=== PATIENT | male | born 1970 | race Caucasian/White ===

== ENCOUNTER 2024-06-03 09:16 | Inpatient (IN) | payer MEDICAID, SELFPAY ==
[2024-06-03] VITALS (21 sets, daily range): BP systolic 104–153; BP diastolic 67–124; PULSE 128–138; RESP 15–27; TEMP 35.2–37.6; O2SAT 91–100; BMI 31.7
--- NOTE | ~2024-06-03 | US_ITS ---
EXAMINATION: US venous doppler [facility] DATE: 06/03/2024 21:18 INDICATION: Lower limb swelling. TECHNIQUE: Grayscale ultrasound images without and with compression and Doppler ultrasound images of the bilateral lower extremity veins were obtained. COMPARISON: None. FINDINGS: The visualized portions of right common femoral vein, profunda (deep) femoral vein, femoral vein, pop liteal vein, peroneal veins, posterior tibial veins, and greater saphenous vein outflow are patent. The visualized portions of left common femoral vein, profunda femoral vein, femoral vein, popliteal v ein, peroneal veins, posterior tibial veins, and greater saphenous vein outflow are patent. IMPRESSION: 1. No deep venous thrombosis. Reviewed, dictated and finalized at location A. PENDENT LIVING INSTRUCTOR
--- NOTE | ~2024-06-03 | CT_ITS ---
EXAMINATION: CTA chest PE protocol DATE: 06/03/2024 20:53 INDICATION: Shortness of breath. Tachycardia. Edema. TECHNIQUE: Computed tomography angiography (CTA) of the chest was performed with 100 mL Omnipaque-350 intravenous contrast timed to evaluate the pulmonary arteries. Coronal maximum intensity projection 3D-reconstructions were created by the technologist. Automated exposure control and iterative reconst ruction technique were employed. The dose-length product was 694.14 mGy-cm. COMPARISON: Chest 06/03/2024 FINDINGS: There are small right and trace left pleural effusions. A calcified right lung nodule and c alcified right hilar and mediastinal lymph nodes are consistent with old granulomatous disease. There are mild bibasilar opacities in right upper lobe. There is mild dependent atelectasis bilaterally. C ardiomegaly is noted. No pericardial effusion. There are coronary artery calcifications. There is no pulmonary embolus. The liver demonstrates surface nodularity, consistent with cirrhosis. There is a p eriumbilical portacaval shunt. There is mild cervical and thoracic spondylosis. There is mild chronic anterior wedging of multiple thoracic vertebral bodies. IMPRESSION: 1. No pulmonary embolus. 2. Mild groundglass opacities in right lung upper lobe, consistent with mild pulmonary edema versus p neumonia. 3. Small right pleural effusion. 4. Cirrhosis of the liver with portal venous hypertension. Reviewed, dictated and finalized at location A. INE PROGRAMMER IMPRESSION: 1. No pulmonary embolus. 2. Mild groundglass opacities in right lung upper lobe, consistent with mild pu lmonary edema versus pneumonia. 3. Small right pleural effusion. 4. Cirrhosis of the liver with portal venous hypertension.
--- NOTE | ~2024-06-03 | XR_ITS ---
Clinical Indication: Shortness of breath PA and lateral views of the chest: Comparison: 08/26/2013 Findings: The lungs are clear, without evidence of focal consolidation or pleural effusion. Cardiome diastinal silhouette is unremarkable. Bones and soft tissues are unremarkable. Impression: Clear lungs. Reviewed, dictated and finalized at location . IC HOUSING INTERVIEWER Impression: Clear lungs.
--- NOTE | ~2024-06-03 | US_ITS ---
US renal BI 06/04/2024 08:00 Procedure: Realtime transabdominal ultrasound of the kidneys and bladder. Indication: Renal failure Comparison: No prior studies for comparison. Findings: Right renal echotexture is normal without hydronephrosis, contour deforming mass or renal c alculus. Right kidney measures 11.2 cm. The left kidney is surgically absent. The bladder is unremark able although not well distended. Right ureteral jet visualized. Bladder within normal limits. Impression: 1: Unremarkable renal ultrasound status post left nephrectomy. No stones, masses or hydronephrosis. Reviewed, dictated and finalized at location B. MER OPERATOR THREE KNIFE Impression: 1: Unremarkable renal ultrasound status post left nephrectomy. No stones, mass es or hydronephrosis.
--- NOTE | ~2024-06-03 | US_ITS ---
EXAMINATION: US abdomen limited DATE: 06/03/2024 14:00 INDICATION: Abnormal liver function tests. TECHNIQUE: Multiple grayscale and Doppler ultrasound images of the abdomen were obtained. COMPARISON: None FINDINGS: The visualized portions of the head, body, and tail of the pancreas are normal. The liver i s normal without focal lesion. There is antegrade flow in main portal vein. The gallbladder is normal in size. No gallstones. Gallbladder wall thickening is noted. There is no sonographic Todd's sign. The common duct is normal and measures 4 mm. IMPRESSION: 1. Gallbladder wall thickening, which may be seen with interstitial edema or chronic liver disease. Reviewed, dictated and finalized at location A. JOINER IMPRESSION: 1. Gallbladder wall thickening, which may be seen with interstitial edema or ch ronic liver disease.
--- NOTE | 2024-06-03 09:39 | ECG_ITS ---
Test Date: 2024-06-03 10:00:56 Measurements Intervals [place] Rate: 130 P: 0 DE: 0 QRS: 53 QRSD: 74 T: 44 QT: 331 QTc: 487 Interpretive Statements ATRIAL FLUTTER/TACHYCARDIA WITH RAPID VENTRICULAR RESPONSE DELAYED PRECORDIAL R/S TRANSITION BORDERLINE ST-T WAVE ABNORMALITY- INF/LAT LEADS BASELINE ARTIFACT- I, II, III, AVR, AVL, AVF ABNORMAL ECG No previous ECG available for comparison Electronically Signed On 06-03-2024 10:04:11 PROCESS TECHNICIAN by Salvador Maharaj D.O.
--- NOTE | 2024-06-03 09:41 | ED.GENADULT ---
HPI - General Adult General Chief complaint: Environmental Exposure <Sarah Bacon PA-C - Last Filed: 06/03/24 16:52> Stated complaint: SOB <Sarah Bacon PA-C - Last Filed: 06/03/24 16:52> Time Seen by Provider: 06/03/24 09:25 <Sarah Bacon PA-C - Last Filed: 06/03/24 16:52> Source: patient and EMS <Sarah Bacon PA-C - Last Filed: 06/03/24 16:52> Mode of arrival: EMS <ODILIA Rai Last Filed: 06/03/24 16:52> Limitations: no limitations <Sarah Bacon PA-C - Last Filed: 06/03/24 16:52> History of Present Illness HPI narrative: This is a 54-year-old male that presents to the emergency department for cold exposure. Patient slept in his car last night. He ran out of gas at some point in the night. It is currently 12 degrees outside. Patient reports pain/swelling in his lower extremities and that they feel very cold. He also reports feeling short of breath. Reports he drinks a 1/5 of whiskey every 2 days. He does not report he has had withdrawals before. Reports he uses methamphetamines. <Sarah Bacon PA-C - Last Filed: 06/03/24 16:52> Related Data Allergies/adverse reactions: Allergies Allergy/AdvReac Type Severity Reaction Status Date / Time aspirin Allergy Intermediate Rash Verified 06/03/24 10:48 <Sarah Bacon PA-C - Last Filed: 06/03/24 16:52> Review of Systems Review of Systems: CONSTITUTIONAL: Denies fever CARDIOVASCULAR: Reports chest pain, and edema. RESPIRATORY: Reports dyspnea. <ODILIA Rai Last Filed: 06/03/24 16:52> All systems reviewed & are unremarkable except as noted in HPI and below <ODILIA Rai Last Filed: 06/03/24 16:52> [facility] Past Medical History Medical History: Medical History Coronary artery disease Amphetamine abuse Alcohol abuse <ODILIA Rai Last Filed: 06/03/24 16:52> Social History Social History: Social History (Updated 06/03/24 @ 14:40 by Vonda Allen PA-C) Social History: Surrogate medical decision maker: Code status: Full code. Smoking status: Current every day smoker Alcohol intake: current Substance use: current Substance use type: amphetamines <Sarah Bacon PA-C - Last Filed: 06/03/24 16:52> Exam Narrative: GENERAL: Disheveled, well-nourished, and in no acute distress. HEAD: Normocephalic, atraumatic. EYES: PERRLA and EOMI. ENT: Nares clear, no rhinorrhea or epistaxis. Mucous membranes dry. Oropharynx without tonsillar hypertrophy exudate or other lesions. NECK: Supple. No adenopathy or masses. CHEST: Clear to auscultation. No respiratory distress. No wheezes rales or rhonchi HEART: Tachycardic, regular rhythm. No murmur heard. Normal peripheral pulses. ABDOMEN: Soft, nontender, nondistended, normal active bowel sounds. EXTREMITIES: Normal range of motion. Mild non-pitting lower extremity edema. DP pulses obtained via doppler SKIN: Warm, dry, no rash. NEURO: No focal deficits. Alert and oriented x3. PSYCH: Normal mood and affect <Sarah Bacon PA-C - Last Filed: 06/03/24 16:52> Course Course Emergency Course: patient updated on his workup and need for admission <Sarah Bacon PA-C - Last Filed: 06/03/24 16:52> [employer]TAIN STITCHER/PA Physician Supervision This visit was performed by both a physician and an APC. I performed all aspects of the MDM as documented. <Steve Li MD - Last Filed: 06/03/24 19:18> Consultations Consultation #1: Spoke with hospitalist about patient and workup who accepts admission <Sarah Bacon PA-C - Last Filed: 06/03/24 16:52> Date: 06/03/24 <Sarah Bacon PA-C - Last Filed: 06/03/24 16:52> Vital Signs Vital signs: Vital Signs Temperature 95.4 F L 06/03/24 09:26 Pulse Rate 128 H 06/03/24 09:26 Respiratory Rate 24 H 06/03/24 09:26 Blood Pressure 128/108 H 06/03/24 09:26 Pulse Oximetry 98 06/03/24 09:26 Oxygen Delivery Room Air 06/03/24 09:26 Temperature 98.2 F 06/03/24 19:00 Pulse Rate 137 H 06/03/24 19:00 Respiratory Rate 20 06/03/24 19:00 Blood Pressure 113/69 06/03/24 19:00 Pulse Oximetry 98 06/03/24 19:00 Oxygen Delivery Room Air 06/03/24 09:26 <Sarah Bacon PA-C - Last Filed: 06/03/24 16:52> Vital Signs Temperature 95.4 F L 06/03/24 09:26 Pulse Rate 128 H 06/03/24 09:26 Respiratory Rate 24 H 06/03/24 09:26 Blood Pressure 128/108 H 06/03/24 09:26 Pulse Oximetry 98 06/03/24 09:26 Oxygen Delivery Room Air 06/03/24 09:26 Temperature 98.2 F 06/03/24 19:00 Pulse Rate 137 H 06/03/24 19:00 Respiratory Rate 20 06/03/24 19:00 Blood Pressure 113/69 06/03/24 19:00 Pulse Oximetry 98 06/03/24 19:00 Oxygen Delivery Room Air 06/03/24 09:26 <Steve Li MD - Last Filed: 06/03/24 19:18> Medical Decision Making MDM Narrative Medical decision making narrative: Patient presents to the ER for cold exposure. Patient tachycardic, hypertensive upon arrival. Initial temperature 95.4. Patient placed on yanira hugger and given warmed IV fluids. Temperature has normalized. CBC with leukocytosis to 13. Metabolic panel with evidence of dehydration. Urine without evidence of infection. Patient's drug screen is positive for amphetamines. Alcohol level is negative. He does report drinking daily. Reports he has not had withdrawals in the past. Patient noted to have abnormal urethral discharge on insertion of eric catheter. Trichomonas is positive. This was treated. Chlamydia and gonorrhea are negative. Chest x-ray without acute cardiopulmonary abnormality. patient updated on his workup and need for admission. Spoke with hospitalist about patient and workup who accepts admission <Sarah Bacon PA-C - Last Filed: 06/03/24 16:52> Differential Diagnosis Differential Diagnosis: Dehydration, rhabdomyolysis, drug abuse, alcohol abuse, alcohol withdrawal, acute kidney failure, urinary tract infection <Sarah Bacon PA-C - Last Filed: 06/03/24 16:52> Vital Signs Vital Signs: Vital Signs Temperature 95.4 F L 06/03/24 09:26 Pulse Rate 128 H 06/03/24 09:26 Respiratory Rate 24 H 06/03/24 09:26 Blood Pressure 128/108 H 06/03/24 09:26 Pulse Oximetry 98 06/03/24 09:26 Oxygen Delivery Room Air 06/03/24 09:26 Temperature 98.2 F 06/03/24 19:00 Pulse Rate 137 H 06/03/24 19:00 Respiratory Rate 20 06/03/24 19:00 Blood Pressure 113/69 06/03/24 19:00 Pulse Oximetry 98 06/03/24 19:00 Oxygen Delivery Room Air 06/03/24 09:26 <Sarah Bacon PA-C - Last Filed: 06/03/24 16:52> Vital Signs Temperature 95.4 F L 06/03/24 09:26 Pulse Rate 128 H 06/03/24 09:26 Respiratory Rate 24 H 06/03/24 09:26 Blood Pressure 128/108 H 06/03/24 09:26 Pulse Oximetry 98 06/03/24 09:26 Oxygen Delivery Room Air 06/03/24 09:26 Temperature 98.2 F 06/03/24 19:00 Pulse Rate 137 H 06/03/24 19:00 Respiratory Rate 20 06/03/24 19:00 Blood Pressure 113/69 06/03/24 19:00 Pulse Oximetry 98 06/03/24 19:00 Oxygen Delivery Room Air 06/03/24 09:26 <Steve Li MD - Last Filed: 06/03/24 19:18> Lab Data Lab results reviewed: Yes I reviewed the patient's lab results. <ODILIA Rai Last Filed: 06/03/24 16:52> Result diagrams: 06/03/24 14:18 06/03/24 14:17 <Sarah Bacon PA-C - Last Filed: 06/03/24 16:52> Labs: Lab Results 06/03/24 06/03/24 Range/Units 09:40 10:02 WBC 13.3 H (4.5-10.0) K/mm3 RBC 4.55 L (4.6-6.20) M/mm3 Hgb 14.8 (14.0-18.0) g/dL Hct 47.0 (42.0-52.0) % MCV 103.3 H (80-100) fl MCH 32.5 (26-34) pg MCHC 31.5 L (32-36) g/dl RDW 14.6 H (11.5-14.5) % Plt Count 278 (150-375) k/mm3 MPV 9.7 (7.4-10.4) fl Immature Gran % (Auto) 0.4 (0-0.5) % Neut % (Auto) 85.3 H (45.5-73.1) % Lymph % (Auto) 6.3 L (18.3-44.2) % Wallace % (Auto) 7.5 (2.6-8.5) % Eos % (Auto) 0.0 (0-4.4) % Baso % (Auto) 0.5 (0.2-1.2) % Lymph # (Auto) 0.83 L (0.9-3.2) K/mm3 Wallace # (Auto) 1.0 H (0.1-0.6) K/mm3 Eos # (Auto) 0.0 (0-0.3) K/mm3 Baso # (Auto) 0.1 (0.0-0.1) K/mm3 Abs Immat Gran (auto) 0.05 H (0.00-0.031) K/mm3 Absolute Neuts (auto) 11.3 H (1.3-6.7) K/mm3 Absolute Nucleated RBC 0.000 (0.0-0.012) K/mm3 Nucleated RBC % 0.0 (0.0-0.2) % PT 17.8 H (11.1-14.7) Seconds INR 1.4 APTT 38.1 H (22.3-36.8) Seconds Sodium 136 L (137-145) mmol/L Potassium 4.7 (3.4-5.0) mmol/L Chloride 104 (98-107) mmol/L Carbon Dioxide 12 L (22-30) mmol/L Anion Gap 20 H (4-12) mmol/L BUN 33 H (9-20) mg/dL Creatinine 1.52 H (0.7-1.3) mg/dL Estim Creat Clear Calc 56 ml/min Estimated GFR 48 L (59 - ) Glucose 70 (65-110) mg/dL Lactic Acid 6.0 H* (0.7-2.0) mmol/L Calcium 9.4 (8.4-10.2) mg/dL Total Bilirubin 3.4 H (0.2-1.3) mg/dL AST 62 H (17-59) U/L ALT 125 H (6-50) U/L Alkaline Phosphatase 112 (38-126) U/L Total Creatine Kinase 252 H (55-170) U/L Troponin I 0.015 (0.000-0.034) ng/mL NT-Pro-B Natriuret Pep 5230 H (19.9-100) pg/mL Total Protein 8.0 (6.3-8.2) g/dL Albumin 4.4 (3.5-5.1) g/dL Urine Color Dark yellow (Yellow) Urine Appearance Clear (Clear) Urine pH 5.0 (5.0-9.0) Ur Specific Equality 1.021 (1.001-1.035) Urine Protein 2+ H (Negative) mg/dL Urine Glucose (UA) Negative (Negative) mg/dL Urine Ketones Trace H (Negative) mg/dL Ur Blood (Man) Negative (Negative) Urine Nitrate Negative (Negative) Urine Bilirubin 1+ H (Negative) Urine Urobilinogen 1.0 (<2.0) mg/dL Leukocyte Esterase Rfl Negative (Negative) CHAN/UL Urine RBC 0-2 (0-2) /hpf Urine WBC 6-10 H (0-3) /hpf Ur Squamous Epith Cells None seen (Few) /hpf Urine Bacteria None seen /hpf Urine Casts >20 Urine Opiates Screen Negative (Negative) Urine Methadone Screen Negative (Negative) Ur Barbiturates Screen Negative (Negative) Ur Phencyclidine Scrn Negative (Negative) Ur Amphetamine Screen Positive A (Negative) U Benzodiazepines Scrn Negative (Negative) Urine Cocaine Screen Negative (Negative) U Cannabinoids Screen Negative (Negative) Ethyl Alcohol < 10 (<10) mg/dL C. trachomatis (PCR) Not detected (NOT DETECTE) N. gonorrhoeae (PCR) Not detected (NOT DETECTE) T. vaginalis (PCR) Detected A (NOT DETECTE) <Sarah Bacon PA-C - Last Filed: 06/03/24 16:52> Lab Results 06/03/24 06/03/24 Range/Units 09:40 10:02 WBC 13.3 H (4.5-10.0) K/mm3 RBC 4.55 L (4.6-6.20) M/mm3 Hgb 14.8 (14.0-18.0) g/dL Hct 47.0 (42.0-52.0) % MCV 103.3 H (80-100) fl MCH 32.5 (26-34) pg MCHC 31.5 L (32-36) g/dl RDW 14.6 H (11.5-14.5) % Plt Count 278 (150-375) k/mm3 MPV 9.7 (7.4-10.4) fl Immature Gran % (Auto) 0.4 (0-0.5) % Neut % (Auto) 85.3 H (45.5-73.1) % Lymph % (Auto) 6.3 L (18.3-44.2) % Wallace % (Auto) 7.5 (2.6-8.5) % Eos % (Auto) 0.0 (0-4.4) % Baso % (Auto) 0.5 (0.2-1.2) % Lymph # (Auto) 0.83 L (0.9-3.2) K/mm3 Wallace # (Auto) 1.0 H (0.1-0.6) K/mm3 Eos # (Auto) 0.0 (0-0.3) K/mm3 Baso # (Auto) 0.1 (0.0-0.1) K/mm3 Abs Immat Gran (auto) 0.05 H (0.00-0.031) K/mm3 Absolute Neuts (auto) 11.3 H (1.3-6.7) K/mm3 Absolute Nucleated RBC 0.000 (0.0-0.012) K/mm3 Nucleated RBC % 0.0 (0.0-0.2) % PT 17.8 H (11.1-14.7) Seconds INR 1.4 APTT 38.1 H (22.3-36.8) Seconds Sodium 136 L (137-145) mmol/L Potassium 4.7 (3.4-5.0) mmol/L Chloride 104 (98-107) mmol/L Carbon Dioxide 12 L (22-30) mmol/L Anion Gap 20 H (4-12) mmol/L BUN 33 H (9-20) mg/dL Creatinine 1.52 H (0.7-1.3) mg/dL Estim Creat Clear Calc 56 ml/min Estimated GFR 48 L (59 - ) Glucose 70 (65-110) mg/dL Lactic Acid 6.0 H* (0.7-2.0) mmol/L Calcium 9.4 (8.4-10.2) mg/dL Total Bilirubin 3.4 H (0.2-1.3) mg/dL AST 62 H (17-59) U/L ALT 125 H (6-50) U/L Alkaline Phosphatase 112 (38-126) U/L Total Creatine Kinase 252 H (55-170) U/L Troponin I 0.015 (0.000-0.034) ng/mL NT-Pro-B Natriuret Pep 5230 H (19.9-100) pg/mL Total Protein 8.0 (6.3-8.2) g/dL Albumin 4.4 (3.5-5.1) g/dL Urine Color Dark yellow (Yellow) Urine Appearance Clear (Clear) Urine pH 5.0 (5.0-9.0) Ur Specific Equality 1.021 (1.001-1.035) Urine Protein 2+ H (Negative) mg/dL Urine Glucose (UA) Negative (Negative) mg/dL Urine Ketones Trace H (Negative) mg/dL Ur Blood (Man) Negative (Negative) Urine Nitrate Negative (Negative) Urine Bilirubin 1+ H (Negative) Urine Urobilinogen 1.0 (<2.0) mg/dL Leukocyte Esterase Rfl Negative (Negative) CHAN/UL Urine RBC 0-2 (0-2) /hpf Urine WBC 6-10 H (0-3) /hpf Ur Squamous Epith Cells None seen (Few) /hpf Urine Bacteria None seen /hpf Urine Casts >20 Urine Opiates Screen Negative (Negative) Urine Methadone Screen Negative (Negative) Ur Barbiturates Screen Negative (Negative) Ur Phencyclidine Scrn Negative (Negative) Ur Amphetamine Screen Positive A (Negative) U Benzodiazepines Scrn Negative (Negative) Urine Cocaine Screen Negative (Negative) U Cannabinoids Screen Negative (Negative) Ethyl Alcohol < 10 (<10) mg/dL C. trachomatis (PCR) Not detected (NOT DETECTE) N. gonorrhoeae (PCR) Not detected (NOT DETECTE) T. vaginalis (PCR) Detected A (NOT DETECTE) <Steve Li MD - Last Filed: 06/03/24 19:18> Imaging Data Radiologist's impression: ITS Impressions Chest X-Ray 06/03/24 11:14 Impression: Clear lungs. <Sarah Bacon PA-C - Last Filed: 06/03/24 16:52> Critical Care Time Critical Care Time Critical Care Time: Yes <Sarah Bacon PA-C - Last Filed: 06/03/24 16:52> Total Critical Care Time: 35 <Sarah Bacon PA-C - Last Filed: 06/03/24 16:52> Discharge Plan Discharge Clinical Impression: Alcohol abuse, Amphetamine abuse, Lactic acid acidosis, Dehydration Cold exposure Qualifiers: Encounter type: initial encounter Qualified Code(s): T69.9XXA - Effect of reduced temperature, unspecified, initial encounter <Sarah Bacon PA-C - Last Filed: 06/03/24 16:52> Patient Disposition: Still a Patient <Sarah Bacon PA-C - Last Filed: 06/03/24 16:52> Condition: Serious <Sarah Bacon PA-C - Last Filed: 06/03/24 16:52>
--- OUTSIDE RECORDS SUMMARY | 2024-06-03 09:43 | XMS_ITS | Continuity of Care Document ---
Author Organization [facility] Address [address] [place] [address] Phone Care Team Providers Care Rn Lvn Name Role Phone Ed Grande MD Unavailable Unavailable Allergies, Adverse Reactions, Alerts Substance Reaction Status Criticality adhesive tape redness Active No Information aspirin Hives Active No Information Medications Medication Instructions Dosage Effective Dates (start - stop) Status Comments hydrocodone 7.5 mg-acetaminophen 325 mg tablet take 1-2 tablet by oral route every 6 hours as needed for pain - Active Klonopin 0.5 mg tablet take 1 tablet by oral route 2 times every day NEEDED FOR ANXIETY. - Active Wellbutrin XL 150 mg 24 hr tablet, extended release take 1 tablet by oral route every day 150 MG - Active Wellbutrin XL 300 mg 24 hr tablet, extended release take 1 tablet by oral route every day 300 MG - Active hydrochlorothiazide 25 mg tablet take 1 tablet by oral route every day 25 MG - Active Depend Real Fit Brief Men L/XL Wear daily as needed. - Active Procedures Procedure Date OFFICE/OUTPATIENT VISIT, EST OFFICE/OUTPATIENT VISIT, EST OFFICE/OUTPATIENT VISIT, EST OFFICE/OUTPATIENT VISIT, EST OFFICE/OUTPATIENT VISIT, NEW Advance Directives Directive Yes / No Effective Date File Name No Information Encounters Encounter Description Practice Location Reason(s) For Visit Diagnoses Date Provider Providers Copied on Encounter [facility], [address] [place] [address], [id number], tel:[phone] [facility] No Information 4-201 7 Harjinder Ward. [address] [place] [address], [place], [address], [place]. tel: [phone] [facility], [address] [place] [address], [facility], [place] tel: [phone] [facility] No Information 0-201 7 Pillo Chioma. [address], [place], [facility], [place]. tel: [phone] [facility], [address] [place] [address], [facility], [place] tel: [phone] [place] No Information 3 0-201 7 Pillo Chioma. [address], [facility], [place]. tel: [phone] [facility], [address] [place] [address], [facility], [place] tel: [phone] [place] No Information Jul-0 5-201 7 Pillo Chioma. [address], [place], [facility], [place]. tel: [phone] [facility], [address] [place] [address], [facility], [place] tel: [phone] [place] F/U (chief complaint) Anxiety (chief complaint) AnxietyBilateral chronic knee painHepatitis C virus infection without hepatic coma, unspecified chronicity Jun-2 2-201 7 Pillo Chioma. [address] [place] [address], [facility], [place]. tel: [phone] [facility], [address] [place] [address], [facility], [place] tel: [phone] [place] F/U (chief complaint) Lower abdominal pain Jun- 5-201 7 Pillo Chioma. [address], [place], [facility], [place]. tel: [phone] OFFICE/OUTPA TIENT VISIT, EST [facility], [address] [place] [address], [facility], [place] tel: [phone] [facility] staple removal (chief complaint) Cellulitis of other specified siteRemoval of stapleStatus post surgery Mar-2 9-201 6 Pillo Chioma. [address] [place], [address], [place]. tel: [phone] OFFICE/OUTPA TIENT VISIT, [facility], [address] [place] [address], [address], [place] tel: [phone] [place] [facility] FOLLOW UP (chief complaint) Urinary tract infection with hematuria, site unspecifiedUpper respiratory tract infection, unspecified typeIncontinence of feces, unspecified fecal incontinence type Dec-0 6-201 6 Pillo Chioma. [address] [place], [address], [place]. tel: [phone] OFFICE/OUTPA TIENT VISIT, [facility], [address] [place] [address], [facility], [place] tel: [phone] [place] PHYSICAL (chief complaint) Mass of kidneyPre-operati ve general physical examinationUpper respiratory tract infection, unspecified type Nov-0 8-201 6 Pillo Chioma. [address] [place], [address], [place]. tel: [phone] [facility], [address] [place] [address], [address], [place] tel: [phone] [place] Mass of kidney Nov-0 4-201 6 Pillo Chioma. [address] [place], [address], [place]. tel: [phone] OFFICE/OUTPA TIENT VISIT, [facility], [address] [place] [address], [address], [place] tel: [phone] [place] FOLLOW UP (chief complaint) Vision loss, bilateralAnxietyM ass of kidneyRight anterior knee painIrritable bowel syndrome with diarrhea Dec-2 9-201 6 Pillo Chioma. [address] [place], [address], [place]. tel: [phone] [facility], [address] [place] [address], [address], [place] tel: [phone] [place] Mass of kidneyHepatitis C virus infection without hepatic coma, unspecified chronicity Sep-2 6 Pillo Chioma. [address] [place], [address], [place]. tel: [phone] OFFICE/OUTPA TIENT VISIT, [facility], [address] [place] [address], [place], [address], [place] tel:[phone] [place] EST CARE (chief complaint) Establishing care with new doctor, encounter forRight knee pain, unspecified chronicityHepatit is C virus infection without hepatic coma, unspecified chronicityHomeles s single personParanoid disorderAnxietyMa ss of kidney Sep-1 6 Pillosapna Farleycie. [address] [place], [address], [place]. tel: [phone] Family History Family Member Type Diagnosis Age At Onset Sister Problem (finding) Obesity Father Problem (finding) Cardiovascular disease Maternal grandmother Problem (finding) Cardiovascular disease Maternal grandfather Problem (finding) Cardiovascular disease Brother Problem (finding) alcoholism Brother Problem (finding) Hearing deficiency Sister Problem (finding) Diabetes mellitus Father Problem (finding) alcoholism Father Problem (finding) stroke Mother Problem (finding) Mental illness Mother Problem (finding) Cardiovascular disease Sister Problem (finding) hypercholesterolemia Mother Problem (finding) depression Sister Problem (finding) Cardiovascular disease Payers Payer name Insurance type Covered alliance party ID Authoriza tion(s) No Information Social History Type Description Quantity Date Captured Comments Sex Male Smoking Status No Information Chief Complaint And Reason For Visit No Information Reason For Referral Reason For Referral No Information Plan Of Treatment Date Type Action Status Referral Ordered: CT ABD & PELVIS W/O CONTRAST ordered Referral Ordered: ELECTROCARDIOGRAM, COMPLETE ordered Referral Ordered: CHEST X-RAY - 2 View Frontal Lateral Bilateral ordered Referral Ordered: Urology (related to Mass of kidney) ordered Referral Ordered: Referrals: Orthopedic Surgery. Location: [facility]. Evaluate and treat ordered Referral Ordered: Referrals: Urology. Location: Dr. Rose Brooks. Evaluate and treat ordered Referral Ordered: Referrals: Ophthalmology. Location: [place] or [place]. Evaluate and treat Appointment date/timeframe: 01/19/2016 ordered Referral Ordered: CT ABDOMEN W/O & W/DYE Bilateral Kidney ordered Referral Ordered: Referrals: Infectious Disease. Evaluate and treat Appointment date/timeframe: 03/26/2016 ordered Referral Ordered: X-RAY EXAM OF RIGHT KNEE, 3 Right ordered Future Order: Lab Order URINALYS IS WITH REFLEX CULTURE ([id number]), Ordered on: Ordered Future Order: Lab Order CBC W/ D iff ([id number]), Ordered on: Ordered Future Order: Lab Order CMP ([id number]), Or dered on: Ordered Future Order: Lab Order URINALYS IS WITH REFLEX CULTURE ([id number]), Ordered on: Ordered History Of Present Illness Encounter Date Complaint History Of Prese nt Illness [facility], he just had it this morning. Anxiety (comments) Pt presents t o the clinic to discuss renewing his current medications and adding something for anxiety. Pt states that he is stressed with his current living situation but states that Butch the cloth presser of the home and homeless prison has been aggitated lately and getting in his face yelling at him. PT states that when he does this he goes back to his room. PT states that Butch has wrote 4 letters telling him that he is evicting him unless he puts a restraining order against his brother. Pt states that he went to the courthouse and placed a restraining order against his brother as requested by Butch but then states a couple of weeks later, Butch tells him to drop the OP so he can take him back and forth to work. Norberto states that he is biding his time until he goes to court today to see if he gets probation for his previous failure to register and if he does, he is going to borrow money from a friend and get a ride to [place] to stay at [employer] until he can get on a [employer] bus or amtrak and go back to [place] where he feels more comfortable. Pt states that this will all by July 28. PT states that he feels Butch is going to evict him as soon as his case has been dropped and he gets probation. Pt states that he has things planned out and has a way finacially to get there. Pt denies suicidal or homicidal ideations. Pt denies any hallucinations. Pt states that he just needs something to relax him and allow him to be able to deal with the stress better than he currently is. Anxiety This is a follow up visit. The patient reports functioning as very difficult. The patient presents with depressed mood, difficulty falling asleep, diminished interest or pleasure, excessive worry, fatigue, loss of appetite and restlessness but denies anxious/fearful thoughts, compulsive thoughts, decreased need for sleep, difficulty concentrating, difficulty staying asleep, easily startled, feelings of guilt, feelings of invulnerability, increased energy, hallucinations,decreased libido, increased libido, paranoia, poor judgment, racing thoughts or thoughts of or suicide. The patient's risk factors include alcoholism, childhood abuse or neglect, chronic illness, of a friend or loved one, drug abuse, family history of depression, family history of anxiety, financial worries, history of depression, history of suicidal attempts, social isolation, unemployment and victim of abuse or violence. The patient's risk factors exclude family history of bipolar disorder and relationship problems. The Anxiety is aggravated by conflict or stress and drug use but not with alcohol use, lack of sleep, social interactions, traumatic memories or winter season. The patient's relieving factors are drugs, exercise, sunlight and warm weather.The patient's symptoms are not relieved by alcohol. The Anxiety is associated with chronic pain. The patient denies any headache, irritability, nausea, sweating, trembling, urinary frequency, vomiting and weight gain. Additional information: Scored 18 (moderatley/severely depressed) on PHQ9 scale in office today. He is extremely stressed by his landlord. He is planning to move back to [place]. F/U staple removal Pt here for stap le removal, [facility] has surgery on 03/26/16 at [facility]. [facility] has had some greeish drainage to isadora at times. [facility] staple sites itch. staple removal (comments) Pt pre sents to the clinic to have his isadora removed from his surgical site. Pt states that he had surgery on 03/26/16 for a partial nephrectomy. Pt is unable to obtain transportation to [place]. I called and spoke with Dr. Valle's nurse yesterday and she states they are ok with me removing the isadora. The pt has 11 isadora to remove. Pt states purulent drainage coming the sites. PT denies fever, chills, n,v,d. ER FOLLOW UP Pt presents for an ER follow up. Pt was seen in the [place] [facility] on 03/16/2016 with high fever and diarrhea. Pt was diagnosed with UTI, fever, and bronchitis. Pt was put on Levaquin for 7 days. He will finished with that anitbiotic tomorrow, 03/21/2016. PHYSICAL Pt presents for a pre op surgery. Pt states Dr. Valle will be doing robotic surgery on the pt on 03/26/2016 at 9:30AM at [facility] [place]. PHYSICAL (comments) PT presents to the clinic for surgical clearence for a kidney resection due to a renal mass. Pt denies any fever, chills, n,v,d. PT states that he has had a runny nose recently. FOLLOW UP (comments) Pt presents to the office for a follow-up. Pt states that the wellbutrin is working but he feels he needs to go up on it. He denies suicidal or homicidal ideations. Pt states that he is following his appts with [facility] and has an appt on Feb 09 in [place]. Pt states he is currently trying for disability for his mental illness and vision loss. Will refer pt to Optho for evaluation. Pt denies any CP, SOB, fever, chills, n,v,d. Pt signed a release form for us today to receive his records from [facility]. Awaiting records for review. FOLLOW UP Pt presents for a follow up for his medication. Pt states he feels he needs his Wellbrutrin increased. Pt states he used to take the max dose two years ago. [facility]. He states that he has been living off the grid in [place] and has been out of meds. He is coming of the grid and trying to get social security for bad vision. He has tunnel vision. EST CARE (comments) Pt presents to the clinic to establish care. Pt states that he has been living off the grid for the past 3 years in the [facility]. Pt states that he is back here due to he had to have hernia surgery and came to recupperate with his brother in [place]. Pt states he is currently living in the homeless prison in [place]. Pt states that he is currently trying to get on disability. PT states that he was kicked off of disability because he was locked up for over a year. Pt states that he is seeing the medical center for mental health. Pt states concerns over declining vision. Pt states concerns over vision, mental health, a possible mass on the kidney. (Pt states this was discovered on a CT scan at [facility]). Pt states he is Hep C positive. PMH Hep C2 MIs Suicide attempts x 3 last in 1999Social anxietyParanoid disorderSurgeries Left inguinal hernia repairMedications - noneOTC - tylenol PM Allergies - Aspirin (Hives, blisters)Tobacco - 1 pack a dayAlcohol - Occassional Illicit drug - weed occassionalFamily HXFather - alcholism, drug abuse, and cardiacMother - Depression, MIBrothers- Alchoholic, hearing impairedSisters- Cancer, CADPaternal grandfather - UnknownPaternal grandmother - unknownMaternal grandfather - MIMaternal grandmother - unknown Functional Status Date Functional Assessmen t No Information Instructions Date Instruction Additional Infor hilario Take medication as directed. Rel ated to Anxiety Observe for medication side effe ct Related to Anxiety Encouraged coping activities Rel ated to Anxiety Remove yourself from the situation immediately. Related to Anxiety Call 911 if needed. Related to A nxiety Call office with any acute michel rns. Related to Anxiety Rest, elevation, cold pack Relat ed to Bilateral chronic knee pain Observe for worsening s/s Relate d to Bilateral chronic knee pain DO NOT DRINK ALCOHOL. Related to Hepatitis C virus infection without hepatic coma, unspecified chronicity medical claims specialist deniz escalante to make an appt. Related to Hepatitis C virus infection without hepatic coma, unspecified chronicity Take medication as d irected and only as needed. Related to Bilateral chronic knee pain Take medication as directed. Rel ated to Cellulitis of other specified site Observe for worsening s/s. Relat ed to Cellulitis of other specified site Wash area with warm, soapy water . Related to Cellulitis of other specified site Keep area clean and dry. Related to Cellulitis of other specified site Call office with any acute michel rns. Related to Cellulitis of other specified site Allow steri strips t o fall off on their own. Related to Removal of staple Trim as needed. Related to Remov al of staple Observe for worsening s/s. Relat ed to Urinary tract infection with hematuria, site unspecified Continue medication as directed. Related to Urinary tract infection with hematuria, site unspecified Have urine re-tested on saturday. Related to Urinary tract infection with hematuria, site unspecified Call office with any acute michel rns. Related to Urinary tract infection with hematuria, site unspecified Use depends as direc nilam and as needed. Related to Incontinence of feces, unspecified fecal incontinence type Take medication as directed. Rel ated to Upper respiratory tract infection, unspecified type Increase activity. Related to Pr e-operative general physical examination Quit smoking. Related to Pre-o perative general physical examination Follow instructions from surgeon with regards to your surgery. Related to Pre-operative general physical examination Observe for worsening s/s. Relat ed to Upper respiratory tract infection, unspecified type Call office with any acute michel rns. Related to Upper respiratory tract infection, unspecified type Pt cleared for surgery on . Related to Pre-operative general physical examination Observe for worsening s/s Relate d to Right anterior knee pain Rest, elevation, cold pack Relat ed to Right anterior knee pain Will call with CT results. Relat ed to Mass of kidney Observe for worsening s/s. Relat ed to Anxiety Call office with any acute michel rns. Related to Anxiety Encouraged coping activities Rel ated to Anxiety Observe for medication side effe ct Related to Anxiety Increase medication to 300mg Marlys ly. Related to Anxiety Attend scheduled appts. Related to Vision loss, bilateral Will refer to Optho. Related to Vision loss, bilateral Take medication as directed. Rel ated to Right anterior knee pain Referral placed for Dr. Jerry Tariq lated to Right anterior knee pain Attend scheduled appt. Related t o Right anterior knee pain Take medication as directed. Rel ated to Irritable bowel syndrome with diarrhea Avoid processed foods. Related t o Irritable bowel syndrome with diarrhea Increase fiber intake. Related t o Irritable bowel syndrome with diarrhea Observe for worsening s/s. Relat ed to Irritable bowel syndrome with diarrhea Call office with any acute michel rns. Related to Irritable bowel syndrome with diarrhea Take medication as directed. Rel ated to Paranoid disorder Call office with any acute michel rns. Related to Paranoid disorder Follow up with Parvez moody as dire cted. Related to Paranoid disorder Take medication as directed. Rel ated to Anxiety Observe for medication side effe ct Related to Anxiety Encouraged coping activities Rel ated to Anxiety Follow up in one month. Related to Establishing care with new doctor, encounter for Continue treatment w denver Mackay. Related to Establishing care with new doctor, encounter for Rest, elevation, cold pack Relat ed to Right knee pain, unspecified chronicity Observe for worsening s/s Relate d to Right knee pain, unspecified chronicity Have xray completed today. Relat ed to Right knee pain, unspecified chronicity Have labs completed today. Relat ed to Hepatitis C virus infection without hepatic coma, unspecified chronicity Assessments Type Assessment Date No Information Patient Care Teams Name Effective Dates (start - stop) Status Members No Information
--- OUTSIDE RECORDS SUMMARY | 2024-06-03 09:43 | XMS_ITS | Continuity of Care Document ---
Author Organization [facility] Address [address] [place] [address] Phone Care Team Providers Care Funeral Director Name Role Phone Unavailable Unavailable Unavailable Allergies, Adverse Reactions, Alerts Substance Reaction Status Criticality aspirin Hives(moderate) Active No Informati on Procedures Procedure Date Alcohol and/or drug services; group coun seling by a clinician Alcohol and/or drug services; case manag ement Alcohol and/or drug services; group coun seling by a clinician Advance Directives Directive Yes / No Effective Date File Name No Information Encounters Encounter Description Practice Location Reason(s) For Visit Diagnoses Date Provider Providers Copied on Encounter [facility] , [address] [facility], [place], [place], [id number], tel:[phone] [facility] No Information 7 No Information [facility] , [address] [place] [address], [id number], tel:[phone] [facility] No Information Management Case. [address], [id number], . tel:[phone] Referring Provider: Case Management , [address], [address] . tel:[phone] sulting Provider: Case Management , [facility] [address] [place] [address], [address] . tel:[phone] [facility] , [address] [place] [address], [id number], tel:[phone] [facility] No Information Management Case. [address], [id number], . tel:[phone] Referring Provider: Case Management , [address], [place], [address] . tel:[phone] sulting Provider: Case Management , [address], [place], [address] . tel:[phone] [facility] , [address], [place], [place], [id number], tel:[phone] [facility] Preventive exam (IM) (chief complaint)In guinal Hernia (chief complaint) No Information [address] Management Case. [address], [place], [place], [id number], [place]. tel:[phone] Referring Provider: Rashida López, [address], [place], [address] . tel:[phone] Family History Family Member Type Diagnosis Age At Onset Sister Problem (finding) diabetes mellitus type 2 Sister Problem (finding) coronary arterioscleros is Mother Problem (finding) myocardial inf arct in first degree female relative less than 65 years of age (Cause Of ) 33 Father Problem (finding) Myocardial infarction ( Cause Of ) Mother Problem (finding) Payers Payer name Insurance type Covered republican ID Authoriza tion(s) No Information Social History Type Description Quantity Date Captured Comments Sex Male Smoking Status No Information Chief Complaint And Reason For Visit No Information Reason For Referral Reason For Referral No Information History Of Present Illness Encounter Date Complaint History Of Prese nt Illness Preventive exam (IM) Men's preve ntive visit. Pt seen at [facility]; sleeping at [address] [place] [address]. Pt last had a PCP 2 years ago in [place]. Pt needs to est care, new to [facility]. Main concern is inguinal hernia that i've had for years but now will not go back in .PMH: 2 MIs in 1996, visually impaired since . arthritis. Has not been on meds for cardiovasc health in 2 years.BH: paranoid personality disorder , received trazadone, abilify, and wellbutrin. Had medical mj card in [facility] for chronic arthritis. Inguinal Hernia Relieving factor s include change in position. Functional Status Date Functional Assessmen t No Information Instructions Date Instruction Additional Infor mation No Information Assessments Type Assessment Date No Information Patient Care Teams Name Effective Dates (start - stop) Status Members No Information
[2024-06-03 09:46] LABS: Basophils Absolute Auto 0.1 K/mm3 (0.0-0.1); Basophils Percent Auto 0.5 % (0.2-1.2); Hemoglobin 14.8 g/dL (14.0-18.0); Immature Granulocyte Absolute 0.05 K/mm3 (0.00-0.031); Immature Granulocyte Percent A 0.4 % (0-0.5); Lymphocytes Absolute Auto 0.83 K/mm3 (0.9-3.2); Lymphocytes Percent Auto 6.3 % (18.3-44.2); Mean Corpuscular HGB Conc 31.5 g/dl (32-36); Mean Corpuscular Hemoglobin 32.5 pg (26-34); Mean Corpuscular Volume 103.3 fl (80-100); Mean Platelet Volume 9.7 fl (7.4-10.4); Monocytes Percent Auto 7.5 % (2.6-8.5); Neutrophils Absolute Auto 11.3 K/mm3 (1.3-6.7); Neutrophils Percent Auto 85.3 % (45.5-73.1); Platelet Count Result 278 k/mm3 (150-375); Red Blood Count 4.55 M/mm3 (4.6-6.20); Red Cell Distribution Width 14.6 % (11.5-14.5); White Blood Count 13.3 K/mm3 (4.5-10.0)
[2024-06-03] MEDS: MORPHINE SULFATE (*CRX) 4 MG/ML INJ IV PUSH (09:54)
[2024-06-03] MEDS: SODIUM CHLORIDE 0.9% IV 2,000 ML 999 ML (09:55)
[2024-06-03] MEDS: ONDANSETRON INJ 4 MG/2 ML VIAL IV PUSH (09:55)
[2024-06-03 10:02] LABS: Ethanol < 10 mg/dL (<10)
[2024-06-03 10:10] LABS: Albumin Level 4.4 g/dL (3.5-5.1); Alkaline Phosphatase 112 U/L (38-126); Anion Gap 20 mmol/L (4-12); Aspartate Amino Transferase 62 U/L (17-59); Bilirubin,Total 3.4 mg/dL (0.2-1.3); Blood Urea Nitrogen 33 mg/dL (9-20); Calcium 9.4 mg/dL (8.4-10.2); Carbon Dioxide 12 mmol/L (22-30); Chloride 104 mmol/L (98-107); Creatine Kinase 252 U/L (55-170); Estimated CRCL calculation 56 ml/min; Estimated Glomerular Filt Rate 48; Glucose 70 mg/dL (65-110); Potassium 4.7 mmol/L (3.4-5.0); Sodium 136 mmol/L (137-145)
[2024-06-03 10:11] LABS: INR 1.4; Prothrombin Time 17.8 Seconds (11.1-14.7)
[2024-06-03 10:12] LABS: Partial Thromboplastin Time 38.1 Seconds (22.3-36.8)
[2024-06-03 10:19] LABS: Add Urine Microscopic? YES; Appearance Urine Clear (Clear); Bacteria Urine None Seen /hpf; Bilirubin Urine 1+ (Negative); Blood Urine Negative (Negative); Color Urine Dark Yellow (Yellow); Glucose Urine UA Negative (Negative); Ketones Urine Trace mg/dL (Negative); Leukocyte Esterase Ur Negative LEU/UL (Negative); Nitrate Urine Negative (Negative); Non Pathogenic Casts >20; Protein Urine 2+ mg/dL (Negative); RBC Urine 0-2 /hpf (0-2); Specific Grav Ur 1.021 (1.001-1.035); Squamous Epithelial Cell Urine None Seen /hpf (Few)
[2024-06-03 10:26] LABS: Barbiturate Screen Urine Negative (Negative); Benzodiazepines Screen Urine Negative (Negative)
[2024-06-03 10:28] LABS: Alanine Aminotransferase 125 U/L (6-50)
[2024-06-03 10:35] LABS: NT Pro B Type Natriuretic Pept 5230 pg/mL (19.9-100)
[2024-06-03 10:38] LABS: Troponin I 0.015 ng/mL (0.000-0.034)
[2024-06-03 10:40] LABS: Cannabinoid Screen Urine Negative (Negative); Cocaine Screen Urine Negative (Negative); Methadone Screen Urine Negative (Negative); Opiate Screen Urine Negative (Negative); Phencyclidine Screen Urine Negative (Negative)
[2024-06-03 10:41] LABS: Amphetamine Screen Urine Positive (Negative)
[2024-06-03 11:15] LABS: Trichomonas Vag PCR DETECTED (NOT DETECTE)
[2024-06-03 11:51] LABS: Chlamydia trachomatis NOT DETECTED (NOT DETECTE); Neisseria gonorrhoeae PCR NOT DETECTED (NOT DETECTE)
[2024-06-03] MEDS: metroNIDAZOLE 500 MG TABLET 2000 MG PO (12:01)
[2024-06-03] MEDS: SODIUM CHLORIDE 0.9% IV 1,000 ML 999 ML IV CONT (12:12)
[2024-06-03 13:07] LABS: Reflex Lactic Acid Yes or No Add Lactic
[2024-06-03] MEDS: SODIUM CHLORIDE 0.9% IV 1,000 ML 125 ML IV CONT ×2 (13:19→21:15)
--- NOTE | 2024-06-03 13:35 | PM.IMHP ---
H&P: HPI History of Present Illness Date/Time: 06/03/24 13:35 Chief Complaint: Cold exposure. Narrative: This is a 54-year-old male smoker with history of myocardial infarction in 1996, kidney cancer status post left nephrectomy, hepatitis-C status post interferon, cirrhosis of the liver, deep venous thrombosis following right lower extremity fracture, alcohol abuse (1/5 of whiskey every 2 days), and amphetamine abuse who presented to the emergency department via EMS for evaluation of cold exposure. He and his girlfriend drove to the area from [place] a couple of weeks ago to be closer to family. They have been sleeping in their truck which ran out of gas sometime overnight with temperatures dipping into the single digits. When he got up this morning he had severe pain in both legs and he reports difficulty standing up and he called 911. He was also feeling short of breath at that time, though may be due to the cold. On exam he was noted to have pretty significant lower extremity edema which developed over the last week or so. Since being warmed up he has been able to move his legs without issue but he continues to complain of tight aching discomfort in both legs. He denies fever, sweats, cold and flu symptoms, vertigo, facial droop, difficulty speaking and swallowing, focal weakness, paresthesias, chest pain, pleuritic pain, palpitations, orthopnea, paroxysmal nocturnal dyspnea, claudication, cough, sinus congestion, sore throat, nausea, vomiting, diarrhea, and dysuria. In the ED: Rectal temperature was 95.4? F on arrival. Blood pressures have been running in the 140s 150 systolic. He is in rapid atrial flutter/tachycardia with rates in the 120s to 130s. Labs were significant for a WBC count of 13.3, hemoglobin 14.8, MCV 103.3, platelet 278, PT 17.8, INR 1.4, PTT 38.1, sodium 136, carbon dioxide 12, anion gap 20, BUN 33, creatinine 1.52, lactic acid 6.0, total bilirubin 3.4, AST 62, ALT 125, total CK 252, proBNP 5230. Urine drug screen was positive for amphetamines and ethyl alcohol level was less than 10. He tested positive for Trichomonas. Ethyl alcohol level was less than 10. Chest x-ray was unremarkable. He was placed under a Adam Hugger and was given metronidazole 2000 mg. He is being admitted in this setting for close monitoring and further treatment. Review of Systems Review of Systems: 12 systems were reviewed and are negative except for as per HPI. [facility] Past Medical History Medical History Deep venous thrombosis Following tibial plateau fracture Hepatitis C Cirrhosis of liver Status post interferon Cancer of left kidney Myocardial infarction Amphetamine abuse Alcohol abuse Surgical History Surgical History (Updated 06/03/24 @ 22:23 by Vonda Allen PA-C) History of hernia repair History of left nephrectomy History of open reduction and internal fixation (ORIF) procedure Repair right tibial plateau fracture Family History Family History (Updated 06/03/24 @ 22:23 by Vonda Allen PA-C) Mother Heart disease Social History Social History (Updated 06/03/24 @ 22:24 by Vonda Allen PA-C) Social History: Surrogate medical decision maker: Frannie Mckinley, significant other. Code status: Full code. Smoking packs per day: 1 Smoking cigarettes per day: 20.0 Years smoked: 40 Smoking pack-years: 40.00 Smoking status: Current every day smoker Alcohol intake: current Alcohol use details: 1/5 of whiskey every 2 days Substance use: current Substance use type: methamphetamine Do You Feel Safe in your Home?: Yes Lack of Transportation: YES Lack of Food: Often True Current Housing: I Do Not Have Housing Concerned About Future Housing: YES Difficulty Paying Gas/Electric Bills: YES Difficulty Paying for Meds: YES Currently Unemployed: YES Education: High School Diploma/GED Difficulty w/ Childcare or Family Care: No Spiritual care concerns: No Meds Home Medications and Allergies Allergies Allergy/AdvReac Type Severity Reaction Status Date / Time aspirin Allergy Intermediate Rash Verified 06/03/24 10:48 Vital Signs Vital Signs - 24 hr 06/03/24 09:26 06/03/24 10:26 06/03/24 12:21 Temperature 95.4 F L 96.2 F L 96.9 F L Pulse Rate 128 H 131 H 130 H Respiratory Rate 24 H 19 20 Blood Pressure 128/108 H 136/96 H 150/106 H Pulse Oximetry 98 91 100 Oxygen Delivery Room Air Exam Narrative: General: Mildly ill-appearing male in the semi-Zimmer position in bed in no acute distress. Weight: 96 kg. BMI: 31.7. HEENT: Normocephalic, atraumatic. PERRL, EOMI. Tacky mucous membranes. Poor dentition. Neck: Supple. Full [place]. No obvious JVD or lymphadenopathy. Respiratory: Respirations are nonlabored he is speaking in full sentences. Lung sounds are a bit diminished at the right base but are otherwise clear to auscultation. Cardiovascular: Tachycardic with normal S1-S2. Gastrointestinal: Abdomen is soft, nontender, and nondistended with positive bowel sounds. Skin: Warm and dry. Mild erythema of the lower legs due to swelling. Normal capillary refill. Extremities: No cyanosis or clubbing. Two to 3+ pitting edema up to the thighs bilaterally. Equivocal Homans sign bilaterally. Peripheral pulses intact. Neurological: Alert. Cranial nerves 2-12 are grossly intact. No gross focal deficits to casual conversation. Psychiatric: Pleasant and cooperative with appropriate mood and affect. He is in good spirits. H&P: Results Labs Labs: Short CBC 06/03/24 Range/Units 09:40 WBC 13.3 H (4.5-10.0) K/mm3 Hgb 14.8 (14.0-18.0) g/dL Hct 47.0 (42.0-52.0) % Plt Count 278 (150-375) k/mm3 BMP 06/03/24 09:40 Sodium 136 L Potassium 4.7 Chloride 104 Carbon Dioxide 12 L BUN 33 H Creatinine 1.52 H Glucose 70 Calcium 9.4 Cardiac Enzymes 06/03/24 06/03/24 Range/Units 09:40 10:02 Total Creatine Kinase 252 H (55-170) U/L Troponin I 0.015 (0.000-0.034) ng/mL Liver Function 06/03/24 Range/Units 09:40 Total Bilirubin 3.4 H (0.2-1.3) mg/dL AST 62 H (17-59) U/L ALT 125 H (6-50) U/L Alkaline Phosphatase 112 (38-126) U/L Albumin 4.4 (3.5-5.1) g/dL Urine 06/03/24 Range/Units 10:02 Urine Color Dark yellow (Yellow) Urine Appearance Clear (Clear) Urine pH 5.0 (5.0-9.0) Ur Specific [place] 1.021 (1.001-1.035) Urine Protein 2+ H (Negative) mg/dL Urine Glucose (UA) Negative (Negative) mg/dL Imaging Chest X-Ray 06/03/24 11:14 Impression: Clear lungs. Assessment and Plan Assessment and plan (1) Cold exposure: Code(s): T69.9XXA - Effect of reduced temperature, unspecified, initial encounter Status: Acute (2) Renal failure: Code(s): N19 - Unspecified kidney failure Status: Acute (3) Elevated LFTs: Code(s): R79.89 - Other specified abnormal findings of blood chemistry Status: Acute (4) Lactic acid acidosis: Code(s): E87.20 - Acidosis, unspecified Status: Acute (5) Prolonged prothrombin time (PT) and partial thromboplastin time (PTT): Code(s): R79.1 - Abnormal coagulation profile Status: Acute (6) Alcohol abuse: Code(s): F10.10 - Alcohol abuse, uncomplicated Status: Acute (7) Amphetamine abuse: Code(s): F15.10 - Other stimulant abuse, uncomplicated Status: Acute Plan The patient presented to the emergency department for evaluation of bilateral leg pain and cold sensations in his legs after being exposed to the cold overnight as detailed in HPI. Labs, imaging, EKG, and all reports were personally reviewed. He was placed under a Adam Hugger on arrival and is temperature is now normalized with improvement in his leg pain though he continues to have aching discomfort. Given history of DVT and significant swelling, a venous Doppler ultrasound has been ordered as well as a chest CTA to rule out pulmonary embolism given reports of shortness of breath and atrial tachycardia. He has renal insufficiency which could have some chronic component though he has no known history of renal failure. Creatinine has improved with IV fluids which will be discontinued as he has received a total of 3 L as to avoid over-hydration. Echocardiogram has been ordered due to the swelling and atrial tachycardia. Initial lactic acid level was 6.0 but has normalized with IV fluids. Lactic acidosis I suspect is related to the cold in addition to poor clearance from his known cirrhosis. He does not give a history to suggest underlying infection and no ischemic changes noted of the extremities. LFTs are likely elevated in the setting of his known cirrhosis as his abdominal exam is benign. Coags are prolonged, likely due to his underlying liver disease. He denies ever having signs are segments of alcohol withdrawal and states he does not typically get withdrawal symptoms from and fatty means either. His home medications will be reviewed and resumed as appropriate. Findings and treatment plan were discussed with the patient. Questions were solicited and answered to satisfaction. The patient's medical management will be taken over by the hospitalist team in a.m. Quality VTE Prophylaxis VTE prophylaxis: mechanical ordered If No VTE Prophylaxis Answer both mechanical and pharmacologic: Reason no pharmacologic proph: medical contraindication (fall risk, prolonged coags) Hospitalist MIPS Advance Care Plan I have confirmed that the patient's Advanced Care Plan is present, code status is documented, or surrogate decision maker is listed in patient medical record.: Yes Medication Reconciliation I have utilized all available resources to obtain, update and review the patients current medications (includes all prescriptions, OTC, herbals, cannabis, and nutritional supplements).: Yes
--- NOTE | 2024-06-03 13:46 | ECG_ITS ---
Test Date: 2024-06-03 14:38:06 Measurements Intervals [place] Rate: 136 P: 0 TN: 0 QRS: 30 QRSD: 71 T: 60 QT: 254 QTc: 383 Interpretive Statements ATRIAL FLUTTER/TACHYCARDIA WITH RAPID VENTRICULAR RESPONSE DELAYED PRECORDIAL R/S TRANSITION NONSPECIFIC T-WAVE ABNORMALITY- DIFFUSE LEADS BASELINE ARTIFACT- I, III, AVL ABNORMAL ECG Compared to ECG 06/03/2024 10:00:56 NO SIGNIFICANT CHANGE Electronically Signed On 06-03-2024 15:39:02 LABORATORY COORDINATOR by Salvador Maharaj D.O.
[2024-06-03 14:26] LABS: Glucose Point of Care 124 mg/dl (65-105)
[2024-06-03] MEDS: chlordiazePOXIDE (*CRX) 25 MG CAPSULE PO (14:33)
[2024-06-03 14:34] LABS: Mean Platelet Volume 9.4 fl (7.4-10.4); Platelet Count Result 234 k/mm3 (150-375)
[2024-06-03] MEDS: THIAMINE HCL 200 MG/2 ML VIAL 100 MG IV PUSH (14:35)
[2024-06-03] MEDS: FOLIC ACID 1 MG TABLET PO (14:36)
[2024-06-03 14:46] LABS: Acetaminophen < 10 ug/mL (10-30); Anion Gap 16 mmol/L (4-12); Blood Urea Nitrogen 34 mg/dL (9-20); Calcium 8.8 mg/dL (8.4-10.2); Carbon Dioxide 17 mmol/L (22-30); Chloride 101 mmol/L (98-107); Creatine Kinase 291 U/L (55-170); Estimated CRCL calculation 59 ml/min; Estimated Glomerular Filt Rate 51; Glucose 103 mg/dL (65-110); Magnesium 1.8 mg/dL (1.6-2.3); Potassium 4.5 mmol/L (3.4-5.0); Sodium 134 mmol/L (137-145)
[2024-06-03 14:46] LABS: Lactic Acid Reflex 1.9 mmol/L (0.7-2.0)
[2024-06-03] MEDS: METOPROLOL TARTRATE INJ 5 MG/5 ML VIAL IV PUSH (14:52)
[2024-06-03 14:58] LABS: Troponin I 0.016 ng/mL (0.000-0.034)
[2024-06-03 15:06] LABS: INR 1.5; Prothrombin Time 18.2 Seconds (11.1-14.7)
[2024-06-03 15:07] LABS: Fibrinogen 324 mg/dl (215-510); Partial Thromboplastin Time 39.1 Seconds (22.3-36.8)
[2024-06-03 15:15] LABS: D Dimer 3.03 ug/mL (<0.48)
[2024-06-03 15:27] LABS: HIV 1/2 Ab P24 Ag Result Negative (Negative)
[2024-06-03 16:01] LABS: Hepatitis B Surface Antigen Negative (Negative)
[2024-06-03 16:07] LABS: HAV RESULT Negative (Negative); Hepatitis B Core IgM Result Negative (Negative)
[2024-06-03 16:41] LABS: Hepatitis C Virus Antibody Reactive (Negative)
[2024-06-03] MEDS: ACETAMINOPHEN 325 MG TABLET 650 MG PO (16:57)
--- NOTE | 2024-06-03 19:25 | ADMGEN ---
This patient, Norberto De Jesus, was admitted to IMU Room 206-02. Patient/family oriented to hospital policies and general routines including ID bracelet, bed and alarms, visiting hours, pain management, procedures, bathroom and other care routines, personal items, smoking policy, room service/diet, and visiting hours. Information on how to activate the Rapid Response Team has been discussed. Patient/Family are encouraged to report perceived risks to care and to ask questions if they do not understand what they are told or what they should do.
[2024-06-03] MEDS: HYDROcodone/acetaminophen (*CRX) 5-325 MG TABLET 1 TAB PO (21:15)
[2024-06-04] VITALS (17 sets, daily range): BP systolic 118–144; BP diastolic 74–108; PULSE 81–139; RESP 16–22; TEMP 36.4–36.8; O2SAT 96–99
[2024-06-04 00:55] LABS: Glucose Point of Care 61 mg/dl (65-105)
[2024-06-04 02:48] LABS: Glucose Point of Care 126 mg/dl (65-105)
[2024-06-04 05:21] LABS: Basophils Absolute Auto 0.1 K/mm3 (0.0-0.1); Basophils Percent Auto 0.6 % (0.2-1.2); Eosinophils Absolute Auto 0.1 K/mm3 (0-0.3); Eosinophils Percent Auto 0.6 % (0-4.4); Hematocrit 39.3 % (42.0-52.0); Hemoglobin 12.8 g/dL (14.0-18.0); Immature Granulocyte Absolute 0.05 K/mm3 (0.00-0.031); Immature Granulocyte Percent A 0.5 % (0-0.5); Lymphocytes Absolute Auto 1.04 K/mm3 (0.9-3.2); Lymphocytes Percent Auto 11.1 % (18.3-44.2); Mean Corpuscular HGB Conc 32.6 g/dl (32-36); Mean Corpuscular Volume 98.3 fl (80-100); Mean Platelet Volume 9.4 fl (7.4-10.4); Monocytes Absolute Auto 0.8 K/mm3 (0.1-0.6); Monocytes Percent Auto 8.7 % (2.6-8.5); Neutrophils Absolute Auto 7.4 K/mm3 (1.3-6.7); Neutrophils Percent Auto 78.5 % (45.5-73.1); Platelet Count Result 210 k/mm3 (150-375); Red Cell Distribution Width 14.6 % (11.5-14.5); White Blood Count 9.4 K/mm3 (4.5-10.0)
[2024-06-04 05:39] LABS: Alanine Aminotransferase 99 U/L (6-50); Albumin Level 3.5 g/dL (3.5-5.1); Alkaline Phosphatase 122 U/L (38-126); Anion Gap 14 mmol/L (4-12); Aspartate Amino Transferase 50 U/L (17-59); Bilirubin,Total 2.2 mg/dL (0.2-1.3); Blood Urea Nitrogen 43 mg/dL (9-20); Calcium 8.6 mg/dL (8.4-10.2); Carbon Dioxide 20 mmol/L (22-30); Chloride 100 mmol/L (98-107); Estimated CRCL calculation 41 ml/min; Estimated Glomerular Filt Rate 34; Glucose 90 mg/dL (65-110); Potassium 3.3 mmol/L (3.4-5.0); Sodium 134 mmol/L (137-145)
[2024-06-04] MEDS: THIAMINE HCL 100 MG TABLET PO (08:59)
[2024-06-04] MEDS: FOLIC ACID 1 MG TABLET PO (08:59)
[2024-06-04] MEDS: HYDROcodone/acetaminophen (*CRX) 5-325 MG TABLET 1 TAB PO ×3 (08:59→22:00)
[2024-06-04] MEDS: PERFLUTREN LIPID MICROSPHERES 1.5 ML VIAL DILUTED TO 10 ML TOTAL VOLUME IV PUSH (09:55)
--- NOTE | 2024-06-04 10:02 | PM.IMPN ---
Progress Note: A&P Assessment and Plan (1) Cold exposure: Qualifiers: Encounter type: initial encounter Qualified Code(s): T69.9XXA - Effect of reduced temperature, unspecified, initial encounter Code(s): T69.9XXA - Effect of reduced temperature, unspecified, initial encounter Status: Acute (2) Renal failure: Code(s): N19 - Unspecified kidney failure Status: Acute (3) Elevated LFTs: Code(s): R79.89 - Other specified abnormal findings of blood chemistry Status: Acute (4) Lactic acid acidosis: Code(s): E87.20 - Acidosis, unspecified Status: Acute (5) Prolonged prothrombin time (PT) and partial thromboplastin time (PTT): Code(s): R79.1 - Abnormal coagulation profile Status: Acute (6) Alcohol abuse: Code(s): F10.10 - Alcohol abuse, uncomplicated Status: Acute (7) Amphetamine abuse: Code(s): F15.10 - Other stimulant abuse, uncomplicated Status: Acute Plan Cold exposure bilateral leg pain and cold sensations in his legs after being exposed to the cold overnight placed under a Adam Hugger on arrival temperature is now normalized with improvement in his leg pain though he continues to have aching discomfort. G Negative of DVT and PE Sepsis Patient has hypothermia, leukocytosis, lactic acidosis 6.0,, acute renal failure Likely resulting from pneumonia and UTI, CT scan showed ground-glass opacity in the right lung upper lobe, UA shows pyuria Received fluid resuscitation in the ED Will continue D5 normal saline IV 150 mL/hour Start Levaquin 750 mg IV IV daily Pending blood culture urine culture Community-acquired pneumonia Possible aspiration history of alcohol abuse Antibiotics see above UTI UA shows pyuria, Antibiotics see above Acute renal failure Upon arrival creatinine 1.52, it is trending up 2.04 2/ Likely secondary to dehydration, UTI, sepsis Start fluid resuscitation Follow-up BMP Follow-up renal ultrasound: Unremarkable renal ultrasound status post left nephrectomy. No stones, masses or hydronephrosis. Hyponatremia, hypokalemia Patient is a normal saline IV Replete potassium chloride 40 mg daily p.o. Follow-up BMP cirrhosis and chronic liver failure. Coags are prolonged, Likely resulting from alcohol abuse Cirrhosis of the liver with portal venous hypertension. Consult GI for evaluation treatment Alcohol dependence Monitor Alcohol withdrawal per CIWA protocol Provide folic acid thiamine p.o. Subjective Date/time seen: 06/04/24 10:02 Interval history: I saw examined patient, patient feels better today, denies chest pain abdomen pain nausea vomiting diarrhea. Patient has your urgency frequency. Exam Narrative: GENERAL: Ill-appearing, in no acute distress. Well-nourished. - EYES: EOMI. Anicteric. - HENT: Moist mucous membranes. - LUNGS: Clear to auscultation bilaterally, no wheezing, rhonchi, or rales. - CARDIOVASCULAR: Regular rate and rhythm. No murmur. No JVD. - ABDOMEN: Soft, non-tender and non-distended. No palpable masses. - EXTREMITIES: No edema. Peripheral pulses 2+. Non-tender. - NEUROLOGIC: No focal neurological deficits. CN II-XII grossly intact. General weakness - PSYCHIATRIC: Awake, Alert and oriented x 3. Appropriate mood and affect. - SKIN: No rashes or lesions. Warm. - LYMPH: No cervical lymphadenopathy. Objective Data Vital Signs Vital Signs: Vital Signs - 24 hr 06/03/24 10:18 06/03/24 10:26 06/03/24 10:30 Temperature 96.0 F L 96.2 F L 96.3 F L Pulse Rate 131 H 131 H 131 H Pulse Rate [Monitor] Respiratory Rate 15 19 17 Blood Pressure 136/96 H 136/96 H 140/104 H Pulse Oximetry 98 91 93 Oxygen Delivery 06/03/24 10:45 06/03/24 12:21 06/03/24 12:24 Temperature 96.4 F L 96.9 F L 96.9 F L Pulse Rate 131 H 130 H 132 H Pulse Rate [Monitor] Respiratory Rate 16 20 22 H Blood Pressure 153/101 H 150/106 H 150/106 H Pulse Oximetry 94 100 100 Oxygen Delivery 06/03/24 12:57 06/03/24 13:15 06/03/24 14:33 Temperature 95.4 F L 97.4 F L 97.0 F L Pulse Rate 135 H Pulse Rate [Monitor] Respiratory Rate 19 Blood Pressure 143/96 H Pulse Oximetry 100 Oxygen Delivery 06/03/24 14:39 06/03/24 14:52 06/03/24 16:59 Temperature 99.4 F Pulse Rate 137 H 138 H 135 H Pulse Rate [Monitor] Respiratory Rate 20 20 Blood Pressure 127/79 116/82 Pulse Oximetry 100 100 Oxygen Delivery 06/03/24 18:30 06/03/24 19:00 06/03/24 19:41 Temperature 99.7 F H 98.2 F 97.2 F L Pulse Rate 135 H 137 H 135 H Pulse Rate [Monitor] Respiratory Rate 18 20 20 Blood Pressure 106/67 113/69 104/74 Pulse Oximetry 100 98 91 Oxygen Delivery 06/03/24 20:00 06/03/24 20:00 06/03/24 20:00 Temperature Pulse Rate 136 H 135 H Pulse Rate [Monitor] 135 H Respiratory Rate 20 Blood Pressure 104/74 Pulse Oximetry 91 Oxygen Delivery Room Air 06/03/24 22:00 06/03/24 23:35 06/04/24 00:00 Temperature 97.1 F L Pulse Rate 130 H 138 H Pulse Rate [Monitor] 134 H Respiratory Rate 20 Blood Pressure 124/74 124/74 Pulse Oximetry 96 Oxygen Delivery 06/04/24 00:00 06/04/24 00:00 06/04/24 02:00 Temperature Pulse Rate 135 H 135 H 124 H Pulse Rate [Monitor] Respiratory Rate 20 Blood Pressure Pulse Oximetry 96 Oxygen Delivery Room Air 06/04/24 03:32 06/04/24 04:00 06/04/24 04:00 Temperature 98 F Pulse Rate 136 H 136 H Pulse Rate [Monitor] 134 H Respiratory Rate 16 16 Blood Pressure 118/79 118/79 Pulse Oximetry 99 99 Oxygen Delivery Room Air 06/04/24 04:00 06/04/24 05:48 06/04/24 07:48 Temperature 97.5 F L Pulse Rate 136 H 135 H 136 H Pulse Rate [Monitor] Respiratory Rate 20 Blood Pressure 129/94 H Pulse Oximetry 96 Oxygen Delivery Intake/Output Intake/Output: Intake & Output 06/01/24 06/02/24 06/03/24 06/04/24 23:59 23:59 23:59 23:59 Intake Total 3991.7 360 Output Total 1300 225 Balance 2691.7 135 Meds/Results Medications: Active Medications Generic Name Dose Route Start Last Admin Trade Name Freq PRN Reason Stop Dose Admin Acetaminophen 650 mg 06/03/24 13:40 06/03/24 16:57 Acetaminophen 325 Mg Tablet PO 650 mg Q6H PRN Administration Mild Pain (1-3) or Fever Hydrocodone Bitart/Acetaminophen 1 tab 02/19/25 18:33 06/04/24 08:59 Hydrocodone/Acetaminophen (*Crx) 5-325 Mg Tablet PO 1 tab Q6H PRN Administration Pain Rated 4-6 Chlordiazepoxide HCl 25 mg 06/03/24 14:39 Chlordiazepoxide (*Crx) 25 Mg Capsule PO Q8HR PRN Alcohol Withdrawal & CIWA < 8 Folic Acid 1 mg 06/03/24 09:00 06/04/24 08:59 Folic Acid 1 Mg Tablet PO 1 mg DAILY LEROY Administration Lorazepam 2 mg 06/03/24 13:42 Lorazepam Inj (*Crx) 2 Mg/Ml Vial IV PUSH Q2H PRN CIWA 8-15 Lorazepam 4 mg 06/03/24 13:42 Lorazepam Inj (*Crx) 2 Mg/Ml Vial IV PUSH Q2H PRN CIWA > 15 Perflutren Lipid Microsphere 0 ml 06/03/24 22:29 Perflutren Lipid Microspheres 1.5 Ml Vial Diluted To 10 Ml Total Volume IV PUSH 06/06/24 22:29 ONCE PRN adequate visualization Protocol Thiamine HCl 100 mg 06/04/24 09:00 06/04/24 08:59 Thiamine Hcl 100 Mg Tablet PO 100 mg QAM LEROY Administration Radiology Results: ITS Impressions Chest X-Ray 06/03/24 11:14 Impression: Clear lungs. Abdomen Ultrasound 06/03/24 15:06 IMPRESSION: 1. Gallbladder wall thickening, which may be seen with interstitial edema or chronic liver disease. Chest CTA 06/03/24 21:01 IMPRESSION: 1. No pulmonary embolus. 2. Mild groundglass opacities in right lung upper lobe, consistent with mild pulmonary edema versus pneumonia. 3. Small right pleural effusion. 4. Cirrhosis of the liver with portal venous hypertension. Venous Doppler Study 06/03/24 21:32 IMPRESSION: 1. No deep venous thrombosis. Renal Ultrasound 06/04/24 08:16 Impression: 1: Unremarkable renal ultrasound status post left nephrectomy. No stones, masses or hydronephrosis. Labs Labs: Laboratory Results - last 24 hr 06/03/24 06/03/24 06/03/24 09:40 10:02 14:17 WBC RBC Hgb Hct MCV MCH MCHC RDW Plt Count MPV Immature Gran % (Auto) Neut % (Auto) Lymph % (Auto) [place] % (Auto) Eos % (Auto) Baso % (Auto) Lymph # (Auto) [place] # (Auto) Eos # (Auto) Baso # (Auto) Abs Immat Gran (auto) Absolute Neuts (auto) Absolute Nucleated RBC Nucleated RBC % PT 17.8 H 18.2 H INR 1.4 1.5 APTT 38.1 H 39.1 H Fibrinogen 324 D-Dimer 3.03 H Sodium 136 L 134 L Potassium 4.7 4.5 Chloride 104 101 Carbon Dioxide 12 L 17 L Anion Gap 20 H 16 H BUN 33 H 34 H Creatinine 1.52 H 1.43 H Estim Creat Clear Calc 56 59 Estimated GFR 48 L 51 L Glucose 70 103 POC Capillary Glucose Lactic Acid 6.0 H* Calcium 9.4 8.8 Magnesium 1.8 Total Bilirubin 3.4 H AST 62 H ALT 125 H Alkaline Phosphatase 112 Total Creatine Kinase 252 H 291 H Troponin I 0.015 0.016 NT-Pro-B Natriuret Pep 5230 H Total Protein 8.0 Albumin 4.4 TSH (Reflex) Urine Color Dark yellow Urine Appearance Clear Urine pH 5.0 Ur Specific [place] 1.021 Urine Protein 2+ H Urine Glucose (UA) Negative Urine Ketones Trace H Ur Blood (Man) Negative Urine Nitrate Negative Urine Bilirubin 1+ H Urine Urobilinogen 1.0 Leukocyte Esterase Rfl Negative Urine RBC 0-2 Urine WBC 6-10 H Ur Squamous Epith Cells None seen Urine Bacteria None seen Urine Casts >20 Urine Opiates Screen Negative Urine Methadone Screen Negative Acetaminophen < 10 L Ur Barbiturates Screen Negative Ur Phencyclidine Scrn Negative Ur Amphetamine Screen Positive A U Benzodiazepines Scrn Negative Urine Cocaine Screen Negative U Cannabinoids Screen Negative Ethyl Alcohol < 10 C. trachomatis (PCR) Not detected Hepatitis A IgM Ab Hep Bs Antigen Hep B Core IgM Ab Hepatitis C Ab Screen HIV 1&2 Ab/P24 Ag 4thGn Negative N. gonorrhoeae (PCR) Not detected T. vaginalis (PCR) Detected A 06/03/24 06/03/24 06/03/24 14:18 14:19 14:23 WBC RBC Hgb Hct MCV MCH MCHC RDW Plt Count 234 MPV 9.4 Immature Gran % (Auto) Neut % (Auto) Lymph % (Auto) [place] % (Auto) Eos % (Auto) Baso % (Auto) Lymph # (Auto) [place] # (Auto) Eos # (Auto) Baso # (Auto) Abs Immat Gran (auto) Absolute Neuts (auto) Absolute Nucleated RBC Nucleated RBC % PT INR APTT Fibrinogen D-Dimer Sodium Potassium Chloride Carbon Dioxide Anion Gap BUN Creatinine Estim Creat Clear Calc Estimated GFR Glucose POC Capillary Glucose 124 H Lactic Acid 1.9 Calcium Magnesium Total Bilirubin AST ALT Alkaline Phosphatase Total Creatine Kinase Troponin I NT-Pro-B Natriuret Pep Total Protein Albumin TSH (Reflex) 1.620 Urine Color Urine Appearance Urine pH Ur Specific [place] Urine Protein Urine Glucose (UA) Urine Ketones Ur Blood (Man) Urine Nitrate Urine Bilirubin Urine Urobilinogen Leukocyte Esterase Rfl Urine RBC Urine WBC Ur Squamous Epith Cells Urine Bacteria Urine Casts Urine Opiates Screen Urine Methadone Screen Acetaminophen Ur Barbiturates Screen Ur Phencyclidine Scrn Ur Amphetamine Screen U Benzodiazepines Scrn Urine Cocaine Screen U Cannabinoids Screen Ethyl Alcohol C. trachomatis (PCR) Hepatitis A IgM Ab Negative Hep Bs Antigen Negative Hep B Core IgM Ab Negative Hepatitis C Ab Screen Reactive HIV 1&2 Ab/P24 Ag 4thGn N. gonorrhoeae (PCR) T. vaginalis (PCR) 06/03/24 06/04/24 06/04/24 23:33 02:45 04:59 WBC 9.4 RBC 4.00 L Hgb 12.8 L Hct 39.3 L MCV 98.3 MCH 32.0 MCHC 32.6 RDW 14.6 H Plt Count 210 MPV 9.4 Immature Gran % (Auto) 0.5 Neut % (Auto) 78.5 H Lymph % (Auto) 11.1 L [place] % (Auto) 8.7 H Eos % (Auto) 0.6 Baso % (Auto) 0.6 Lymph # (Auto) 1.04 [place] # (Auto) 0.8 H Eos # (Auto) 0.1 Baso # (Auto) 0.1 Abs Immat Gran (auto) 0.05 H Absolute Neuts (auto) 7.4 H Absolute Nucleated RBC 0.000 Nucleated RBC % 0.0 PT INR APTT Fibrinogen D-Dimer Sodium 134 L Potassium 3.3 L Chloride 100 Carbon Dioxide 20 L Anion Gap 14 H BUN 43 H Creatinine 2.04 H Estim Creat Clear Calc 41 Estimated GFR 34 L Glucose 90 POC Capillary Glucose 61 L 126 H Lactic Acid Calcium 8.6 Magnesium 2.0 Total Bilirubin 2.2 H AST 50 ALT 99 H Alkaline Phosphatase 122 Total Creatine Kinase Troponin I NT-Pro-B Natriuret Pep Total Protein 7.0 Albumin 3.5 TSH (Reflex) Urine Color Urine Appearance Urine pH Ur Specific [place] Urine Protein Urine Glucose (UA) Urine Ketones Ur Blood (Man) Urine Nitrate Urine Bilirubin Urine Urobilinogen Leukocyte Esterase Rfl Urine RBC Urine WBC Ur Squamous Epith Cells Urine Bacteria Urine Casts Urine Opiates Screen Urine Methadone Screen Acetaminophen Ur Barbiturates Screen Ur Phencyclidine Scrn Ur Amphetamine Screen U Benzodiazepines Scrn Urine Cocaine Screen U Cannabinoids Screen Ethyl Alcohol C. trachomatis (PCR) Hepatitis A IgM Ab Hep Bs Antigen Hep B Core IgM Ab Hepatitis C Ab Screen HIV 1&2 Ab/P24 Ag 4thGn N. gonorrhoeae (PCR) T. vaginalis (PCR)
[2024-06-04 12:25] LABS: Glucose Point of Care 143 mg/dl (65-105)
--- NOTE | 2024-06-04 12:30 | IVDEFINITY ---
Prior to administration of IV Definity the patient was educated on the risks and benefits of the imaging enhancing agent including potential adverse side effects. The patient verbalized understanding. Allergies were verified. No exclusion criteria were identified and at least one of the following inclusion criteria were met: 1) physician request, 2) patient technically difficult to image (per the [place] [employer] guidelines of two or more segments not discernable within the apical view), or 3) questionable left ventricular function. ?
--- NOTE | 2024-06-04 12:56 | PM.CNCAR ---
Assessment and Plan Assessment and plan (1) Atrial flutter: Code(s): I48.92 - Unspecified atrial flutter Status: Acute Assessment and Plan: This is a new diagnosis. Chronicity is unknown. Currently not being given anything for rate control Will start metoprolol 25mg q12h for now. Can up titrate if need be He has a CHADS2 Vasc score of 1, will not anticoagulate for now. Continuous telemetry monitoring Echo is ordered and pending History of Present Illness History of Present Illness Consult date/time: 06/04/24 12:56 Requesting physician: Vonda Allen PA-C Consult reason: Other (atrial flutter) Reason For Visit: Dehydration,hypothermia Narrative: Norberto De Jesus is a 54 year old male with coronary artery disease with [place] in 1996 (per patient report no angiogram/PCI, he was just placed on nitro), kidney cancer status post left nephrectomy, hepatitis-C status post interferon, cirrhosis of the liver, deep venous thrombosis following right lower extremity fracture, alcohol abuse (1/5 of whiskey every 2 days), and amphetamine abuse. He presents to the hospital because of cold exposure. He and his girlfriend are living out of their car which ran out of gas, therefore exposing him to single digit temperatures for an extended period of time. Cardiology is consulted for atrial flutter with rapid ventricular response. He denies any history of atrial arrhythmias. He does complain of bilateral lower extremity edema from the knees down. No shortness of breath or chest pain. His heart rate is currently in the 130's in atrial flutter but he is not experiencing any symptoms. He does endorse occasional palpitations. He is comfortable and in no distress at the time of my evaluation. Review of Systems Review of Systems: All systems reviewed & are unremarkable except as noted in HPI and below PMFSH Past Medical History Medical History Deep venous thrombosis Following tibial plateau fracture Hepatitis C Cirrhosis of liver Status post interferon Cancer of left kidney Myocardial infarction Amphetamine abuse Alcohol abuse Surgical History Surgical History History of hernia repair History of left nephrectomy History of open reduction and internal fixation (ORIF) procedure Repair right tibial plateau fracture Family History Family History Mother Heart disease Social History Social History Social History: Surrogate medical decision maker: Frannie Mckinley, significant other. Code status: Full code. Smoking packs per day: 1 Smoking cigarettes per day: 20.0 Years smoked: 40 Smoking pack-years: 40.00 Smoking status: Current every day smoker Alcohol intake: current Alcohol use details: 1/5 of whiskey every 2 days Substance use: current Substance use type: methamphetamine Do You Feel Safe in your Home?: Yes Lack of Transportation: YES Lack of Food: Often True Current Housing: I Do Not Have Housing Concerned About Future Housing: YES Difficulty Paying Gas/Electric Bills: YES Difficulty Paying for Meds: YES Currently Unemployed: YES Education: High School Diploma/GED Difficulty w/ Childcare or Family Care: No Spiritual care concerns: No Meds Home Medications and Allergies Home Medications ?Medication ?Instructions ?Recorded ?Confirmed ?Type No Home Medications 06/03/24 06/03/24 History Allergies Allergy/AdvReac Type Severity Reaction Status Date / Time aspirin Allergy Intermediate Rash Verified 06/03/24 10:48 Vital Signs Vital Signs - 24 hr 06/03/24 12:57 06/03/24 13:15 06/03/24 14:33 Temperature 35.2 C L 36.3 C L 36.1 C L Pulse Rate 135 H Pulse Rate [Monitor] Respiratory Rate 19 Blood Pressure 143/96 H Pulse Oximetry 100 Oxygen Delivery 06/03/24 14:39 06/03/24 14:52 06/03/24 16:59 Temperature 37.4 C Pulse Rate 137 H 138 H 135 H Pulse Rate [Monitor] Respiratory Rate 20 20 Blood Pressure 127/79 116/82 Pulse Oximetry 100 100 Oxygen Delivery 06/03/24 18:30 06/03/24 19:00 06/03/24 19:41 Temperature 37.6 C H 36.8 C 36.2 C L Pulse Rate 135 H 137 H 135 H Pulse Rate [Monitor] Respiratory Rate 18 20 20 Blood Pressure 106/67 113/69 104/74 Pulse Oximetry 100 98 91 Oxygen Delivery 06/03/24 20:00 06/03/24 20:00 06/03/24 20:00 Temperature Pulse Rate 136 H 135 H Pulse Rate [Monitor] 135 H Respiratory Rate 20 Blood Pressure 104/74 Pulse Oximetry 91 Oxygen Delivery Room Air 06/03/24 22:00 06/03/24 23:35 06/04/24 00:00 Temperature 36.2 C L Pulse Rate 130 H 138 H Pulse Rate [Monitor] 134 H Respiratory Rate 20 Blood Pressure 124/74 124/74 Pulse Oximetry 96 Oxygen Delivery 06/04/24 00:00 06/04/24 00:00 06/04/24 02:00 Temperature Pulse Rate 135 H 135 H 124 H Pulse Rate [Monitor] Respiratory Rate 20 Blood Pressure Pulse Oximetry 96 Oxygen Delivery Room Air 06/04/24 03:32 06/04/24 04:00 06/04/24 04:00 Temperature 36.6 C Pulse Rate 136 H 136 H Pulse Rate [Monitor] 134 H Respiratory Rate 16 16 Blood Pressure 118/79 118/79 Pulse Oximetry 99 99 Oxygen Delivery Room Air 06/04/24 04:00 06/04/24 05:48 06/04/24 07:48 Temperature 36.4 C L Pulse Rate 136 H 135 H 136 H Pulse Rate [Monitor] Respiratory Rate 20 Blood Pressure 129/94 H Pulse Oximetry 96 Oxygen Delivery 06/04/24 08:00 06/04/24 08:00 06/04/24 08:00 Temperature Pulse Rate 136 H 137 H Pulse Rate [Monitor] 134 H Respiratory Rate 20 Blood Pressure 129/94 H Pulse Oximetry 96 Oxygen Delivery Room Air 06/04/24 10:00 06/04/24 11:33 Temperature 36.8 C Pulse Rate 135 H 135 H Pulse Rate [Monitor] Respiratory Rate 18 Blood Pressure 141/99 H Pulse Oximetry 96 Oxygen Delivery Exam Const: General: comfortable, no acute distress, alert and awake Orientation/consciousness: patient oriented x3 HENMT: Head: normal to inspection Eyes: General: appearance normal, both eyes and all related structures Pupils: Equal, round and reactive pupils present Neck: Neck: normal visual inspection, supple and no JVD Carotids: normal carotid upstroke Resp: Effort & Inspection: normal respiratory effort Auscultation: rales on the left Cardio: Rate: tachycardic Rhythm: abnormal rhythm Heart sounds: S1 normal heart sound present, S2 normal heart sound present and no murmurs GI: Auscultation: normal bowel sounds Skin: General skin exam: normal color Neuro: General: patient oriented x3 Cranial nerves: Yes Equal, round and reactive pupils present Extrem: General: normal to inspection Psych: Appearance: grossly normal Mental Status: mental status grossly normal Results Labs and Meds 06/05/24 08:20 06/05/24 08:20 Lab results: Cardiac Enzymes 06/03/24 06/04/24 Range/Units 14:17 04:59 AST 50 (17-59) U/L Troponin I 0.016 (0.000-0.034) ng/mL Coagulation 06/03/24 Range/Units 14:17 PT 18.2 H (11.1-14.7) Seconds APTT 39.1 H (22.3-36.8) Seconds CBC 06/03/24 06/04/24 Range/Units 14:18 04:59 WBC 9.4 (4.5-10.0) K/mm3 RBC 4.00 L (4.6-6.20) M/mm3 Hgb 12.8 L (14.0-18.0) g/dL Hct 39.3 L (42.0-52.0) % Plt Count 234 210 (150-375) k/mm3 Lymph # (Auto) 1.04 (0.9-3.2) K/mm3 [place] # (Auto) 0.8 H (0.1-0.6) K/mm3 Eos # (Auto) 0.1 (0-0.3) K/mm3 Baso # (Auto) 0.1 (0.0-0.1) K/mm3 Comprehensive Metabolic Panel 06/03/24 06/04/24 Range/Units 14:17 04:59 Sodium 134 L 134 L (137-145) mmol/L Potassium 4.5 3.3 L (3.4-5.0) mmol/L Chloride 101 100 (98-107) mmol/L Carbon Dioxide 17 L 20 L (22-30) mmol/L BUN 34 H 43 H (9-20) mg/dL Creatinine 1.43 H 2.04 H (0.7-1.3) mg/dL Glucose 103 90 (65-110) mg/dL Calcium 8.8 8.6 (8.4-10.2) mg/dL AST 50 (17-59) U/L ALT 99 H (6-50) U/L Alkaline Phosphatase 122 (38-126) U/L Total Protein 7.0 (6.3-8.2) g/dL Albumin 3.5 (3.5-5.1) g/dL Intake and Output 06/03/24 06/04/24 06/04/24 23:59 07:59 15:59 Intake Total 991.7 360 Output Total 1300 225 Balance -308.3 -225 360 Intake: IV 991.7 Sodium Chloride 0.9% IV 1,000 991.7 ml @ 125 mls/hr IV CONT .Q8H [facility] Rx#:[id number] Oral 360 Output: Urine 200 225 Catheter Urine 1100 Urethral Catheter 1100 Other: # Incontinent Voids 1 Patient Weight 06/04/24 23:59 Weight 93.6 kg
[2024-06-04] MEDS: METOPROLOL TARTRATE 25 MG TABLET PO ×2 (13:37→20:48)
[2024-06-04] MEDS: DEXTROSE 5%/0.9% SOD CHL 1,000 ML 150 ML IV CONT ×2 (13:38→22:02)
[2024-06-04] MEDS: levoFLOXacin 750 MG/D5W 150 ML 750 MG/150 ML BAG 100 MG IVPB (13:38)
--- NOTE | 2024-06-04 14:00 | P.CONGI_ITS ---
Assessment and Plan Assessment and plan (1) Prolonged prothrombin time (PT) and partial thromboplastin time (PTT): Code(s): R79.1 - Abnormal coagulation profile Status: Acute (2) Cirrhosis of liver: Code(s): K74.60 - Unspecified cirrhosis of liver Status: Acute Assessment and Plan: This patient has a history of cirrhosis secondary to treated chronic hepatitis C infection. Despite continued heavy alcohol use, he has not yet developed end- stage liver disease or alcoholic hepatitis. His current MELD 3.0 score is 23, suggesting that he could be a candidate for liver transplantation if he were willing to abstain from alcohol. Currently, there are no active liver-related complications requiring immediate intervention. However, outpatient follow-up is recommended, including a FibroScan to assess liver fibrosis and guide decisions regarding prophylactic beta-sherrie therapy. We can follow him as an outpatient. Lastly, his increase in creatinine deserves special attention since he has only one kidney and this renal failure is definitely not related to his cirrhotic state. GI Consult Note Consult date/time: 06/04/24 14:00 HPI: Norberto De Jesus is a 54 year old male With history of left nephrectomy due to renal carcinoma more than 10 years ago, alcohol related cirrhosis, and hepatitis C treated more than 14 years ago with interferon, reportedly cured. The patient was brought to the hospital last night because of hypothermia and will have to have a pneumonia. Notably, he is an active drinker, and consumes approximately 1 qt whiskey every day. He does not jaundice, leg swelling, increased abdominal girth or melena hematemesis. Review of Systems 2 Review of Systems: All systems reviewed & are unremarkable except as noted in HPI and below PMFSH Past Medical History Medical History Deep venous thrombosis Following tibial plateau fracture Hepatitis C Cirrhosis of liver Status post interferon Cancer of left kidney Myocardial infarction Amphetamine abuse Alcohol abuse Surgical History Surgical History History of hernia repair History of left nephrectomy History of open reduction and internal fixation (ORIF) procedure Repair right tibial plateau fracture Family History Family History Mother Heart disease Social History Social History Social History: Surrogate medical decision maker: Frannie Mckinley, significant other. Code status: Full code. Smoking packs per day: 1 Smoking cigarettes per day: 20.0 Years smoked: 40 Smoking pack-years: 40.00 Smoking status: Current every day smoker Alcohol intake: current Alcohol use details: 1/5 of whiskey every 2 days Substance use: current Substance use type: methamphetamine Do You Feel Safe in your Home?: Yes Lack of Transportation: YES Lack of Food: Often True Current Housing: I Do Not Have Housing Concerned About Future Housing: YES Difficulty Paying Gas/Electric Bills: YES Difficulty Paying for Meds: YES Currently Unemployed: YES Education: High School Diploma/GED Difficulty w/ Childcare or Family Care: No Spiritual care concerns: No Meds Home Medications and Allergies Home Medications ?Medication ?Instructions ?Recorded ?Confirmed ?Type No Home Medications 06/03/24 06/03/24 History Allergies Allergy/AdvReac Type Severity Reaction Status Date / Time aspirin Allergy Intermediate Rash Verified 06/03/24 10:48 Vital Signs Vital Signs - 24 hr 06/03/24 14:33 06/03/24 14:39 06/03/24 14:52 Temperature 97.0 F L Pulse Rate 137 H 138 H Pulse Rate [Monitor] Respiratory Rate 20 Blood Pressure 127/79 Pulse Oximetry 100 Oxygen Delivery 06/03/24 16:59 06/03/24 18:30 06/03/24 19:00 Temperature 99.4 F 99.7 F H 98.2 F Pulse Rate 135 H 135 H 137 H Pulse Rate [Monitor] Respiratory Rate 20 18 20 Blood Pressure 116/82 106/67 113/69 Pulse Oximetry 100 100 98 Oxygen Delivery 06/03/24 19:41 06/03/24 20:00 06/03/24 20:00 Temperature 97.2 F L Pulse Rate 135 H 136 H Pulse Rate [Monitor] 135 H Respiratory Rate 20 20 Blood Pressure 104/74 104/74 Pulse Oximetry 91 91 Oxygen Delivery Room Air 06/03/24 20:00 06/03/24 22:00 06/03/24 23:35 Temperature 97.1 F L Pulse Rate 135 H 130 H 138 H Pulse Rate [Monitor] Respiratory Rate 20 Blood Pressure 124/74 Pulse Oximetry 96 Oxygen Delivery 06/04/24 00:00 06/04/24 00:00 06/04/24 00:00 Temperature Pulse Rate 135 H 135 H Pulse Rate [Monitor] 134 H Respiratory Rate 20 Blood Pressure 124/74 Pulse Oximetry 96 Oxygen Delivery Room Air 06/04/24 02:00 06/04/24 03:32 06/04/24 04:00 Temperature 98 F Pulse Rate 124 H 136 H Pulse Rate [Monitor] 134 H Respiratory Rate 16 Blood Pressure 118/79 118/79 Pulse Oximetry 99 Oxygen Delivery 06/04/24 04:00 06/04/24 04:00 06/04/24 05:48 Temperature Pulse Rate 136 H 136 H 135 H Pulse Rate [Monitor] Respiratory Rate 16 Blood Pressure Pulse Oximetry 99 Oxygen Delivery Room Air 06/04/24 07:48 06/04/24 08:00 06/04/24 08:00 Temperature 97.5 F L Pulse Rate 136 H 136 H Pulse Rate [Monitor] 134 H Respiratory Rate 20 20 Blood Pressure 129/94 H 129/94 H Pulse Oximetry 96 96 Oxygen Delivery Room Air 06/04/24 08:00 06/04/24 10:00 06/04/24 11:33 Temperature 98.2 F Pulse Rate 137 H 135 H 135 H Pulse Rate [Monitor] Respiratory Rate 18 Blood Pressure 141/99 H Pulse Oximetry 96 Oxygen Delivery 06/04/24 13:37 Temperature Pulse Rate 134 H Pulse Rate [Monitor] Respiratory Rate Blood Pressure Pulse Oximetry Oxygen Delivery Exam 2 Const: General: cooperative and healthy appearing Resp: Effort & Inspection: normal respiratory effort and able to speak in complete sentences Auscultation: clear to auscultation bilaterally Cardio: Rate: regular rate Rhythm: regular rhythm GI: Inspection: normal to inspection GI Palp: No No hepatosplenomegaly present Auscultation: normal bowel sounds Rectal Exam: deferred Skin: General skin exam: normal color Psych: Appearance: grossly normal Mental Status: mental status grossly normal Results Labs 06/04/24 04:59 06/04/24 04:59 Labs: Short CBC 06/03/24 06/04/24 Range/Units 14:18 04:59 WBC 9.4 (4.5-10.0) K/mm3 Hgb 12.8 L (14.0-18.0) g/dL Hct 39.3 L (42.0-52.0) % Plt Count 234 210 (150-375) k/mm3 BMP 02/19/25 02/20/25 14:17 04:59 Sodium 134 L 134 L Potassium 4.5 3.3 L Chloride 101 100 Carbon Dioxide 17 L 20 L BUN 34 H 43 H Creatinine 1.43 H 2.04 H Glucose 103 90 Calcium 8.8 8.6 Cardiac Enzymes 06/03/24 Range/Units 14:17 Total Creatine Kinase 291 H (55-170) U/L Troponin I 0.016 (0.000-0.034) ng/mL Liver Function 06/04/24 Range/Units 04:59 Total Bilirubin 2.2 H (0.2-1.3) mg/dL AST 50 (17-59) U/L ALT 99 H (6-50) U/L Alkaline Phosphatase 122 (38-126) U/L Albumin 3.5 (3.5-5.1) g/dL
--- NOTE | 2024-06-04 14:45 | PC.NURSE ---
This RN called [facility] to update the nurse Romario that the ambulance just arrived to bring the patient back, to let her know that this RN gave her Hydralazine at 1:30 as ordered and lastly to update her that the patient is stating that she is feeling depressed and that she doesn't want to go back to the facility. This RN asked the patient if she felt safe at the facility and the patient said yes . When asked why don't you want to go back to the facility the patient answered I don't know, I just dont . At this time this RN asked the patient if she was feeling depressed. Patient stated yes . This RN discussed with the patient that she needed to discuss with her doctor that she is feeling more depressed then normal. The patient shook her head in an up and down motion when asked if she understood. This RN encouraged the patient to go back to the facility and participate in activities, meet people and exercise with PT if ordered to help with depression. This RN also discussed with the patient that she needed to eat better to help increase her energy level. The patient verbalizes understanding, including shaking my hand in agreement when asked to shake on it. The EMS drivers appeared concerned about transporting the patient back to the facility because the patient stated that she did not want to go back . This RN informed them that we can't keep her here for that reason. They expressed concern for her elevated blood pressure. This RN informed them that she had just gotten her blood pressure medications within the last hour (1:30pm), and her systolic blood pressure when they took it was lower than it previously had been. 150s systolic in the left arm. They verbalized understanding at this time. Patient was wheeled out of the unit on a stretcher.
--- NOTE | 2024-06-04 16:09 | PC.NURSE ---
report called to PERNELL Stout. Verbalizes understanding related to report and denies questions at this time. Patient being transported to room 241 via bed.
--- NOTE | 2024-06-04 16:28 | PC.NURSE ---
This patient, Norberto De Jesus, was received from IMU on 06/04/24 at 1625. Patient/family oriented to unit policies and routines
[2024-06-04 17:31] LABS: Glucose Point of Care 200 mg/dl (65-105)
--- NOTE | 2024-06-04 22:29 | ECHO_ITS ---
Patient Info Name: Norberto De Jesus Age: 54 years : 1970 Gender: Male Ht: 68 in Wt: 211 lbs BSA: 2.17 m2 HR: 135 bpm BP: 118 / 79 mmHg Technical Quality: Poor Exam Date: 06/04/2024 9:12 AM Exam Location: Echo Lab Patient Status: Outpatient Admit Date: 06/03/2024 Staff Ordering Physician: Vonda Allen PA-C Lead Care Manager: Jerman Ramirez RDCS Attending Provider: Lesley Berman MD Referring Physician: Alejandro RUSH; Exam Type: CA echo dop color flow w con Study Info Indications - ATRIAL TACHYCARDIA Complete two-dimensional, color flow and Doppler transthoracic echocardiogram is performed with contrast to opacify the left ventricle and to improve the deliniation of the left ventricle endocardial borders. Contrast/Agitated Saline Contrast/Ag. Saline: Definity Amount: 2.00 ml Existing IV Access: Yes Reason for Poor Study: poor echocardiographic windows Summary 1. The left ventricle is normal in size with severely reduced systolic function. There is left ventricular concentric remodeling. The left ventricular ejection fraction is visually estimated to be 10-15%. 2. The right ventricle is normal in size with mildly reduced systolic function. 3. There is mild pulmonary hypertension with a PASP estimated to be 49 mm Hg. 4. Dilated inferior vena cava with <50% collapse upon inspiration consistent with significantly elevated right atrial pressure, 15 mmHg. Left Ventricle The left ventricle is normal in size with severely reduced systolic function. There is left ventricular concentric remodeling. The left ventricular ejection fraction is visually estimated to be 10-15%. Right Ventricle The right ventricle is normal in size with mildly reduced systolic function. Left Atria The left atrium is mildly dilated. Right Atria The right atrium is dilated. Atrial Septum The atrial septum is not well visualized. Aortic Valve The aortic valve is probably trileaflet and opens well. There is no aortic regurgitation. Pulmonic Valve The pulmonic valve is not well visualized. There is no color Doppler evidence of pulmonic valve regurgitation. Mitral Valve The mitral valve is normal. There is trace mitral regurgitation. Tricuspid Valve The tricuspid valve is normal. There is moderate tricuspid regurgitation. There is mild pulmonary hypertension with a PASP estimated to be 49 mm Hg. Pericardium/Pleural Pericardium is normal in appearance with no evidence for significant pericardial effusion. Inferior Vena Cava Dilated inferior vena cava with <50% collapse upon inspiration consistent with significantly elevated right atrial pressure, 15 mmHg. Dilated inferior vena cava with <50% collapse upon inspiration consistent with significantly elevated right atrial pressure, 15 mmHg. Aorta The aortic root at the level of the sinus of Valsalva measures 2.8 cm in diameter. Left Ventricular Outflow Tract Name Value Normal LVOT 2D LVOT Diameter 1.89 cm LVOT Doppler LVOT Peak Gradient 2 mmHg LVOT Mean Gradient 1 mmHg LVOT VTI 9.01 cm LVOT VTI/AV VTI Ratio 0.82 LVOT Stroke Volume 25.31 ml LVOT CO 3.43 l/min LVOT CI 1.58 L/min/m2 Pulmonic Valve Name Value Normal RVOT Doppler RVOT Peak Gradient 3 mmHg PV Doppler PV Peak Gradient 3 mmHg PV Regurgitation Doppler RI Peak End Diastolic Velocity 78.70 cm/s Mitral Valve Name Value Normal MV Doppler MV Peak Gradient 8 mmHg MV Mean Gradient 2 mmHg MV Decel Stoddard 2,137.89 cm/s2 MV PHT 0 s MV Area (PHT) 14.62 cm2 4.00-5.00 MV Area (Cont Eq VTI) 1.11 cm2 MV Diastolic Function MV E Peak Velocity 110.95 cm/s MV A Peak Velocity 1.11 cm/s MV E/A 99.92 MV Decel Time 0 s MV Annular TDI MV E/e' (Septal) 9.42 <=8.00 MV E/e' (Lateral) 7.33 <=8.00 MV E/e' (Average) 8.38 Tricuspid Valve Name Value Normal TV Regurgitation Doppler TR Peak Velocity 291.80 cm/s TR Peak Gradient 34 mmHg Estimated PAP/RSVP RA Pressure 15 mmHg <=5 PA Systolic Pressure 49 mmHg <36 RV Systolic Pressure 49 mmHg <36 Aorta Name Value Normal Ascending Aorta Ao Root Diameter (MM) 3.28 cm Ao Root Diam Index (MM) 1.51 cm/m2 Aortic Valve Name Value Normal AV Doppler AV Peak Velocity 94.55 cm/s AV Peak Gradient 3 mmHg AV Mean Gradient 2 mmHg AV VTI 10.95 cm AV Area (Cont Eq VTI) 2.31 cm2 >=3.00 AV Area (Cont Eq Kevin) 2.38 cm2 AV Regurgitation 2D LVOT Area 2.81 cm2 AV Regurgitation Doppler AR Decel Time 2 s AR Decel Stoddard 203.09 cm/s2 AR PHT 0 s Ventricles Name Value Normal LV Dimensions 2D/MM IVS Diastolic Thickness (2D) 1.24 cm 0.60-1.00 LVID Diastole (2D) 4.59 cm 4.20-5.80 LVIW Diastolic Thickness (2D) 1.36 cm 0.60-1.00 LVID Systole (2D) 3.69 cm 2.50-4.00 LVOT Diameter 1.89 cm LV Mass (2D Cubed) 229.63 g 88.00-224.00 LV Mass Index (2D Cubed) 0.01 g/cm2 0.00-0.01 Relative Wall Thickness (2D) 0.59 LV Fractional Shortening/Ejection Fraction 2D/MM LV Fractional Shortening (2D) 20 % 25-43 LV EF (2D Teicholz) 41 % 52-72 Atria Name Value Normal LA Dimensions LA Dimension (MM) 5.24 cm 3.00-4.10 LA Volume (4C A-L) 89.41 ml LA Volume (BP A-L) 75.91 ml RA Dimensions RA Area (4C) 21.36 cm2 <=18.00 Report Signatures
[2024-06-04 23:55] LABS: Glucose Point of Care 138 mg/dl (65-105)
[2024-06-05] VITALS (8 sets, daily range): BP systolic 104–142; BP diastolic 75–99; PULSE 66–123; RESP 16–19; TEMP 36.2–36.8; O2SAT 92–99
[2024-06-05] MEDS: HYDROcodone/acetaminophen (*CRX) 5-325 MG TABLET 1 TAB PO ×3 (04:05→20:13)
--- NOTE | 2024-06-05 04:33 | PC.NURSE ---
DOWN TIME WITH COMPUTER FROM
[2024-06-05 05:32] LABS: Glucose Point of Care 139 mg/dl (65-105)
[2024-06-05] MEDS: DEXTROSE 5%/0.9% SOD CHL 1,000 ML 150 ML IV CONT (06:37)
--- NOTE | 2024-06-05 08:13 | PM.IMPN ---
Progress Note: A&P Assessment and Plan (1) Cold exposure: Qualifiers: Encounter type: initial encounter Qualified Code(s): T69.9XXA - Effect of reduced temperature, unspecified, initial encounter Code(s): T69.9XXA - Effect of reduced temperature, unspecified, initial encounter Status: Acute Assessment and Plan: ##stayed in truck over night, temps in single digits --> rectal temp 95.4 on arrival. -bilateral leg pain and cold sensations in his legs after being exposed to the cold overnight -placed under a Adam Hugger on arrival -temperature is now normalized with improvement in his leg pain though he continues to have aching discomfort. -Negative of DVT and PE (2) Renal failure: Code(s): N19 - Unspecified kidney failure Status: Acute Assessment and Plan: ##Acute renal failure - Upon arrival creatinine 1.52, -->06/04 2.04 --> 1.84 - Likely secondary to dehydration, UTI, sepsis - Start fluid resuscitation - Follow-up BMP - Follow-up renal ultrasound: Unremarkable renal ultrasound status post left nephrectomy. No stones, masses or hydronephrosis. (3) Elevated LFTs: Code(s): R79.89 - Other specified abnormal findings of blood chemistry Status: Acute Assessment and Plan: ##Cirrhosiis and chronic liver failure. -->Cirrhosis of the liver with portal venous hypertension. - Coags are prolonged, --> Likely resulting from alcohol abuse -Consult GI for evaluation treatment (4) Lactic acid acidosis: Code(s): E87.20 - Acidosis, unspecified Status: Acute Assessment and Plan: #in light of hypothermia, leukocytosis, -->lactic acidosis 6.0,, acute renal failure - Likely resulting from pneumonia and UTI, - CT scan showed ground-glass opacity in the right lung upper lobe, UA shows pyuria - Received fluid resuscitation in the ED - stopped D5 normal saline IV 150 mL/hour - Start Levaquin 750 mg IV IV daily - Pending blood culture urine culture --trend wbc (5) Prolonged prothrombin time (PT) and partial thromboplastin time (PTT): Code(s): R79.1 - Abnormal coagulation profile Status: Acute (6) Alcohol abuse: Code(s): F10.10 - Alcohol abuse, uncomplicated Status: Acute Assessment and Plan: ##Alcohol dependence - 04/19 of angela in two days or more. -Monitor Alcohol withdrawal per [facility] protocol -Provide folic acid thiamine p.o. (7) Amphetamine abuse: Code(s): F15.10 - Other stimulant abuse, uncomplicated Status: Acute Assessment and Plan: ## amphetamine abuse --> UDS positive --> monitor for signs of withdrawl - monitor vitals signs closely (8) Pneumonia: Code(s): J18.9 - Pneumonia, unspecified organism Status: Acute Assessment and Plan: ##in light of hypothermia, leukocytosis, -->lactic acidosis 6.0,, acute renal failure - Likely resulting from pneumonia and UTI, - CT scan showed ground-glass opacity in the right lung upper lobe, UA shows pyuria - Received fluid resuscitation in the ED - was on D5 normal saline IV 150 mL/hour - stopped due to overload - Started Levaquin 750 mg IV IV daily - Pending blood culture urine culture --trend wbc (9) Dehydration: Code(s): E86.0 - Dehydration Status: Acute Assessment and Plan: ##Hyponatremia, hypokalemia --> Patient is a normal saline IV stopped due to fluid overload --> Replete potassium chloride 40 mg daily p.o. --> Follow-up BMP (10) Cardiomyopathy: Code(s): I42.9 - Cardiomyopathy, unspecified Status: Acute Assessment and Plan: ##EF 10-15%. This is a new diagnosis. -->Etiology unknown but likely nonischemic secondary to his methamphetamine and alcohol abuse --> Consulted Cardiology -->monitor closely Time Spent With Patient Time with patient: Greater than 35 minutes (40 minutes) Subjective Date/time seen: 06/05/24 08:13 Interval history: 06/05/24 - Patient today reports that he still has swelling in his bilateral legs and arms. Reports that they feel as if they weigh a lot and throb. He is more short of breath today. He denies any chest pain, nausea, vomiting or diarrhea. He denies any withdrawal symptoms actively. He states that he is really sleepy. He is wanting to stay until he gets his social security check on the . Review of Systems Review of Systems: 12 systems were reviewed and are negative except for as per HPI. Exam Const: General: cooperative, alert, awake and ill appearing Orientation/consciousness: patient oriented x3 Limitations: physical limitations HENMT: Head: normal to inspection and normocephalic Eyes: General: appearance normal, both eyes and all related structures Neck: Neck: normal visual inspection, full ROM and no lymphadenopathy Chest: Chest palpation & inspection: normal inspection of the chest Resp: Effort & Inspection: normal respiratory effort Auscultation: clear to auscultation bilaterally Cardio: Jugular venous distension: no JVD Rhythm: abnormal rhythm (A flutter) irregularly irregular Heart sounds: S1 normal heart sound present and S2 normal heart sound present Peripheral pulses: dorsalis pedis present bilateral 1+ GI: Inspection: normal to inspection GI Palp: Yes Soft to palpation Auscultation: normal bowel sounds Skin: General skin exam: no rashes or lesions noted Neuro: General: patient oriented x3 and moves all extremities Cranial nerves: Yes CN's II-XII intact bilaterally Gait exam (Neuro): Unable to assess gait Extrem: Right upper extremity: edema Left upper extremity: edema Right lower extremity: edema Details: 2+ Left lower extremity: edema Details: 2+ Psych: Appearance: disheveled Mental Status: mental status grossly normal Speech and movement: Normal speech and movement present Affect: normal affect Attitude: cooperative Thought process: Normal thought process present Thought content: Yes Normal thought content present Objective Data Vital Signs Vital Signs: Vital Signs - 24 hr 06/04/24 10:00 06/04/24 11:33 06/04/24 12:00 Temperature 98.2 F Pulse Rate 135 H 135 H Pulse Rate [Monitor] 137 H Respiratory Rate 18 Blood Pressure 141/99 H Pulse Oximetry 96 Oxygen Delivery 06/04/24 12:00 06/04/24 13:37 06/04/24 16:00 Temperature 97.8 F Pulse Rate 139 H 134 H 138 H Pulse Rate [Monitor] Respiratory Rate 22 H Blood Pressure 133/108 H Pulse Oximetry 97 Oxygen Delivery 06/04/24 16:00 06/04/24 16:00 06/04/24 16:00 Temperature Pulse Rate 138 H 137 H Pulse Rate [Monitor] 137 H Respiratory Rate 22 H Blood Pressure 133/108 H Pulse Oximetry 97 Oxygen Delivery Room Air 06/04/24 16:30 06/04/24 19:37 06/04/24 20:00 Temperature 97.9 F 97.6 F Pulse Rate 137 H 133 H 125 H Pulse Rate [Monitor] Respiratory Rate 16 18 Blood Pressure 144/95 H 134/94 H Pulse Oximetry 97 97 Oxygen Delivery 06/04/24 20:48 06/04/24 23:54 06/05/24 00:00 Temperature 97.6 F Pulse Rate 124 H 81 107 H Pulse Rate [Monitor] Respiratory Rate 18 Blood Pressure 122/92 H Pulse Oximetry 96 Oxygen Delivery 06/05/24 04:00 06/05/24 04:00 Temperature 98.0 F Pulse Rate 98 70 Pulse Rate [Monitor] Respiratory Rate 18 Blood Pressure 112/89 Pulse Oximetry 97 Oxygen Delivery Intake/Output Intake/Output: Intake & Output 06/02/24 06/03/24 06/04/24 06/05/24 23:59 23:59 23:59 23:59 Intake Total 3991.7 3261 1000 Output Total 1300 525 Balance 2691.7 2736 1000 Meds/Results Medications: Active Medications Generic Name Dose Route Start Last Admin Trade Name Freq PRN Reason Stop Dose Admin Acetaminophen 650 mg 06/03/24 13:40 06/03/24 16:57 Acetaminophen 325 Mg Tablet PO 650 mg Q6H PRN Administration Mild Pain (1-3) or Fever Hydrocodone Bitart/Acetaminophen 1 tab 06/03/24 18:33 06/05/24 04:05 Hydrocodone/Acetaminophen (*Crx) 5-325 Mg Tablet PO 1 tab Q6H PRN Administration Pain Rated 4-6 Chlordiazepoxide HCl 25 mg 06/03/24 14:39 Chlordiazepoxide (*Crx) 25 Mg Capsule PO Q8HR PRN Alcohol Withdrawal & CIWA < 8 Folic Acid 1 mg 06/03/24 09:00 06/04/24 08:59 Folic Acid 1 Mg Tablet PO 1 mg DAILY LEROY Administration Dextrose/Sodium Chloride 1,000 mls @ 150 mls/hr 06/04/24 10:15 06/05/24 06:37 Dextrose 5% Sodium Chloride 0.9% IV CONT 150 mls/hr .Q6H40M LEROY Administration Levofloxacin/Dextrose 750 mg in 150 mls @ 100 mls/hr 06/04/24 11:00 06/04/24 13:38 Levaquin 750 Mg/D5w 150 Ml IVPB 100 mls/hr Q48H LEROY Administration Lorazepam 2 mg 06/03/24 13:42 Lorazepam Inj (*Crx) 2 Mg/Ml Vial IV PUSH Q2H PRN CIWA 8-15 Lorazepam 4 mg 06/03/24 13:42 Lorazepam Inj (*Crx) 2 Mg/Ml Vial IV PUSH Q2H PRN CIWA > 15 Metoprolol Tartrate 25 mg 06/04/24 21:00 06/04/24 20:48 Metoprolol Tartrate 25 Mg Tablet PO 25 mg Q12HR LEROY Administration Thiamine HCl 100 mg 06/04/24 09:00 06/04/24 08:59 Thiamine Hcl 100 Mg Tablet PO 100 mg QAM LEROY Administration Radiology Results: ITS Impressions Chest X-Ray 06/03/24 11:14 Impression: Clear lungs. Abdomen Ultrasound 06/03/24 15:06 IMPRESSION: 1. Gallbladder wall thickening, which may be seen with interstitial edema or chronic liver disease. Chest CTA 06/03/24 21:01 IMPRESSION: 1. No pulmonary embolus. 2. Mild groundglass opacities in right lung upper lobe, consistent with mild pulmonary edema versus pneumonia. 3. Small right pleural effusion. 4. Cirrhosis of the liver with portal venous hypertension. Venous Doppler Study 06/03/24 21:32 IMPRESSION: 1. No deep venous thrombosis. Renal Ultrasound 06/04/24 08:16 Impression: 1: Unremarkable renal ultrasound status post left nephrectomy. No stones, masses or hydronephrosis. Labs Labs: Laboratory Results - last 24 hr 06/04/24 06/04/24 06/04/24 11:31 17:26 23:40 POC Capillary Glucose 143 H 200 H 138 H 06/05/24 05:30 POC Capillary Glucose 139 H Quality VTE Prophylaxis VTE prophylaxis: mechanical ordered Hospitalist [facility] Advance Care Plan I have confirmed that the patient's Advanced Care Plan is present, code status is documented, or surrogate decision maker is listed in patient medical record.: Yes Medication Reconciliation I have utilized all available resources to obtain, update and review the patients current medications (includes all prescriptions, OTC, herbals, cannabis, and nutritional supplements).: Yes
[2024-06-05 08:31] LABS: Basophils Absolute Auto 0.1 K/mm3 (0.0-0.1); Basophils Percent Auto 0.5 % (0.2-1.2); Eosinophils Absolute Auto 0.1 K/mm3 (0-0.3); Eosinophils Percent Auto 1.2 % (0-4.4); Hemoglobin 13.9 g/dL (14.0-18.0); Immature Granulocyte Absolute 0.06 K/mm3 (0.00-0.031); Immature Granulocyte Percent A 0.6 % (0-0.5); Lymphocytes Absolute Auto 1.34 K/mm3 (0.9-3.2); Lymphocytes Percent Auto 13.6 % (18.3-44.2); Mean Corpuscular HGB Conc 32.3 g/dl (32-36); Mean Corpuscular Hemoglobin 32.3 pg (26-34); Mean Corpuscular Volume 99.8 fl (80-100); Mean Platelet Volume 9.3 fl (7.4-10.4); Monocytes Absolute Auto 1.1 K/mm3 (0.1-0.6); Monocytes Percent Auto 10.8 % (2.6-8.5); Neutrophils Absolute Auto 7.2 K/mm3 (1.3-6.7); Neutrophils Percent Auto 73.3 % (45.5-73.1); Platelet Count Result 254 k/mm3 (150-375); Red Blood Count 4.31 M/mm3 (4.6-6.20); Red Cell Distribution Width 14.8 % (11.5-14.5); White Blood Count 9.8 K/mm3 (4.5-10.0)
[2024-06-05 08:47] LABS: Alanine Aminotransferase 80 U/L (6-50); Albumin Level 3.3 g/dL (3.5-5.1); Alkaline Phosphatase 108 U/L (38-126); Anion Gap 10 mmol/L (4-12); Aspartate Amino Transferase 40 U/L (17-59); Bilirubin,Total 1.4 mg/dL (0.2-1.3); Blood Urea Nitrogen 38 mg/dL (9-20); Calcium 8.6 mg/dL (8.4-10.2); Carbon Dioxide 18 mmol/L (22-30); Chloride 106 mmol/L (98-107); Creatine Kinase 78 U/L (55-170); Estimated CRCL calculation 46 ml/min; Estimated Glomerular Filt Rate 38; Glucose 120 mg/dL (65-110); Potassium 4.2 mmol/L (3.4-5.0); Sodium 134 mmol/L (137-145)
[2024-06-05] MEDS: THIAMINE HCL 100 MG TABLET PO (09:07)
[2024-06-05] MEDS: METOPROLOL TARTRATE 25 MG TABLET PO ×3 (09:07→20:12)
[2024-06-05] MEDS: FOLIC ACID 1 MG TABLET PO (09:07)
--- NOTE | 2024-06-05 10:58 | P.PNCA_ITS ---
Progress Note: A&P Assessment and Plan (1) Atrial flutter: Code(s): I48.92 - Unspecified atrial flutter <RADHA Voss - Last Filed: 06/05/24 13:58> Status: Acute <RADHA Voss - Last Filed: 06/05/24 13:58> Assessment and Plan: This is a new diagnosis. Chronicity is unknown. * Will attempt rate control for now * Increase metoprolol to 25mg q8h * Can consider adding digoxin if rate is difficult to control with metoprolol alone * Ultimately would prefer to make an attempt at restoring sinus rhythm with ca rdioversion, but will wait until he has been anticoagulated for at least 4 weeks * Given new diagnosis CHF, his CHADS2 Vasc score is 2, therefore anticoagulation is indicated. Will start Xarelto 20mg daily for cardioembolic risk reduction. Concern that he will be unable to afford DOAC because he lacks health insurance. May need to shift to warfarin, though routine INR checks may be prohibitively expensive as well. Difficult social situation. <RADHA Voss - Last Filed: 06/05/24 13:58> (2) Cardiomyopathy: Code(s): I42.9 - Cardiomyopathy, unspecified <RADHA Voss - Last Filed: 06/05/24 13:58> Status: Acute <RADHA Voss - Last Filed: 06/05/24 13:58> Assessment and Plan: EF 10-15%. This is a new diagnosis. Etiology unknown but likely nonischemic secondary to his methamphetamine and alcohol abuse * He does not have health insurance currently, so will be unable to afford Entresto or jardiance. Therefore, will start him on losartan and spironolactone. * When rate controlled on metoprolol, shift to ToprolXL given his cardiomyopathy * Rec'd [id number] IV x 1 today. Will shift to furosemide 40mg p.o. b.i.d. starting this evening <RADHA Voss - Last Filed: 06/05/24 13:58> ##EF 10-15%. This is a new diagnosis. Etiology unknown but likely nonischemic secondary to his methamphetamine and alcohol abuse <Pamela Murray, MANAGER CONVENTION - Last Filed: 06/05/24 13:43> (3) Amphetamine abuse: Code(s): F15.10 - Other stimulant abuse, uncomplicated <RADHA Voss - Last Filed: 06/05/24 13:58> Status: Acute <RADHA Voss - Last Filed: 06/05/24 13:58> Assessment and Plan: Cessation recommended <RADHA Voss - Last Filed: 06/05/24 13:58> Subjective Date/time seen: 06/05/24 10:58 <RADHA Voss - Last Filed: 06/05/24 13:58> Interval history: Cardiology follow up visit Feels okay today. Does complain of mild shortness of breath. No chest pain or palpitations. <RADHA Voss - Last Filed: 06/05/24 13:58> Review of Systems Review of Systems: All systems reviewed & are unremarkable except as noted in HPI and below <RADHA Voss - Last Filed: 06/05/24 13:58> Exam Const: General: comfortable, no acute distress, alert and awake <RADHA Voss - Last Filed: 06/05/24 13:58> Orientation/consciousness: patient oriented x3 <RADHA Voss - Last Filed: 06/05/24 13:58> HENMT: Head: normal to inspection <RADHA Voss - Last Filed: 06/05/24 13:58> Eyes: General: appearance normal, both eyes and all related structures <RADHA Voss - Last Filed: 06/05/24 13:58> Pupils: Equal, round and reactive pupils present <RADHA Voss - Last Filed: 06/05/24 13:58> Neck: Neck: normal visual inspection, supple and no JVD <RDAHA Voss - Last Filed: 06/05/24 13:58> Carotids: normal carotid upstroke <ABRAHAM Voss - Last Filed: 06/05/24 13:58> Resp: Effort & Inspection: normal respiratory effort <ABRAHAM Voss - Last Filed: 06/05/24 13:58> Auscultation: rales on the left <ABRAHAM Voss - Last Filed: 06/05/24 13:58> Cardio: Rate: tachycardic <ABRAHAM Voss - Last Filed: 06/05/24 13:58> Rhythm: abnormal rhythm <ABRAHAM Voss - Last Filed: 06/05/24 13:58> Heart sounds: S1 normal heart sound present, S2 normal heart sound present and no murmurs <ABRAHAM Voss - Last Filed: 06/05/24 13:58> GI: Auscultation: normal bowel sounds <ABRAHAM Voss - Last Filed: 06/05/24 13:58> Skin: General skin exam: normal color <ABRAHAM Voss - Last Filed: 06/05/24 13:58> Neuro: General: patient oriented x3 <ABRAHAM Voss - Last Filed: 06/05/24 13:58> Cranial nerves: Yes Equal, round and reactive pupils present <RADHA Voss - Last Filed: 06/05/24 13:58> Extrem: General: edema <ABRAHAM Voss - Last Filed: 06/05/24 13:58> Psych: Appearance: grossly normal <RADHA Voss - Last Filed: 06/05/24 13:58> Mental Status: mental status grossly normal <RADHA Voss - Last Filed: 06/05/24 13:58> Objective Data Vital Signs Vital Signs: Vital Signs - 24 hr 06/04/24 11:33 06/04/24 12:00 06/04/24 12:00 Temperature 36.8 C Pulse Rate 135 H 139 H Pulse Rate [Monitor] 137 H Respiratory Rate 18 Blood Pressure 141/99 H Pulse Oximetry 96 Oxygen Delivery 06/04/24 13:37 06/04/24 16:00 06/04/24 16:00 Temperature 36.6 C Pulse Rate 134 H 138 H Pulse Rate [Monitor] 137 H Respiratory Rate 22 H Blood Pressure 133/108 H 133/108 H Pulse Oximetry 97 Oxygen Delivery 06/04/24 16:00 06/04/24 16:00 06/04/24 16:30 Temperature 36.6 C Pulse Rate 138 H 137 H 137 H Pulse Rate [Monitor] Respiratory Rate 22 H 16 Blood Pressure 144/95 H Pulse Oximetry 97 97 Oxygen Delivery Room Air 06/04/24 19:37 06/04/24 20:00 06/04/24 20:48 Temperature 36.4 C Pulse Rate 133 H 125 H 124 H Pulse Rate [Monitor] Respiratory Rate 18 Blood Pressure 134/94 H Pulse Oximetry 97 Oxygen Delivery 06/04/24 23:54 06/05/24 00:00 06/05/24 04:00 Temperature 36.4 C Pulse Rate 81 107 H 98 Pulse Rate [Monitor] Respiratory Rate 18 Blood Pressure 122/92 H Pulse Oximetry 96 Oxygen Delivery 06/05/24 04:00 06/05/24 08:00 06/05/24 08:00 Temperature 36.7 C 36.8 C Pulse Rate 70 92 107 H Pulse Rate [Monitor] Respiratory Rate 18 16 Blood Pressure 112/89 133/99 H Pulse Oximetry 97 96 Oxygen Delivery 06/05/24 08:00 06/05/24 09:05 06/05/24 09:07 Temperature Pulse Rate 92 Pulse Rate [Monitor] 107 H Respiratory Rate Blood Pressure Pulse Oximetry Oxygen Delivery Room Air <RADHA Voss - Last Filed: 06/05/24 13:58> Intake/Output Intake/Output: Intake & Output 06/02/24 06/03/24 06/04/24 06/05/24 23:59 23:59 23:59 23:59 Intake Total 3991.7 3261 1237 Output Total 1300 525 Balance 2691.7 2736 1237 <RADHA Voss - Last Filed: 06/05/24 13:58> Meds/Results Medications: Active Medications Generic Name Dose Route Start Last Admin Trade Name Freq PRN Reason Stop Dose Admin Acetaminophen 650 mg 06/03/24 13:40 06/03/24 16:57 Acetaminophen 325 Mg Tablet PO 650 mg Q6H PRN Administration Mild Pain (1-3) or Fever Hydrocodone Bitart/Acetaminophen 1 tab 06/03/24 18:33 06/05/24 04:05 Hydrocodone/Acetaminophen (*Crx) 5-325 Mg Tablet PO 1 tab Q6H PRN Administration Pain Rated 4-6 Chlordiazepoxide HCl 25 mg 06/03/24 14:39 Chlordiazepoxide (*Crx) 25 Mg Capsule PO Q8HR PRN Alcohol Withdrawal & CIWA < 8 Folic Acid 1 mg 06/03/24 09:00 06/05/24 09:07 Folic Acid 1 Mg Tablet PO 1 mg DAILY LEROY Administration Dextrose/Sodium Chloride 1,000 mls @ 150 mls/hr 06/04/24 10:15 06/05/24 06:37 Dextrose 5% Sodium Chloride 0.9% IV CONT 150 mls/hr .Q6H40M LEROY Administration Levofloxacin/Dextrose 750 mg in 150 mls @ 100 mls/hr 06/04/24 11:00 06/04/24 13:38 Levaquin 750 Mg/D5w 150 Ml IVPB 100 mls/hr Q48H LEROY Administration Lorazepam 2 mg 06/03/24 13:42 Lorazepam Inj (*Crx) 2 Mg/Ml Vial IV PUSH Q2H PRN CIWA 8-15 Lorazepam 4 mg 06/03/24 13:42 Lorazepam Inj (*Crx) 2 Mg/Ml Vial IV PUSH Q2H PRN CIWA > 15 Metoprolol Tartrate 25 mg 06/04/24 21:00 06/05/24 09:07 Metoprolol Tartrate 25 Mg Tablet PO 25 mg Q12HR LEROY Administration Thiamine HCl 100 mg 06/04/24 09:00 06/05/24 09:07 Thiamine Hcl 100 Mg Tablet PO 100 mg QAM LEROY Administration <RADHA Voss - Last Filed: 06/05/24 13:58> Radiology Results: ITS Impressions Chest X-Ray 06/03/24 11:14 Impression: Clear lungs. Abdomen Ultrasound 06/03/24 15:06 IMPRESSION: 1. Gallbladder wall thickening, which may be seen with interstitial edema or chronic liver disease. Chest CTA 06/03/24 21:01 IMPRESSION: 1. No pulmonary embolus. 2. Mild groundglass opacities in right lung upper lobe, consistent with mild pulmonary edema versus pneumonia. 3. Small right pleural effusion. 4. Cirrhosis of the liver with portal venous hypertension. Venous Doppler Study 06/03/24 21:32 IMPRESSION: 1. No deep venous thrombosis. Renal Ultrasound 06/04/24 08:16 Impression: 1: Unremarkable renal ultrasound status post left nephrectomy. No stones, masses or hydronephrosis. <Tanika Sherman APN-Gio - Last Filed: 06/05/24 13:58> Labs Labs: Laboratory Results - last 24 hr 06/04/24 06/04/24 06/04/24 11:31 17:26 23:40 WBC RBC Hgb Hct MCV MCH MCHC RDW Plt Count MPV Immature Gran % (Auto) Neut % (Auto) Lymph % (Auto) [place] % (Auto) Eos % (Auto) Baso % (Auto) Lymph # (Auto) [place] # (Auto) Eos # (Auto) Baso # (Auto) Abs Immat Gran (auto) Absolute Neuts (auto) Absolute Nucleated RBC Nucleated RBC % Sodium Potassium Chloride Carbon Dioxide Anion Gap BUN Creatinine Estim Creat Clear Calc Estimated GFR Glucose POC Capillary Glucose 143 H 200 H 138 H Calcium Magnesium Total Bilirubin AST ALT Alkaline Phosphatase Total Creatine Kinase Total Protein Albumin 06/05/24 06/05/24 05:30 08:20 WBC 9.8 RBC 4.31 L Hgb 13.9 L Hct 43.0 MCV 99.8 MCH 32.3 MCHC 32.3 RDW 14.8 H Plt Count 254 MPV 9.3 Immature Gran % (Auto) 0.6 H Neut % (Auto) 73.3 H Lymph % (Auto) 13.6 L [place] % (Auto) 10.8 H Eos % (Auto) 1.2 Baso % (Auto) 0.5 Lymph # (Auto) 1.34 [place] # (Auto) 1.1 H Eos # (Auto) 0.1 Baso # (Auto) 0.1 Abs Immat Gran (auto) 0.06 H Absolute Neuts (auto) 7.2 H Absolute Nucleated RBC 0.000 Nucleated RBC % 0.0 Sodium 134 L Potassium 4.2 Chloride 106 Carbon Dioxide 18 L Anion Gap 10 BUN 38 H Creatinine 1.84 H Estim Creat Clear Calc 46 Estimated GFR 38 L Glucose 120 H POC Capillary Glucose 139 H Calcium 8.6 Magnesium 2.0 Total Bilirubin 1.4 H AST 40 ALT 80 H Alkaline Phosphatase 108 Total Creatine Kinase 78 Total Protein 7.0 Albumin 3.3 L <Tanika Sherman, CLIENT INSIGHTS CONSULTANT-C - Last Filed: 06/05/24 13:58>
[2024-06-05 11:41] LABS: NT Pro B Type Natriuretic Pept 3930 pg/mL (19.9-100)
[2024-06-05 11:56] LABS: Glucose Point of Care 140 mg/dl (65-105)
[2024-06-05] MEDS: FUROSEMIDE INJ 40 MG/4 ML VIAL IV PUSH (12:29)
[2024-06-05] MEDS: RIVAROXABAN 20 MG TABLET PO (17:05)
[2024-06-05] MEDS: FUROSEMIDE 40 MG TABLET PO (17:06)
[2024-06-05 17:08] LABS: Glucose Point of Care 130 mg/dl (65-105)
--- NOTE | 2024-06-05 18:45 | ECG_ITS ---
Test Date: 2024-06-05 18:58:50 Measurements Intervals [place] Rate: 90 P: 0 TN: 0 QRS: 69 QRSD: 84 T: 194 QT: 370 QTc: 454 Interpretive Statements ATRIAL FLUTTER/TACHYCARDIA BORDERLINE R WAVE PROGRESSION, ANTERIOR LEADS BORDERLINE ST ABNORMALITY- LATERAL LEADS ABNORMAL ECG Compared to ECG 06/03/2024 14:38:06 HEART RATE HAS DECREASED Electronically Signed On 06-05-2024 19:14:30 PRINCIPAL CYBER ENGINEER by Salvador Maharaj D.O.
[2024-06-05] MEDS: NITROGLYCERIN SL 0.4 MG TABLET SUBLINGUAL ×3 (19:09→19:22)
[2024-06-05 19:30] LABS: Troponin I 0.029 ng/mL (0.000-0.034)
[2024-06-05] MEDS: CALCIUM CARBONATE (TUMS) 500 MG (200 MG ELEMENTAL) PO (20:13)
[2024-06-05 22:41] LABS: Troponin I 0.035 ng/mL (0.000-0.034)
[2024-06-06] VITALS (16 sets, daily range): BP systolic 117–133; BP diastolic 80–96; PULSE 62–113; RESP 18–19; TEMP 36.4–36.7; O2SAT 94–100
[2024-06-06 00:30] LABS: Glucose Point of Care 135 mg/dl (65-105)
[2024-06-06] MEDS: HYDROcodone/acetaminophen (*CRX) 5-325 MG TABLET 1 TAB PO ×3 (02:55→16:38)
[2024-06-06] MEDS: METOPROLOL TARTRATE 25 MG TABLET PO ×3 (05:36→22:05)
[2024-06-06 05:47] LABS: Glucose Point of Care 73 mg/dl (65-105)
--- NOTE | 2024-06-06 06:50 | PM.IMPN ---
Progress Note: A&P Assessment and Plan (1) Atrial flutter: Code(s): I48.92 - Unspecified atrial flutter Status: Acute Assessment and Plan: ##unknown if new or chronic - continue Metoprolol - Cardiology on board. (2) Cardiomyopathy: Code(s): I42.9 - Cardiomyopathy, unspecified Status: Acute Assessment and Plan: ## Etiology unknown but likely nonischemic secondary to his methamphetamine and alcohol abuse ##EF 10-15%. This is a new diagnosis. -->Etiology unknown but likely nonischemic secondary to his methamphetamine and alcohol abuse --> Consulted Cardiology --> episode of chest pain last p.m., troponins are trending up 0.041 -->monitor closely (3) Amphetamine abuse: Code(s): F15.10 - Other stimulant abuse, uncomplicated Status: Acute Assessment and Plan: ## amphetamine abuse --> UDS positive --> monitor for signs of withdrawl - monitor vitals signs closely (4) Alcohol abuse: Code(s): F10.10 - Alcohol abuse, uncomplicated Status: Acute Assessment and Plan: ##Alcohol dependence - 1/5 of whickey in two days or more. -Monitor Alcohol withdrawal per [facility] protocol -Provide folic acid thiamine p.o. (5) Pneumonia: Code(s): J18.9 - Pneumonia, unspecified organism Status: Acute Assessment and Plan: ##in light of hypothermia, leukocytosis, -->lactic acidosis 6.0,, acute renal failure - Likely resulting from pneumonia and UTI, - CT scan showed ground-glass opacity in the right lung upper lobe, UA shows pyuria - Received fluid resuscitation in the ED - was on D5 normal saline IV 150 mL/hour - stopped due to overload - Started Levaquin 750 mg IV daily - Pending blood culture urine culture --trend wbc (6) Cirrhosis of liver: Code(s): K74.60 - Unspecified cirrhosis of liver Status: Acute Assessment and Plan: ## admits to drinking 1/5 whiskey in 2 days if not more daily for years -trend LFTS (7) Dehydration: Code(s): E86.0 - Dehydration Status: Acute Assessment and Plan: ##Hyponatremia, hypokalemia --> Patient is a normal saline IV stopped due to fluid overload --> Replete potassium chloride 40 mg daily p.o. stopped, potassium elevated today. --> Follow-up BMP (8) Cold exposure: Qualifiers: Encounter type: initial encounter Qualified Code(s): T69.9XXA - Effect of reduced temperature, unspecified, initial encounter Code(s): T69.9XXA - Effect of reduced temperature, unspecified, initial encounter Status: Acute Assessment and Plan: ##stayed in truck over night, temps in single digits --> rectal temp 95.4 on arrival. -bilateral leg pain and cold sensations in his legs after being exposed to the cold overnight -placed under a Adam Hugger on arrival -temperature is now normalized with improvement in his leg pain though he continues to have aching discomfort. -Negative of DVT and PE (9) Lactic acid acidosis: Code(s): E87.20 - Acidosis, unspecified Status: Acute Assessment and Plan: #in light of hypothermia, leukocytosis, -->lactic acidosis 6.0,, acute renal failure - Likely resulting from pneumonia and UTI, - CT scan showed ground-glass opacity in the right lung upper lobe, UA shows pyuria - Received fluid resuscitation in the ED - stopped D5 normal saline IV 150 mL/hour - Start Levaquin 750 mg IV daily - Pending blood culture urine culture --trend wbc (10) Elevated LFTs: Code(s): R79.89 - Other specified abnormal findings of blood chemistry Status: Acute Assessment and Plan: ##Cirrhosiis and chronic liver failure. -->Cirrhosis of the liver with portal venous hypertension. - Coags are prolonged, --> Likely resulting from alcohol abuse -Consult GI for evaluation treatment (11) Renal failure: Code(s): N19 - Unspecified kidney failure Status: Acute Assessment and Plan: ##Acute renal failure - Upon arrival creatinine 1.52, -->2/ 2.04 --> 1.84 -->2.10 - Likely secondary to dehydration, UTI, sepsis - Start fluid resuscitation - Follow-up BMP - Follow-up renal ultrasound: Unremarkable renal ultrasound status post left nephrectomy. No stones, masses or hydronephrosis. Plan Continue to monitor this patient closely -will discuss discharge planning Code status: Full code DVT: Xarelto 20 per Cardiology Subjective Date/time seen: 06/06/24 06:50 Interval history: 06/05/24 - Patient today reports that he still has swelling in his bilateral legs and arms. Reports some chest pain, but denies nausea, vomiting or diarrhea. He reports feeling his withdrawal symptoms actively. He states that he is really sleepy. Cardiology did see patient, did have some elevation in his troponins, will continue to trend. Encouraged to continue with CIWA protocol, patient given Ativan in the rooms morning to his withdrawal symptoms. Review of Systems Review of Systems: 12 systems were reviewed and are negative except for as per HPI. Exam Const: General: cooperative, alert, awake and ill appearing Orientation/consciousness: patient oriented x3 Limitations: physical limitations HENMT: Head: normal to inspection and normocephalic Eyes: General: appearance normal, both eyes and all related structures Neck: Neck: normal visual inspection, full ROM and no lymphadenopathy Chest: Chest palpation & inspection: normal inspection of the chest Resp: Effort & Inspection: normal respiratory effort Auscultation: clear to auscultation bilaterally Cardio: Jugular venous distension: no JVD Rhythm: abnormal rhythm (A flutter) irregularly irregular Heart sounds: S1 normal heart sound present and S2 normal heart sound present Peripheral pulses: dorsalis pedis present bilateral 1+ GI: Inspection: normal to inspection Auscultation: normal bowel sounds Skin: General skin exam: no rashes or lesions noted Neuro: General: patient oriented x3, moves all extremities and Unable to assess gait Cranial nerves: Yes CN's II-XII intact bilaterally Gait exam (Neuro): Unable to assess gait Extrem: Right upper extremity: edema Left upper extremity: edema Right lower extremity: edema Details: 2+ Left lower extremity: edema Details: 2+ Psych: Appearance: disheveled Mental Status: mental status grossly normal Speech and movement: Normal speech and movement present Affect: normal affect Attitude: cooperative Thought process: Normal thought process present Objective Data Vital Signs Vital Signs: Vital Signs - 24 hr 06/05/24 08:00 06/05/24 08:00 06/05/24 08:00 Temperature 98.2 F Pulse Rate 92 107 H Pulse Rate [Monitor] 107 H Respiratory Rate 16 Blood Pressure 133/99 H Pulse Oximetry 96 Oxygen Delivery 06/05/24 09:05 06/05/24 09:07 06/05/24 12:00 Temperature Pulse Rate 92 Pulse Rate [Monitor] 123 H Respiratory Rate Blood Pressure Pulse Oximetry Oxygen Delivery Room Air 06/05/24 12:00 06/05/24 12:00 06/05/24 14:52 Temperature 98.1 F Pulse Rate 123 H 78 112 H Pulse Rate [Monitor] Respiratory Rate 19 Blood Pressure 142/87 H Pulse Oximetry 92 Oxygen Delivery 06/05/24 16:00 06/05/24 16:00 06/05/24 16:00 Temperature 97.2 F L Pulse Rate 109 H 66 Pulse Rate [Monitor] 109 H Respiratory Rate 17 Blood Pressure 113/89 Pulse Oximetry 99 Oxygen Delivery 06/05/24 20:00 06/05/24 20:00 06/05/24 20:00 Temperature 97.4 F L Pulse Rate 104 H 104 H Pulse Rate [Monitor] 109 H Respiratory Rate 18 18 Blood Pressure 104/75 104/75 Pulse Oximetry 98 98 Oxygen Delivery Room Air 06/05/24 20:00 06/06/24 00:00 06/06/24 00:00 Temperature 97.6 F Pulse Rate 95 82 Pulse Rate [Monitor] 109 H Respiratory Rate 18 Blood Pressure 117/87 117/87 Pulse Oximetry 96 Oxygen Delivery 06/06/24 00:00 06/06/24 03:28 06/06/24 04:00 Temperature Pulse Rate 102 H 102 H Pulse Rate [Monitor] 109 H Respiratory Rate Blood Pressure 117/87 Pulse Oximetry Oxygen Delivery 06/06/24 04:00 Temperature 97.6 F Pulse Rate 78 Pulse Rate [Monitor] Respiratory Rate 18 Blood Pressure 130/86 Pulse Oximetry 100 Oxygen Delivery Intake/Output Intake/Output: Intake & Output 06/03/24 06/04/24 06/05/24 06/06/24 23:59 23:59 23:59 23:59 Intake Total 3991.7 3261 3016 550 Output Total 1300 525 400 Balance 2691.7 2736 3016 150 Meds/Results Medications: Active Medications Generic Name Dose Route Start Last Admin Trade Name Freq PRN Reason Stop Dose Admin Acetaminophen 650 mg 06/03/24 13:40 06/03/24 16:57 Acetaminophen 325 Mg Tablet PO 650 mg Q6H PRN Administration Mild Pain (1-3) or Fever Hydrocodone Bitart/Acetaminophen 1 tab 06/03/24 18:33 06/06/24 02:55 Hydrocodone/Acetaminophen (*Crx) 5-325 Mg Tablet PO 1 tab Q6H PRN Administration Pain Rated 4-6 Calcium Carbonate 200 mg 06/05/24 19:05 06/05/24 20:13 Calcium Carbonate (Tums) 500 Mg (200 Mg Elemental) PO 200 mg Q6H PRN Administration Indigestion Chlordiazepoxide HCl 25 mg 06/03/24 14:39 Chlordiazepoxide (*Crx) 25 Mg Capsule PO Q8HR PRN Alcohol Withdrawal & CIWA < 8 Folic Acid 1 mg 06/03/24 09:00 06/05/24 09:07 Folic Acid 1 Mg Tablet PO 1 mg DAILY LEROY Administration Furosemide 40 mg 06/05/24 17:00 06/05/24 17:06 Furosemide 40 Mg Tablet PO 40 mg BID LEROY Administration Levofloxacin/Dextrose 750 mg in 150 mls @ 100 mls/hr 06/04/24 11:00 06/04/24 13:38 Levaquin 750 Mg/D5w 150 Ml IVPB 100 mls/hr Q48H LEROY Administration Lorazepam 2 mg 06/03/24 13:42 Lorazepam Inj (*Crx) 2 Mg/Ml Vial IV PUSH Q2H PRN CIWA 8-15 Lorazepam 4 mg 06/03/24 13:42 Lorazepam Inj (*Crx) 2 Mg/Ml Vial IV PUSH Q2H PRN CIWA > 15 Losartan Potassium 25 mg 06/06/24 09:00 Losartan Potassium 25 Mg Tablet PO DAILY [facility] Metoprolol Tartrate 25 mg 06/05/24 14:00 06/06/24 05:36 Metoprolol Tartrate 25 Mg Tablet PO 25 mg Q8HR LEROY Administration Nitroglycerin 0.4 mg 06/05/24 19:04 06/05/24 19:22 Nitroglycerin Sl 0.4 Mg Tablet SUBLINGUAL 0.4 mg Q5MIN PRN Administration Chest Pain Potassium Chloride 20 meq 06/06/24 09:00 Potassium Chloride 20 Meq Er Tablet PO DAILY [facility] Rivaroxaban 20 mg 06/05/24 17:00 06/05/24 17:05 Rivaroxaban 20 Mg Tablet PO 20 mg DAILY@1700 LEROY Administration Spironolactone 25 mg 06/06/24 09:00 Spironolactone 25 Mg Tablet PO QAM LEROY Thiamine HCl 100 mg 06/04/24 09:00 06/05/24 09:07 Thiamine Hcl 100 Mg Tablet PO 100 mg QAM LEROY Administration Radiology Results: ITS Impressions Chest X-Ray 06/03/24 11:14 Impression: Clear lungs. Abdomen Ultrasound 06/03/24 15:06 IMPRESSION: 1. Gallbladder wall thickening, which may be seen with interstitial edema or chronic liver disease. Chest CTA 06/03/24 21:01 IMPRESSION: 1. No pulmonary embolus. 2. Mild groundglass opacities in right lung upper lobe, consistent with mild pulmonary edema versus pneumonia. 3. Small right pleural effusion. 4. Cirrhosis of the liver with portal venous hypertension. Venous Doppler Study 06/03/24 21:32 IMPRESSION: 1. No deep venous thrombosis. Renal Ultrasound 06/04/24 08:16 Impression: 1: Unremarkable renal ultrasound status post left nephrectomy. No stones, masses or hydronephrosis. Labs Labs: Laboratory Results - last 24 hr 06/05/24 06/05/24 06/05/24 08:16 08:20 11:35 WBC 9.8 RBC 4.31 L Hgb 13.9 L Hct 43.0 MCV 99.8 MCH 32.3 MCHC 32.3 RDW 14.8 H Plt Count 254 MPV 9.3 Immature Gran % (Auto) 0.6 H Neut % (Auto) 73.3 H Lymph % (Auto) 13.6 L [place] % (Auto) 10.8 H Eos % (Auto) 1.2 Baso % (Auto) 0.5 Lymph # (Auto) 1.34 [place] # (Auto) 1.1 H Eos # (Auto) 0.1 Baso # (Auto) 0.1 Abs Immat Gran (auto) 0.06 H Absolute Neuts (auto) 7.2 H Absolute Nucleated RBC 0.000 Nucleated RBC % 0.0 Sodium 134 L Potassium 4.2 Chloride 106 Carbon Dioxide 18 L Anion Gap 10 BUN 38 H Creatinine 1.84 H Estim Creat Clear Calc 46 Estimated GFR 38 L Glucose 120 H POC Capillary Glucose 140 H Calcium 8.6 Magnesium 2.0 Total Bilirubin 1.4 H AST 40 ALT 80 H Alkaline Phosphatase 108 Total Creatine Kinase 78 Troponin I NT-Pro-B Natriuret Pep 3930 H Total Protein 7.0 Albumin 3.3 L 06/05/24 06/05/24 06/05/24 17:02 19:04 21:51 WBC RBC Hgb Hct MCV MCH MCHC RDW Plt Count MPV Immature Gran % (Auto) Neut % (Auto) Lymph % (Auto) [place] % (Auto) Eos % (Auto) Baso % (Auto) Lymph # (Auto) [place] # (Auto) Eos # (Auto) Baso # (Auto) Abs Immat Gran (auto) Absolute Neuts (auto) Absolute Nucleated RBC Nucleated RBC % Sodium Potassium Chloride Carbon Dioxide Anion Gap BUN Creatinine Estim Creat Clear Calc Estimated GFR Glucose POC Capillary Glucose 130 H Calcium Magnesium Total Bilirubin AST ALT Alkaline Phosphatase Total Creatine Kinase Troponin I 0.029 0.035 H* D NT-Pro-B Natriuret Pep Total Protein Albumin 06/06/24 06/06/24 00:24 05:41 WBC RBC Hgb Hct MCV MCH MCHC RDW Plt Count MPV Immature Gran % (Auto) Neut % (Auto) Lymph % (Auto) [place] % (Auto) Eos % (Auto) Baso % (Auto) Lymph # (Auto) [place] # (Auto) Eos # (Auto) Baso # (Auto) Abs Immat Gran (auto) Absolute Neuts (auto) Absolute Nucleated RBC Nucleated RBC % Sodium Potassium Chloride Carbon Dioxide Anion Gap BUN Creatinine Estim Creat Clear Calc Estimated GFR Glucose POC Capillary Glucose 135 H 73 Calcium Magnesium Total Bilirubin AST ALT Alkaline Phosphatase Total Creatine Kinase Troponin I NT-Pro-B Natriuret Pep Total Protein Albumin Quality VTE Prophylaxis VTE prophylaxis: mechanical ordered Hospitalist MIPS Advance Care Plan I have confirmed that the patient's Advanced Care Plan is present, code status is documented, or surrogate decision maker is listed in patient medical record.: Yes Medication Reconciliation I have utilized all available resources to obtain, update and review the patients current medications (includes all prescriptions, OTC, herbals, cannabis, and nutritional supplements).: Yes
[2024-06-06 07:00] LABS: Troponin I 0.041 ng/mL (0.000-0.034)
[2024-06-06 07:44] LABS: Alanine Aminotransferase 234 U/L (6-50); Albumin Level 3.4 g/dL (3.5-5.1); Alkaline Phosphatase 113 U/L (38-126); Anion Gap 16 mmol/L (4-12); Aspartate Amino Transferase 397 U/L (17-59); Bilirubin,Total 2.2 mg/dL (0.2-1.3); Blood Urea Nitrogen 43 mg/dL (9-20); Calcium 9.2 mg/dL (8.4-10.2); Carbon Dioxide 14 mmol/L (22-30); Chloride 105 mmol/L (98-107); Estimated CRCL calculation 41 ml/min; Estimated Glomerular Filt Rate 33; Glucose 72 mg/dL (65-110); NT Pro B Type Natriuretic Pept 5190 pg/mL (19.9-100); Potassium 5.3 mmol/L (3.4-5.0); Sodium 135 mmol/L (137-145)
[2024-06-06] MEDS: FUROSEMIDE 40 MG TABLET PO ×2 (08:27→16:38)
[2024-06-06] MEDS: FOLIC ACID 1 MG TABLET PO (08:27)
[2024-06-06] MEDS: LOSARTAN POTASSIUM 25 MG TABLET PO (08:27)
[2024-06-06] MEDS: SPIRONOLACTONE 25 MG TABLET PO (08:27)
[2024-06-06] MEDS: CALCIUM CARBONATE (TUMS) 500 MG (200 MG ELEMENTAL) PO ×2 (08:28→16:38)
[2024-06-06] MEDS: THIAMINE HCL 100 MG TABLET PO (08:28)
[2024-06-06] MEDS: chlordiazePOXIDE (*CRX) 25 MG CAPSULE PO ×2 (08:29→16:38)
[2024-06-06] MEDS: LORazepam INJ (*CRX) 2 MG/ML VIAL IV PUSH ×3 (08:29→16:39)
[2024-06-06] MEDS: FUROSEMIDE INJ 40 MG/4 ML VIAL IV PUSH (09:12)
--- NOTE | 2024-06-06 10:47 | P.PNCA_ITS ---
Progress Note: A&P Assessment and Plan (1) Atrial flutter: Code(s): I48.92 - Unspecified atrial flutter Status: Acute Assessment and Plan: Apparently new diagnosis. Chronicity is unknown. * On metoprolol tartrate for rate control; anticoagulation has been started with rivaroxaban * Telemetry monitoring (2) Cardiomyopathy: Code(s): I42.9 - Cardiomyopathy, unspecified Status: Acute Assessment and Plan: Patient's echocardiogram shows concentric LV remodeling, severe LV systolic dysfunction with LVEF 10-15%. LV systolic dysfunction in the setting of alcohol and methamphetamine abuse. Continue on beta sherrie, losartan, spironolactone. May consider adding SGLT2i before discharge. However, given patient's substance abuse, compliance with guideline directed medical treatment for heart failure with reduced ejection fraction may be challenging. Intermediate to long-term prognosis guarded, and will depend on complete cessation of alcohol and substance abuse, and compliance with medical regimen and outpatient cardiology follow-up. Recommend clinical social work therapist/case management evaluation for placement. (3) Amphetamine abuse: Code(s): F15.10 - Other stimulant abuse, uncomplicated Status: Acute Assessment and Plan: Drug rehab (4) Cirrhosis of liver: Code(s): K74.60 - Unspecified cirrhosis of liver Status: Acute Assessment and Plan: Management as per primary team, consider Gastroenterology evaluation. Subjective Date/time seen: 06/06/24 10:47 Interval history: 06/06/2024-at the time of evaluation, patient was somnolent and unable to provide relevant medical information. He had a female partner in the room. On telemetry, he is in atrial flutter with heart rate in early 100s. Review of Systems Review of Systems: Unable to obtain due to altered mental status Exam Narrative: PHYSICAL EXAMINATION: GENERAL: Somnolent MENTAL STATUS: Somnolent, no agitation EYES: Eyes closed EARS: External ears appear normal NOSE: Normal and patent, no discharge MOUTH: Mucous membranes moist, tongue normal NECK: Supple, no JVD CHEST: Decreased breath sounds, decreased effort HEART: Tachycardic, irregular ABDOMEN: Soft NEUROLOGICAL: Somnolent MUSCULOSKELETAL: No major deformity, no amputation EXTREMITIES: No pedal edema SKIN: no cyanosis PSYCHIATRIC: No agitation Objective Data Vital Signs Vital Signs: Vital Signs - 24 hr 06/05/24 12:00 06/05/24 12:00 06/05/24 12:00 Temperature 36.7 C Pulse Rate 123 H 78 Pulse Rate [Monitor] 123 H Respiratory Rate 19 Blood Pressure 142/87 H Pulse Oximetry 92 Oxygen Delivery 06/05/24 14:52 06/05/24 16:00 06/05/24 16:00 Temperature Pulse Rate 112 H 109 H Pulse Rate [Monitor] 109 H Respiratory Rate Blood Pressure Pulse Oximetry Oxygen Delivery 06/05/24 16:00 06/05/24 20:00 06/05/24 20:00 Temperature 36.2 C L 36.3 C L Pulse Rate 66 104 H Pulse Rate [Monitor] 109 H Respiratory Rate 17 18 Blood Pressure 113/89 104/75 104/75 Pulse Oximetry 99 98 Oxygen Delivery 06/05/24 20:00 06/05/24 20:00 06/06/24 00:00 Temperature 36.4 C Pulse Rate 104 H 95 82 Pulse Rate [Monitor] Respiratory Rate 18 18 Blood Pressure 117/87 Pulse Oximetry 98 96 Oxygen Delivery Room Air 06/06/24 00:00 06/06/24 00:00 06/06/24 03:28 Temperature Pulse Rate 102 H Pulse Rate [Monitor] 109 H 109 H Respiratory Rate Blood Pressure 117/87 117/87 Pulse Oximetry Oxygen Delivery 06/06/24 04:00 06/06/24 04:00 06/06/24 08:00 Temperature 36.4 C Pulse Rate 102 H 78 Pulse Rate [Monitor] 103 H Respiratory Rate 18 Blood Pressure 130/86 Pulse Oximetry 100 Oxygen Delivery 06/06/24 08:30 Temperature 36.4 C Pulse Rate 74 Pulse Rate [Monitor] Respiratory Rate 18 Blood Pressure 129/96 H Pulse Oximetry 97 Oxygen Delivery Intake/Output Intake/Output: Intake & Output 06/03/24 06/04/24 06/05/24 06/06/24 23:59 23:59 23:59 23:59 Intake Total 3991.7 3261 3016 550 Output Total 1300 525 400 Balance 2691.7 2736 3016 150 Meds/Results Medications: Active Medications Generic Name Dose Route Start Last Admin Trade Name Freq PRN Reason Stop Dose Admin Acetaminophen 650 mg 06/03/24 13:40 06/03/24 16:57 Acetaminophen 325 Mg Tablet PO 650 mg Q6H PRN Administration Mild Pain (1-3) or Fever Hydrocodone Bitart/Acetaminophen 1 tab 06/03/24 18:33 06/06/24 08:28 Hydrocodone/Acetaminophen (*Crx) 5-325 Mg Tablet PO 1 tab Q6H PRN Administration Pain Rated 4-6 Calcium Carbonate 200 mg 06/05/24 19:05 06/06/24 08:28 Calcium Carbonate (Tums) 500 Mg (200 Mg Elemental) PO 200 mg Q6H PRN Administration Indigestion Chlordiazepoxide HCl 25 mg 06/03/24 14:39 06/06/24 08:29 Chlordiazepoxide (*Crx) 25 Mg Capsule PO 25 mg Q8HR PRN Administration Alcohol Withdrawal & CIWA < 8 Folic Acid 1 mg 06/03/24 09:00 06/06/24 08:27 Folic Acid 1 Mg Tablet PO 1 mg DAILY LEROY Administration Furosemide 40 mg 06/05/24 17:00 06/06/24 08:27 Furosemide 40 Mg Tablet PO 40 mg BID LEROY Administration Levofloxacin/Dextrose 750 mg in 150 mls @ 100 mls/hr 06/04/24 11:00 06/04/24 13:38 Levaquin 750 Mg/D5w 150 Ml IVPB 100 mls/hr Q48H LEROY Administration Lorazepam 2 mg 06/03/24 13:42 06/06/24 08:29 Lorazepam Inj (*Crx) 2 Mg/Ml Vial IV PUSH 2 mg Q2H PRN Administration CIWA 8-15 Lorazepam 4 mg 06/03/24 13:42 Lorazepam Inj (*Crx) 2 Mg/Ml Vial IV PUSH Q2H PRN CIWA > 15 Losartan Potassium 25 mg 06/06/24 09:00 06/06/24 08:27 Losartan Potassium 25 Mg Tablet PO 25 mg DAILY LEROY Administration Metoprolol Tartrate 25 mg 06/05/24 14:00 06/06/24 05:36 Metoprolol Tartrate 25 Mg Tablet PO 25 mg Q8HR LEROY Administration Nitroglycerin 0.4 mg 06/05/24 19:04 06/05/24 19:22 Nitroglycerin Sl 0.4 Mg Tablet SUBLINGUAL 0.4 mg Q5MIN PRN Administration Chest Pain Rivaroxaban 20 mg 06/05/24 17:00 06/05/24 17:05 Rivaroxaban 20 Mg Tablet PO 20 mg DAILY@1700 LEROY Administration Spironolactone 25 mg 06/06/24 09:00 06/06/24 08:27 Spironolactone 25 Mg Tablet PO 25 mg QAM LEROY Administration Thiamine HCl 100 mg 06/04/24 09:00 06/06/24 08:28 Thiamine Hcl 100 Mg Tablet PO 100 mg QAM LEROY Administration Radiology Results: ITS Impressions Chest X-Ray 06/03/24 11:14 Impression: Clear lungs. Abdomen Ultrasound 06/03/24 15:06 IMPRESSION: 1. Gallbladder wall thickening, which may be seen with interstitial edema or chronic liver disease. Chest CTA 06/03/24 21:01 IMPRESSION: 1. No pulmonary embolus. 2. Mild groundglass opacities in right lung upper lobe, consistent with mild pulmonary edema versus pneumonia. 3. Small right pleural effusion. 4. Cirrhosis of the liver with portal venous hypertension. Venous Doppler Study 06/03/24 21:32 IMPRESSION: 1. No deep venous thrombosis. Renal Ultrasound 06/04/24 08:16 Impression: 1: Unremarkable renal ultrasound status post left nephrectomy. No stones, masses or hydronephrosis. Labs Labs: Laboratory Results - last 24 hr 06/05/24 06/05/24 06/05/24 08:16 11:35 17:02 Sodium Potassium Chloride Carbon Dioxide Anion Gap BUN Creatinine Estim Creat Clear Calc Estimated GFR Glucose POC Capillary Glucose 140 H 130 H Calcium Magnesium Total Bilirubin AST ALT Alkaline Phosphatase Troponin I NT-Pro-B Natriuret Pep 3930 H Total Protein Albumin 06/05/24 06/05/24 06/06/24 19:04 21:51 00:24 Sodium Potassium Chloride Carbon Dioxide Anion Gap BUN Creatinine Estim Creat Clear Calc Estimated GFR Glucose POC Capillary Glucose 135 H Calcium Magnesium Total Bilirubin AST ALT Alkaline Phosphatase Troponin I 0.029 0.035 H* D NT-Pro-B Natriuret Pep Total Protein Albumin 06/06/24 06/06/24 05:29 05:41 Sodium 135 L Potassium 5.3 H Chloride 105 Carbon Dioxide 14 L Anion Gap 16 H BUN 43 H Creatinine 2.10 H Estim Creat Clear Calc 41 Estimated GFR 33 L Glucose 72 POC Capillary Glucose 73 Calcium 9.2 Magnesium 2.0 Total Bilirubin 2.2 H AST 397 H ALT 234 H Alkaline Phosphatase 113 Troponin I 0.041 H* NT-Pro-B Natriuret Pep 5190 H Total Protein 7.0 Albumin 3.4 L
[2024-06-06 12:10] LABS: Glucose Point of Care 112 mg/dl (65-105)
[2024-06-06] MEDS: levoFLOXacin 750 MG/D5W 150 ML 750 MG/150 ML BAG 100 MG IVPB (12:25)
--- NOTE | 2024-06-06 13:30 | ECG_ITS ---
Test Date: 2024-06-06 07:42:49 Measurements Intervals [place] Rate: 102 P: 0 NC: 0 QRS: 90 QRSD: 111 T: 30 QT: 338 QTc: 441 Interpretive Statements ATRIAL FLUTTER/TACHYCARDIA WITH RAPID VENTRICULAR RESPONSE INTRAVENTRICULAR CONDUCTION DELAY CONSIDER ANTERIOR INFARCT, AGE INDETERMINATE BORDERLINE T WAVE ABNORMALITY- DIFFUSE LEADS ABNORMAL ECG Compared to ECG 06/05/2024 18:58:50 HEART RATE HAS INCREASED Electronically Signed On 06-06-2024 09:01:08 CARPET TILE LAYER by Salvador Maharaj D.O.
--- NOTE | 2024-06-06 13:30 | ECG_ITS ---
Test Date: 2024-06-06 13:54:38 Measurements Intervals [place] Rate: 108 P: 0 [place]: 0 QRS: 57 QRSD: 89 T: 155 QT: 332 QTc: 446 Interpretive Statements ATRIAL FLUTTER/TACHYCARDIA WITH RAPID VENTRICULAR RESPONSE POSSIBLE ANTERIOR MYOCARDIAL INFARCTION , OF INDETERMINATE AGE CONSIDER INFERIOR INFARCT, AGE INDETERMINATE BORDERLINE ST-T WAVE ABNORMALITY- ANTEROLAT/INF LEADS ABNORMAL ECG Compared to ECG 06/06/2024 07:42:49 NO SIGNIFICANT CHANGE Electronically Signed On 06-06-2024 14:39:27 LABOR RELATIONS DIRECTOR by Salvador Maharaj D.O.
[2024-06-06 14:12] LABS: Troponin I 0.062 ng/mL (0.000-0.034)
[2024-06-06 16:03] LABS: Hepatitis C RNA, Quant PCR <15 NOT DETECTED IU/mL (NOT DETECTED)
[2024-06-06 16:08] LABS: Creatine Kinase 37 U/L (55-170)
[2024-06-06] MEDS: RIVAROXABAN 20 MG TABLET PO (16:38)
[2024-06-06 16:44] LABS: Vitamin D 25 Hydroxy < 12.8 ng/mL
[2024-06-06 19:19] LABS: Glucose Point of Care 77 mg/dl (65-105)
[2024-06-06 19:58] LABS: Basophils Absolute Auto 0.1 K/mm3 (0.0-0.1); Basophils Percent Auto 1.1 % (0.2-1.2); Eosinophils Absolute Auto 0.1 K/mm3 (0-0.3); Eosinophils Percent Auto 1.2 % (0-4.4); Hematocrit 44.4 % (42.0-52.0); Hemoglobin 14.7 g/dL (14.0-18.0); Immature Granulocyte Absolute 0.05 K/mm3 (0.00-0.031); Immature Granulocyte Percent A 0.6 % (0-0.5); Lymphocytes Absolute Auto 1.53 K/mm3 (0.9-3.2); Lymphocytes Percent Auto 17.3 % (18.3-44.2); Mean Corpuscular HGB Conc 33.1 g/dl (32-36); Mean Corpuscular Hemoglobin 32.1 pg (26-34); Mean Corpuscular Volume 96.9 fl (80-100); Mean Platelet Volume 9.5 fl (7.4-10.4); Monocytes Absolute Auto 0.8 K/mm3 (0.1-0.6); Monocytes Percent Auto 8.9 % (2.6-8.5); Neutrophils Absolute Auto 6.3 K/mm3 (1.3-6.7); Neutrophils Percent Auto 70.9 % (45.5-73.1); Platelet Count Result 265 k/mm3 (150-375); Red Blood Count 4.58 M/mm3 (4.6-6.20); Red Cell Distribution Width 14.8 % (11.5-14.5); White Blood Count 8.8 K/mm3 (4.5-10.0)
[2024-06-06 23:11] LABS: Glucose Point of Care 85 mg/dl (65-105)
[2024-06-07] VITALS (17 sets, daily range): BP systolic 102–124; BP diastolic 70–92; PULSE 78–101; RESP 17–18; TEMP 36.3–36.6; O2SAT 90–99
[2024-06-07] MEDS: chlordiazePOXIDE (*CRX) 25 MG CAPSULE PO ×3 (00:55→21:41)
[2024-06-07] MEDS: HYDROcodone/acetaminophen (*CRX) 5-325 MG TABLET 1 TAB PO ×3 (00:55→21:41)
[2024-06-07] MEDS: LORazepam INJ (*CRX) 2 MG/ML VIAL IV PUSH (01:16)
[2024-06-07 01:35] LABS: Creatinine Urine 30.7 mg/dL; Total Protein Urine Random 9 mg/dL; Ur Ttl Prot Creatinine Ratio 0.29 mg/mg (0-0.20)
[2024-06-07 01:56] LABS: Sodium Urine Random 105 meq/L
[2024-06-07 02:02] LABS: Total Protein Urine Random 9 mg/dL; Urea Random Urine 359 MG/DL
[2024-06-07 02:21] LABS: Creatinine Urine 29.5 mg/dL
[2024-06-07 03:49] LABS: Eosinophil Urine None Seen % (None Seen); Urine Eos QC 2nd Tech Confirmed
[2024-06-07 05:54] LABS: Basophils Absolute Auto 0.1 K/mm3 (0.0-0.1); Basophils Percent Auto 0.7 % (0.2-1.2); Eosinophils Absolute Auto 0.1 K/mm3 (0-0.3); Eosinophils Percent Auto 1.4 % (0-4.4); Hematocrit 44.3 % (42.0-52.0); Hemoglobin 14.3 g/dL (14.0-18.0); Immature Granulocyte Absolute 0.05 K/mm3 (0.00-0.031); Immature Granulocyte Percent A 0.5 % (0-0.5); Lymphocytes Absolute Auto 1.42 K/mm3 (0.9-3.2); Lymphocytes Percent Auto 15.5 % (18.3-44.2); Mean Corpuscular HGB Conc 32.3 g/dl (32-36); Mean Corpuscular Hemoglobin 31.7 pg (26-34); Mean Corpuscular Volume 98.2 fl (80-100); Mean Platelet Volume 9.4 fl (7.4-10.4); Monocytes Absolute Auto 0.8 K/mm3 (0.1-0.6); Monocytes Percent Auto 8.5 % (2.6-8.5); Neutrophils Absolute Auto 6.7 K/mm3 (1.3-6.7); Neutrophils Percent Auto 73.4 % (45.5-73.1); Platelet Count Result 260 k/mm3 (150-375); Red Blood Count 4.51 M/mm3 (4.6-6.20); Red Cell Distribution Width 14.7 % (11.5-14.5); White Blood Count 9.2 K/mm3 (4.5-10.0)
[2024-06-07 06:05] LABS: Alanine Aminotransferase 429 U/L (6-50); Albumin Level 3.2 g/dL (3.5-5.1); Alkaline Phosphatase 104 U/L (38-126); Anion Gap 11 mmol/L (4-12); Aspartate Amino Transferase 669 U/L (17-59); Bilirubin,Total 1.6 mg/dL (0.2-1.3); Blood Urea Nitrogen 45 mg/dL (9-20); Carbon Dioxide 26 mmol/L (22-30); Chloride 101 mmol/L (98-107); Creatine Kinase 36 U/L (55-170); Estimated CRCL calculation 43 ml/min; Estimated Glomerular Filt Rate 35; Glucose 99 mg/dL (65-110); Magnesium 1.8 mg/dL (1.6-2.3); Phosphorus 2.9 mg/dL (2.5-4.5); Potassium 3.2 mmol/L (3.4-5.0); Sodium 138 mmol/L (137-145)
[2024-06-07] MEDS: METOPROLOL TARTRATE 25 MG TABLET PO ×3 (06:05→21:43)
[2024-06-07 06:09] LABS: Glucose Point of Care 85 mg/dl (65-105)
[2024-06-07 06:13] LABS: NT Pro B Type Natriuretic Pept 3620 pg/mL (19.9-100)
[2024-06-07] MEDS: LOSARTAN POTASSIUM 25 MG TABLET PO (10:11)
[2024-06-07] MEDS: FUROSEMIDE 40 MG TABLET PO ×2 (10:11→17:57)
[2024-06-07] MEDS: FOLIC ACID 1 MG TABLET PO (10:11)
[2024-06-07] MEDS: SPIRONOLACTONE 25 MG TABLET PO (10:11)
[2024-06-07] MEDS: THIAMINE HCL 100 MG TABLET PO (10:11)
[2024-06-07] MEDS: CALCIUM CARBONATE (TUMS) 500 MG (200 MG ELEMENTAL) PO (10:12)
[2024-06-07 12:11] LABS: Glucose Point of Care 171 mg/dl (65-105)
--- NOTE | 2024-06-07 12:24 | P.PNIM_ITS ---
Progress Note: A&P Assessment and Plan (1) Atrial flutter: Code(s): I48.92 - Unspecified atrial flutter Status: Acute Assessment and Plan: ##unknown if new or chronic - continue Metoprolol - Cardiology on board. 06/07/24: * Currently in NSR 83 bpm. * On Xarelto. * Cardiology following. * Continue rate control with Metoprolol tartrate. (2) Cardiomyopathy: Code(s): I42.9 - Cardiomyopathy, unspecified Status: Acute Assessment and Plan: ## Etiology unknown but likely nonischemic secondary to his methamphetamine and alcohol abuse ##EF 10-15%. This is a new diagnosis. -->Etiology unknown but likely nonischemic secondary to his methamphetamine and alcohol abuse --> Consulted Cardiology --> episode of chest pain last p.m., troponins are trending up 0.041 -->monitor closely 06/07/24: * Severe degree of failure w/EF. * Medical maximization per Cardiology. * Prognosis is guarded. * Pt candidate for life vest? Will discuss with Cardiology. 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 * No tachycardia appreciated today (4) Alcohol abuse: Code(s): F10.10 - Alcohol abuse, uncomplicated Status: Acute Assessment and Plan: ##Alcohol dependence - 1/5 of angela in two days or more. -Monitor Alcohol withdrawal per [facility] protocol -Provide folic acid thiamine p.o. 06/07/24: * Continue current treatment. * Continue to monitor overall condition. (5) Pneumonia: Code(s): J18.9 - Pneumonia, unspecified organism Status: Acute Assessment and Plan: ##in light of hypothermia, leukocytosis, -->lactic acidosis 6.0,, acute renal failure - Likely resulting from pneumonia and UTI, - CT scan showed ground-glass opacity in the right lung upper lobe, UA shows pyuria - Received fluid resuscitation in the ED - was on D5 normal saline IV 150 mL/hour - stopped due to overload - Started Levaquin 750 mg IV daily - Pending blood culture urine culture --trend wbc 06/07/24: * Day number 4 of Levaquin * BC with NGTD. * WBC's today normal at 9.2. * Monitor labs and VS. (6) Cirrhosis of liver: Code(s): K74.60 - Unspecified cirrhosis of liver Status: Acute Assessment and Plan: ## admits to drinking 1/5 whiskey in 2 days if not more daily for years -trend LFTS 06/07/24: * Secondary to ETOH abuse. * Bilirubin trending down. * Transaminitis trending up. * Was consulted on by GI and felt to be a potential candidate for transplant if pt would want to seriously consider ETOH use cessation. * GI will follow up as outpt. * Monitor Coags in interim and monitor for any s/s of spontaneous bleeding. (7) Dehydration: Code(s): E86.0 - Dehydration Status: Acute Assessment and Plan: ##Hyponatremia, hypokalemia --> Patient is a normal saline IV stopped due to fluid overload --> Replete potassium chloride 40 mg daily p.o. stopped, potassium elevated today. --> Follow-up BMP 06/07/24: * BMP today is overall improved. (8) Cold exposure: Qualifiers: Encounter type: initial encounter Qualified Code(s): T69.9XXA - Effect of reduced temperature, unspecified, initial encounter Code(s): T69.9XXA - Effect of reduced temperature, unspecified, initial encounter Status: Acute Assessment and Plan: ##stayed in truck over night, temps in single digits --> rectal temp 95.4 on arrival. -bilateral leg pain and cold sensations in his legs after being exposed to the cold overnight -placed under a Adam Hugger on arrival -temperature is now normalized with improvement in his leg pain though he continues to have aching discomfort. -Negative of DVT and PE 06/07/24: * Stable with normal Temperature today. (9) Lactic acid acidosis: Code(s): E87.20 - Acidosis, unspecified Status: Resolved Assessment and Plan: #in light of hypothermia, leukocytosis, -->lactic acidosis 6.0,, acute renal failure - Likely resulting from pneumonia and UTI, - CT scan showed ground-glass opacity in the right lung upper lobe, UA shows pyuria - Received fluid resuscitation in the ED - stopped D5 normal saline IV 150 mL/hour - Start Levaquin 750 mg IV daily - Pending blood culture urine culture --trend wbc 06/07/24: * Resolved. * All cultures so far are either confirmed negative or NGTD. * Acidosis resolved. * Day #4 of Levaquin. Will complete course. (10) Elevated LFTs: Code(s): R79.89 - Other specified abnormal findings of blood chemistry Status: Acute Assessment and Plan: ##Cirrhosiis and chronic liver failure. -->Cirrhosis of the liver with portal venous hypertension. - Coags are prolonged, --> Likely resulting from alcohol abuse -Consult GI for evaluation treatment 06/07/24: * Transaminitis secondary to #6. (11) Renal failure: Code(s): N19 - Unspecified kidney failure Status: Acute Assessment and Plan: ##Acute renal failure - Upon arrival creatinine 1.52, -->2/20 2.04 --> 1.84 -->2.10 - Likely secondary to dehydration, UTI, sepsis - Start fluid resuscitation - Follow-up BMP - Follow-up renal ultrasound: Unremarkable renal ultrasound status post left nephrectomy. No stones, masses or hydronephrosis. 06/07/24: * Cr/BUN today 2.01/45. * Continue to monitor and trend BMP. Time Spent With Patient Time with patient: 15 - 25 minutes Subjective Date/time seen: 06/07/24 1140 Interval history: This pt was examined at the bedside today in interval assessment. He is noted to be very tired and arouses to tactile and verbal stimulation but then drifts back off to sleep. He does not appear to be in any acute distress. He is receiving Librium for ETOH Withdrawal prophylaxis. VSS. Pt previously notified that he will likely discharge back to his vehicle that he is currently living in. Review of Systems Review of Systems: All systems reviewed & are unremarkable except as noted in HPI and below Exam Narrative: GENERAL: Ill-appearing, in no acute distress. Well-nourished. - EYES: EOMI. Anicteric. - HENT: Moist mucous membranes. - LUNGS: Clear to auscultation bilateral ly, no wheezing, rhonchi, or rales. - CARDIOVASCULAR: Regular rate and rhyth m. No murmur. No JVD. - ABDOMEN: Soft, non-tender and non-dist ended. No palpable masses. - EXTREMITIES: No edema. Peripheral puls es 2+. Non-tender. - NEUROLOGIC: No focal neurological defi cits. CN II-XII grossly intact. General weakness - PSYCHIATRIC: Awake, Alert and oriented x 3. Appropriate mood and affect. - SKIN: No rashes or lesions. Warm. - LYMPH: No cervical lymphadenopathy. Objective Data Vital Signs Vital Signs: Vital Signs - 24 hr 06/06/24 14:28 06/06/24 16:00 06/06/24 16:04 Temperature 97.7 F Pulse Rate 104 H 88 104 H Pulse Rate [Monitor] Respiratory Rate 18 Blood Pressure 121/81 Pulse Oximetry 96 Oxygen Delivery 06/06/24 20:00 06/06/24 20:00 06/06/24 20:00 Temperature 97.7 F Pulse Rate 87 Pulse Rate [Monitor] 97 Respiratory Rate 18 Blood Pressure 133/91 H 133/91 H Pulse Oximetry 100 Oxygen Delivery Room Air 06/06/24 20:00 06/06/24 22:05 06/06/24 23:20 Temperature 97.5 F L Pulse Rate 94 96 62 Pulse Rate [Monitor] Respiratory Rate 18 Blood Pressure 120/80 Pulse Oximetry 94 Oxygen Delivery 06/07/24 00:00 06/07/24 00:00 06/07/24 03:40 Temperature 97.4 F L Pulse Rate 97 85 Pulse Rate [Monitor] 95 Respiratory Rate 18 Blood Pressure 115/70 124/92 H Pulse Oximetry 99 Oxygen Delivery 06/07/24 03:59 06/07/24 04:00 06/07/24 06:05 Temperature Pulse Rate 91 85 Pulse Rate [Monitor] 84 Respiratory Rate Blood Pressure 102/77 Pulse Oximetry Oxygen Delivery 06/07/24 09:00 06/07/24 10:03 Temperature 97.6 F Pulse Rate 93 Pulse Rate [Monitor] 85 Respiratory Rate 18 Blood Pressure 112/90 Pulse Oximetry 95 Oxygen Delivery Intake/Output Intake/Output: Intake & Output 06/04/24 06/05/24 06/06/24 06/07/24 23:59 23:59 23:59 23:59 Intake Total 3411 3016 1100 390 Output Total 525 4100 800 Balance 2886 3016 -3000 -410 Meds/Results Medications: Active Medications Generic Name Dose Route Start Last Admin Trade Name Freq PRN Reason Stop Dose Admin Acetaminophen 650 mg 06/03/24 13:40 06/03/24 16:57 Acetaminophen 325 Mg Tablet PO 650 mg Q6H PRN Administration Mild Pain (1-3) or Fever Hydrocodone Bitart/Acetaminophen 1 tab 06/03/24 18:33 06/07/24 10:12 Hydrocodone/Acetaminophen (*Crx) 5-325 Mg Tablet PO 1 tab Q6H PRN Administration Pain Rated 4-6 Calcium Carbonate 200 mg 06/05/24 19:05 06/07/24 10:12 Calcium Carbonate (Tums) 500 Mg (200 Mg Elemental) PO 200 mg Q6H PRN Administration Indigestion Chlordiazepoxide HCl 25 mg 06/03/24 14:39 06/07/24 10:11 Chlordiazepoxide (*Crx) 25 Mg Capsule PO 25 mg Q8HR PRN Administration Alcohol Withdrawal & CIWA < 8 Folic Acid 1 mg 06/03/24 09:00 06/07/24 10:11 Folic Acid 1 Mg Tablet PO 1 mg DAILY LEROY Administration Furosemide 40 mg 06/05/24 17:00 06/07/24 10:11 Furosemide 40 Mg Tablet PO 40 mg BID LEROY Administration Levofloxacin/Dextrose 750 mg in 150 mls @ 100 mls/hr 06/04/24 11:00 06/06/24 12:25 Levaquin 750 Mg/D5w 150 Ml IVPB 100 mls/hr Q48H LEROY Administration Lorazepam 2 mg 06/03/24 13:42 06/07/24 01:16 Lorazepam Inj (*Crx) 2 Mg/Ml Vial IV PUSH 2 mg Q2H PRN Administration CIWA 8-15 Lorazepam 4 mg 06/03/24 13:42 Lorazepam Inj (*Crx) 2 Mg/Ml Vial IV PUSH Q2H PRN CIWA > 15 Losartan Potassium 25 mg 06/06/24 09:00 06/07/24 10:11 Losartan Potassium 25 Mg Tablet PO 25 mg DAILY LEROY Administration Metoprolol Tartrate 25 mg 06/05/24 14:00 06/07/24 06:05 Metoprolol Tartrate 25 Mg Tablet PO 25 mg Q8HR LEROY Administration Nitroglycerin 0.4 mg 06/05/24 19:04 06/05/24 19:22 Nitroglycerin Sl 0.4 Mg Tablet SUBLINGUAL 0.4 mg Q5MIN PRN Administration Chest Pain Rivaroxaban 20 mg 06/05/24 17:00 06/06/24 16:38 Rivaroxaban 20 Mg Tablet PO 20 mg DAILY@1700 [facility] Administration Spironolactone 25 mg 06/06/24 09:00 06/07/24 10:11 Spironolactone 25 Mg Tablet PO 25 mg QAM LEROY Administration Thiamine HCl 100 mg 06/04/24 09:00 06/07/24 10:11 Thiamine Hcl 100 Mg Tablet PO 100 mg QAM [facility] Administration Radiology Results: ITS Impressions Chest X-Ray 06/03/24 11:14 Impression: Clear lungs. Abdomen Ultrasound 06/03/24 15:06 IMPRESSION: 1. Gallbladder wall thickening, which may be seen with interstitial edema or chronic liver disease. Chest CTA 06/03/24 21:01 IMPRESSION: 1. No pulmonary embolus. 2. Mild groundglass opacities in right lung upper lobe, consistent with mild pulmonary edema versus pneumonia. 3. Small right pleural effusion. 4. Cirrhosis of the liver with portal venous hypertension. Venous Doppler Study 06/03/24 21:32 IMPRESSION: 1. No deep venous thrombosis. Renal Ultrasound 06/04/24 08:16 Impression: 1: Unremarkable renal ultrasound status post left nephrectomy. No stones, masses or hydronephrosis. Labs Labs: Laboratory Results - last 24 hr 06/03/24 06/06/24 06/06/24 14:18 13:39 19:16 WBC RBC Hgb Hct MCV MCH MCHC RDW Plt Count MPV Immature Gran % (Auto) Neut % (Auto) Lymph % (Auto) [place] % (Auto) Eos % (Auto) Baso % (Auto) Lymph # (Auto) [place] # (Auto) Eos # (Auto) Baso # (Auto) Abs Immat Gran (auto) Absolute Neuts (auto) Absolute Nucleated RBC Nucleated RBC % Sodium Potassium Chloride Carbon Dioxide Anion Gap BUN Creatinine Estim Creat Clear Calc Estimated GFR Glucose POC Capillary Glucose 77 Calcium Phosphorus Magnesium Total Bilirubin AST ALT Alkaline Phosphatase Total Creatine Kinase 37 L Troponin I 0.062 H* NT-Pro-B Natriuret Pep Total Protein Albumin Vitamin B12 980.0 H Vitamin D 25-Hydroxy < 12.8 Random Cortisol Urine Eosinophils U Random Total Protein Ur Random Sodium Ur Random Urea Urine Creatinine Protein/Creat Ratio 2 HCV RNA (PCR) IUs/ml <15 not detected HCV RNA PCR log IUs/ml <1.18 not detected 06/06/24 06/06/24 06/07/24 19:33 23:05 01:09 WBC 8.8 RBC 4.58 L Hgb 14.7 Hct 44.4 MCV 96.9 MCH 32.1 MCHC 33.1 RDW 14.8 H Plt Count 265 MPV 9.5 Immature Gran % (Auto) 0.6 H Neut % (Auto) 70.9 Lymph % (Auto) 17.3 L [place] % (Auto) 8.9 H Eos % (Auto) 1.2 Baso % (Auto) 1.1 Lymph # (Auto) 1.53 [place] # (Auto) 0.8 H Eos # (Auto) 0.1 Baso # (Auto) 0.1 Abs Immat Gran (auto) 0.05 H Absolute Neuts (auto) 6.3 Absolute Nucleated RBC 0.000 Nucleated RBC % 0.0 Sodium Potassium Chloride Carbon Dioxide Anion Gap BUN Creatinine Estim Creat Clear Calc Estimated GFR Glucose POC Capillary Glucose 85 Calcium Phosphorus Magnesium Total Bilirubin AST ALT Alkaline Phosphatase Total Creatine Kinase Troponin I NT-Pro-B Natriuret Pep Total Protein Albumin Vitamin B12 Vitamin D 25-Hydroxy Random Cortisol Urine Eosinophils None seen U Random Total Protein 9 Ur Random Sodium Ur Random Urea Urine Creatinine Protein/Creat Ratio 2 HCV RNA (PCR) IUs/ml HCV RNA PCR log IUs/ml 06/07/24 06/07/24 06/07/24 01:09 01:09 05:12 WBC 9.2 RBC 4.51 L Hgb 14.3 Hct 44.3 MCV 98.2 MCH 31.7 MCHC 32.3 RDW 14.7 H Plt Count 260 MPV 9.4 Immature Gran % (Auto) 0.5 Neut % (Auto) 73.4 H Lymph % (Auto) 15.5 L [place] % (Auto) 8.5 Eos % (Auto) 1.4 Baso % (Auto) 0.7 Lymph # (Auto) 1.42 [place] # (Auto) 0.8 H Eos # (Auto) 0.1 Baso # (Auto) 0.1 Abs Immat Gran (auto) 0.05 H Absolute Neuts (auto) 6.7 Absolute Nucleated RBC 0.000 Nucleated RBC % 0.0 Sodium 138 Potassium 3.2 L Chloride 101 Carbon Dioxide 26 Anion Gap 11 BUN 45 H Creatinine 2.01 H Estim Creat Clear Calc 43 Estimated GFR 35 L Glucose 99 POC Capillary Glucose Calcium 9.0 Phosphorus 2.9 Magnesium 1.8 Total Bilirubin 1.6 H AST 669 H ALT 429 H Alkaline Phosphatase 104 Total Creatine Kinase 36 L Troponin I NT-Pro-B Natriuret Pep 3620 H Total Protein 7.0 Albumin 3.2 L Vitamin B12 Vitamin D 25-Hydroxy Random Cortisol 12.90 Urine Eosinophils U Random Total Protein 9 Ur Random Sodium 105 Ur Random Urea 359 Urine Creatinine 30.7 29.5 Protein/Creat Ratio 2 0.29 H HCV RNA (PCR) IUs/ml HCV RNA PCR log IUs/ml 06/07/24 06/07/24 06:00 11:56 WBC RBC Hgb Hct MCV MCH MCHC RDW Plt Count MPV Immature Gran % (Auto) Neut % (Auto) Lymph % (Auto) [place] % (Auto) Eos % (Auto) Baso % (Auto) Lymph # (Auto) [place] # (Auto) Eos # (Auto) Baso # (Auto) Abs Immat Gran (auto) Absolute Neuts (auto) Absolute Nucleated RBC Nucleated RBC % Sodium Potassium Chloride Carbon Dioxide Anion Gap BUN Creatinine Estim Creat Clear Calc Estimated GFR Glucose POC Capillary Glucose 85 171 H Calcium Phosphorus Magnesium Total Bilirubin AST ALT Alkaline Phosphatase Total Creatine Kinase Troponin I NT-Pro-B Natriuret Pep Total Protein Albumin Vitamin B12 Vitamin D 25-Hydroxy Random Cortisol Urine Eosinophils U Random Total Protein Ur Random Sodium Ur Random Urea Urine Creatinine Protein/Creat Ratio 2 HCV RNA (PCR) IUs/ml HCV RNA PCR log IUs/ml Quality VTE Prophylaxis VTE prophylaxis: pharmacologic ordered
--- NOTE | 2024-06-07 13:07 | P.CONNP_ITS ---
Assessment and Plan Assessment and plan (1) Renal failure: Code(s): N19 - Unspecified kidney failure Status: Acute Assessment and Plan: * acute versus chronic versus acute on chronic?? * no previous lab/creatinine available for comparison * admission creatinine noted at 1.4 - 1.5mg/dl * decline in renal function noted on 06/04 * suspect an element of chronic kidney disease from: * solitary kidney (loss of nephron mass -- left nephrectomy) * cardiorenal syndrome (diminished blood flow to kidney due to depressed EF) * CAD/vascular disease * alcohol/drug abuse * acute rise in creatinine likely from: * contrast exposure (CTA of chest on 06/03) * prerenal factors * infection (pneumonia) * other(?) * evaluation to date noted: * renal u/s with normal right kidney * urine electrolytes non-prerenal * urine eosinophils negative * CPK low * mild proteinuria * recent addition of ARB and diuretics may further fluctuate kidney function * follow trend of labs and UOP History of Present Illness Reason for Consult Consult date: 06/20/24 Reason for consult: acute renal failure (on chronic kidney??)) Chief Complaint Chief complaint: Dehydration,hypothermia History of Present Illness Narrative: Most of the information that I have obtained is from review of the electronic medical records and discussion with the physicians/nurses involved in the patient's care and it is quite difficult to get much history from the patient as he is quite lethargic and falls asleep during my discussion with him. This is a 54-year-old male smoker with history of myocardial infarction in 1996, kidney cancer status post left nephrectomy, hepatitis-C status post interferon, cirrhosis of the liver, deep venous thrombosis following right lower extremity fracture, alcohol abuse (1/5 of whiskey every 2 days), and amphetamine abuse who presented to the emergency department via EMS for evaluation of cold exposure. He and his girlfriend drove to the area from [place] a couple of weeks ago to be closer to family. They have been sleeping in their truck which ran out of gas sometime overnight with temperatures dipping into the single digits. When he got up this morning he had severe pain in both legs and he reports difficulty standing up and he called 911. He was also feeling short of breath at that time, though may be due to the cold. On exam he was noted to have pretty significant lower extremity edema which developed over the last week or so. Since being warmed up he has been able to move his legs without issue but he continues to complain of tight aching discomfort in both legs. He denies fever, sweats, cold and flu symptoms, vertigo, facial droop, difficulty speaking and swallowing, focal weakness, paresthesias, chest pain, pleuritic pain, palpitations, orthopnea, paroxysmal nocturnal dyspnea, claudication, cough, sinus congestion, sore throat, nausea, vomiting, diarrhea, and dysuria. In the ED: Rectal temperature was 95.4? F on arrival. Blood pressures have been running in the 140s 150 systolic. He is in rapid atrial flutter/tachycardia with rates in the 120s to 130s. Labs were significant for a WBC count of 13.3, hemoglobin 14.8, MCV 103.3, platelet 278, PT 17.8, INR 1.4, PTT 38.1, sodium 136, carbon dioxide 12, anion gap 20, BUN 33, creatinine 1.52, lactic acid 6.0, total bilirubin 3.4, AST 62, ALT 125, total CK 252, proBNP 5230. Urine drug screen was positive for amphetamines and ethyl alcohol level was less than 10. He tested positive for Trichomonas. Ethyl alcohol level was less than 10. Chest x-ray was unremarkable. He was placed under a Adam Hugger and was given metronidazole 2000 mg. He is being admitted in this setting for close monitoring and further treatment. Review of Systems 2 Review of Systems: As per HPI. [facility] Past Medical History Medical History Heart failure with reduced ejection fraction Echocardiogram in 05/2024 showed severely reduced LV systolic function with an EF estimated 10 to 15% and mildly reduced right ventricular systolic function Atrial flutter Deep venous thrombosis Following tibial plateau fracture Hepatitis C Cirrhosis of liver Status post interferon Cancer of left kidney Myocardial infarction Amphetamine abuse Alcohol abuse Surgical History Surgical History History of hernia repair History of left nephrectomy History of open reduction and internal fixation (ORIF) procedure Repair right tibial plateau fracture Family History Family History Mother Heart disease Social History Social History Social History: Surrogate medical decision maker: Frannie Mckinley, significant other. Code status: Full code. Smoking packs per day: 1 Smoking cigarettes per day: 20.0 Years smoked: 40 Smoking pack-years: 40.00 Smoking status: Current every day smoker Alcohol intake: current Alcohol use details: 1/5 of whiskey every 2 days Substance use: current Substance use type: methamphetamine Last use: 06/09/24 Do You Feel Safe in your Home?: Yes Lack of Transportation: YES Lack of Food: Often True Current Housing: I Do Not Have Housing Concerned About Future Housing: YES Difficulty Paying Gas/Electric Bills: YES Difficulty Paying for Meds: YES Currently Unemployed: YES Education: High School Diploma/GED Difficulty w/ Childcare or Family Care: No Spiritual care concerns: No Meds Home Medications and Allergies Home Medications ?Medication ?Instructions ?Recorded ?Confirmed ?Type folic acid 1 mg tablet 1 mg PO DAILY #30 tabs 06/12/24 06/20/24 Rx furosemide 40 mg tablet 40 mg PO BID #60 tabs 06/12/24 06/20/24 Rx losartan 25 mg tablet 25 mg PO DAILY #30 tabs 06/12/24 06/20/24 Rx metoprolol succinate 100 mg 100 mg PO QAM #30 tabs 06/12/24 06/20/24 Rx tablet,extended release 24 hr (Toprol XL) rivaroxaban 20 mg tablet (Xarelto) 20 mg PO DAILY@1700 #30 tabs 06/12/24 06/20/24 Rx spironolactone 25 mg tablet 25 mg PO QAM #30 tabs 06/12/24 06/20/24 Rx thiamine HCl (vitamin B1) 100 mg 100 mg PO QAM #30 tabs 06/12/24 06/20/24 Rx tablet (Vitamin B-1) Allergies Allergy/AdvReac Type Severity Reaction Status Date / Time aspirin Allergy Intermediate Rash Verified 06/03/24 10:48 Vital Signs Vital Signs Temp Pulse Resp BP Pulse Ox O2 Del Method 06/07/24 12:00 97.6 F 89 18 120/88 94 06/07/24 10:03 06/07/24 09:45 Room Air 06/07/24 09:00 97.6 F 93 18 112/90 95 06/07/24 08:03 84 06/07/24 06:05 85 06/07/24 04:00 91 06/07/24 03:59 102/77 06/07/24 03:40 97.4 F L 85 18 124/92 H 99 06/07/24 00:00 97 06/07/24 00:00 115/70 06/06/24 23:20 97.5 F L 62 18 120/80 94 06/06/24 22:05 96 06/06/24 20:00 94 06/06/24 20:00 Room Air 06/06/24 20:00 133/91 H 06/06/24 20:00 97.7 F 87 18 133/91 H 100 06/06/24 16:04 104 H 06/06/24 16:00 97.7 F 88 18 121/81 96 Exam 2 Narrative: GENERAL APPEARANCE: somewhat ill-appearing male in no acute distress HEENT: normocephalic, atraumatic, normal conjunctiva and sclera, nares patient NECK: no lymphadenopathy, thyromegaly, or JVD MOUTH: normal lips and gums; poor dentition CARDIOVASCULAR: irregular butnormal S1 and S2, no rub RESPIRATORY: coarse and decreased at bases ABDOMEN: soft, nontender, nondistended, positive bowel sounds present EXTREMITIES: no evidence of cyanosis, clubbing; 2+ edema NEUROLOGICAL: sleepy/lethargic; no apparent focal deficits noted Results Lab Results 06/08/24 06:00 06/08/24 06:00 Lab results: Most recent lab results Calcium 9.0 mg/dL (8.4-10.2) 06/07/24 05:12 Phosphorus 2.9 mg/dL (2.5-4.5) 06/07/24 05:12 Magnesium 1.8 mg/dL (1.6-2.3) 06/07/24 05:12 Urine Creatinine 29.5 mg/dL 06/07/24 01:09 Urine Creatinine 30.7 mg/dL 06/07/24 01:09 Attestation Supervising Provider Attestation (1) Atrial flutter: Code(s): I48.92 - Unspecified atrial flutter Status: Acute Assessment and Plan: ##unknown if new or chronic - continue Metoprolol - Cardiology on board. 06/07/24: * Currently in NSR 83 bpm. * On Xarelto. * Cardiology following. * Continue rate control with Metoprolol tartrate. 06/08/24: * Remains rate controlled in the 90s. * Continue xarelto * Cards to follow up as outpt. (2) Cardiomyopathy: Code(s): I42.9 - Cardiomyopathy, unspecified Status: Acute Assessment and Plan: ## Etiology unknown but likely nonischemic secondary to his methamphetamine and alcohol abuse ##EF 10-15%. This is a new diagnosis. -->Etiology unknown but likely nonischemic secondary to his methamphetamine and alcohol abuse --> Consulted Cardiology --> episode of chest pain last p.m., troponins are trending up 0.041 -->monitor closely 06/07/24: * Severe degree of failure w/EF. * Medical maximization per Cardiology. * Prognosis is guarded. * Pt candidate for life vest? Will discuss with Cardiology. 06/08/24: * Maximization of treatment via Cardiology. * They will follow as outpt. * With EF of 10%, and pt stating likely unaware to be compliant with follow up, he may be a candidate for palliative/Hospice care. Will discuss with Care Coordination. Patient's echocardiogram shows concentric LV remodeling, severe LV systolic dysfunction with LVEF 10-15%. LV systolic dysfunction in the setting of alcohol and methamphetamine abuse. Continue on beta sherrie, losartan, spironolactone. May consider adding SGLT2i before discharge. However, given patient's substance abuse, compliance with guideline directed medical treatment for heart failure with reduced ejection fraction may be challenging. Intermediate to long-term prognosis guarded, and will depend on complete cessation of alcohol and substance abuse, and compliance with medical regimen and outpatient cardiology follow-up. Recommend social work administrator/case management evaluation for placement. (3) Amphetamine abuse: Code(s):\ F15.10 - Other stimulant abuse, uncomplicated Status: Acute Assessment and Plan: ## amphetamine abuse --> UDS positive --> monitor for signs of withdrawl - monitor vitals signs closely 06/07/24: * Pt currently sleeping and receiving medications to treat any s/s of withdrawl. * No tachycardia appreciated today 06/08/24: * No acute s/s of withdrawl. * Stable vs (4) Alcohol abuse: Code(s): F10.10 - Alcohol abuse, uncomplicated Status: Acute Assessment and Plan: ##Alcohol dependence - 04/19 of whickey in two days or more. -Monitor Alcohol withdrawal per [facility] protocol -Provide folic acid thiamine p.o. 06/07/24: * Continue current treatment. * Continue to monitor overall condition. 06/08/24: * No acute s/s of withdrawl. * Stable vs (5) Pneumonia: Code(s): J18.9 - Pneumonia, unspecified organism Status: Acute Assessment and Plan: ##in light of hypothermia, leukocytosis, -->lactic acidosis 6.0,, acute renal failure - Likely resulting from pneumonia and UTI, - CT scan showed ground-glass opacity in the right lung upper lobe, UA shows pyuria - Received fluid resuscitation in the ED - was on D5 normal saline IV 150 mL/hour - stopped due to overload - Started Levaquin 750 mg IV daily - Pending blood culture urine culture --trend wbc 06/07/24: * Day number 4 of Levaquin * BC with NGTD. * WBC's today normal at 9.2. * Monitor labs and VS. 06/08/24: * Day #5 of Levaquin. * Stable on room air. * Will recheck CXR in AM for comparison. (6) Cirrhosis of liver: Code(s): K74.60 - Unspecified cirrhosis of liver Status: Acute Assessment and Plan: ## admits to drinking 1/5 whiskey in 2 days if not more daily for years -trend LFTS 06/07/24: * Secondary to ETOH abuse. * Bilirubin trending down. * Transaminitis trending up. * Was consulted on by GI and felt to be a potential candidate for transplant if pt would want to seriously consider ETOH use cessation. * GI will follow up as outpt. * Monitor Coags in interim and monitor for any s/s of spontaneous bleeding. 06/08/24: * Follow up with GI as outpt. (7) Dehydration: Code(s): E86.0 - Dehydration Status: Acute Assessment and Plan: ##Hyponatremia, hypokalemia --> Patient is a normal saline IV stopped due to fluid overload --> Replete potassium chloride 40 mg daily p.o. stopped, potassium elevated today. --> Follow-up BMP 06/07/24: * BMP today is overall improved. 06/08/24: * Hypokalemia noted today at 2.9. * 60 mEq ordered for supplementation. * Will trend in AM. (8) Cold exposure: Qualifiers: Encounter type: initial encounter Qualified Code(s): T69.9XXA - Effect of reduced temperature, unspecified, initial encounter Code(s): T69.9XXA - Effect of reduced temperature, unspecified, initial encounter Status: Acute Assessment and Plan: ##stayed in truck over night, temps in single digits --> rectal temp 95.4 on arrival. -bilateral leg pain and cold sensations in his legs after being exposed to the cold overnight -placed under a Adam Hugger on arrival -temperature is now normalized with improvement in his leg pain though he continues to have aching discomfort. -Negative of DVT and PE 06/07/24: * Stable with normal Temperature today. * (9) Lactic acid acidosis: Code(s): E87.20 - Acidosis, unspecified Status: Resolved Assessment and Plan: #in light of hypothermia, leukocytosis, -->lactic acidosis 6.0,, acute renal failure - Likely resulting from pneumonia and UTI, - CT scan showed ground-glass opacity in the right lung upper lobe, UA shows pyuria - Received fluid resuscitation in the ED - stopped D5 normal saline IV 150 mL/hour - Start Levaquin 750 mg IV daily - Pending blood culture urine culture --trend wbc 06/07/24: * Resolved. * All cultures so far are either confirmed negative or NGTD. * Acidosis resolved. * Day #4 of Levaquin. Will complete course. (10) Elevated LFTs: Code(s): R79.89 - Other specified abnormal findings of blood chemistry Status: Acute Assessment and Plan: ##Cirrhosiis and chronic liver failure. -->Cirrhosis of the liver with portal venous hypertension. - Coags are prolonged, --> Likely resulting from alcohol abuse -Consult GI for evaluation treatment 06/07/24: * Transaminitis secondary to #6. 06/08/24: * No acute change to warrant emergent GI referral again. (11) Renal failure: Code(s): N19 - Unspecified kidney failure Status: Acute Assessment and Plan: ##Acute renal failure - Upon arrival creatinine 1.52, -->06/04 2.04 --> 1.84 -->2.10 - Likely secondary to dehydration, UTI, sepsis - Start fluid resuscitation - Follow-up BMP - Follow-up renal ultrasound: Unremarkable renal ultrasound status post left nephrectomy. No stones, masses or hydronephrosis. 06/07/24: * Cr/BUN today 2.01/45. * Continue to monitor and trend BMP. 06/08/24: * Interval improvement in the BUN/Cr to 41/1.
[2024-06-07] MEDS: RIVAROXABAN 20 MG TABLET PO (17:57)
[2024-06-07 18:01] LABS: Glucose Point of Care 77 mg/dl (65-105)
--- NOTE | 2024-06-07 18:33 | WPDGICN ---
Assessment and Plan Assessment and plan (1) Cirrhosis of liver: Code(s): K74.60 - Unspecified cirrhosis of liver Status: Acute Assessment and Plan: he has been treated for HCV and repeat RNA negative (it means was eradicated) he has cirrhosis and noted on admission worsening liver enzymes- probably this was in setting of cold exposure with severe cardiomyopathy causing congestive hepatopathy bilirubin is trending down no obvious decompensation from cirrhosis (no bleeding, no ascites) but he will need to follow-up in office to monitor and also HCC surveillance, egd to assess if portal htn, etc no need of intervention at this point management by cardiology/primary team 2g na diet (2) Elevated LFTs: Code(s): R79.89 - Other specified abnormal findings of blood chemistry Status: Acute Assessment and Plan: exacerbated by congestive hepatopathy in setting of severe systolic dysfunction with known cirrhosis and use of alcohol and illicits (3) Alcohol abuse: Code(s): F10.10 - Alcohol abuse, uncomplicated Status: Acute Assessment and Plan: thiamine, nutrition support needs to quit (4) Cardiomyopathy: Code(s): I42.9 - Cardiomyopathy, unspecified Status: Acute Assessment and Plan: by cardiology (5) Atrial flutter: Code(s): I48.92 - Unspecified atrial flutter Status: Acute (6) KELSEA (acute kidney injury): Code(s): N17.9 - Acute kidney failure, unspecified Status: Acute (7) Lactic acid acidosis: Code(s): E87.20 - Acidosis, unspecified Status: Resolved (8) Cold exposure: Qualifiers: Encounter type: initial encounter Qualified Code(s): T69.9XXA - Effect of reduced temperature, unspecified, initial encounter Code(s): T69.9XXA - Effect of reduced temperature, unspecified, initial encounter Status: Acute (9) Infestation by bed bug: Code(s): B88.8 - Other specified infestations Status: Acute GI Consult Note Consult date/time: 06/07/24 18:33 Reason for consult: cirrhosis, elevated liver enzymes HPI: Norberto De Jesus is a 54 year old male with history of myocardial infarction in 1996, kidney cancer status post left nephrectomy, hepatitis-C status post interferon, cirrhosis, deep venous thrombosis following right lower extremity fracture, alcohol abuse (1/5 of whiskey every 2 days but used to drink up to half galloon), and amphetamine abuse. He was admitted 4 days ago after being outside with cold exposure. He drove to the area from [place] a couple of weeks ago to be closer to family and was sleeping in his vehicle when it was very cold. On admission diagnosed with rapid atrial flutter/tachycardia. Labs were significant for a WBC count of 13.3, hemoglobin 14.8, platelet 278, PT 17.8, INR 1.4, BUN 33, creatinine 1.52, lactic acid 6.0, total bilirubin 3.4, AST 62, ALT 125, total CK 252, proBNP 5230. Urine drug screen was positive for amphetamines. Cardiology evaluation noted severe cardiomyopathy with LVEF 10-15%, noted anasarca, elevated liver enzymes but bili has been coming down from 3.[address] scan review noted No pulmonary embolus. Mild groundglass opacities in right lung upper lobe, consistent with mild pulmonary edema versus pneumonia. Small right pleural effusion. Cirrhosis of the liver with portal venous hypertension. His HCV RNA is negative. Review of Systems Constitutional: Constitutional: Reports lethargy Eyes: Eyes: Denies blurry vision ENT: Reports Normal hearing present Cardiovascular: Cardiovascular: Reports palpitations Respiratory: Respiratory: Denies cough Gastrointestinal: Gastrointestinal: Denies abdominal pain Genitourinary: Genitourinary: Denies hematuria Musculoskeletal: Musculoskeletal: Denies neck pain Integumentary/Breasts: Comments: bed bugs Neurologic: Denies Abnormal speech present Psychiatric: Psychiatric: Denies confusion PMFSH Past Medical History Medical History Infestation by bed bug Deep venous thrombosis Following tibial plateau fracture Hepatitis C Cirrhosis of liver Status post interferon Cancer of left kidney Myocardial infarction Amphetamine abuse Alcohol abuse Surgical History Surgical History History of hernia repair History of left nephrectomy History of open reduction and internal fixation (ORIF) procedure Repair right tibial plateau fracture Family History Family History Mother Heart disease Social History Social History Social History: Surrogate medical decision maker: Frannie Mckinley, significant other. Code status: Full code. Smoking packs per day: 1 Smoking cigarettes per day: 20.0 Years smoked: 40 Smoking pack-years: 40.00 Smoking status: Current every day smoker Alcohol intake: current Alcohol use details: 1/5 of whiskey every 2 days Substance use: current Substance use type: methamphetamine Do You Feel Safe in your Home?: Yes Lack of Transportation: YES Lack of Food: Often True Current Housing: I Do Not Have Housing Concerned About Future Housing: YES Difficulty Paying Gas/Electric Bills: YES Difficulty Paying for Meds: YES Currently Unemployed: YES Education: High School Diploma/GED Difficulty w/ Childcare or Family Care: No Spiritual care concerns: No Meds Home Medications and Allergies Home Medications ?Medication ?Instructions ?Recorded ?Confirmed ?Type No Home Medications 06/03/24 06/03/24 History Allergies Allergy/AdvReac Type Severity Reaction Status Date / Time aspirin Allergy Intermediate Rash Verified 06/03/24 10:48 Vital Signs Vital Signs - 24 hr 06/06/24 20:00 06/06/24 20:00 06/06/24 20:00 Temperature 97.7 F Pulse Rate 87 Pulse Rate [Monitor] 97 Respiratory Rate 18 Blood Pressure 133/91 H 133/91 H Pulse Oximetry 100 Oxygen Delivery Room Air 06/06/24 20:00 06/06/24 22:05 06/06/24 23:20 Temperature 97.5 F L Pulse Rate 94 96 62 Pulse Rate [Monitor] Respiratory Rate 18 Blood Pressure 120/80 Pulse Oximetry 94 Oxygen Delivery 06/07/24 00:00 06/07/24 00:00 06/07/24 03:40 Temperature 97.4 F L Pulse Rate 97 85 Pulse Rate [Monitor] 95 Respiratory Rate 18 Blood Pressure 115/70 124/92 H Pulse Oximetry 99 Oxygen Delivery 06/07/24 03:59 06/07/24 04:00 06/07/24 06:05 Temperature Pulse Rate 91 85 Pulse Rate [Monitor] 84 Respiratory Rate Blood Pressure 102/77 Pulse Oximetry Oxygen Delivery 06/07/24 08:03 06/07/24 09:00 06/07/24 09:45 Temperature 97.6 F Pulse Rate 84 93 Pulse Rate [Monitor] Respiratory Rate 18 Blood Pressure 112/90 Pulse Oximetry 95 Oxygen Delivery Room Air 06/07/24 10:03 06/07/24 12:00 06/07/24 12:01 Temperature 97.6 F Pulse Rate 89 Pulse Rate [Monitor] 85 84 Respiratory Rate 18 Blood Pressure 120/88 Pulse Oximetry 94 Oxygen Delivery 06/07/24 12:01 06/07/24 14:07 06/07/24 16:00 Temperature 97.6 F Pulse Rate 84 84 78 Pulse Rate [Monitor] Respiratory Rate 18 Blood Pressure 118/74 Pulse Oximetry 94 Oxygen Delivery 06/07/24 16:03 Temperature Pulse Rate 92 Pulse Rate [Monitor] Respiratory Rate Blood Pressure Pulse Oximetry Oxygen Delivery Exam Const: Other: disheveled, chronically ill appearing HENMT: Face/Nose/Sinus: Normal nares present Eyes: Sclera: sclerae normal Neck: Neck: supple Resp: Auscultation: rales Cardio: Rate: regular rate GI: GI Palp: Yes Soft to palpation and No Tenderness to palpation present (GI) Auscultation: normal bowel sounds Skin: Other: noted bed bugs and skin bites Neuro: Speech: normal speech Other: he is awake and alert but poor communication Extrem: General: edema Psych: Affect: No Hostile affect present Results Labs 06/07/24 05:12 06/07/24 05:12 Labs: Short CBC 06/06/24 06/07/24 Range/Units 19:33 05:12 WBC 8.8 9.2 (4.5-10.0) K/mm3 Hgb 14.7 14.3 (14.0-18.0) g/dL Hct 44.4 44.3 (42.0-52.0) % Plt Count 265 260 (150-375) k/mm3 [facility] 06/07/24 05:12 Sodium 138 Potassium 3.2 L Chloride 101 Carbon Dioxide 26 BUN 45 H Creatinine 2.01 H Glucose 99 Calcium 9.0 Cardiac Enzymes 06/07/24 Range/Units 05:12 Total Creatine Kinase 36 L (55-170) U/L Liver Function 06/07/24 Range/Units 05:12 Total Bilirubin 1.6 H (0.2-1.3) mg/dL AST 669 H (17-59) U/L ALT 429 H (6-50) U/L Alkaline Phosphatase 104 (38-126) U/L Albumin 3.2 L (3.5-5.1) g/dL
[2024-06-07 23:33] LABS: Glucose Point of Care 114 mg/dl (65-105)
[2024-06-08] VITALS (8 sets, daily range): BP systolic 115–144; BP diastolic 64–98; PULSE 81–110; RESP 16–18; TEMP 36.4–36.8; O2SAT 90–99
[2024-06-08] MEDS: HYDROcodone/acetaminophen (*CRX) 5-325 MG TABLET 1 TAB PO (04:02)
[2024-06-08] MEDS: METOPROLOL TARTRATE 25 MG TABLET PO ×2 (05:39→14:23)
[2024-06-08 06:18] LABS: Glucose Point of Care 121 mg/dl (65-105)
[2024-06-08 07:01] LABS: Basophils Absolute Auto 0.1 K/mm3 (0.0-0.1); Basophils Percent Auto 0.8 % (0.2-1.2); Eosinophils Absolute Auto 0.2 K/mm3 (0-0.3); Eosinophils Percent Auto 2.5 % (0-4.4); Hematocrit 45.8 % (42.0-52.0); Hemoglobin 14.6 g/dL (14.0-18.0); Immature Granulocyte Absolute 0.07 K/mm3 (0.00-0.031); Immature Granulocyte Percent A 0.8 % (0-0.5); Lymphocytes Absolute Auto 1.83 K/mm3 (0.9-3.2); Lymphocytes Percent Auto 20.6 % (18.3-44.2); Mean Corpuscular HGB Conc 31.9 g/dl (32-36); Mean Corpuscular Hemoglobin 31.3 pg (26-34); Mean Corpuscular Volume 98.1 fl (80-100); Mean Platelet Volume 9.4 fl (7.4-10.4); Monocytes Absolute Auto 1.2 K/mm3 (0.1-0.6); Neutrophils Absolute Auto 5.5 K/mm3 (1.3-6.7); Neutrophils Percent Auto 62.3 % (45.5-73.1); Platelet Count Result 244 k/mm3 (150-375); Red Blood Count 4.67 M/mm3 (4.6-6.20); Red Cell Distribution Width 14.7 % (11.5-14.5); White Blood Count 8.9 K/mm3 (4.5-10.0)
[2024-06-08 07:14] LABS: Alanine Aminotransferase 350 U/L (6-50); Albumin Level 3.3 g/dL (3.5-5.1); Alkaline Phosphatase 140 U/L (38-126); Anion Gap 9 mmol/L (4-12); Aspartate Amino Transferase 399 U/L (17-59); Bilirubin,Total 1.3 mg/dL (0.2-1.3); Blood Urea Nitrogen 41 mg/dL (9-20); Calcium 8.8 mg/dL (8.4-10.2); Carbon Dioxide 32 mmol/L (22-30); Chloride 97 mmol/L (98-107); Estimated CRCL calculation 45 ml/min; Estimated Glomerular Filt Rate 36; Glucose 88 mg/dL (65-110); Magnesium 1.6 mg/dL (1.6-2.3); Phosphorus 3.7 mg/dL (2.5-4.5); Potassium 2.9 mmol/L (3.4-5.0); Sodium 138 mmol/L (137-145)
[2024-06-08 07:21] LABS: NT Pro B Type Natriuretic Pept 2350 pg/mL (19.9-100)
[2024-06-08] MEDS: FOLIC ACID 1 MG TABLET PO (09:17)
[2024-06-08] MEDS: SPIRONOLACTONE 25 MG TABLET PO (09:17)
[2024-06-08] MEDS: POTASSIUM CHLORIDE 20 MEQ PACKET (FOR LIQUID) 60 MEQ PO (09:17)
[2024-06-08] MEDS: THIAMINE HCL 100 MG TABLET PO (09:17)
[2024-06-08] MEDS: LOSARTAN POTASSIUM 25 MG TABLET PO (09:17)
[2024-06-08] MEDS: FUROSEMIDE 40 MG TABLET PO (09:17)
--- NOTE | 2024-06-08 09:44 | P.PNIM_ITS ---
Progress Note: A&P Assessment and Plan (1) Atrial flutter: Code(s): I48.92 - Unspecified atrial flutter Status: Acute Assessment and Plan: ##unknown if new or chronic - continue Metoprolol - Cardiology on board. 06/07/24: * Currently in NSR 83 bpm. * On Xarelto. * Cardiology following. * Continue rate control with Metoprolol tartrate. 06/08/24: * Remains rate controlled in the 90s. * Continue xarelto * Cards to follow up as outpt. (2) Cardiomyopathy: Code(s): I42.9 - Cardiomyopathy, unspecified Status: Acute Assessment and Plan: ## Etiology unknown but likely nonischemic secondary to his methamphetamine and alcohol abuse ##EF 10-15%. This is a new diagnosis. -->Etiology unknown but likely nonischemic secondary to his methamphetamine and alcohol abuse --> Consulted Cardiology --> episode of chest pain last p.m., troponins are trending up 0.041 -->monitor closely 06/07/24: * Severe degree of failure w/EF. * Medical maximization per Cardiology. * Prognosis is guarded. * Pt candidate for life vest? Will discuss with Cardiology. 06/08/24: * Maximization of treatment via Cardiology. * They will follow as outpt. * With EF of 10%, and pt stating likely unaware to be compliant with follow up, he may be a candidate for palliative/Hospice care. Will discuss with Care Coordination. 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 * No tachycardia appreciated today 06/08/24: * No acute s/s of withdrawl. * Stable vs (4) Alcohol abuse: Code(s): F10.10 - Alcohol abuse, uncomplicated Status: Acute Assessment and Plan: ##Alcohol dependence - 1/5 of whickey in two days or more. -Monitor Alcohol withdrawal per [facility] protocol -Provide folic acid thiamine p.o. 06/07/24: * Continue current treatment. * Continue to monitor overall condition. 06/08/24: * No acute s/s of withdrawl. * Stable vs (5) Pneumonia: Code(s): J18.9 - Pneumonia, unspecified organism Status: Acute Assessment and Plan: ##in light of hypothermia, leukocytosis, -->lactic acidosis 6.0,, acute renal failure - Likely resulting from pneumonia and UTI, - CT scan showed ground-glass opacity in the right lung upper lobe, UA shows pyuria - Received fluid resuscitation in the ED - was on D5 normal saline IV 150 mL/hour - stopped due to overload - Started Levaquin 750 mg IV daily - Pending blood culture urine culture --trend wbc 06/07/24: * Day number 4 of Levaquin * BC with NGTD. * WBC's today normal at 9.2. * Monitor labs and VS. 06/08/24: * Day #5 of Levaquin. * Stable on room air. * Will recheck CXR in AM for comparison. (6) Cirrhosis of liver: Code(s): K74.60 - Unspecified cirrhosis of liver Status: Acute Assessment and Plan: ## admits to drinking 1/5 whiskey in 2 days if not more daily for years -trend LFTS 06/07/24: * Secondary to ETOH abuse. * Bilirubin trending down. * Transaminitis trending up. * Was consulted on by GI and felt to be a potential candidate for transplant if pt would want to seriously consider ETOH use cessation. * GI will follow up as outpt. * Monitor Coags in interim and monitor for any s/s of spontaneous bleeding. 06/08/24: * Follow up with GI as outpt. (7) Dehydration: Code(s): E86.0 - Dehydration Status: Acute Assessment and Plan: ##Hyponatremia, hypokalemia --> Patient is a normal saline IV stopped due to fluid overload --> Replete potassium chloride 40 mg daily p.o. stopped, potassium elevated today. --> Follow-up BMP 06/07/24: * BMP today is overall improved. 06/08/24: * Hypokalemia noted today at 2.9. * 60 mEq ordered for supplementation. * Will trend in AM. (8) Cold exposure: Qualifiers: Encounter type: initial encounter Qualified Code(s): T69.9XXA - Effect of reduced temperature, unspecified, initial encounter Code(s): T69.9XXA - Effect of reduced temperature, unspecified, initial encounter Status: Acute Assessment and Plan: ##stayed in truck over night, temps in single digits --> rectal temp 95.4 on arrival. -bilateral leg pain and cold sensations in his legs after being exposed to the cold overnight -placed under a [employer] on arrival -temperature is now normalized with improvement in his leg pain though he continues to have aching discomfort. -Negative of DVT and PE 06/07/24: * Stable with normal Temperature today. (9) Lactic acid acidosis: Code(s): E87.20 - Acidosis, unspecified Status: Resolved Assessment and Plan: #in light of hypothermia, leukocytosis, -->lactic acidosis 6.0,, acute renal failure - Likely resulting from pneumonia and UTI, - CT scan showed ground-glass opacity in the right lung upper lobe, UA shows pyuria - Received fluid resuscitation in the ED - stopped D5 normal saline IV 150 mL/hour - Start Levaquin 750 mg IV daily - Pending blood culture urine culture --trend wbc 06/07/24: * Resolved. * All cultures so far are either confirmed negative or NGTD. * Acidosis resolved. * Day #4 of Levaquin. Will complete course. (10) Elevated LFTs: Code(s): R79.89 - Other specified abnormal findings of blood chemistry Status: Acute Assessment and Plan: ##Cirrhosiis and chronic liver failure. -->Cirrhosis of the liver with portal venous hypertension. - Coags are prolonged, --> Likely resulting from alcohol abuse -Consult GI for evaluation treatment 06/07/24: * Transaminitis secondary to #6. 06/08/24: * No acute change to warrant emergent GI referral again. (11) Renal failure: Code(s): N19 - Unspecified kidney failure Status: Acute Assessment and Plan: ##Acute renal failure - Upon arrival creatinine 1.52, -->06/04 2.04 --> 1.84 -->2.10 - Likely secondary to dehydration, UTI, sepsis - Start fluid resuscitation - Follow-up BMP - Follow-up renal ultrasound: Unremarkable renal ultrasound status post left nephrectomy. No stones, masses or hydronephrosis. 06/07/24: * Cr/BUN today 2.01/45. * Continue to monitor and trend BMP. 06/08/24: * Interval improvement in the BUN/Cr to 41/1.93 currently. (12) Trichomonas infection: Code(s): A59.9 - Trichomoniasis, unspecified Status: Acute Assessment and Plan: 06/08/24: * Pt's Trich test is positive. * Flagyl 2000 mg po X1 is ordered. * NO additional treatment needed. Time Spent With Patient Time with patient: 15 - 25 minutes Subjective Date/time seen: 06/08/24 09:44 Interval history: Pt examined at the bedside this AM, more awake. No complaints other than being tired. He is in A-flutter at 94 bpm currently. I am told by the RN this AM that pt has tested positive for Trichomonas and has yet to be treated. His Potassium this AM is also noted to be low at 2.9. Pt overnight inquired about possible Hospice care as he knows he is not going to be compliant with treatment for all of his needs. Given pt's limited status for caring for himself and his severity of Cardiomyopathy and heart failure w/EF of 10%, I could support the decision for Hospice if that is want he wants to pursue. He asks if I have any options for a place to live. I advised Care Coordination will talk with him again. He has no other acute complaints today. Nephrology continuing to cover. GI and Cards will follow as outpt if that is what pt wishes. Review of Systems Review of Systems: All systems reviewed & are unremarkable except as noted in HPI and below Exam Narrative: GENERAL: Ill-appearing, in no acute distress. Well-nourished. - EYES: EOMI. Anicteric. - HENT: Moist mucous membranes. - LUNGS: Clear to auscultation bilateral ly, no wheezing, rhonchi, or rales. - CARDIOVASCULAR: Regular rate and rhyth m. No murmur. No JVD. - ABDOMEN: Soft, non-tender and non-dist ended. No palpable masses. - EXTREMITIES: No edema. Peripheral puls es 2+. Non-tender. - NEUROLOGIC: No focal neurological defi cits. CN II-XII grossly intact. General weakness - PSYCHIATRIC: Awake, Alert and oriented x 3. Appropriate mood and affect. - SKIN: No rashes or lesions. Warm. - LYMPH: No cervical lymphadenopathy. Objective Data Vital Signs Vital Signs: Vital Signs - 24 hr 06/07/24 09:45 06/07/24 10:03 06/07/24 12:00 Temperature 97.6 F Pulse Rate 89 Pulse Rate [Monitor] 85 Respiratory Rate 18 Blood Pressure 120/88 Pulse Oximetry 94 Oxygen Delivery Room Air 06/07/24 12:01 06/07/24 12:01 06/07/24 14:07 Temperature Pulse Rate 84 84 Pulse Rate [Monitor] 84 Respiratory Rate Blood Pressure Pulse Oximetry Oxygen Delivery 06/07/24 16:00 06/07/24 16:00 06/07/24 16:03 Temperature 97.6 F Pulse Rate 78 92 Pulse Rate [Monitor] 84 Respiratory Rate 18 Blood Pressure 118/74 Pulse Oximetry 94 Oxygen Delivery 06/07/24 20:00 06/07/24 20:00 06/07/24 20:00 Temperature 97.3 F L Pulse Rate 91 Pulse Rate [Monitor] 96 Respiratory Rate 18 Blood Pressure 118/88 124/85 Pulse Oximetry 95 Oxygen Delivery Room Air 06/07/24 20:30 06/07/24 21:43 06/07/24 23:32 Temperature 97.8 F Pulse Rate 97 101 H 86 Pulse Rate [Monitor] Respiratory Rate 17 Blood Pressure 112/84 Pulse Oximetry 90 Oxygen Delivery 06/08/24 00:00 06/08/24 00:00 06/08/24 03:35 Temperature 98.2 F Pulse Rate 94 110 H Pulse Rate [Monitor] 96 Respiratory Rate 18 Blood Pressure 115/77 144/98 H Pulse Oximetry 98 Oxygen Delivery 06/08/24 04:00 06/08/24 04:00 06/08/24 05:39 Temperature Pulse Rate 85 90 Pulse Rate [Monitor] 96 Respiratory Rate Blood Pressure 127/96 H Pulse Oximetry Oxygen Delivery 06/08/24 08:00 Temperature Pulse Rate 86 Pulse Rate [Monitor] Respiratory Rate Blood Pressure Pulse Oximetry Oxygen Delivery Intake/Output Intake/Output: Intake & Output 06/05/24 06/06/24 06/07/24 06/08/24 23:59 23:59 23:59 23:59 Intake Total 3016 1100 1384 550 Output Total 4100 4340 700 Balance 3016 -3000 -1266 -150 Meds/Results Medications: Active Medications Generic Name Dose Route Start Last Admin Trade Name Freq PRN Reason Stop Dose Admin Acetaminophen 650 mg 06/03/24 13:40 06/03/24 16:57 Acetaminophen 325 Mg Tablet PO 650 mg Q6H PRN Administration Mild Pain (1-3) or Fever Hydrocodone Bitart/Acetaminophen 1 tab 06/03/24 18:33 06/08/24 04:02 Hydrocodone/Acetaminophen (*Crx) 5-325 Mg Tablet PO 1 tab Q6H PRN Administration Pain Rated 4-6 Calcium Carbonate 200 mg 06/05/24 19:05 06/07/24 10:12 Calcium Carbonate (Tums) 500 Mg (200 Mg Elemental) PO 200 mg Q6H PRN Administration Indigestion Chlordiazepoxide HCl 25 mg 06/03/24 14:39 06/07/24 21:41 Chlordiazepoxide (*Crx) 25 Mg Capsule PO 25 mg Q8HR PRN Administration Alcohol Withdrawal & CIWA < 8 Folic Acid 1 mg 06/03/24 09:00 06/08/24 09:17 Folic Acid 1 Mg Tablet PO 1 mg DAILY LEROY Administration Furosemide 40 mg 06/05/24 17:00 06/08/24 09:17 Furosemide 40 Mg Tablet PO 40 mg BID LEROY Administration Levofloxacin/Dextrose 750 mg in 150 mls @ 100 mls/hr 06/04/24 11:00 06/06/24 12:25 Levaquin 750 Mg/D5w 150 Ml IVPB 100 mls/hr Q48H LEROY Administration Lorazepam 2 mg 06/03/24 13:42 06/07/24 01:16 Lorazepam Inj (*Crx) 2 Mg/Ml Vial IV PUSH 2 mg Q2H PRN Administration CIWA 8-15 Lorazepam 4 mg 06/03/24 13:42 Lorazepam Inj (*Crx) 2 Mg/Ml Vial IV PUSH Q2H PRN CIWA > 15 Losartan Potassium 25 mg 06/06/24 09:00 06/08/24 09:17 Losartan Potassium 25 Mg Tablet PO 25 mg DAILY LEROY Administration Metoprolol Tartrate 25 mg 06/05/24 14:00 06/08/24 05:39 Metoprolol Tartrate 25 Mg Tablet PO 25 mg Q8HR LEROY Administration Metronidazole 2,000 mg 06/08/24 09:43 Metronidazole 500 Mg Tablet PO 06/08/24 09:44 ONCE STA Nitroglycerin 0.4 mg 06/05/24 19:04 06/05/24 19:22 Nitroglycerin Sl 0.4 Mg Tablet SUBLINGUAL 0.4 mg Q5MIN PRN Administration Chest Pain Rivaroxaban 20 mg 06/05/24 17:00 06/07/24 17:57 Rivaroxaban 20 Mg Tablet PO 20 mg DAILY@1700 LEROY Administration Spironolactone 25 mg 06/06/24 09:00 06/08/24 09:17 Spironolactone 25 Mg Tablet PO 25 mg QAM LEROY Administration Thiamine HCl 100 mg 06/04/24 09:00 06/08/24 09:17 Thiamine Hcl 100 Mg Tablet PO 100 mg QAM LEROY Administration Radiology Results: ITS Impressions Chest X-Ray 06/03/24 11:14 Impression: Clear lungs. Abdomen Ultrasound 06/03/24 15:06 IMPRESSION: 1. Gallbladder wall thickening, which may be seen with interstitial edema or chronic liver disease. Chest CTA 06/03/24 21:01 IMPRESSION: 1. No pulmonary embolus. 2. Mild groundglass opacities in right lung upper lobe, consistent with mild pulmonary edema versus pneumonia. 3. Small right pleural effusion. 4. Cirrhosis of the liver with portal venous hypertension. Venous Doppler Study 06/03/24 21:32 IMPRESSION: 1. No deep venous thrombosis. Renal Ultrasound 06/04/24 08:16 Impression: 1: Unremarkable renal ultrasound status post left nephrectomy. No stones, masses or hydronephrosis. Labs Labs: Laboratory Results - last 24 hr 06/07/24 06/07/24 06/07/24 11:56 17:57 23:29 WBC RBC Hgb Hct MCV MCH MCHC RDW Plt Count MPV Immature Gran % (Auto) Neut % (Auto) Lymph % (Auto) [place] % (Auto) Eos % (Auto) Baso % (Auto) Lymph # (Auto) [place] # (Auto) Eos # (Auto) Baso # (Auto) Abs Immat Gran (auto) Absolute Neuts (auto) Absolute Nucleated RBC Nucleated RBC % Sodium Potassium Chloride Carbon Dioxide Anion Gap BUN Creatinine Estim Creat Clear Calc Estimated GFR Glucose POC Capillary Glucose 171 H 77 114 H Calcium Phosphorus Magnesium Total Bilirubin AST ALT Alkaline Phosphatase NT-Pro-B Natriuret Pep Total Protein Albumin 06/08/24 06/08/24 06:00 06:15 WBC 8.9 RBC 4.67 Hgb 14.6 Hct 45.8 MCV 98.1 MCH 31.3 MCHC 31.9 L RDW 14.7 H Plt Count 244 MPV 9.4 Immature Gran % (Auto) 0.8 H Neut % (Auto) 62.3 Lymph % (Auto) 20.6 [place] % (Auto) 13.0 H Eos % (Auto) 2.5 Baso % (Auto) 0.8 Lymph # (Auto) 1.83 [place] # (Auto) 1.2 H Eos # (Auto) 0.2 Baso # (Auto) 0.1 Abs Immat Gran (auto) 0.07 H Absolute Neuts (auto) 5.5 Absolute Nucleated RBC 0.000 Nucleated RBC % 0.0 Sodium 138 Potassium 2.9 L Chloride 97 L Carbon Dioxide 32 H Anion Gap 9 BUN 41 H Creatinine 1.93 H Estim Creat Clear Calc 45 Estimated GFR 36 L Glucose 88 POC Capillary Glucose 121 H Calcium 8.8 Phosphorus 3.7 Magnesium 1.6 Total Bilirubin 1.3 AST 399 H ALT 350 H Alkaline Phosphatase 140 H NT-Pro-B Natriuret Pep 2350 H Total Protein 7.0 Albumin 3.3 L Quality VTE Prophylaxis VTE prophylaxis: pharmacologic ordered
[2024-06-08 11:57] LABS: Glucose Point of Care 118 mg/dl (65-105)
[2024-06-08] MEDS: metroNIDAZOLE 500 MG TABLET 2000 MG PO (12:05)
[2024-06-08] MEDS: levoFLOXacin 750 MG/D5W 150 ML 750 MG/150 ML BAG 100 MG IVPB (12:05)
--- NOTE | 2024-06-08 14:28 | P.DS_ITS ---
DS: Admitting Diagnosis Discharge Date 06/08/24 Admitting Diagnosis Cold exposure, renal failure, elevated LFT's, Lactic acidosis, Abnormal coagulation profile, ETOH abuse, Amphetamine abuse DS: Discharge Diagnosis Discharge Diagnosis (1) Atrial flutter: Code(s): I48.92 - Unspecified atrial flutter Status: Acute Assessment and Plan: ##unknown if new or chronic - continue Metoprolol - Cardiology on board. 06/07/24: * Currently in NSR 83 bpm. * On Xarelto. * Cardiology following. * Continue rate control with Metoprolol tartrate. 06/08/24: * Remains rate controlled in the 90s. * Continue xarelto * Cards to follow up as outpt. Pt is insistent upon discharge today as he states he has obtained a hotel room and has been paid and he will not stay another day to ensure that his Potassium level is stable or stay any longer for more workup. (2) Cardiomyopathy: Code(s): I42.9 - Cardiomyopathy, unspecified Status: Acute Assessment and Plan: ## Etiology unknown but likely nonischemic secondary to his methamphetamine and alcohol abuse ##EF 10-15%. This is a new diagnosis. -->Etiology unknown but likely nonischemic secondary to his methamphetamine and alcohol abuse --> Consulted Cardiology --> episode of chest pain last p.m., troponins are trending up 0.041 -->monitor closely 06/07/24: * Severe degree of failure w/EF. * Medical maximization per Cardiology. * Prognosis is guarded. * Pt candidate for life vest? Will discuss with Cardiology. 06/08/24: * Maximization of treatment via Cardiology. * They will follow as outpt. * With EF of 10%, and pt stating likely unaware to be compliant with follow up, he may be a candidate for palliative/Hospice care. Will discuss with Care Coordination. Pt is insistent upon discharge today as he states he has obtained a hotel room and has been paid and he will not stay another day to ensure that his Potassium level is stable or stay any longer for more workup. 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 * No tachycardia appreciated today 06/08/24: * No acute s/s of withdrawl. * Stable vs Pt is insistent upon discharge today as he states he has obtained a hotel room and has been paid and he will not stay another day to ensure that his Potassium level is stable or stay any longer for more workup. (4) Alcohol abuse: Code(s): F10.10 - Alcohol abuse, uncomplicated Status: Acute Assessment and Plan: ##Alcohol dependence - 1/ of whickey in two days or more. -Monitor Alcohol withdrawal per [facility] protocol -Provide folic acid thiamine p.o. 06/07/24: * Continue current treatment. * Continue to monitor overall condition. 06/08/24: * No acute s/s of withdrawl. * Stable vs Pt is insistent upon discharge today as he states he has obtained a hotel room and has been paid and he will not stay another day to ensure that his Potassium level is stable or stay any longer for more workup. (5) Pneumonia: Code(s): J18.9 - Pneumonia, unspecified organism Status: Acute Assessment and Plan: ##in light of hypothermia, leukocytosis, -->lactic acidosis 6.0,, acute renal failure - Likely resulting from pneumonia and UTI, - CT scan showed ground-glass opacity in the right lung upper lobe, UA shows pyuria - Received fluid resuscitation in the ED - was on D5 normal saline IV 150 mL/hour - stopped due to overload - Started Levaquin 750 mg IV daily - Pending blood culture urine culture --trend wbc 06/07/24: * Day number 4 of Levaquin * BC with NGTD. * WBC's today normal at 9.2. * Monitor labs and VS. 06/08/24: * Day #5 of Levaquin. * Stable on room air. * Will recheck CXR in AM for comparison. Pt is insistent upon discharge today as he states he has obtained a hotel room and has been paid and he will not stay another day to ensure that his Potassium level is stable or stay any longer for more workup. (6) Cirrhosis of liver: Code(s): K74.60 - Unspecified cirrhosis of liver Status: Acute Assessment and Plan: ## admits to drinking 1/5 whiskey in 2 days if not more daily for years -trend LFTS 06/07/24: * Secondary to ETOH abuse. * Bilirubin trending down. * Transaminitis trending up. * Was consulted on by GI and felt to be a potential candidate for transplant if pt would want to seriously consider ETOH use cessation. * GI will follow up as outpt. * Monitor Coags in interim and monitor for any s/s of spontaneous bleeding. 06/08/24: * Follow up with GI as outpt. Pt is insistent upon discharge today as he states he has obtained a hotel room and has been paid and he will not stay another day to ensure that his Potassium level is stable or stay any longer for more workup. (7) Dehydration: Code(s): E86.0 - Dehydration Status: Acute Assessment and Plan: ##Hyponatremia, hypokalemia --> Patient is a normal saline IV stopped due to fluid overload --> Replete potassium chloride 40 mg daily p.o. stopped, potassium elevated today. --> Follow-up BMP 06/07/24: * BMP today is overall improved. 06/08/24: * Hypokalemia noted today at 2.9. * 60 mEq ordered for supplementation. * Will trend in AM. Pt is insistent upon discharge today as he states he has obtained a hotel room and has been paid and he will not stay another day to ensure that his Potassium level is stable or stay any longer for more workup. (8) Cold exposure: Qualifiers: Encounter type: initial encounter Qualified Code(s): T69.9XXA - Effect of reduced temperature, unspecified, initial encounter Code(s): T69.9XXA - Effect of reduced temperature, unspecified, initial encounter Status: Acute Assessment and Plan: ##stayed in truck over night, temps in single digits --> rectal temp 95.4 on arrival. -bilateral leg pain and cold sensations in his legs after being exposed to the cold overnight -placed under a Adam Hugger on arrival -temperature is now normalized with improvement in his leg pain though he continues to have aching discomfort. -Negative of DVT and PE 06/07/24: * Stable with normal Temperature today. Pt is insistent upon discharge today as he states he has obtained a hotel room and has been paid and he will not stay another day to ensure that his Potassium level is stable or stay any longer for more workup. (9) Lactic acid acidosis: Code(s): E87.20 - Acidosis, unspecified Status: Resolved Assessment and Plan: #in light of hypothermia, leukocytosis, -->lactic acidosis 6.0,, acute renal failure - Likely resulting from pneumonia and UTI, - CT scan showed ground-glass opacity in the right lung upper lobe, UA shows pyuria - Received fluid resuscitation in the ED - stopped D5 normal saline IV 150 mL/hour - Start Levaquin 750 mg IV daily - Pending blood culture urine culture --trend wbc 06/07/24: * Resolved. * All cultures so far are either confirmed negative or NGTD. * Acidosis resolved. * Day #5 of Levaquin. Will complete course. Pt is insistent upon discharge today as he states he has obtained a hotel room and has been paid and he will not stay another day to ensure that his Potassium level is stable or stay any longer for more workup. (10) Elevated LFTs: Code(s): R79.89 - Other specified abnormal findings of blood chemistry Status: Acute Assessment and Plan: ##Cirrhosiis and chronic liver failure. -->Cirrhosis of the liver with portal venous hypertension. - Coags are prolonged, --> Likely resulting from alcohol abuse -Consult GI for evaluation treatment 06/07/24: * Transaminitis secondary to #6. 06/08/24: * No acute change to warrant emergent GI referral again. Pt is insistent upon discharge today as he states he has obtained a hotel room and has been paid and he will not stay another day to ensure that his Potassium level is stable or stay any longer for more workup. (11) Renal failure: Code(s): N19 - Unspecified kidney failure Status: Acute Assessment and Plan: ##Acute renal failure - Upon arrival creatinine 1.52, -->06/04 2.04 --> 1.84 -->2.10 - Likely secondary to dehydration, UTI, sepsis - Start fluid resuscitation - Follow-up BMP - Follow-up renal ultrasound: Unremarkable renal ultrasound status post left nephrectomy. No stones, masses or hydronephrosis. 06/07/24: * Cr/BUN today 2.01/45. * Continue to monitor and trend BMP. 06/08/24: * Interval improvement in the BUN/Cr to 41/1.93 currently. Pt is insistent upon discharge today as he states he has obtained a hotel room and has been paid and he will not stay another day to ensure that his Potassium level is stable or stay any longer for more workup. (12) Trichomonas infection: Code(s): A59.9 - Trichomoniasis, unspecified Status: Acute Assessment and Plan: 06/08/24: * Pt's Trich test is positive. * Flagyl 2000 mg po X1 is ordered. * NO additional treatment needed. Pt is insistent upon discharge today as he states he has obtained a hotel room and has been paid and he will not stay another day to ensure that his Potassium level is stable or stay any longer for more workup. Plan Pt is insistent upon discharge today as he states he has obtained a hotel room and has been paid and he will not stay another day to ensure that his Potassium level is stable or stay any longer for more workup. DS: Summary Hospital Course Reason for hospitalization: Cold exposure, renal failure, elevated LFT's, Lactic acidosis, Abnormal coagulation profile, ETOH abuse, Amphetamine abuse Hospital Course: This is a 54-year-old male smoker with history of myocardial infarction in 1996, kidney cancer status post left nephrectomy, hepatitis-C status post interferon, cirrhosis of the liver, deep venous thrombosis following right lower extremity fracture, alcohol abuse (1/5 of whiskey every 2 days), and amphetamine abuse who presented to the emergency department via EMS for evaluation of cold exposure. He and his girlfriend drove to the area from [place] a couple of weeks ago to be closer to family. They have been sleeping in their truck which ran out of gas sometime overnight with temperatures dipping into the single digits. When he got up on the morning of 06/03/24 he had severe pain in both legs and he reports difficulty standing up and he called 911. He was also feeling short of breath at that time, though may be due to the cold. On exam he was noted to have pretty significant lower extremity edema which developed over the last week or so. After being warmed up he was able to move his legs without issue but he continued to complain of tight aching discomfort in both legs. He denied fever, sweats, cold and flu symptoms, vertigo, facial droop, difficulty speaking and swallowing, focal weakness, paresthesias, chest pain, pleuritic pain, palpitations, orthopnea, paroxysmal nocturnal dyspnea, claudication, cough, sinus congestion, sore throat, nausea, vomiting, diarrhea, and dysuria. In the ED: Rectal temperature was 95.4? F on arrival. Blood pressures have been running in the 140s 150 systolic. He was found to be in rapid atrial flutter/tachycardia with rates in the 120s to 130s. Labs were significant for a WBC count of 13.3, hemoglobin 14.8, MCV 103.3, platelet 278, PT 17.8, INR 1.4, PTT 38.1, sodium 136, carbon dioxide 12, anion gap 20, BUN 33, creatinine 1.52, lactic acid 6.0, total bilirubin 3.4, AST 62, ALT 125, total CK 252, proBNP 5230. Urine drug screen was positive for amphetamines and ethyl alcohol level was less than 10. He tested positive for Trichomonas. Ethyl alcohol level was less than 10. Chest x-ray was unremarkable. He was placed under a Adam Hugger and was given metronidazole 2000 mg. He is being admitted in this setting for close monitoring and further treatment. During his hospitalization he was evaluated by Cardiology, Nephrology and GI. Cardiology workup was obtained and it was found that pt has a severe Cardiomyopathy with ECHO showing EF of 10-15% and is thought to be due to pt's alcohol and meth abuse. With his newly diagnosed Atrial Flutter, he was started on Metoprolol for rate control. Recommendations are to continue on Beta Parris, Losartan, Spironolactone, Xarelto and follow up as outpt. Pt was evaluated by Nephrology and recommendations were made for cessation of ETOH and drug use which is believed by them to be partially the cause of her renal dysfunction, along with the findings of the severe Cardiomyopathy as well. US was performed that shows one kidney with a normal right kidney. Nephrology will follow up as outpt. GI consulted on pt as well and notes his HCV has been eradicated and his resulting cirrhosis is likely due to his severe cardiomyopathy causing congestive hepatopathy and cirrhosis. Pt will need to have EGD as outpt. He is started on Thiamine and is strongly suggested by GI to stop drinking alcohol and using drugs. Pt is homeless. He has discussed multiple times now with Care Coordination resources available to him. He has been given the information and a one month supply of Xareldeirdre coupon. Pt states he has obtained a hotel room as he was paid today and that he is leaving no matter what and will not stay. Status at Discharge Cognitive/behavioral status at discharge: Pt shows poor decision making, but mentally is at baseline. Functional status at discharge: independent ambulation Overall status at discharge: patient is back to baseline Time Spent with Patient Time attestation: Total time spent providing and/or coordinating discharge services: Time spent: Greater than 30 minutes Specific discharge activities: Follow up, ETOH and drug cessation, follow up Exam Narrative: GENERAL: Ill-appearing, in no acute distress. Well-nourished. - EYES: EOMI. Anicteric. - HENT: Moist mucous membranes. - LUNGS: Clear to auscultation bilateral ly, no wheezing, rhonchi, or rales. - CARDIOVASCULAR: Regular rate and rhyth m. No murmur. No JVD. - ABDOMEN: Soft, non-tender and non-dist ended. No palpable masses. - EXTREMITIES: No edema. Peripheral puls es 2+. Non-tender. - NEUROLOGIC: No focal neurological defi cits. CN II-XII grossly intact. General weakness - PSYCHIATRIC: Awake, Alert and oriented x 3. Appropriate mood and affect. - SKIN: No rashes or lesions. Warm. - LYMPH: No cervical lymphadenopathy. DS: Data Data Completed and Pending Completed studies during hospitalization: ITS Impressions Chest X-Ray 06/03/24 11:14 Impression: Clear lungs. Abdomen Ultrasound 06/03/24 15:06 IMPRESSION: 1. Gallbladder wall thickening, which may be seen with interstitial edema or chronic liver disease. Chest CTA 06/03/24 21:01 IMPRESSION: 1. No pulmonary embolus. 2. Mild groundglass opacities in right lung upper lobe, consistent with mild pulmonary edema versus pneumonia. 3. Small right pleural effusion. 4. Cirrhosis of the liver with portal venous hypertension. Venous Doppler Study 06/03/24 21:32 IMPRESSION: 1. No deep venous thrombosis. Renal Ultrasound 06/04/24 08:16 Impression: 1: Unremarkable renal ultrasound status post left nephrectomy. No stones, masses or hydronephrosis. Labs on day of discharge: Labs from last 24 hours 06/08/24 06/08/24 06/08/24 11:52 06:15 06:00 WBC 8.9 RBC 4.67 Hgb 14.6 Hct 45.8 MCV 98.1 MCH 31.3 MCHC 31.9 L RDW 14.7 H Plt Count 244 MPV 9.4 Immature Gran % (Auto) 0.8 H Neut % (Auto) 62.3 Lymph % (Auto) 20.6 Shelby % (Auto) 13.0 H Eos % (Auto) 2.5 Baso % (Auto) 0.8 Lymph # (Auto) 1.83 Shelby # (Auto) 1.2 H Eos # (Auto) 0.2 Baso # (Auto) 0.1 Abs Immat Gran (auto) 0.07 H Absolute Neuts (auto) 5.5 Absolute Nucleated RBC 0.000 Nucleated RBC % 0.0 Sodium 138 Potassium 2.9 L Chloride 97 L Carbon Dioxide 32 H Anion Gap 9 BUN 41 H Creatinine 1.93 H Estim Creat Clear Calc 45 Estimated GFR 36 L Glucose 88 POC Capillary Glucose 118 H 121 H Calcium 8.8 Phosphorus 3.7 Magnesium 1.6 Total Bilirubin 1.3 AST 399 H ALT 350 H Alkaline Phosphatase 140 H NT-Pro-B Natriuret Pep 2350 H Total Protein 7.0 Albumin 3.3 L 06/07/24 06/07/24 23:29 17:57 WBC RBC Hgb Hct MCV MCH MCHC RDW Plt Count MPV Immature Gran % (Auto) Neut % (Auto) Lymph % (Auto) Shelby % (Auto) Eos % (Auto) Baso % (Auto) Lymph # (Auto) Shelby # (Auto) Eos # (Auto) Baso # (Auto) Abs Immat Gran (auto) Absolute Neuts (auto) Absolute Nucleated RBC Nucleated RBC % Sodium Potassium Chloride Carbon Dioxide Anion Gap BUN Creatinine Estim Creat Clear Calc Estimated GFR Glucose POC Capillary Glucose 114 H 77 Calcium Phosphorus Magnesium Total Bilirubin AST ALT Alkaline Phosphatase NT-Pro-B Natriuret Pep Total Protein Albumin Preliminary micro results at discharge 06/03/24 14:24 Blood Culture - Preliminary Blood 06/03/24 14:24 Blood Culture - Preliminary Blood Discharge Plan Discharge Attending physician on discharge: Margot Cruz Consulting providers: Pavithra Maddox; Ventura Yang; Richard Jansen Discharging Clinician: Margot Cruz Anticipated Discharge Date/Time: 06/08/24 14:43 Patient Disposition: Home, Self-Care Activity: as tolerated Diet: low sodium, low cholesterol and low fat Discharge Instructions: Please follow up as ordered and take all medications as prescribed. To ensure that you do not have any further kidney or cardiac damage, it is of utmost importance that you stop using any drugs and that you stop drinking alcohol. You are being given prescriptions and are being referred to specialists. It is very important that you make and keep all follow up appointments. Patient Instructions: Antibiotic Form, Rivaroxaban (By mouth) Patient Language: Welsh Stand Alone Forms: General Discharge Information Follow-up/Referrals: Richard Jansen MD [Physician] - Call for Appointment Pavithra Maddox DO [Physician] - Call for Appointment Ventura Yang MD [Physician] - Call for Appointment Discharge Medications: New furosemide 40 mg Tablet 40 mg PO BID Qty: 60 1RF thiamine HCl (vitamin B1) [Vitamin B-1] 100 mg Tablet 100 mg PO QAM Qty: 30 0RF spironolactone 25 mg Tablet 25 mg PO QAM Qty: 30 0RF losartan 25 mg Tablet 25 mg PO DAILY Qty: 30 0RF folic acid 1 mg Tablet 1 mg PO DAILY Qty: 30 1RF metoprolol tartrate 25 mg Tablet 25 mg PO Q8HR Qty: 90 0RF Xarelto 20 mg Tablet 20 mg PO DAILY@1700 Qty: 30 1RF levofloxacin 750 mg tablet 750 mg PO DAILY Qty: 2 0RF Other Ambulatory Orders: Complete Blood Count no Diff (Routine) Timeframe: 2 Days Location: Determined by Patient Ordered By: Margot Cruz Comprehensive Metabolic Panel (Routine) Timeframe: 2 Days Location: Determined by Patient Ordered By: Margot Cruz Magnesium (DAILY) Timeframe: [id number] Location: Determined by Patient Ordered By: Margot Cruz Prothrombin Time INR (Routine) Timeframe: 2 Days Location: Determined by Patient Ordered By: Margot Cruz Partial Thromboplastin Time (Routine) Timeframe: 2 Days Location: Determined by Patient Ordered By: Margot Cruz Date of admission: 06/04/24 16:10 Primary Care Provider: UNKNOWN,DOCTOR Admitting Provider: Lesley Berman Attending physician on admission: Margot Cruz Condition: Guarded Prognosis Quality VTE Prophylaxis VTE prophylaxis: pharmacologic ordered Hospitalist MIPS Heart Failure (Exclusion) Patient has history of Heart Transplant or Left Ventricular Assistive Device?: No IF YES, STOP HERE Heart Failure (Qualifier) Patient has current or prior documentation of LVEF less than or equal to 40%, or mod/servere depressed LVSF?: Yes IF NO, STOP HERE If Yes, Heart Failure (Qualifier) Patient was prescribed or already taking an Angiotensin-Converting Enzyme (SHARAN) Inhibitor, or Antiotensin Receptor Parris (ARB): Yes Patient was prescribed or already taking bisoprolol, carvedilol, or sustained release metoprolol succinate: Yes
[2024-06-08 15:27] LABS: Protein, Total 6.4 g/dL (6.1-8.1)
--- NOTE | 2024-06-08 16:31 | WPDGIPROGNO ---
Progress Note: A&P Assessment and Plan (1) Cirrhosis of liver: Code(s): K74.60 - Unspecified cirrhosis of liver Status: Acute Assessment and Plan: liver enzymes trending down since admission- probably from severe LV dysfunction, kelsea, hypothermia, etc he has cirrhosis and alcohol abuse follow-up office, will need HCC screening and discontinue drinking alcohol (2) Elevated LFTs: Code(s): R79.89 - Other specified abnormal findings of blood chemistry Status: Acute Assessment and Plan: trending down (3) Cardiomyopathy: Code(s): I42.9 - Cardiomyopathy, unspecified Status: Acute Assessment and Plan: by cardiology (4) KELSEA (acute kidney injury): Code(s): N17.9 - Acute kidney failure, unspecified Status: Acute (5) Infestation by bed bug: Code(s): B88.8 - Other specified infestations Status: Acute (6) Trichomonas infection: Code(s): A59.9 - Trichomoniasis, unspecified Status: Acute Assessment and Plan: on treatment (7) Cold exposure: Qualifiers: Encounter type: initial encounter Qualified Code(s): T69.9XXA - Effect of reduced temperature, unspecified, initial encounter Code(s): T69.9XXA - Effect of reduced temperature, unspecified, initial encounter Status: Acute Subjective Date/time seen: 06/08/24 16:31 Interval history: no changes Review of Systems Review of Systems: All systems reviewed & are unremarkable except as noted in HPI and below Exam Const: Other: disheveled, chronically ill appearing HENMT: Face/Nose/Sinus: Normal nares present Eyes: Sclera: sclerae normal Neck: Neck: supple Resp: Auscultation: rales Cardio: Rate: regular rate GI: GI Palp: Yes Soft to palpation and No Tenderness to palpation present (GI) Auscultation: normal bowel sounds Skin: Other: noted bed bugs and skin bites Neuro: Speech: normal speech Other: he is awake and alert but poor communication Extrem: General: edema Psych: Affect: No Hostile affect present Objective Data Vital Signs Vital Signs: Vital Signs - 24 hr 06/07/24 20:00 06/07/24 20:00 06/07/24 20:00 Temperature 97.3 F L Pulse Rate 91 Pulse Rate [Monitor] 96 Respiratory Rate 18 Blood Pressure 118/88 124/85 Pulse Oximetry 95 Oxygen Delivery Room Air 06/07/24 20:30 06/07/24 21:43 06/07/24 23:32 Temperature 97.8 F Pulse Rate 97 101 H 86 Pulse Rate [Monitor] Respiratory Rate 17 Blood Pressure 112/84 Pulse Oximetry 90 Oxygen Delivery 06/08/24 00:00 06/08/24 00:00 06/08/24 03:35 Temperature 98.2 F Pulse Rate 94 110 H Pulse Rate [Monitor] 96 Respiratory Rate 18 Blood Pressure 115/77 144/98 H Pulse Oximetry 98 Oxygen Delivery 06/08/24 04:00 06/08/24 04:00 06/08/24 05:39 Temperature Pulse Rate 85 90 Pulse Rate [Monitor] 96 Respiratory Rate Blood Pressure 127/96 H Pulse Oximetry Oxygen Delivery 06/08/24 08:00 06/08/24 08:00 06/08/24 09:15 Temperature 98.0 F Pulse Rate 86 81 Pulse Rate [Monitor] 96 Respiratory Rate 16 Blood Pressure 129/64 Pulse Oximetry 90 Oxygen Delivery 06/08/24 09:15 06/08/24 12:00 06/08/24 12:00 Temperature 97.6 F Pulse Rate 84 Pulse Rate [Monitor] 97 Respiratory Rate 18 Blood Pressure 130/82 Pulse Oximetry 99 97 Oxygen Delivery Room Air 06/08/24 12:00 06/08/24 14:23 Temperature Pulse Rate 97 97 Pulse Rate [Monitor] Respiratory Rate Blood Pressure Pulse Oximetry Oxygen Delivery Intake/Output Intake/Output: Intake & Output 06/05/24 06/06/24 06/07/24 06/08/24 23:59 23:59 23:59 23:59 Intake Total 3016 1250 1384 1030 Output Total 4100 2650 700 Balance 4677 -2557 -3526 330 Meds/Results Medications: Active Medications Generic Name Dose Route Start Last Admin Trade Name Freq PRN Reason Stop Dose Admin Acetaminophen 650 mg 06/03/24 13:40 06/03/24 16:57 Acetaminophen 325 Mg Tablet PO 650 mg Q6H PRN Administration Mild Pain (1-3) or Fever Hydrocodone Bitart/Acetaminophen 1 tab 06/03/24 18:33 06/08/24 04:02 Hydrocodone/Acetaminophen (*Crx) 5-325 Mg Tablet PO 1 tab Q6H PRN Administration Pain Rated 4-6 Calcium Carbonate 200 mg 06/05/24 19:05 06/07/24 10:12 Calcium Carbonate (Tums) 500 Mg (200 Mg Elemental) PO 200 mg Q6H PRN Administration Indigestion Chlordiazepoxide HCl 25 mg 06/03/24 14:39 06/07/24 21:41 Chlordiazepoxide (*Crx) 25 Mg Capsule PO 25 mg Q8HR PRN Administration Alcohol Withdrawal & CIWA < 8 Folic Acid 1 mg 06/03/24 09:00 06/08/24 09:17 Folic Acid 1 Mg Tablet PO 1 mg DAILY LEROY Administration Furosemide 40 mg 06/05/24 17:00 06/08/24 09:17 Furosemide 40 Mg Tablet PO 40 mg BID LEROY Administration Levofloxacin 750 mg 06/10/24 12:00 Levofloxacin 750 Mg Tablet PO 06/10/24 12:01 ONCE ONE Lorazepam 2 mg 06/03/24 13:42 06/07/24 01:16 Lorazepam Inj (*Crx) 2 Mg/Ml Vial IV PUSH 2 mg Q2H PRN Administration CIWA 8-15 Lorazepam 4 mg 06/03/24 13:42 Lorazepam Inj (*Crx) 2 Mg/Ml Vial IV PUSH Q2H PRN CIWA > 15 Losartan Potassium 25 mg 06/06/24 09:00 06/08/24 09:17 Losartan Potassium 25 Mg Tablet PO 25 mg DAILY LEROY Administration Metoprolol Tartrate 25 mg 06/05/24 14:00 06/08/24 14:23 Metoprolol Tartrate 25 Mg Tablet PO 25 mg Q8HR LEROY Administration Nitroglycerin 0.4 mg 06/05/24 19:04 06/05/24 19:22 Nitroglycerin Sl 0.4 Mg Tablet SUBLINGUAL 0.4 mg Q5MIN PRN Administration Chest Pain Rivaroxaban 20 mg 06/05/24 17:00 06/07/24 17:57 Rivaroxaban 20 Mg Tablet PO 20 mg DAILY@1700 [facility] Administration Spironolactone 25 mg 06/06/24 09:00 06/08/24 09:17 Spironolactone 25 Mg Tablet PO 25 mg QAM [facility] Administration Thiamine HCl 100 mg 06/04/24 09:00 06/08/24 09:17 Thiamine Hcl 100 Mg Tablet PO 100 mg QAM LEROY Administration Radiology Results: ITS Impressions Chest X-Ray 06/03/24 11:14 Impression: Clear lungs. Abdomen Ultrasound 06/03/24 15:06 IMPRESSION: 1. Gallbladder wall thickening, which may be seen with interstitial edema or chronic liver disease. Chest CTA 06/03/24 21:01 IMPRESSION: 1. No pulmonary embolus. 2. Mild groundglass opacities in right lung upper lobe, consistent with mild pulmonary edema versus pneumonia. 3. Small right pleural effusion. 4. Cirrhosis of the liver with portal venous hypertension. Venous Doppler Study 06/03/24 21:32 IMPRESSION: 1. No deep venous thrombosis. Renal Ultrasound 06/04/24 08:16 Impression: 1: Unremarkable renal ultrasound status post left nephrectomy. No stones, masses or hydronephrosis. Labs Labs: Laboratory Results - last 24 hr 06/07/24 06/07/24 06/07/24 05:12 17:57 23:29 WBC RBC Hgb Hct MCV MCH MCHC RDW Plt Count MPV Immature Gran % (Auto) Neut % (Auto) Lymph % (Auto) [place] % (Auto) Eos % (Auto) Baso % (Auto) Lymph # (Auto) [place] # (Auto) Eos # (Auto) Baso # (Auto) Abs Immat Gran (auto) Absolute Neuts (auto) Absolute Nucleated RBC Nucleated RBC % Sodium Potassium Chloride Carbon Dioxide Anion Gap BUN Creatinine Estim Creat Clear Calc Estimated GFR Glucose POC Capillary Glucose 77 114 H Calcium Phosphorus Magnesium Total Bilirubin AST ALT Alkaline Phosphatase NT-Pro-B Natriuret Pep Total Protein 6.4 Albumin 06/08/24 06/08/24 06/08/24 06:00 06:15 11:52 WBC 8.9 RBC 4.67 Hgb 14.6 Hct 45.8 MCV 98.1 MCH 31.3 MCHC 31.9 L RDW 14.7 H Plt Count 244 MPV 9.4 Immature Gran % (Auto) 0.8 H Neut % (Auto) 62.3 Lymph % (Auto) 20.6 [place] % (Auto) 13.0 H Eos % (Auto) 2.5 Baso % (Auto) 0.8 Lymph # (Auto) 1.83 [place] # (Auto) 1.2 H Eos # (Auto) 0.2 Baso # (Auto) 0.1 Abs Immat Gran (auto) 0.07 H Absolute Neuts (auto) 5.5 Absolute Nucleated RBC 0.000 Nucleated RBC % 0.0 Sodium 138 Potassium 2.9 L Chloride 97 L Carbon Dioxide 32 H Anion Gap 9 BUN 41 H Creatinine 1.93 H Estim Creat Clear Calc 45 Estimated GFR 36 L Glucose 88 POC Capillary Glucose 121 H 118 H Calcium 8.8 Phosphorus 3.7 Magnesium 1.6 Total Bilirubin 1.3 AST 399 H ALT 350 H Alkaline Phosphatase 140 H NT-Pro-B Natriuret Pep 2350 H Total Protein 7.0 Albumin 3.3 L
[2024-06-08 18:04] LABS: Red Blood Cell Folate 535 ng/mL RBC (>280)
[2024-06-09 02:03] LABS: Creatinine, Random Urine 32 mg/dL (20-320); Total Prot/Creat ratio mg/mg 0.188 (0.025-0.148); Total Protein/Creatinine Ratio 188 mg/g creat (25-148)
[2024-06-09 11:58] LABS: Kappa\\Lambda Light Chains 1.32 (0.26-1.65); Lambda Light Chain 52.6 mg/L (5.7-26.3)
[2024-06-09 20:44] LABS: Albumin 2.9 g/dL (3.8-4.8); Alpha 1 Globulin 0.3 g/dL (0.2-0.3); Alpha 2 Globulin 0.8 g/dL (0.5-0.9); Beta 1 Globulin 0.4 g/dL (0.4-0.6); Gamma Globulin 1.5 g/dL (0.8-1.7)
== END 2024-06-08 16:54 | disposition home or self-care (01) | DRG 720 ==
LOC: ANHED 09:40 → ANHIMU 13:38 → ANH2MED 06-04 16:18
PROVIDERS: General Practice; Internal Medicine Nephrology; Nurse Practitioner Family; Physician Assistant; Student in an Organized Health Care Education/Training Program; Admitting Provider Hospitalist; Emergency Provider Physician Assistant; Visit Provider Nurse Practitioner Adult Health
DX: A41.9 Sepsis, unspecified organism (principal); R65.20 Severe sepsis without septic shock; I50.23 Acute on chronic systolic (congestive) heart failure; T68.XXXA Hypothermia, initial encounter; N17.9 Acute kidney failure, unspecified; E87.20 Acidosis, unspecified; J18.9 Pneumonia, unspecified organism; I42.8 Other cardiomyopathies; I48.92 Unspecified atrial flutter; K72.10 Chronic hepatic failure without coma; E87.1 Hypo-osmolality and hyponatremia; K74.60 Unspecified cirrhosis of liver; E86.0 Dehydration; I25.10 Atherosclerotic heart disease of native coronary artery without angina pectoris; A59.9 Trichomoniasis, unspecified; N39.0 Urinary tract infection, site not specified; E87.6 Hypokalemia; R79.1 Abnormal coagulation profile; F15.10 Other stimulant abuse, uncomplicated; F10.20 Alcohol dependence, uncomplicated; F17.210 Nicotine dependence, cigarettes, uncomplicated; Z85.528 Personal history of other malignant neoplasm of kidney; Z90.5 Acquired absence of kidney; I25.2 Old myocardial infarction; Z86.19 Personal history of other infectious and parasitic diseases; Z86.718 Personal history of other venous thrombosis and embolism; Z59.01 Sheltered homelessness
CPT/HCPCS: 36415; 71046; 71275; 76705; 76775; 80048; 80053; 80074; 80143; 80307; 81001; 81050; 82077; 82306; 82533; 82550; 82570; 82607; 82747; 82948; 83605; 83735; 83880; 83883; 84100; 84155; 84156; 84165; 84166; 84300; 84443; 84484; 84540; 85025; 85049; 85380; 85384; 85610; 85730; 85999; 86703; 87040; 87086; 87491; 87522; 87591; 87661; 93005; 93970; 96361; 96374; 96375; 99291; A9270; C8929; G0378; G0379; G0432; J1940; J1956; J2060; J2270; J2405; J3411; J7030; J7042; Q9957; Q9967

== ENCOUNTER 2024-06-09 23:24 | Inpatient (IN) | payer MEDICAID, SELFPAY ==
--- NOTE | ~2024-06-09 | XR_ITS ---
EXAMINATION: XR chest 1V portable Exam Date/Time: 06/09/2024 23:45 MILK VENDOR HISTORY: SOB Comparison: 06/03/2024. RESULT: Lines, tubes, and devices: None. Lungs and pleura: Patchy mid and lower lung ground glass opacities bilaterally. Indistinct vessels. Peribronchial cuffing. Cardiomediastinal silhouette: Stable. Other: No acute osseous or upper abdominal finding. IMPRESSION: Pulmonary opacities most likely represent pulmonary edema. Infection is not excluded. Reviewed, dictated and finalized at location K. VENDOR IMPRESSION: Pulmonary opacities most likely represent pulmonary edema. Infection is not exc luded.
[2024-06-09 23:10] VITALS: BP 157/106; PULSE 117; RESP 20; TEMP 36.4; O2SAT 98
[2024-06-09 23:21] VITALS: BP 157/106; PULSE 117; RESP 19; TEMP 36.4; O2SAT 98
--- NOTE | 2024-06-09 23:23 | ECG_ITS ---
Test Date: 2024-06-09 23:24:39 Measurements Intervals [place] Rate: 99 P: 0 PA: 0 QRS: 64 QRSD: 88 T: 240 QT: 363 QTc: 467 Interpretive Statements ATRIAL FLUTTER/TACHYCARDIA NONSPECIFIC T-WAVE ABNORMALITY- LAT/HIGH LAT LEADS ABNORMAL ECG COMPARED WITH PRIOR ECG 06-06-24 13:54 HEART RATE HAS DECREASED Electronically Signed On 06-10-2024 09:24:14 [employer]PA[employer] by Salvador Maharaj D.O.
--- NOTE | 2024-06-09 23:35 | ED.GENADULT ---
HPI - General Adult General Chief complaint: Extremity Problem,Nontraumatic Stated complaint: CHF EXAC, ETOH, NOW SI History of Present Illness HPI narrative: 54-year-old male presents to the emergency department for evaluation for worsening shortness of breath and worsening lower extremity edema. Patient just left on 06/08 and had been admitted for atrial flutter, CHF, alcohol abuse and methamphetamine abuse. Patient had requested to be discharged and patient was provided prescriptions for outpatient medications but has not yet filled those medications. Patient denies any current chest pain but does complain of lower extremity pain abdominal fullness. Does complain of shortness of breath. Patient does have prior history of substance abuse and reports he had 2 heart attacks in 1996. 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 Related Data Allergies Allergy/AdvReac Type Severity Reaction Status Date / Time aspirin Allergy Intermediate Rash Verified 06/03/24 10:48 Review of Systems Review of Systems: All systems reviewed & are unremarkable except as noted in HPI and below PMFSH Past Medical History Medical History Trichomonas infection Infestation by bed bug Deep venous thrombosis Following tibial plateau fracture Hepatitis C Cirrhosis of liver Status post interferon Cancer of left kidney Myocardial infarction Amphetamine abuse Alcohol abuse Surgical History Surgical History History of hernia repair History of left nephrectomy History of open reduction and internal fixation (ORIF) procedure Repair right tibial plateau fracture Family History Family History Mother Heart disease Social History Social History Social History: Surrogate medical decision maker: Frannie Mckinley, significant other. Code status: Full code. Smoking packs per day: 1 Smoking cigarettes per day: 20.0 Years smoked: 40 Smoking pack-years: 40.00 Smoking status: Current every day smoker Alcohol intake: current Alcohol use details: 1/5 of whiskey every 2 days Substance use: current Substance use type: methamphetamine Do You Feel Safe in your Home?: Yes Lack of Transportation: YES Lack of Food: Often True Current Housing: I Do Not Have Housing Concerned About Future Housing: YES Difficulty Paying Gas/Electric Bills: YES Difficulty Paying for Meds: YES Currently Unemployed: YES Education: High School Diploma/GED Difficulty w/ Childcare or Family Care: No Spiritual care concerns: No Exam Narrative: APPEARANCE: Ill-appearing HEAD: normocephalic, atraumatic. EYES: PERRLA/EOMI, conjunctivae clear. NOSE: Normal no drainage EARS:TMS clear with good light reflex. THROAT: Pharynx clear, no exudate. NECK: Supple. No adenopathy, no masses. RESPIRATORY: Airway patent, respirations nonlabored. Clear to auscultation bilaterally, no rales, rhonchi, wheezing. CARDIOVASCULAR: Regular rate and rhythm without murmurs rubs or gallops. ABDOMINAL: Soft, nontender, nondistended, normal bowel sounds MUSCULOSKELETAL: +3 pitting edema bilaterally NEURO: Alert. Cranial nerves II through XII intact. Good gait. Good coordination SKIN: Warm, dry. Normal Color Course Vital Signs Vital signs: Vital Signs Temperature 97.5 F L 06/09/24 23:10 Pulse Rate 117 H 06/09/24 23:10 Respiratory Rate 20 06/09/24 23:10 Blood Pressure 157/106 H 06/09/24 23:10 Pulse Oximetry 98 06/09/24 23:10 Oxygen Delivery Room Air 06/09/24 23:10 Temperature 97.5 F L 06/09/24 23:21 Pulse Rate 98 06/10/24 07:05 Respiratory Rate 19 06/10/24 07:05 Blood Pressure 133/80 06/10/24 07:05 Pulse Oximetry 97 06/10/24 07:05 Oxygen Delivery Room Air 06/09/24 23:10 Medical Decision Making [facility] Narrative Medical decision making narrative: 54-year-old male presents emergency department for evaluation for worsening lower extremity edema. Patient was recently discharged from the hospital. Patient was prescribed multiple medications for outpatient but patient states he did not get these medications filled. Patient began having worsening lower extremity pain and shortness of breath. Upon arrival emergency department patient was in AFib with RVR. Patient was afebrile with no leukocytosis and hemoglobin of 13.4. INR 1.5. Patient's proBNP was 2120. Initially patient was treated with IV labetalol but this did not affect his rate. Patient was ultimately started on a Cardizem bolus and infusion. Patient was also treated with IV Lasix. Case was discussed with hospitalist patient was accepted for admission. Differential Diagnosis Differential Diagnosis: COVID, RSV, influenza, CHF, AFib with RVR Vital Signs Vital Signs: Vital Signs Temperature 97.5 F L 06/09/24 23:10 Pulse Rate 117 H 06/09/24 23:10 Respiratory Rate 20 06/09/24 23:10 Blood Pressure 157/106 H 06/09/24 23:10 Pulse Oximetry 98 06/09/24 23:10 Oxygen Delivery Room Air 06/09/24 23:10 Temperature 97.5 F L 06/09/24 23:21 Pulse Rate 98 06/10/24 07:05 Respiratory Rate 19 06/10/24 07:05 Blood Pressure 133/80 06/10/24 07:05 Pulse Oximetry 97 06/10/24 07:05 Oxygen Delivery Room Air 06/09/24 23:10 Lab Data Lab results reviewed: Yes I reviewed the patient's lab results. 06/10/24 07:04 06/10/24 00:02 Labs: Lab Results 06/10/24 06/10/24 Range/Units 00:02 00:24 WBC 6.9 (4.5-10.0) K/mm3 RBC 4.25 L (4.6-6.20) M/mm3 Hgb 13.4 L (14.0-18.0) g/dL Hct 41.4 L (42.0-52.0) % MCV 97.4 (80-100) fl MCH 31.5 (26-34) pg MCHC 32.4 (32-36) g/dl RDW 14.6 H (11.5-14.5) % Plt Count 213 (150-375) k/mm3 MPV 9.3 (7.4-10.4) fl Immature Gran % (Auto) 1.4 H (0-0.5) % Neut % (Auto) 59.8 (45.5-73.1) % Lymph % (Auto) 19.9 (18.3-44.2) % [place] % (Auto) 16.3 H (2.6-8.5) % Eos % (Auto) 2.0 (0-4.4) % Baso % (Auto) 0.6 (0.2-1.2) % Lymph # (Auto) 1.38 (0.9-3.2) K/mm3 [place] # (Auto) 1.1 H (0.1-0.6) K/mm3 Eos # (Auto) 0.1 (0-0.3) K/mm3 Baso # (Auto) 0.0 (0.0-0.1) K/mm3 Abs Immat Gran (auto) 0.10 H (0.00-0.031) K/mm3 Absolute Neuts (auto) 4.1 (1.3-6.7) K/mm3 Absolute Nucleated RBC 0.000 (0.0-0.012) K/mm3 Nucleated RBC % 0.0 (0.0-0.2) % PT 18.9 H (11.1-14.7) Seconds INR 1.5 APTT 44.0 H (22.3-36.8) Seconds Sodium 141 (137-145) mmol/L Potassium 3.2 L (3.4-5.0) mmol/L Chloride 101 (98-107) mmol/L Carbon Dioxide 29 (22-30) mmol/L Anion Gap 11 (4-12) mmol/L BUN 30 H D (9-20) mg/dL Creatinine 1.48 H (0.7-1.3) mg/dL Estim Creat Clear Calc 64 ml/min Estimated GFR 49 L (59 - ) Glucose 95 (65-110) mg/dL Calcium 9.3 (8.4-10.2) mg/dL Total Bilirubin 1.1 (0.2-1.3) mg/dL AST 185 H (17-59) U/L ALT 233 H (6-50) U/L Alkaline Phosphatase 201 H (38-126) U/L Troponin I 0.029 (0.000-0.034) ng/mL NT-Pro-B Natriuret Pep 2120 H (19.9-100) pg/mL Total Protein 7.0 (6.3-8.2) g/dL Albumin 3.4 L (3.5-5.1) g/dL TSH (Reflex) 7.020 H (0.465-4.68) uIU/mL Urine Color Dark yellow (Yellow) Urine Appearance Clear (Clear) Urine pH 6.0 (5.0-9.0) Ur Specific [place] 1.020 (1.001-1.035) Urine Protein Trace (Negative) mg/dL Urine Glucose (UA) Negative (Negative) mg/dL Urine Ketones Negative (Negative) mg/dL Ur Blood (Man) Negative (Negative) Urine Nitrate Negative (Negative) Urine Bilirubin Negative (Negative) Urine Urobilinogen 2.0 H (<2.0) mg/dL Leukocyte Esterase Rfl 1+ H (Negative) CHAN/UL Urine RBC 0-2 (0-2) /hpf Urine WBC 6-10 H (0-3) /hpf Ur Squamous Epith Cells None seen (Few) /hpf Urine Bacteria None seen /hpf Urine Casts 0-2 Urine Opiates Screen Positive A (Negative) Urine Methadone Screen Negative (Negative) Ur Barbiturates Screen Negative (Negative) Ur Phencyclidine Scrn Negative (Negative) Ur Amphetamine Screen Negative (Negative) U Benzodiazepines Scrn Positive A (Negative) Urine Cocaine Screen Negative (Negative) U Cannabinoids Screen Negative (Negative) Ethyl Alcohol 28 (<10) mg/dL Influenza A (RT-PCR) Negative (Negative) Influenza B (RT-PCR) Negative (Negative) RSV (RT-PCR) Negative (Negative) SARS-CoV-2 RNA (RT-PCR) Negative (Negative) Imaging Data Radiologist's impression: Impressions Chest X-Ray 06/09/24 23:51 IMPRESSION: Pulmonary opacities most likely represent pulmonary edema. Infection is not excluded. Critical Care Time Critical Care Time Critical Care Time: Yes Total Critical Care Time: 35 Discharge Plan Discharge Clinical Impression: Alcohol abuse, Amphetamine abuse, Atrial flutter, CHF (congestive heart failure) Patient Disposition: Still a Patient Condition: Serious
--- OUTSIDE RECORDS SUMMARY | 2024-06-09 23:38 | XMS_ITS | Clinical Summary ---
Author Organization [facility] Address [address] [place] [address] Care Team Providers Care Construction Project Assistant Name Role Phone Sherman Major MD Primary Care Provider [phone] Source Comments PLEASE NOTE, if this patient is a minor, it may be UNLAWFUL to discuss sensitive information that is contained in these records (such as FAMILY PLANNING, MENTAL HEALTH or SUBSTANCE ABUSE) with the minor patient's parent or other person without the patient's specific authorization.[facility] Allergies Active Allergy Reactions Criticality Noted Date Comments Aspirin 05/19/2009 Medications buPROPion XL (WELLBUTRIN XL) 150 mg 24 hr tabletIndication s:Major depressive disorder, remission status unspecified, unspecified whether recurrent Take 1 Tablet by mouth every morning 90 Tablet 3 4 Active hydrocortisone (ANUSOL-HC) 2.5 % topical creamIndications :Internal hemorrhoids Place rectally 2 (two) times daily as needed for hemorrhoids 30 g 3 4 Active tamsulosin (FLOMAX) 0.4 mg 24 hr capsuleIndicatio ns:Benign localized prostatic hyperplasia with lower urinary tract symptoms (LUTS) Take 1 Capsule by mouth once daily 90 Capsule 3 4 Active amLODIPine (NORVASC) 5 mg tabletIndication s:Essential hypertension Take 1 Tablet by mouth once daily 90 Tablet 3 4 Active buPROPion HCL (WELLBUTRIN XL) 300 mg 24 hr tabletIndication s:Major depressive disorder, remission status unspecified, unspecified whether recurrent Take 1 Tablet by mouth every morning 90 Tablet 3 4 Active lidocaine (LIDODERM) 5 % patchIndications :Chronic shoulder pain, unspecified laterality,Chron ic pain of right hip Place 1 Patch onto the skin once daily (every 24 hours) ; Use 12 hours on and 12 hours off for every 24 hours. 90 Patch 5 4 Active lisinopriL 30 mg tabletIndication s:hypertension Take 1 Tablet by mouth once daily Indications: high blood pressure 90 Tablet 3 4 Active diaper,brief,kaity lt,disposableInd ications:Urinary incontinence, unspecified type 3 to 4 (three to four) times daily as needed (incontinence) PULL-UP style. Small SIZE 96 Each 4 Active triamcinolone (NASACORT) 55 mcg nasal inhalerIndicatio ns:allergic rhinitis prevention Place 2 Sprays into the nostril(s) once daily Indications: allergic rhinitis prevention 16.9 mL 3 4 Active acetaminophen (TYLENOL) 325 mg tabletIndication s:Chronic shoulder pain, unspecified laterality,Chron ic pain of right hip Take 2 Tablets by mouth every 6 (six) hours as needed for pain 360 Tablet 1 4 Active blood pressure kit-extra largeIndications :Essential hypertension TAKE BLOOD PRESSURE ONCE A DAY 1 Kit 4 Active diclofenac sodium (VOLTAREN) 1 % gelIndications:C hronic shoulder pain, unspecified laterality,Chron ic pain of right hip APPLY TOPICALLY TWO TIMES A DAY NEEDED FOR PAIN. ([id number]). 300 g 1 4 Active SUMAtriptan succinate (IMITREX) 50 mg tabletIndication s:Migraine without status migrainosus, not intractable, unspecified migraine type Take 1 Tablet by mouth 1 (one) time as needed for migraine for up to 1 dose 30 Tablet 3 4 Active diaper,brief,kaity lt,disposableInd ications:Urinary incontinence, unspecified type 3 to 4 (three to four) times daily as needed (incontinence) PULL-UP style. Small SIZE 96 Each 4 Active Active Problems Patient Care Coordination No te Formatting of this note migh t be different from the original. 07/03/22 review US (completed 06/08) DUE TDaP CCS/FIT Hepatocellular carcinoma scrn Lung cx scrn Problem Noted Date Diagnosed Date Homelessness 03/21/2022 H/O left inguinal hernia repair 09/19/2021 Overview (09/19/2021): 2014 [employer] and think is failing because has pain and swelling at area. Pure hypercholesterolemia 09/19/2021 Overview (03/21/2022): Diet controlled without statin Essential hypertension 09/19/2021 Other cirrhosis of liver ([facility]) 09/19/2021 Urinary incontinence 09/19/2021 Overview (09/19/2021): Uses pullups, has sever urgency, psa's unremarkable. History of kidney cancer 02/09/2020 Overview (09/19/2021): Partial nephrectomy, 2015, local kidney cancer, no chemo, found a lump when doing hernia surgery. Post-traumatic osteoarthritis of right knee 01/14 Overview (09/19/2021): S/p 5 knee surgeries. 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 Patient might disagree with this diagnoses as feels he is hypervigilant of surrounding, lives on street an locked up much of his life. Uses wellbutrin that helps prevent a depression where he would lay around and sleep, keeps him active. Smoker 11/09/2011 Overview (09/19/2021): 5 cigarettes per day current, started age 11, up to 2 ppd. Patches and gum > headaches. Not tried chantix. Major depressive disorder 10/02/2011 Methamphetamine abuse in remission ([facility]) Overview (03/21/2022): Remission date: October 2009 Legally blind 10/01/2011 Overview (09/19/2021): Vision is really bad, severe tunnel vision and cannot see eye chart, not correctable, slow progressive from first diagnoses in 1999. Working on out of area referral pending x 1 month. Assessment & Plan (09/19/2021 10:24 AM PDT): Folllow up on referral. History of hepatitis C 05/19/2009 Overview (09/19/2021): x15 years and treated in 2019 had undetectable in 2019. History of SC (myocardial infarction) 05/19/2009 Overview (03/21/2022): 2x SC in 1996 one week apart, stress unrem 2002, no ongoing angina, walks a lot each day, tries to watch salt and cholesterol, homeless, cannot take ASA d/t allergy Resolved Problems Problem Noted Date Diagnosed Date Resolved Date Cirrhosis of liver without ascites ([facility]) 2 09/19/2021 Overview (08/22/2021): From Hep C, treated Left tennis elbow 01/22/2013 09/19/2021 Obesity 10/01/2011 05/26/2012 Hyperlipidemia 05/19/2009 09/19/2021 Immunizations Name Administration Dates Next Due Flu, Preservative Free 05/28/2023,02/08/2020 HEP A-HEP B 02/26/2019 INFLUENZA, SEASONAL, INJECTABLE 02/05/2013,02/20 ZOSTER VACCINE, RECOMBINANT (SHINGRIX) 4 Zoster, Live Vaccine (Zostavax) 05/29/2019,02/26 Family History Medical History Relation Name Comments Lung Disease Brother Carmine De Jesus Alcohol/Drug Abuse Father Harsha De Jesus Heart attack Mother Irma De Jesus Relation Name Status Comments Brother Carmine De Jesus Alive Has Lung Cancer Father Harsha De Jesus Mother Irma De Jesus Sister Radha Ortega of heart f ailure. Son Henry De Jesus Alive 24 year old w ith ADHD Social History Tobacco Use Types Packs/Day Years Used Date Smoking Tobacco: Every Day Cigarettes 0.5 45 Smokeless Tobacco: Never Tobacco Cessation:Ready to Q uit: Not Asked; Counseling Given: Not Answered Comments:Patient would like to take Wellbutrin. Alcohol Use Standard Drinks/Week Comments Not Currently 0 (1 standard drink = 0.6 oz pur e alcohol) Social Connections Answer Date Recorded Connectedness 0 12/27/2023 Financial Resource Strain Answer Date R ecorded Financial Resource Strain 0 2018 Stress Answer Date Recorded Stress 0 12/06/2018 Physical Activity Answer Date Recorded Physical Activity 0 12/06/2018 Food Insecurity Answer Date Recorded Food 0 01/09/2024 Transportation Needs Answer Date Record ed Transportation 0 12/06/2018 Housing Stability Answer Date Recorded Housing 0 12/06/2018 Safety and Environment Answer Date Merlin rded Safety 0 12/06/2018 Utilities Answer Date Recorded Utilities 0 12/06/2018 Employment Answer Date Recorded Stress 0 12/27/2023 Sex and Gender Information Value Date Recorded Sex Assigned at Male 05/01/2017 1:50 PM PST Legal Sex Male 6:40 PM PST Gender Identity Male 05/01/2017 1:50 PM PST Sexual Orientation Straight 05/01/2017 1: 50 PM PST Last Filed Vital Signs Vital Sign Reading Time Taken Comments Blood Pressure 181/110 01/15/2024 11:32 AM PDT Pulse 107 01/15/2024 11:32 AM PDT Temperature 36.2 C (97.2 F) 01/15/2024 11:32 AM PDT Respiratory Rate 16 05/01/2022 11:33 AM PST Oxygen Saturation 100% 01/15/2024 11:32 AM PDT Inhaled Oxygen Concentration - - Weight 87.1 kg (192 lb) 01/15/2024 11:32 AM PDT Height 172.7 cm (5' 8 ) 01/15/2024 11:32 AM PDT Body Mass Index 29.19 01/15/2024 11:32 AM PDT Plan of Treatment Health Maintenance Due Date Last Done Comments Imm-DTaP/Tdap/Td (1 - Tdap) 02/21/1987 Imm-Pneumococcal (1 of 2 - PCV) 02/21/1987 CT Colonography 02/21/2013 Colonoscopy 02/21/2013 Colorectal Cancer Screening 02/21/2013 FIT/gFOBT 02/21/2013 Fecal DNA 02/21/2013 Flexible Sigmoidoscopy 02/21/2013 Lung Cancer Screening 02/21/2018 Imm-Hepatitis A (2 of 3 - He p A Twinrix risk 3-dose series) 03/26/2019 02/26/2019 Hepatocellular Carcinoma Scr eening (HCC) 04/28/2022 10/26/2021, 10/26/2021 Depression Monitoring 07/30/2022 05/01/2022 , 06/04/2017, 10/31/2011 Imm-Zoster, Recombinant (3 of 3) 07/23/2023 05/28/2023, 05/29/2019, 02/26/2019 [id number] ( season) 2023 Imm-Influenza (#1) 2023 05/28/2023, 1 , 02/05/2013, Additional history exists Alcohol and Drug Screen 04/15/2024 01/15/20, 01/15/2024, 05/01/2022, Additional history exists Tobacco Cessation Counseling (#1) 04/15/2024 Diabetes Screening 08/22/2024 08/22/2021, 0 08/22/2021, 07/08/2020, Additional history exists Lipid Screening 08/22/2024 08/22/2021, 01/14, 10/01/2011, Additional history exists Imm-Hepatitis B Discontinued 02/26/2019 HIV Screening Completed 08/22/2021 EGD (Upper Endoscopy) Discontinued Procedures Procedure Name Priority Date/Time Associated Diagnosis Comments OTHER ORDERS SCANNED DOCUMENT 05/06/2024 12:00 AM PST [facility] DME Routine 04/29/2024 11:23 AM PST US ABDOMINAL REAL TIME W/IMAGE DOCUMENTATION Routine 10/26/2021 12:42 PM PDT History of kidney cancer Other cirrhosis of liver (HCC-CMS) HIV 1/0/2 AG/AB W/CASCADE RFLX SUPPLEMENTAL TESTING Routine 08/22/2021 3:12 PM PDT Screening for human immunodeficiency virus without presence of risk factors HGA1C W/EAG Routine 08/22/2021 3:12 PM PDT Blood glucose abnormal LIPID PROFILE W/REFLEX Routine 08/22/2021 3:12 PM PDT Hyperlipidemia, unspecified hyperlipidemia type from Last 3 Months or Most Recently Relevant to Health Maintenance Results * OTHER ORDERS SCANNED DOCUMENT (05/06/2024 12:00 AM PST) 05/06/2024 us Sherman Major MD SCAN OTHER ORDERS Final Result * US ABDOMINAL REAL TIME W/IMAGE DOCUMENTATION (10/26/2021 12:42 PM PDT) Narrative [facility] - 10/26/2021 12:42 PM PDT [facility] ULTRASOUND [address] [place] [id number] Imaging Result Report Patient: Norberto De Jesus Reason: Cirrhosis of liver without ascites, unspecified hepatic cirrhosis type (HCC) : 1970 Clinician: Sofya Perkins MD Reading Phone: Gender: [phone] Male Physician: Glenn Joya MD Outpatient Exam performed on 10/26/2021 at 12:42 PM US ABDOMEN COMPLETE CPT: [id number] EXAM: US ABDOMEN COMPLETE; DATE: 10/26/2021 3:08 PM EDT HISTORY: Cirrhosis of liver without ascites, unspecified hepatic cirrhosis type (HCC). COMPARISON: CT abdomen/pelvis 04/21/2021. TECHNIQUE: Ultrasound evaluation of the abdomen. FINDINGS: The liver is normal in size and has a mild diffusely increased heterogeneous echotexture representing a fatty fibrotic pattern which is nonspecific and most commonly seen with diffuse hepatic steatosis. Chronic hepatitis and cirrhosis can present a similar appearance. No hepatic mass or biliary ductal dilatation. The gallbladder appears normal. Normal caliber common bile duct, 6 mm. Patent portal vein with normal directional flow. The spleen and viewed portions of pancreas appear normal. Both kidneys are normal in size and demonstrate no hydronephrosis or mass lesion. Small cortical defect in the midpole of the left kidney reflects prior surgery per history (postsurgical fibrosis). No abdominal aortic aneurysm and the inferior vena cava is patent. No ascites. IMPRESSION: IMPRESSION: Mild diffusely increased heterogeneous hepatic echotexture represents a fatty fibrotic pattern without hepatic mass or biliary ductal dilatation. The gallbladder appears normal. Small cortical defect in the midpole of the left kidney reflects postsurgical fibrosis. Dictated by: Glenn Joya MD Reading Provider(s) Read Date(s) Glenn Joya MD 10/26/2021 Signing Provider: Glenn Joya MD on 10/26/2021 2:16 PM Sawyer Holman DO IMG ULTRASOUND Final Result Performing Organization Address [facility] Co de Phone Number [address] [address] * HIV 1/0/2 AG/AB W/CASCADE RFLX SUPPLEMENTAL TESTING (08/22/2021 3:12 PM PDT) [facility] HIV SCREEN 4TH GENERATION WRFX Non Reactive Non Reactive [facility] Comment: HIV Negative HIV-1/HIV-2 antibodies and HIV-1 p24 antigen were NOT detected. There is no laboratory evidence of HIV infection. Blood Venous blood / Unknown 08/22/2021 3:12 PM PDT 08/24/2021 Narrative [facility] - 08/24/2021 7:05 AM PDT Performed at: [address] [place] [address] [place] [id number] Base Filler: Ivonne Gil MD, Phone: [phone] us Sofya Perkins MD LAB - BLOOD DRAW Final Result Performing Organization Address [facility] de Phone Number [facility] * HGA1C W/EAG (08/22/2021 3:12 PM PDT) [facility] HEMOGLOBIN A1C 5.0 4.8 - 5.6 % [facility] Comment: . Prediabetes: 5.7 - 6.4 Diabetes: >6.4 Glycemic control for adults with diabetes: <7.0 ESTIM. AVG GLU (EAG) 97 mg/dL [facility] Blood Venous blood / Unknown 08/22/2021 3:12 PM PDT 08/24/2021 Narrative [facility] - 08/24/2021 3:05 AM PDT Performed at: 01 - [facility] [place] [address], [place], [place] [id number] Base Filler: Ivonne Gil MD, Phone: [phone] Sofya Perkins MD LAB - BLOOD DRAW Final Result [facility] * (ABNORMAL) LIPID PROFILE W/REFLEX (08/22/2021 3:12 PM PDT) [facility] CHOLESTEROL, TOTAL 188 100 - 199 mg/dL [facility] TRIGLYCERIDES 100 0 - 149 mg/dL [facility] HDL CHOLESTEROL 59 >39 mg/dL [facility] VLDL CHOLESTEROL GIOVANNA 18 5 - 40 mg/dL [facility] LDL CHOL CALC (NIH) 111(H) 0 - 99 mg/dL [facility] LDL/HDL RATIO 1.9 0.0 - 3.6 ratio [facility] Comment: LDL/HDL Ratio Men Women 1/2 Avg.Risk 1.0 1.5 Avg.Risk 3.6 3.2 2X Avg.Risk 6.2 5.0 3X Avg.Risk 8.0 6.1 Blood Venous blood / Unknown 08/22/2021 3:12 PM PDT 08/24/2021 Narrative [facility] - 08/24/2021 3:05 AM PDT Performed at: 01 - [facility] [address], [place], [place] [id number] Base Filler: Ivonne Gil MD, Phone: [phone] Sofya Perkins MD LAB - BLOOD DRAW Final Result [facility] from Last 3 Months or Most Recently Relevant to Health Maintenance Insurance [employer] [place] Care Teams Construction Project Assistant Relationship Specialty Start Date End Date Sherman Major MD [address] [place] [phone] PCP - General Family Medicine, Physician 01/15/24
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
--- OUTSIDE RECORDS SUMMARY | 2024-06-09 23:38 | XMS_ITS ---
Author Organization [facility] Address [address] [place] [id number] Care Team Providers Care Data Entry Email Processor Name Role Phone Migration, Provider Unavailable [phone] REASON FOR VISIT CS Outreach - Unsuccessful Encounters Encounter Location Date Provider Diagnosis [facility] [address] [place] [id number] 01/03/2024 Provider Migration Homelessness unspecified Z59.00 Assessments Encounter Date Diagnosis (ICD Code) Assessment Notes Treatment Notes Treatment Clinical Notes Section Notes 01/03/2024 Homelessness unspecified (ICD-10 - Z59.00) Plan Of Treatment No Information Progress Notes * MARIE NEVILLEDOB:1970 ( 53 yo M)Acc No.[id number]:01/03/2024 CS Outreach Patient: MARIE CARLSON Appointment Provider: Ethel Lopez Resource:Pavithra Miranda :1970 A ge:53 Y S ex:Male Date:01/03/2024 [address] Structured Data:Health Plan : [employer]AN; Comm Support Status : OU Subjective: * Chief Complaints: * 1 . CS Outreach - Unsuccessful. * Medical History: Objective: * Vitals: Assessment: * Assessment: 1. H omelessness unspecified - Z59.00 (Primary) Plan: * Treatment: * Procedure Codes: T 1016 CASE MANAGEMENT EACH 15 MINS, Modifiers: U8 , GQ * Billing Information: * Visit Code: * Procedure Codes: T1016 CASE MANAGEMENT EACH 15 MINS. Modifiers: U8, GQ Care Plan Details* Problem CS - PIRP - V1 CS - Problems/Intervention/R esponse/Plan (PIRP) V1 Date of Service: 01/03/24 Start Time: 10:06am End Time: 10:06am Duration (in Minutes): 0 min Phone Number: [phone] Address of Location: Phone Har[employer] Work[employer] Contacted: Member: Marie Problem: CS OU Specialist Madai sue received auth from health plan. Intervention: CS OU Specialist Madai sue called member to obtain consent. Response: Member did not answer. Line out of service. Plan: CS OU Specialist Madai sue will contact referring constitution party. EVS Eligibility Message: Eligibility tra nsaction performed by [phone] on Saturday at 10:05:45 AM PSTSUBSCRIBER LAST NAME: [facility] #: [id number]. CNTY CODE: 12. PRMY AID CODE: 60. MEDI-GIOV[place] ELIGIBLE W/ NO SOC/SPEND DOWN. HEALTH PLAN MEMBER: [facility]: MEDICAL CALL .Subscriber Name:MARIE NEVILLE BSubscriber ID:[id number] Date:1970Issue Date:01/03/2024rimary Aid Code:60First Special Aid Code:Second Special Aid Code:Third Special Aid Code:[place]ons[place]Service Date:01/03/2024Trace Number / Eligibility Verification Confirmation:[id number] * Sign off status: Completed true * Appointment Provider: Ethel sam Migration Date: 0 01/03/2024 Generated for Brandin garcia/Tiana/eTransmitting on: 0 06/09/2024 09:37 PM PST
--- OUTSIDE RECORDS SUMMARY | 2024-06-09 23:38 | XMS_ITS | Patient Health Record ---
Author Organization [facility] Address [address] [place] [id number] Care Team Providers Care Brush Machine Setter Name Role Phone Migration, Provider Unavailable [phone] Reason For Referral No Information Encounters Encounter Location Date Provider Diagnosis [facility] [address] [place] [phone] 01/03/2024 Provider Migration Homelessness unspecified Z59.00 Assessments Encounter Date Diagnosis (ICD Code) Assessment Notes Treatment Notes Treatment Clinical Notes Section Notes 01/03/2024 Homelessness unspecified (ICD-10 - Z59.00) Plan Of Treatment No Information Insurance Providers Payer Name Payer Address Payer Phone Subscriber Number Group Number Insured Name Patient Relationship to Insured Coverage Start Date Coverage End Date [facility] Health Plan [employer] Claims [address] [place] [phone] [id number] MARIE NEVILLE Self - patient is the insured
[2024-06-10] VITALS (26 sets, daily range): BP systolic 108–153; BP diastolic 80–105; PULSE 87–132; RESP 14–24; TEMP 36.6–36.7; O2SAT 93–99; BMI 40.8
[2024-06-10] MEDS: FUROSEMIDE INJ 40 MG/4 ML VIAL IV PUSH ×3 (00:06→16:49)
[2024-06-10] MEDS: LABETALOL HCL INJ 100 MG/20 ML VIAL IV PUSH (00:06)
[2024-06-10 00:26] LABS: Basophils Percent Auto 0.6 % (0.2-1.2); Eosinophils Absolute Auto 0.1 K/mm3 (0-0.3); Hematocrit 41.4 % (42.0-52.0); Hemoglobin 13.4 g/dL (14.0-18.0); Immature Granulocyte Percent A 1.4 % (0-0.5); Lymphocytes Absolute Auto 1.38 K/mm3 (0.9-3.2); Lymphocytes Percent Auto 19.9 % (18.3-44.2); Mean Corpuscular HGB Conc 32.4 g/dl (32-36); Mean Corpuscular Hemoglobin 31.5 pg (26-34); Mean Corpuscular Volume 97.4 fl (80-100); Mean Platelet Volume 9.3 fl (7.4-10.4); Monocytes Absolute Auto 1.1 K/mm3 (0.1-0.6); Monocytes Percent Auto 16.3 % (2.6-8.5); Neutrophils Absolute Auto 4.1 K/mm3 (1.3-6.7); Neutrophils Percent Auto 59.8 % (45.5-73.1); Platelet Count Result 213 k/mm3 (150-375); Red Blood Count 4.25 M/mm3 (4.6-6.20); Red Cell Distribution Width 14.6 % (11.5-14.5); White Blood Count 6.9 K/mm3 (4.5-10.0)
[2024-06-10 00:27] LABS: INR 1.5; Prothrombin Time 18.9 Seconds (11.1-14.7)
[2024-06-10 00:29] LABS: Alanine Aminotransferase 233 U/L (6-50); Albumin Level 3.4 g/dL (3.5-5.1); Alkaline Phosphatase 201 U/L (38-126); Anion Gap 11 mmol/L (4-12); Aspartate Amino Transferase 185 U/L (17-59); Bilirubin,Total 1.1 mg/dL (0.2-1.3); Blood Urea Nitrogen 30 mg/dL (9-20); Calcium 9.3 mg/dL (8.4-10.2); Carbon Dioxide 29 mmol/L (22-30); Chloride 101 mmol/L (98-107); Estimated CRCL calculation 64 ml/min; Estimated Glomerular Filt Rate 49; Glucose 95 mg/dL (65-110); Potassium 3.2 mmol/L (3.4-5.0); Sodium 141 mmol/L (137-145)
[2024-06-10 00:34] LABS: Add Urine Microscopic? YES; Appearance Urine Clear (Clear); Bacteria Urine None Seen /hpf; Bilirubin Urine Negative (Negative); Blood Urine Negative (Negative); Color Urine Dark Yellow (Yellow); Glucose Urine UA Negative (Negative); Ketones Urine Negative (Negative); Leukocyte Esterase Ur 1+ LEU/UL (Negative); Nitrate Urine Negative (Negative); Non Pathogenic Casts 0-2; Protein Urine Trace mg/dL (Negative); RBC Urine 0-2 /hpf (0-2); Squamous Epithelial Cell Urine None Seen /hpf (Few)
[2024-06-10 00:37] LABS: NT Pro B Type Natriuretic Pept 2120 pg/mL (19.9-100)
[2024-06-10 00:45] LABS: Amphetamine Screen Urine Negative (Negative); Barbiturate Screen Urine Negative (Negative); Benzodiazepines Screen Urine Positive (Negative); Cannabinoid Screen Urine Negative (Negative); Cocaine Screen Urine Negative (Negative); Methadone Screen Urine Negative (Negative); Opiate Screen Urine Positive (Negative); Phencyclidine Screen Urine Negative (Negative)
[2024-06-10 00:48] LABS: Influenza A QL RT-PCR Negative (Negative); Influenza B QL RT-PCR Negative (Negative); RSV RNA, RT-PCR Negative (Negative); SARS-CoV-2 RNA PCR Negative (Negative); Troponin I 0.029 ng/mL (0.000-0.034)
[2024-06-10] MEDS: dilTIAZem HCl INJ 25 MG/5 ML VIAL 10 MG IV PUSH (01:19)
[2024-06-10] MEDS: dilTIAZem 100 MG/100 ML 100 MG/100 ML BAG IV CONT (01:20)
[2024-06-10 02:48] LABS: Ethanol 28 mg/dL (<10)
--- NOTE | 2024-06-10 03:31 | ECG_ITS ---
Test Date: 2024-06-10 03:31:45 Measurements Intervals [place] Rate: 99 P: 0 MD: 0 QRS: 65 QRSD: 113 T: 127 QT: 313 QTc: 403 Interpretive Statements ATRIAL FLUTTER/TACHYCARDIA INTRAVENTRICULAR CONDUCTION DELAY DELAYED PRECORDIAL R/S TRANSITION BORDERLINE ST-T WAVE ABNORMALITY- ANTEROLAT/HIGH LAT LEADS BASELINE ARTIFACT- I, III, AVL, V1 ABNORMAL ECG Compared to ECG 06/09/2024 23:24:39 NO SIGNIFICANT CHANGE Electronically Signed On 06-10-2024 10:31:26 DIRECTOR OF TECHNOLOGY by Salvador Maharaj D.O.
[2024-06-10 04:12] LABS: Troponin I 0.028 ng/mL (0.000-0.034)
[2024-06-10 04:16] LABS: Free T4 Free Thyroxine Reflex 1.14 ng/dL (0.78-2.19)
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
[2024-06-10 07:15] LABS: Basophils Absolute Auto 0.1 K/mm3 (0.0-0.1); Basophils Percent Auto 0.6 % (0.2-1.2); Eosinophils Absolute Auto 0.2 K/mm3 (0-0.3); Eosinophils Percent Auto 1.9 % (0-4.4); Hematocrit 40.7 % (42.0-52.0); Hemoglobin 13.4 g/dL (14.0-18.0); Immature Granulocyte Absolute 0.04 K/mm3 (0.00-0.031); Immature Granulocyte Percent A 0.5 % (0-0.5); Lymphocytes Absolute Auto 1.32 K/mm3 (0.9-3.2); Lymphocytes Percent Auto 17.1 % (18.3-44.2); Mean Corpuscular HGB Conc 32.9 g/dl (32-36); Mean Corpuscular Hemoglobin 31.8 pg (26-34); Mean Corpuscular Volume 96.4 fl (80-100); Mean Platelet Volume 9.2 fl (7.4-10.4); Monocytes Absolute Auto 0.9 K/mm3 (0.1-0.6); Monocytes Percent Auto 11.9 % (2.6-8.5); Neutrophils Absolute Auto 5.2 K/mm3 (1.3-6.7); Platelet Count Result 202 k/mm3 (150-375); Red Blood Count 4.22 M/mm3 (4.6-6.20); Red Cell Distribution Width 14.6 % (11.5-14.5); White Blood Count 7.7 K/mm3 (4.5-10.0)
[2024-06-10 07:26] LABS: Alanine Aminotransferase 211 U/L (6-50); Albumin Level 3.4 g/dL (3.5-5.1); Alkaline Phosphatase 145 U/L (38-126); Anion Gap 10 mmol/L (4-12); Aspartate Amino Transferase 162 U/L (17-59); Bilirubin,Total 1.3 mg/dL (0.2-1.3); Blood Urea Nitrogen 26 mg/dL (9-20); Calcium 9.1 mg/dL (8.4-10.2); Carbon Dioxide 29 mmol/L (22-30); Chloride 100 mmol/L (98-107); Estimated CRCL calculation 70 ml/min; Estimated Glomerular Filt Rate 55; Glucose 106 mg/dL (65-110); Potassium 3.3 mmol/L (3.4-5.0); Sodium 139 mmol/L (137-145)
[2024-06-10 07:40] LABS: Troponin I 0.027 ng/mL (0.000-0.034)
--- NOTE | 2024-06-10 07:41 | PC.NURSE ---
non select heart healthy breakfast tray ordered
[2024-06-10 08:27] LABS: Hemoglobin A1C 5.3 % (<5.7)
[2024-06-10] MEDS: HEPARIN SODIUM 5,000 UNITS/ML VIAL 5000 UNITS SUB-Q (09:12)
[2024-06-10] MEDS: ACETAMINOPHEN 325 MG TABLET 650 MG PO ×3 (09:13→21:44)
--- NOTE | 2024-06-10 09:27 | PC.NURSE ---
pt was offered a purwick due to Furosemide and pt refused. pt does have a urinal at bedside. pt requested a depends incase I'm sleeping and need to pee . depends applied.
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
[2024-06-10 10:12] LABS: Total Triiodothyronine (T3) 0.96 NG/ML (0.97-1.69)
[2024-06-10] MEDS: POTASSIUM CHLORIDE 20 MEQ PACKET (FOR LIQUID) 40 MEQ PO (12:01)
[2024-06-10] MEDS: THIAMINE HCL 100 MG TABLET PO (12:01)
[2024-06-10] MEDS: FOLIC ACID 1 MG TABLET PO (12:14)
[2024-06-10 12:33] LABS: Amphetamine Screen Urine Negative (Negative); Barbiturate Screen Urine Negative (Negative); Benzodiazepines Screen Urine Negative (Negative); Cannabinoid Screen Urine Negative (Negative); Cocaine Screen Urine Negative (Negative); Methadone Screen Urine Negative (Negative); Opiate Screen Urine Negative (Negative); Phencyclidine Screen Urine Negative (Negative)
--- NOTE | 2024-06-10 12:44 | ECG_ITS ---
Test Date: 2024-06-10 12:47:34 Measurements Intervals [place] Rate: 95 P: 0 [place]: 0 QRS: 36 QRSD: 89 T: 60 QT: 367 QTc: 462 Interpretive Statements ATRIAL FLUTTER/TACHYCARDIA DELAYED PRECORDIAL R/S TRANSITION NONSPECIFIC T-WAVE ABNORMALITY- ANTEROLAT/HIGH LAT LEADS BASELINE ARTIFACT- AVL, AVF ABNORMAL ECG Compared to ECG 06/10/2024 03:31:45 NO SIGNIFICANT CHANGE Electronically Signed On 06-10-2024 15:52:49 COMPUTER FORWARDING SYSTEM MARKUP CLERK by Salvador Maharaj D.O.
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
[2024-06-10] MEDS: HYDROcodone/acetaminophen (*CRX) 5-325 MG TABLET 1 TAB PO ×2 (16:48→23:38)
[2024-06-10] MEDS: RIVAROXABAN 20 MG TABLET PO (16:50)
[2024-06-10] MEDS: METOPROLOL TARTRATE 25 MG TABLET PO ×2 (16:50→21:44)
[2024-06-10 19:21] LABS: Glucose Point of Care 113 mg/dl (65-105)
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
[2024-06-10 23:51] LABS: Glucose Point of Care 114 mg/dl (65-105)
[2024-06-11] VITALS (18 sets, daily range): BP systolic 101–129; BP diastolic 79–97; PULSE 61–111; RESP 16–20; TEMP 36.2–36.8; O2SAT 77–100
[2024-06-11 06:14] LABS: Basophils Absolute Auto 0.1 K/mm3 (0.0-0.1); Basophils Percent Auto 0.7 % (0.2-1.2); Eosinophils Absolute Auto 0.3 K/mm3 (0-0.3); Eosinophils Percent Auto 2.5 % (0-4.4); Hematocrit 44.5 % (42.0-52.0); Hemoglobin 14.6 g/dL (14.0-18.0); Immature Granulocyte Absolute 0.07 K/mm3 (0.00-0.031); Immature Granulocyte Percent A 0.6 % (0-0.5); Lymphocytes Absolute Auto 2.11 K/mm3 (0.9-3.2); Lymphocytes Percent Auto 19.5 % (18.3-44.2); Mean Corpuscular HGB Conc 32.8 g/dl (32-36); Mean Corpuscular Hemoglobin 31.3 pg (26-34); Mean Corpuscular Volume 95.3 fl (80-100); Mean Platelet Volume 9.1 fl (7.4-10.4); Monocytes Absolute Auto 1.3 K/mm3 (0.1-0.6); Monocytes Percent Auto 11.6 % (2.6-8.5); Neutrophils Percent Auto 65.1 % (45.5-73.1); Platelet Count Result 224 k/mm3 (150-375); Red Blood Count 4.67 M/mm3 (4.6-6.20); Red Cell Distribution Width 14.7 % (11.5-14.5); White Blood Count 10.8 K/mm3 (4.5-10.0)
[2024-06-11] MEDS: ACETAMINOPHEN 325 MG TABLET 650 MG PO (06:14)
[2024-06-11] MEDS: METOPROLOL TARTRATE 25 MG TABLET PO ×3 (06:15→21:00)
[2024-06-11 06:30] LABS: Alanine Aminotransferase 171 U/L (6-50); Albumin Level 3.6 g/dL (3.5-5.1); Alkaline Phosphatase 128 U/L (38-126); Anion Gap 9 mmol/L (4-12); Aspartate Amino Transferase 106 U/L (17-59); Bilirubin,Total 1.3 mg/dL (0.2-1.3); Blood Urea Nitrogen 28 mg/dL (9-20); Calcium 8.8 mg/dL (8.4-10.2); Carbon Dioxide 27 mmol/L (22-30); Chloride 99 mmol/L (98-107); Estimated CRCL calculation 48 ml/min; Estimated Glomerular Filt Rate 49; Glucose 109 mg/dL (65-110); Magnesium 1.5 mg/dL (1.6-2.3); Phosphorus 3.3 mg/dL (2.5-4.5); Potassium 3.8 mmol/L (3.4-5.0); Sodium 135 mmol/L (137-145)
--- NOTE | 2024-06-11 07:16 | PC.NURSE ---
This patient, Norberto De Jesus, was transferred to [facility] on 06/11/24 at 0655. Personal belongings sent with patient. Report given to PERNELL Evans. Appropriate documentation sent with patient.
--- NOTE | 2024-06-11 08:21 | PC.NURSE ---
Pt states I can't breathe . RR 30 with 10 second periods of apnea. Wheeze present. O2 86% on room air. Placed on 2L NC. O2 100%. Dr. Monroy made aware.
--- NOTE | 2024-06-11 08:23 | PC.NURSE ---
Pt states I can't feel my arms or my legs. I feel like I'm gonna pass out . Pupils equal and reactive. Does not wiggle toes on command. Withdrawls to painful stimuli of upper extremities. Screams to pain of lower extremities but does not withdrawl.
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
[2024-06-11] MEDS: POTASSIUM CHLORIDE 20 MEQ PACKET (FOR LIQUID) 40 MEQ PO (08:57)
[2024-06-11] MEDS: MAGNESIUM SULF 2 GM/WATER 50ML 2 GM/50 ML BAG IVPB (08:58)
[2024-06-11] MEDS: FUROSEMIDE INJ 40 MG/4 ML VIAL IV PUSH ×2 (08:58→17:35)
[2024-06-11] MEDS: FOLIC ACID 1 MG TABLET PO (08:59)
[2024-06-11] MEDS: LOSARTAN POTASSIUM 25 MG TABLET PO (08:59)
[2024-06-11] MEDS: THIAMINE HCL 100 MG TABLET PO (08:59)
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
[2024-06-11] MEDS: HYDROcodone/acetaminophen (*CRX) 5-325 MG TABLET 1 TAB PO ×2 (14:11→20:59)
[2024-06-11] MEDS: RIVAROXABAN 20 MG TABLET PO (17:35)
[2024-06-11] MEDS: chlordiazePOXIDE (*CRX) 25 MG CAPSULE PO (20:59)
[2024-06-12] VITALS (15 sets, daily range): BP systolic 116–137; BP diastolic 76–109; PULSE 88–117; RESP 20; TEMP 36.3–36.8; O2SAT 96–99
[2024-06-12] MEDS: ACETAMINOPHEN 325 MG TABLET 650 MG PO (00:50)
[2024-06-12 01:21] LABS: Glucose Point of Care 132 mg/dl (65-105)
[2024-06-12] MEDS: chlordiazePOXIDE (*CRX) 25 MG CAPSULE PO (02:52)
[2024-06-12 04:24] LABS: Basophils Absolute Auto 0.1 K/mm3 (0.0-0.1); Basophils Percent Auto 0.8 % (0.2-1.2); Eosinophils Absolute Auto 0.2 K/mm3 (0-0.3); Eosinophils Percent Auto 2.4 % (0-4.4); Hematocrit 43.5 % (42.0-52.0); Hemoglobin 14.2 g/dL (14.0-18.0); Immature Granulocyte Absolute 0.03 K/mm3 (0.00-0.031); Immature Granulocyte Percent A 0.3 % (0-0.5); Lymphocytes Absolute Auto 2.25 K/mm3 (0.9-3.2); Lymphocytes Percent Auto 26.1 % (18.3-44.2); Mean Corpuscular HGB Conc 32.6 g/dl (32-36); Mean Corpuscular Hemoglobin 31.1 pg (26-34); Mean Corpuscular Volume 95.4 fl (80-100); Mean Platelet Volume 9.2 fl (7.4-10.4); Monocytes Absolute Auto 1.2 K/mm3 (0.1-0.6); Monocytes Percent Auto 13.5 % (2.6-8.5); Neutrophils Absolute Auto 4.9 K/mm3 (1.3-6.7); Neutrophils Percent Auto 56.9 % (45.5-73.1); Platelet Count Result 195 k/mm3 (150-375); Red Blood Count 4.56 M/mm3 (4.6-6.20); Red Cell Distribution Width 14.9 % (11.5-14.5); White Blood Count 8.6 K/mm3 (4.5-10.0)
[2024-06-12 04:42] LABS: Alanine Aminotransferase 142 U/L (6-50); Albumin Level 3.7 g/dL (3.5-5.1); Alkaline Phosphatase 145 U/L (38-126); Anion Gap 11 mmol/L (4-12); Aspartate Amino Transferase 80 U/L (17-59); Bilirubin,Total 1.1 mg/dL (0.2-1.3); Blood Urea Nitrogen 36 mg/dL (9-20); Calcium 9.3 mg/dL (8.4-10.2); Carbon Dioxide 26 mmol/L (22-30); Chloride 98 mmol/L (98-107); Estimated CRCL calculation 43 ml/min; Estimated Glomerular Filt Rate 43; Glucose 91 mg/dL (65-110); Magnesium 1.9 mg/dL (1.6-2.3); Potassium 3.9 mmol/L (3.4-5.0); Sodium 135 mmol/L (137-145)
[2024-06-12] MEDS: FOLIC ACID 1 MG TABLET PO (08:53)
[2024-06-12] MEDS: FUROSEMIDE INJ 40 MG/4 ML VIAL IV PUSH (08:53)
[2024-06-12] MEDS: THIAMINE HCL 100 MG TABLET PO (08:54)
[2024-06-12] MEDS: SPIRONOLACTONE 25 MG TABLET PO (08:54)
[2024-06-12] MEDS: LOSARTAN POTASSIUM 25 MG TABLET PO (08:54)
[2024-06-12] MEDS: METOPROLOL SUCCINATE EXT REL 100 MG TABCR PO (08:54)
[2024-06-12] MEDS: HYDROcodone/acetaminophen (*CRX) 5-325 MG TABLET 1 TAB PO (08:57)
--- NOTE | 2024-06-12 09:57 | PM.PNCARD ---
Progress Note: A&P Assessment and Plan (1) Atrial flutter: Code(s): I48.92 - Unspecified atrial flutter Status: Acute Assessment and Plan: Continue with rate control strategy. Continue anticoagulation with Xarelto 20 mg daily. (2) Cardiomyopathy: Code(s): I42.9 - Cardiomyopathy, unspecified Status: Acute Assessment and Plan: EF 10-15%. This is a recent diagnosis. Etiology unknown but likely nonischemic secondary to his methamphetamine and alcohol abuse. Continue losartan, Toprol, spironolactone Life vest order Will shift to furosemide 40mg b.i.d. 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 Counseling performed (4) Alcohol abuse: Code(s): F10.10 - Alcohol abuse, uncomplicated Status: Acute Assessment and Plan: Recommend a whole cessation. Counseling performed. Subjective Date/time seen: 06/12/24 09:57 Interval history: Cardiology follow up visit He feels better today. Denies shortness of breath. His lower extremity edema has improved significantly. Review of Systems Review of Systems: All systems reviewed & are unremarkable except as noted in HPI and below Exam Const: General: comfortable, no acute distress, alert and awake Orientation/consciousness: patient oriented x3 HENMT: Head: normal to inspection Eyes: General: appearance normal, both eyes and all related structures Pupils: Equal, round and reactive pupils present Neck: Neck: normal visual inspection, supple and no JVD Carotids: normal carotid upstroke Resp: Effort & Inspection: normal respiratory effort Auscultation: clear to auscultation bilaterally Cardio: Rate: regular rate Rhythm: abnormal rhythm Heart sounds: S1 normal heart sound present, S2 normal heart sound present and no murmurs GI: Auscultation: normal bowel sounds Skin: General skin exam: normal color Neuro: General: patient oriented x3 Cranial nerves: Yes Equal, round and reactive pupils present Extrem: Other: mild bilateral lower extremity edema. Bilateral knee high KAMILAH hose in place. Psych: Appearance: grossly normal Mental Status: mental status grossly normal Objective Data Vital Signs Vital Signs: Vital Signs - 24 hr 06/11/24 10:00 06/11/24 12:00 06/11/24 12:00 Temperature 36.4 C Pulse Rate 84 94 95 Pulse Rate [Monitor] Respiratory Rate 20 Blood Pressure 113/97 H Pulse Oximetry 97 Oxygen Delivery 06/11/24 12:00 06/11/24 12:00 06/11/24 13:43 Temperature Pulse Rate Pulse Rate [Monitor] 95 Respiratory Rate Blood Pressure Pulse Oximetry 98 Oxygen Delivery Room Air Room Air 06/11/24 14:00 06/11/24 14:10 06/11/24 16:00 Temperature 36.3 C L Pulse Rate 93 98 86 Pulse Rate [Monitor] Respiratory Rate 20 Blood Pressure 129/83 Pulse Oximetry 98 Oxygen Delivery 06/11/24 16:00 06/11/24 16:00 06/11/24 16:00 Temperature Pulse Rate 85 Pulse Rate [Monitor] 96 Respiratory Rate Blood Pressure Pulse Oximetry 98 Oxygen Delivery Room Air 06/11/24 18:00 06/11/24 20:00 06/11/24 20:00 Temperature Pulse Rate 96 92 Pulse Rate [Monitor] Respiratory Rate Blood Pressure Pulse Oximetry Oxygen Delivery Room Air 06/11/24 21:00 06/11/24 21:10 06/11/24 22:00 Temperature 36.4 C Pulse Rate 111 H 95 93 Pulse Rate [Monitor] Respiratory Rate 20 Blood Pressure 128/80 Pulse Oximetry 99 Oxygen Delivery 06/11/24 23:53 06/12/24 00:00 06/12/24 00:00 Temperature 36.4 C Pulse Rate 90 91 Pulse Rate [Monitor] Respiratory Rate 20 Blood Pressure 126/92 H Pulse Oximetry 100 Oxygen Delivery Room Air 06/12/24 02:00 06/12/24 03:19 06/12/24 04:00 Temperature 36.8 C Pulse Rate 93 103 H Pulse Rate [Monitor] Respiratory Rate 20 Blood Pressure 130/87 Pulse Oximetry 99 Oxygen Delivery Room Air 06/12/24 04:00 06/12/24 06:00 06/12/24 08:17 Temperature 36.8 C Pulse Rate 117 H 104 H 107 H Pulse Rate [Monitor] Respiratory Rate 20 Blood Pressure 137/109 H Pulse Oximetry 96 Oxygen Delivery 06/12/24 08:54 06/12/24 08:59 Temperature Pulse Rate 109 H Pulse Rate [Monitor] 106 H Respiratory Rate Blood Pressure Pulse Oximetry Oxygen Delivery Intake/Output Intake/Output: Intake & Output 06/09/24 06/10/24 06/11/24 06/12/24 23:59 23:59 23:59 23:59 Intake Total 200 2280 790 Output Total 1200 2950 400 Balance -1000 -670 390 Meds/Results Medications: Active Medications Generic Name Dose Route Start Last Admin Trade Name Freq PRN Reason Stop Dose Admin Acetaminophen 650 mg 06/10/24 04:50 06/12/24 00:50 Acetaminophen 325 Mg Tablet PO 650 mg Q4H PRN Administration Mild Pain (1-3) or Fever Hydrocodone Bitart/Acetaminophen 1 tab 06/10/24 15:11 06/12/24 08:57 Hydrocodone/Acetaminophen (*Crx) 5-325 Mg Tablet PO 1 tab Q6H PRN Administration Pain Rated 4-6 Chlordiazepoxide HCl 25 mg 06/10/24 09:58 06/12/24 02:52 Chlordiazepoxide (*Crx) 25 Mg Capsule PO 25 mg Q6H PRN Administration Withdrawal or CIWA 8-15 Folic Acid 1 mg 06/10/24 10:00 06/12/24 08:53 Folic Acid 1 Mg Tablet PO 1 mg DAILY LEROY Administration Furosemide 40 mg 06/10/24 09:00 06/12/24 08:53 Furosemide Inj 40 Mg/4 Ml Vial IV PUSH 40 mg BID LEROY Administration Lorazepam 2 mg 06/10/24 09:58 Lorazepam Inj (*Crx) 2 Mg/Ml Vial IV PUSH Q2H PRN CIWA > 15 Losartan Potassium 25 mg 06/11/24 09:00 06/12/24 08:54 Losartan Potassium 25 Mg Tablet PO 25 mg DAILY LEROY Administration Metoprolol Succinate 100 mg 06/12/24 09:00 06/12/24 08:54 Metoprolol Succinate Ext Rel 100 Mg Tabcr PO 100 mg QAM LEROY Administration Morphine Sulfate 1 mg 06/10/24 15:11 Morphine Sulfate (*Crx) 2 Mg/Ml Inj IV PUSH Q4H PRN Pain Rated 7-10 Rivaroxaban 20 mg 06/10/24 17:00 06/11/24 17:35 Rivaroxaban 20 Mg Tablet PO 20 mg DAILY@1700 LEROY Administration Spironolactone 25 mg 06/12/24 09:00 06/12/24 08:54 Spironolactone 25 Mg Tablet PO 25 mg QAM LEROY Administration Thiamine HCl 100 mg 06/10/24 10:00 06/12/24 08:54 Thiamine Hcl 100 Mg Tablet PO 100 mg QAM LEROY Administration Radiology Results: ITS Impressions Chest X-Ray 06/09/24 23:51 IMPRESSION: Pulmonary opacities most likely represent pulmonary edema. Infection is not excluded. Labs Labs: Laboratory Results - last 24 hr 06/12/24 06/12/24 01:17 04:10 WBC 8.6 RBC 4.56 L Hgb 14.2 Hct 43.5 MCV 95.4 MCH 31.1 MCHC 32.6 RDW 14.9 H Plt Count 195 MPV 9.2 Immature Gran % (Auto) 0.3 Neut % (Auto) 56.9 Lymph % (Auto) 26.1 Motley % (Auto) 13.5 H Eos % (Auto) 2.4 Baso % (Auto) 0.8 Lymph # (Auto) 2.25 Motley # (Auto) 1.2 H Eos # (Auto) 0.2 Baso # (Auto) 0.1 Abs Immat Gran (auto) 0.03 Absolute Neuts (auto) 4.9 Absolute Nucleated RBC 0.000 Nucleated RBC % 0.0 Sodium 135 L Potassium 3.9 Chloride 98 Carbon Dioxide 26 Anion Gap 11 BUN 36 H Creatinine 1.67 H Estim Creat Clear Calc 43 Estimated GFR 43 L Glucose 91 POC Capillary Glucose 132 H Calcium 9.3 Magnesium 1.9 Total Bilirubin 1.1 AST 80 H ALT 142 H Alkaline Phosphatase 145 H Total Protein 7.0 Albumin 3.7
[2024-06-12 11:33] LABS: Glucose Point of Care 90 mg/dl (65-105)
--- NOTE | 2024-06-12 15:10 | PC.NURSE ---
1400 - Life Vest staff in room- educated pt on Lifevest and vest placed on
--- NOTE | 2024-06-12 15:41 | PC.NURSE ---
pt up in chair- walked to Bathroom and returned to chair- pt wanting to go home today- states his brother is going to help him when he gets discharged
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
[2024-06-12] MEDS: RIVAROXABAN 20 MG TABLET PO (16:34)
[2024-06-12] MEDS: FUROSEMIDE 40 MG TABLET PO (16:34)
--- NOTE | 2024-06-12 17:07 | PC.NURSE ---
pt discharged home via w/c accompanied by staff to vehicle driven by friend- pt reminded no to smoke - to warp picker medications and to take as ordered ;-lifevest equipment sent with pt and reminded pt to plug equipment in and to call [phone] number for questions- pt acknowlegded understanding no c/o pain at this time
--- NOTE | 2024-06-12 17:12 | PC.NURSE ---
pt has a Xarelto coupon 30 day trial - and information to get a free walker
== END 2024-06-12 15:55 | disposition home or self-care (01) | DRG 194 ==
LOC: ANHED 06-10 02:15 → ANHIMU 06-10 04:07 → ANHCPC 06-10 12:01 → ANHIMU 06-11 06:48
PROVIDERS: Admitting Provider Internal Medicine; Emergency Provider Emergency Medicine; Visit Provider Internal Medicine
DX: I13.0 Hypertensive heart and chronic kidney disease with heart failure and stage 1 through stage 4 chronic kidney disease, or unspecified chronic kidney disease (principal); I50.23 Acute on chronic systolic (congestive) heart failure; I48.92 Unspecified atrial flutter; N18.9 Chronic kidney disease, unspecified; I42.8 Other cardiomyopathies; K70.30 Alcoholic cirrhosis of liver without ascites; I25.10 Atherosclerotic heart disease of native coronary artery without angina pectoris; F15.10 Other stimulant abuse, uncomplicated; F17.210 Nicotine dependence, cigarettes, uncomplicated; F10.20 Alcohol dependence, uncomplicated; Z91.148 Patient's other noncompliance with medication regimen for other reason; I25.2 Old myocardial infarction; Z85.528 Personal history of other malignant neoplasm of kidney; Z86.19 Personal history of other infectious and parasitic diseases; Z86.718 Personal history of other venous thrombosis and embolism; Z90.5 Acquired absence of kidney
CPT/HCPCS: 36415; 71045; 80053; 80307; 81001; 82077; 82948; 83036; 83735; 83880; 84100; 84439; 84443; 84480; 84484; 85025; 85610; 85730; 87086; 87637; 93005; 96365; 96375; 97162; 97165; 99285; A9270; G0378; J1644; J1940; J3475

== ENCOUNTER 2024-06-19 15:53 | Inpatient (IN) | payer MEDICAID, SELFPAY ==
[2024-06-19] VITALS (22 sets, daily range): BP systolic 123–186; BP diastolic 98–140; PULSE 115–140; RESP 6–32; TEMP 36.6; O2SAT 95–100
--- NOTE | ~2024-06-19 | XR_ITS ---
EXAMINATION: XR chest 1V portable DATE: 06/20/2024 12:12 INDICATION: Increased oxygen requirement. TECHNIQUE: A single frontal view of the chest was obtained. COMPARISON: Chest single view at 7:47 AM FINDINGS: There are airspace opacities in all right lung zones and in left lower lung zone. There is a moderate-sized right pleural effusion. No pneumothorax. The heart size is normal. The endotracheal tube tip is 4.4 cm above the juan. The nasogastric tube tip is beyond the inferior margin of the ra diograph, but at least to the stomach. IMPRESSION: 1. Airspace opacities in right lung and left lower lung zone with slight worsening on the left, consi stent with atelectasis versus pneumonia. 2. Worsened moderate-sized right pleural effusion. Reviewed, dictated and finalized at location A. MACHINE OPERATOR IMPRESSION: 1. Airspace opacities in right lung and left lower lung zone with slight worsen ing on the left, consistent with atelectasis versus pneumonia. 2. Worsened moderate-sized right pleural effusion.
--- NOTE | ~2024-06-19 | US_ITS ---
EXAMINATION: US venous doppler [facility] DATE: 06/20/2024 10:19 INDICATION: Lower limb edema. TECHNIQUE: Grayscale ultrasound images without and with compression and Doppler ultrasound images of the bilateral lower extremity veins were obtained. COMPARISON: Ultrasound 06/03/2024 FINDINGS: The visualized portions of right common femoral vein, femoral vein, popliteal vein, peroneal veins, p osterior tibial veins, and greater saphenous vein outflow are patent. The visualized portions of left common femoral vein, profunda femoral vein, femoral vein, popliteal v ein, peroneal veins, posterior tibial veins, and greater saphenous vein outflow are patent. IMPRESSION: 1. No deep venous thrombosis. Reviewed, dictated and finalized at location A. ER HELPER
--- NOTE | ~2024-06-19 | XR_ITS ---
XR chest 1V portable Ordering provider: Foster Aiken MD History: 54 years Male with . SOB . Comparison: June 09, 2024 FINDINGS: MEDIASTINUM: The cardiac silhouette is slightly enlarged. Congestive vannessa. LUNGS: No effusions or pneumothorax. Opacification in the right lung base suggestive of atelectasis v ersus pneumonia. Bilateral interstitial changes which may indicate pneumonitis versus edema. OTHER: No free air under the diaphragm. IMPRESSION: Bibasilar pneumonia. Bilateral interstitial thickening suggestive of pneumonitis versus edema. Clinical correlation advise d. Reviewed, dictated and finalized at location A. CASTER HELPER IMPRESSION: Bibasilar pneumonia. Bilateral interstitial thickening suggestive of pneumonitis versus edema. Clini shanna correlation advised.
--- NOTE | ~2024-06-19 | XR_ITS ---
EXAMINATION: XR chest 1V portable DATE: 06/20/2024 07:59 INDICATION: Intubation. TECHNIQUE: A single frontal view of the chest was obtained. COMPARISON: Chest single view 06/19/2024 FINDINGS: There are airspace opacities in all right lung zones. There is a small right pleural effusi on. No pneumothorax. The heart size is normal. The endotracheal tube tip is 5.4 cm above the juan. The nasogastric tube tip is beyond the inferior margin of the radiograph, but at least to the stomach . IMPRESSION: 1. Worsened airspace opacities in right lung, consistent with pneumonia versus pulmonary edema versus atelectasis. 2. Small right pleural effusion. Reviewed, dictated and finalized at location A. OARD TECHNICIAN
--- NOTE | ~2024-06-19 | XR_ITS ---
EXAMINATION: XR abdomen/kub 1V DATE: 06/20/2024 07:59 INDICATION: Orogastric tube placement. TECHNIQUE: A supine view of the abdomen was obtained. COMPARISON: None. FINDINGS: The lower abdomen is excluded. The endotracheal tube tip is 5.4 cm above the juan. The na sogastric tube tip is in the stomach. There are airspace opacities in all right lung zones and in lef t lower lung zone. IMPRESSION: 1. Nasogastric tube tip in the stomach. 2. Airspace opacities in right lung and left lower lung zone with interval worsening, consistent with pulmonary edema versus pneumonia. Reviewed, dictated and finalized at location A. RVISOR FRAMING MILL IMPRESSION: 1. Nasogastric tube tip in the stomach. 2. Airspace opacities in right lung and left lower lung zone with interval wors ening, consistent with pulmonary edema versus pneumonia.
--- NOTE | ~2024-06-19 | US_ITS ---
EXAMINATION: US renal BI DATE: 06/20/2024 10:22 INDICATION: Acute renal failure. TECHNIQUE: Multiple ultrasound grayscale images of the kidneys were obtained. COMPARISON: Ultrasound 06/04/2024 FINDINGS: The right kidney measures 9.9 x 4.4 x 5.0 cm. The left kidney measures 10.0 x 4.6 x 5.1 cm. The kidne ys demonstrate normal parenchymal echogenicity. There is no hydronephrosis. The bladder is decompress ed by a Barth catheter. IMPRESSION: 1. Normal kidneys. No hydronephrosis. Reviewed, dictated and finalized at location A. UCT DEVELOPMENT CONSULTANT
--- NOTE | 2024-06-19 16:04 | ECG_ITS ---
Test Date: 2024-06-19 15:56:28 Measurements Intervals [facility] Rate: 139 P: 0 [place]: 0 QRS: 17 QRSD: 76 T: 91 QT: 268 QTc: 408 Interpretive Statements ATRIAL FLUTTER/TACHYCARDIA WITH RAPID VENTRICULAR RESPONSE MODERATE ST DEPRESSION [0.05+ mV ST DEPRESSION] ABNORMAL ECG Compared to ECG 06/10/2024 12:47:34 VENTRICULAR RESPONSE TO ATRIAL FLUTTER IS INCREASED Electronically Signed On 06-20-2024 15:31:26 WAX PATTERN ASSEMBLER by Uziar Rodriguez M.D.
[2024-06-19 16:50] LABS: Basophils Absolute Auto 0.1 K/mm3 (0.0-0.1); Basophils Percent Auto 0.7 % (0.2-1.2); Eosinophils Absolute Auto 0.2 K/mm3 (0-0.3); Eosinophils Percent Auto 2.3 % (0-4.4); Hematocrit 43.7 % (42.0-52.0); Immature Granulocyte Absolute 0.04 K/mm3 (0.00-0.031); Immature Granulocyte Percent A 0.5 % (0-0.5); Lymphocytes Absolute Auto 1.25 K/mm3 (0.9-3.2); Lymphocytes Percent Auto 15.1 % (18.3-44.2); Mean Corpuscular Hemoglobin 31.1 pg (26-34); Mean Corpuscular Volume 97.1 fl (80-100); Mean Platelet Volume 10.2 fl (7.4-10.4); Monocytes Absolute Auto 0.7 K/mm3 (0.1-0.6); Monocytes Percent Auto 8.4 % (2.6-8.5); Neutrophils Absolute Auto 6.1 K/mm3 (1.3-6.7); Platelet Count Result 190 k/mm3 (150-375); Red Cell Distribution Width 15.6 % (11.5-14.5); White Blood Count 8.3 K/mm3 (4.5-10.0)
[2024-06-19 17:00] LABS: INR 1.2; Prothrombin Time 15.5 Seconds (11.1-14.7)
[2024-06-19 17:01] LABS: Partial Thromboplastin Time 39.2 Seconds (22.3-36.8)
[2024-06-19 17:02] LABS: Alanine Aminotransferase 45 U/L (6-50); Albumin Level 4.3 g/dL (3.5-5.1); Alkaline Phosphatase 129 U/L (38-126); Anion Gap 14 mmol/L (4-12); Aspartate Amino Transferase 33 U/L (17-59); Bilirubin,Total 2.1 mg/dL (0.2-1.3); Blood Urea Nitrogen 18 mg/dL (9-20); Calcium 9.5 mg/dL (8.4-10.2); Carbon Dioxide 20 mmol/L (22-30); Chloride 105 mmol/L (98-107); Estimated CRCL calculation 57 ml/min; Estimated Glomerular Filt Rate 51; Glucose 195 mg/dL (65-110); Potassium 4.2 mmol/L (3.4-5.0); Sodium 139 mmol/L (137-145)
--- OUTSIDE RECORDS SUMMARY | 2024-06-19 17:09 | XMS_ITS | Patient Health Record ---
Author Organization Rachel Urban Address [id number] [place] [phone] Care Team Providers Care Sales Correspondence Clerk Name Role Phone Migration, Provider Unavailable [phone] Reason For Referral No Information Encounters Encounter Location Date Provider Diagnosis [facility] [id number] [place] [phone] 01/03/2024 Provider Migration Homelessness unspecified Z59.00 Assessments Encounter Date Diagnosis (ICD Code) Assessment Notes Treatment Notes Treatment Clinical Notes Section Notes 01/03/2024 Homelessness unspecified (ICD-10 - Z59.00) Plan Of Treatment No Information Insurance Providers Payer Name Payer Address Payer Phone Subscriber Number Group Number Insured Name Patient Relationship to Insured Coverage Start Date Coverage End Date [facility] Health Plan [employer] Claims [address] [place] [address] [phone] [id number] MARIE NEVILLE Self - patient is the insured
--- OUTSIDE RECORDS SUMMARY | 2024-06-19 17:10 | XMS_ITS ---
Author Organization Rachel Calloway Address [address] [place] [phone] Care Team Providers Care Waxer Tender Name Role Phone Migration, Provider Unavailable [phone] REASON FOR VISIT CS Outreach - Unsuccessful Encounters Encounter Location Date Provider Diagnosis [facility] [address] [place] [phone] 01/03/2024 Provider Migration Homelessness unspecified Z59.00 Assessments Encounter Date Diagnosis (ICD Code) Assessment Notes Treatment Notes Treatment Clinical Notes Section Notes 01/03/2024 Homelessness unspecified (ICD-10 - Z59.00) Plan Of Treatment No Information Progress Notes * MARIE NEVILLEDOB:1970 ( 53 yo M)Acc No.[id number]:01/03/2024 CS Outreach Patient: MARIE CARLSON Appointment Provider: Ethel Lopez Resource:Pavithra Miranda :1970 A ge:53 Y S ex:Male Date:01/03/2024 Address[address] Structured Data:Health Plan : [employer]; [...] Duration (in Minutes): 0 min Phone Number: [phone] Address of Location: Phone Pin Drafting Machine Operator Contacted: Member: Marie Problem: CS OU Specialist Madai sue received auth from health plan. Intervention: CS OU Specialist Madai sue called member to obtain consent. Response: Member did not answer. Line out of service. Plan: CS OU Specialist Madai sue will contact referring alliance party. EVS Eligibility Message: Eligibility tra nsaction performed by [id number] on Saturday at 10:05:45 AM PSTSUBSCRIBER LAST NAME: [place] #: [id number]. CNTY CODE: 12. PRMY AID CODE: 60. MEDI-GIOVANNA ELIGIBLE W/ NO SOC/SPEND DOWN. HEALTH PLAN MEMBER: [facility]: MEDICAL CALL .Subscriber Name:MARIE NEVILLE BSubscriber ID:[id number] Date:1970Issue Date:01/03/2024rimary Aid Code:60First Special Aid Code:Second Special Aid Code:Third Special Aid Code:[place]ons[place]Service Date:01/03/2024Trace Number / Eligibility Verification Confirmation:[id number] * Sign off status: Completed true * Appointment Provider: Ethel sam Migration Date: 0 01/03/2024 Generated for Brandin garcia/Tiana/eTransmitting on: 0 06/19/2024 03:09 PM PST
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
--- OUTSIDE RECORDS SUMMARY | 2024-06-19 17:10 | XMS_ITS | Continuity of Care Document ---
Author Organization [employer] Address [address] [place] [id number] Phone Care Team Providers Care Doctor Of Optometry Name Role Phone Ed Grande MD Unavailable [...] Diagnoses Date Provider Providers Copied on Encounter [facility], [address] [place] [address], [address], tel:[phone] [facility] No Information 4-201 7 Harjinder Ward. [address] [place] [address], [place], [address], [place]. tel: [phone] [facility], [address] [place] [address], [facility] [place], [place] tel: [phone] [facility] No Information 0-201 7 Pillo Chioma. [address] [place], [place], [facility], [place]. tel: [phone] [facility], [address] [place] [address], [facility] [place], [place] tel: [phone] [place] No Information 3 0-201 7 Pillo Chioma. [address] [place], [place], [facility], [place]. tel: [phone] [facility], [address] [place] [address], [facility] [place], [place] tel: [phone] [place] No Information Jul-0 5-201 7 Pillo Chioma. [address] [place], [place], [facility], [place]. tel: [phone] [facility], [address] [place] [address], [facility] [place] [facility], [place] tel: [phone] [place] F/U (chief complaint) Anxiety (chief complaint) AnxietyBilateral chronic knee painHepatitis C virus infection without hepatic coma, unspecified chronicity Jun-2 2-201 7 Pillo Chioma. [address] [place] [address], [facility], [place]. tel: [phone] [facility], [address] [place] [address], [facility] [place], [place] tel: [phone] [place] F/U (chief complaint) Lower abdominal pain Jun- 5-201 7 Pillo Chioma. [address] [place], [place], [facility], [place]. tel: [phone] OFFICE/OUTPA TIENT VISIT, EST [facility], [address] [place] [address], [facility], [place] tel: [phone] [facility] staple removal (chief complaint) Cellulitis of other specified siteRemoval of stapleStatus post surgery Mar-2 9-201 6 Pillo Chioma. [address] [place], [address], [place]. tel: [phone] OFFICE/OUTPA TIENT VISIT, [facility], [address] [place] [address], [address], [place] tel: [phone] [place] ER FOLLOW UP (chief complaint) Urinary tract infection with hematuria, site unspecifiedUpper respiratory tract infection, unspecified typeIncontinence of feces, unspecified fecal incontinence type Dec-0 6-201 6 Pillo Chioma. [address] [place], [address], [place]. tel: [phone] OFFICE/OUTPA TIENT VISIT, [facility], [address] [place] [address], [facility], [place] tel: [phone] [place] PHYSICAL (chief complaint) Mass of kidneyPre-operati ve general physical examinationUpper respiratory tract infection, unspecified type Nov-0 8-201 6 Pillo Chioma. [address] [place], [address], [place]. tel: [phone] [facility], [address] [place] [address], [address], [place] tel: [phone] [place] Mass of kidney Nov-0 4-201 6 Pillo Chioma. [address] [place], [address], [place]. tel: [phone] OFFICE/OUTPA TIENT VISIT, [facility], [address] [place] [address], [address], [place] tel: [phone] [place] FOLLOW UP (chief complaint) Vision loss, bilateralAnxietyM ass of kidneyRight anterior knee painIrritable bowel syndrome with diarrhea Dec-2 9-201 6 Pillo Chioma. [address] [place], [address], [place]. tel: [phone] [facility], [address] [place] [address], [address], [place] tel: [phone] [place] Mass of kidneyHepatitis C virus infection without hepatic coma, unspecified chronicity Sep-2 6 Pillo Chioma. [address] [place], [address], [place]. tel: [phone] [facility] [address] [place] [address], [place], [address], [place] tel: [phone] [place] EST CARE (chief complaint) Establishing care with new doctor, encounter forRight knee pain, unspecified chronicityHepatit is C virus infection without hepatic coma, unspecified chronicityHomeles s single personParanoid disorderAnxietyMa ss of kidney Sep-1 6 Pillosapna Farleycie. [address] [place], [address], [place]. tel: [phone] Family History Family Member Type Diagnosis Age [...] disease Payers Payer name Insurance type Covered constitution [...] treat ordered Referral Ordered: Referrals: Ophthalmology. Location: [place] or [place]. Evaluate and treat Appointment date/timeframe: 01/19/2016 ordered Referral Ordered: CT ABDOMEN W/O & W/DYE Bilateral Kidney ordered Referral Ordered: Referrals: Infectious Disease. Evaluate and treat Appointment date/timeframe: 03/26/2016 ordered Referral Ordered: X-RAY EXAM OF RIGHT KNEE, 3 Right ordered Future Order: Lab Order URINALYS IS WITH REFLEX CULTURE ([id number]), Ordered on: Ordered Future Order: Lab Order CBC W/ D iff ([id number]), Ordered on: Ordered Future Order: Lab Order CMP ([id number]), Or dered on: Ordered Future Order: Lab Order URINALYS IS WITH REFLEX CULTURE ([id number]), Ordered on: Ordered History Of Present Illness [...] He is planning to move back to [place]. Anxiety (comments) Pt presents t o the clinic to discuss renewing his current medications and adding something for anxiety. Pt states that he is stressed with his current living situation but states that Butch the box truck owner operator of the home and homeless senior care has been aggitated lately and getting in his face yelling at him. PT states that when he does this he goes back to his room. PT states that Butch has wrote 4 letters telling him that he is evicting him unless he puts a restraining order against his brother. Pt states that he went to the [facility] and placed a restraining order against his [...] a friend and get a ride [facility] [place] [facility] he can get on a [facility] bus or [employer] and go back to [place] where he feels more comfortable. Pt states [...] than he currently is. [facility], he just had it this morning. F/U staple removal (comments) Pt pre sents to the clinic to have his isadora removed from his surgical site. Pt states that he had surgery on 03/26/16 for a partial nephrectomy. Pt is unable to obtain transportation to [place]. I called and spoke with Dr. Valle's nurse yesterday and she states they are ok with me removing the isadora. The pt has 11 isadora to remove. Pt states purulent drainage coming the sites. PT denies fever, chills, n,v,d. staple removal Pt here for stap le removal, states has surgery on 03/26/16 at [facility]. States has had some greeish drainage to isadora at times. States staple sites itch. ER FOLLOW UP Pt presents for an ER follow up. Pt was seen in the [facility] [facility] on 03/16/2016 with high fever and [...] the pt on 03/26/2016 at 9:30AM at [facility] [place]. FOLLOW UP Pt presents for a follow [...] that he is following his appts with [facility] and has an appt on Feb 09 in [place]. Pt states he is currently trying for disability for his mental illness and vision loss. Will refer pt to Optho for evaluation. Pt denies any CP, SOB, fever, chills, n,v,d. Pt signed a release form for us today to receive his records from [facility]. Awaiting records for review. [facility]. He states that he has been living off the grid in [place] and has been out of meds. He is coming of the grid and trying to get social security for bad vision. He has tunnel vision. EST CARE (comments) Pt presents to the clinic to establish care. Pt states that he has been living off the grid for the past 3 years in the [facility]. Pt states that he is back here due to he had to have hernia surgery and came to recupperate with his brother in [place]. Pt states he is currently living in the homeless senior care in [place]. Pt states that he is currently trying to get on disability. PT states that he was kicked off of disability because he was locked up for over a year. Pt states that he is seeing [facility] for mental health. Pt states concerns over declining vision. Pt states concerns over vision, mental health, a possible mass on the kidney. (Pt states this was discovered on a CT scan at [facility]). Pt states he is Hep C positive. [...] Relate d to Bilateral chronic knee pain Take medication as d irected and only as needed. Related to Bilateral chronic knee pain material specialist deniz escalante to make an appt. Related to Hepatitis C virus infection without hepatic coma, unspecified chronicity DO NOT DRINK ALCOHOL. Related to Hepatitis C virus infection without hepatic coma, unspecified chronicity Take medication as directed. Rel ated to [...] needed. Related to Remov al of staple Continue medication as directed. Related to Urinary tract infection with hematuria, site unspecified Have urine re-tested on saturday. Related to Urinary tract infection with hematuria, site unspecified Call office with any acute michel rns. Related to Urinary tract infection with hematuria, site unspecified Observe for worsening s/s. Relat ed to Urinary tract infection with hematuria, site unspecified Use depends as direc nilam and as needed. Related to Incontinence of feces, unspecified fecal incontinence type Follow instructions from surgeon with regards to your surgery. Related to Pre-operative general physical examination Quit smoking. Related to Pre-o perative general physical examination Increase activity. Related to Pr e-operative general physical examination Take medication as directed. Rel ated to Upper respiratory tract infection, unspecified type Observe for worsening s/s. Relat ed to Upper respiratory tract infection, unspecified type Call office with any acute michel rns. Related to Upper respiratory tract infection, unspecified type Pt cleared for surgery on . Related to Pre-operative general physical examination Will refer to Optho. Related to Vision loss, bilateral Attend scheduled appts. Related to Vision loss, bilateral Increase medication to 300mg Marlys ly. Related to Anxiety Observe for medication side effe ct Related to Anxiety Encouraged coping activities Rel ated to Anxiety Call office with any acute michel rns. Related to Anxiety Observe for worsening s/s. Relat ed to Anxiety Will call with CT results. Relat ed to Mass of kidney Rest, elevation, cold pack Relat ed to Right anterior knee pain Observe for worsening s/s Relate d to Right anterior knee pain Take medication as directed. Rel ated to Right anterior knee pain Observe for worsening s/s. Relat ed to Irritable bowel syndrome with diarrhea Increase fiber intake. Related t o Irritable bowel syndrome with diarrhea Avoid processed foods. Related t o Irritable bowel syndrome with diarrhea Take medication as directed. Rel ated to Irritable bowel syndrome with diarrhea Attend scheduled appt. Related t o Right anterior knee pain Referral placed for Dr. Jerry Tariq lated to Right anterior knee pain Call office with any acute michel rns. [...] Establishing care with new doctor, encounter for Have labs completed today. Relat ed to Hepatitis C virus infection without hepatic coma, unspecified chronicity Have xray completed today. Relat ed to Right knee pain, unspecified chronicity Observe for worsening s/s Relate d to Right knee pain, unspecified chronicity Rest, elevation, cold pack Relat ed to Right knee pain, unspecified chronicity Continue treatment w [facility]. Related to Establishing care with new doctor, encounter for Assessments Type Assessment Date No Information Patient Care Teams Name Effective Dates (start - stop) Status Members No Information
--- OUTSIDE RECORDS SUMMARY | 2024-06-19 17:10 | XMS_ITS | Clinical Summary ---
Author Organization [facility] Address [address] [place] [address] Care Team Providers Care Oncology Admin Name Role Phone Sherman Major MD Primary Care Provider [phone] Source Comments PLEASE NOTE, if this patient [...] TWO TIMES A DAY NEEDED FOR PAIN. ([id number]). 300 g 1 4 Active SUMAtriptan succinate [...] Essential hypertension 09/19/2021 Other cirrhosis of liver ([facility]) 09/19/2021 Urinary incontinence 09/19/2021 Overview (09/19/2021): Uses pullups, has sever urgency, psa's unremarkable. History of kidney cancer 02/09/2020 Overview (09/19/2021): Partial nephrectomy, 2015, local kidney cancer, no chemo, found a lump when doing hernia surgery. Post-traumatic osteoarthritis of right knee 01/14 Overview (09/19/2021): S/p 5 knee surgeries. 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 History of [place] (myocardial infarction) 05/19/2009 Overview (03/21/2022): 2x [place] in 1996 one week apart, stress unrem 2002, no ongoing angina, walks a lot each day, tries to watch salt and cholesterol, homeless, cannot take ASA d/t allergy Resolved Problems Problem Noted Date Diagnosed Date Resolved Date Cirrhosis of liver without ascites ([facility]) 2 09/19/2021 Overview (08/22/2021): From Hep C, [...] (3 of 3) 07/23/2023 05/28/2023, 05/29/2019, 02/26/2019 [id number] ( season) 2023 Imm-Influenza (#1) 2023 05/28/2023, [...] W/IMAGE DOCUMENTATION (10/26/2021 12:42 PM PDT) Narrative [facility] - 10/26/2021 12:42 PM PDT [facility] ULTRASOUND [address] [place] [id number] Imaging Result Report Patient: Norberto De Jesus Reason: Cirrhosis of liver without ascites, unspecified hepatic cirrhosis type (HCC) : 1970 Clinician: Sofya Perkins MD Reading Phone: Gender: [phone] Male Physician: Glenn Joya MD Outpatient Exam performed on 10/26/2021 at 12:42 PM US ABDOMEN COMPLETE CPT: [id number] EXAM: US ABDOMEN COMPLETE; DATE: 10/26/2021 3:08 [...] IMG ULTRASOUND Final Result Performing Organization Address [facility] Co de Phone Number [address] [address] * HIV 1/0/2 AG/AB W/CASCADE RFLX SUPPLEMENTAL TESTING (08/22/2021 3:12 PM PDT) [facility] HIV SCREEN 4TH GENERATION WRFX Non Reactive Non Reactive [facility] Comment: HIV Negative HIV-1/HIV-2 antibodies and HIV-1 p24 antigen were NOT detected. There is no laboratory evidence of HIV infection. Blood Venous blood / Unknown 08/22/2021 3:12 PM PDT 08/24/2021 Narrative [facility] - 08/24/2021 7:05 AM PDT Performed at: [address] [place] [address] Rachel Lewis [address] [place] [id number] Supervisor [employer]: Ivonne Gil MD, Phone: [phone] us Sofya Perkins MD LAB - BLOOD DRAW Final Result Performing Organization Address [facility] de Phone Number [facility] * HGA1C W/EAG (08/22/2021 3:12 PM PDT) [facility] HEMOGLOBIN A1C 5.0 4.8 - 5.6 % [facility] Comment: . Prediabetes: 5.7 - 6.4 Diabetes: >6.4 Glycemic control for adults with diabetes: <7.0 ESTIM. AVG GLU (EAG) 97 mg/dL [facility] Blood Venous blood / Unknown 08/22/2021 3:12 PM PDT 08/24/2021 Narrative [facility] - 08/24/2021 3:05 AM PDT Performed at: 01 - [facility] [address], [place], [place] [id number] Supervisor [employer]: Ivonne Gil MD, Phone: [phone] Sofya Perkins MD LAB - BLOOD DRAW Final Result [facility] * (ABNORMAL) LIPID PROFILE W/REFLEX (08/22/2021 3:12 PM PDT) [facility] CHOLESTEROL, TOTAL 188 100 - 199 mg/dL [...] 3:05 AM PDT Performed at: 01 - [facility] [address], [place], [place] [id number] Supervisor [employer]: Ivonne Gil MD, Phone: [phone] Sofya Perkins MD LAB - BLOOD DRAW Final Result [facility] from Last 3 Months or Most Recently Relevant to Health Maintenance Insurance [employer] [place] Care Teams Oncology Admin Relationship Specialty Start Date End Date Sherman Major MD [address] [place] [id number] PCP - General Family Medicine, Physician 01/15/24
[2024-06-19 17:13] LABS: NT Pro B Type Natriuretic Pept 6270 pg/mL (19.9-100); Troponin I < 0.012 ng/mL (0.000-0.034)
--- NOTE | 2024-06-19 17:34 | ED_ITS ---
HPI - General Adult General Chief complaint: Shortness of Breath/Dyspnea Stated complaint: Respiratory distress Time Seen by Provider: 06/19/24 16:20 History of Present Illness HPI narrative: Patient is a 54-year-old male who presents ER with shortness of breath. Worsening over the last 2 days. Recently discharged from [place]. He is not wearing his LifeVest. The only medications he filled from his discharge where his folic acid, thiamine, and Lasix. He is edematous in his legs. Denies chest pain. Denies fevers chills or sweats. Patient's ejection fraction is 10-15% and it is nonischemic. Has history of amphetamine abuse. Related Data Allergies Allergy/AdvReac Type Severity Reaction Status Date / Time aspirin Allergy Intermediate Rash Verified 06/03/24 10:48 Review of Systems 2 Review of Systems: All systems reviewed & are unremarkable except as noted in HPI and below Constitutional: Constitutional: Reports no additional constitutional complaints Cardiovascular: Cardiovascular: Reports no additional cardiovascular complaints Respiratory: Respiratory: Denies cough, Reports dyspnea and Denies wheezing Comments: orthopnea+ Gastrointestinal: Gastrointestinal: Reports no additional gastrointestinal complaints Musculoskeletal: Musculoskeletal: Reports no additional musculoskeletal complaints Neurologic: Reports system reviewed and no additional complaints, except as documented PMF Past Medical History Medical History Trichomonas infection Infestation by bed bug Deep venous thrombosis Following tibial plateau fracture Hepatitis C Cirrhosis of liver Status post interferon Cancer of left kidney Myocardial infarction Amphetamine abuse Alcohol abuse Surgical History Surgical History History of hernia repair History of left nephrectomy History of open reduction and internal fixation (ORIF) procedure Repair right tibial plateau fracture Family History Family History Mother Heart disease Social History Social History Social History: Surrogate medical decision maker: Frannie Mckinley, significant other. Code status: Full code. Smoking packs per day: 1 Smoking cigarettes per day: 20.0 Years smoked: 40 Smoking pack-years: 40.00 Smoking status: Current every day smoker Alcohol intake: current Alcohol use details: 1/5 of whiskey every 2 days Substance use: current Substance use type: methamphetamine Last use: 06/09/24 Do You Feel Safe in your Home?: Yes Lack of Transportation: YES Lack of Food: Often True Current Housing: I Do Not Have Housing Concerned About Future Housing: YES Difficulty Paying Gas/Electric Bills: YES Difficulty Paying for Meds: YES Currently Unemployed: YES Education: High School Diploma/GED Difficulty w/ Childcare or Family Care: No Spiritual care concerns: No Exam 2 Narrative: GENERAL: Well-appearing, well-nourished, and on bipap. HEAD: Normocephalic, atraumatic. ENT: Mucous membranes moist. NECK: Supple. CHEST: Clear to auscultation. No respiratory distress. HEART: Tachycardic and regular. Normal peripheral pulses. ABDOMEN: Soft, nontender, nondistended. EXTREMITIES: Normal range of motion. 2+ edema. SKIN: Warm, dry, no rash. NEURO: Alert and oriented x3. PSYCH: Normal mood and affect. Course Course Emergency Course: Patient informed of results and diagnosis. Patient does not want to stay in the hospital in and is wanting to leave against medical advice. I have contacted for his girlfriend on several occasions and she continues to say she is coming to the hospital but never shows up. I have discussed with the patient that there is no in coming to help him out that he needs to stay in the hospital despite his desire to leave. Patient's heart rate improved with IV Lopressor but then went back up. He was given his oral metoprolol. Will also give him Lovenox since he has been off of his anticoagulation. Suspect pulmonary edema over pneumonia given lack of fever or productive cough and elevated BNP. Patient accepted to the hospitalist service. Vital Signs Vital signs: Vital Signs Temperature 98 F 06/19/24 15:45 Pulse Rate 139 H 06/19/24 15:45 Respiratory Rate 30 H 06/19/24 15:45 Blood Pressure 186/121 H 06/19/24 15:45 Pulse Oximetry 100 06/19/24 15:45 Oxygen Delivery CPAP 06/19/24 15:45 Temperature 98 F 06/19/24 15:45 Pulse Rate 118 H 06/19/24 20:31 Respiratory Rate 26 H 06/19/24 20:31 Blood Pressure 130/98 H 06/19/24 20:31 Pulse Oximetry 98 06/19/24 20:31 Oxygen Delivery BiPAP 06/19/24 19:29 Fraction of Inspired Oxygen 50 06/19/24 19:29 Medical Decision Making Vital Signs Vital Signs: Vital Signs Temperature 98 F 06/19/24 15:45 Pulse Rate 139 H 06/19/24 15:45 Respiratory Rate 30 H 06/19/24 15:45 Blood Pressure 186/121 H 06/19/24 15:45 Pulse Oximetry 100 06/19/24 15:45 Oxygen Delivery CPAP 06/19/24 15:45 Temperature 98 F 06/19/24 15:45 Pulse Rate 118 H 06/19/24 20:31 Respiratory Rate 26 H 06/19/24 20:31 Blood Pressure 130/98 H 06/19/24 20:31 Pulse Oximetry 98 06/19/24 20:31 Oxygen Delivery BiPAP 06/19/24 19:29 Fraction of Inspired Oxygen 50 06/19/24 19:29 Lab Data 06/19/24 16:08 06/19/24 16:08 Labs: Lab Results 06/19/24 Range/Units 16:08 WBC 8.3 (4.5-10.0) K/mm3 RBC 4.50 L (4.6-6.20) M/mm3 Hgb 14.0 (14.0-18.0) g/dL Hct 43.7 (42.0-52.0) % MCV 97.1 (80-100) fl MCH 31.1 (26-34) pg MCHC 32.0 (32-36) g/dl RDW 15.6 H (11.5-14.5) % Plt Count 190 (150-375) k/mm3 MPV 10.2 (7.4-10.4) fl Immature Gran % (Auto) 0.5 (0-0.5) % Neut % (Auto) 73.0 (45.5-73.1) % Lymph % (Auto) 15.1 L (18.3-44.2) % [place] % (Auto) 8.4 (2.6-8.5) % Eos % (Auto) 2.3 (0-4.4) % Baso % (Auto) 0.7 (0.2-1.2) % Lymph # (Auto) 1.25 (0.9-3.2) K/mm3 [place] # (Auto) 0.7 H (0.1-0.6) K/mm3 Eos # (Auto) 0.2 (0-0.3) K/mm3 Baso # (Auto) 0.1 (0.0-0.1) K/mm3 Abs Immat Gran (auto) 0.04 H (0.00-0.031) K/mm3 Absolute Neuts (auto) 6.1 (1.3-6.7) K/mm3 Absolute Nucleated RBC 0.000 (0.0-0.012) K/mm3 Nucleated RBC % 0.0 (0.0-0.2) % PT 15.5 H (11.1-14.7) Seconds INR 1.2 APTT 39.2 H (22.3-36.8) Seconds Sodium 139 (137-145) mmol/L Potassium 4.2 (3.4-5.0) mmol/L Chloride 105 (98-107) mmol/L Carbon Dioxide 20 L (22-30) mmol/L Anion Gap 14 H (4-12) mmol/L BUN 18 D (9-20) mg/dL Creatinine 1.44 H (0.7-1.3) mg/dL Estim Creat Clear Calc 57 ml/min Estimated GFR 51 L (59 - ) Glucose 195 H (65-110) mg/dL Calcium 9.5 (8.4-10.2) mg/dL Total Bilirubin 2.1 H (0.2-1.3) mg/dL AST 33 (17-59) U/L ALT 45 (6-50) U/L Alkaline Phosphatase 129 H (38-126) U/L Troponin I < 0.012 (0.000-0.034) ng/mL NT-Pro-B Natriuret Pep 6270 H (19.9-100) pg/mL Total Protein 8.0 (6.3-8.2) g/dL Albumin 4.3 (3.5-5.1) g/dL Imaging Data Radiologist's impression: ITS Impressions Chest X-Ray 06/19/24 16:27 IMPRESSION: Bibasilar pneumonia. Bilateral interstitial thickening suggestive of pneumonitis versus edema. Clinical correlation advised. ECG Data EKG #1: ECG completion date: 06/19/24 ECG completion time: 15:56 EKG Interpretation: tachycardia (139), atrial flutter, non-specific ST changes, normal QRS, normal QT and NL axis Critical Care Time Critical Care Time Critical Care Time: Yes Total Critical Care Time: 35 Discharge Plan Discharge Clinical Impression: Atrial flutter with rapid ventricular response, CHF exacerbation Patient Disposition: Still a Patient Condition: Stable Patient Language: Greenlandic Prescriptions: No Action furosemide 40 mg Tablet 40 mg PO BID Qty: 60 1RF metoprolol succinate [Toprol XL] 100 mg Tablet Extended Release 24 Hr 100 mg PO QAM Qty: 30 1RF thiamine HCl (vitamin B1) [Vitamin B-1] 100 mg Tablet 100 mg PO QAM Qty: 30 1RF spironolactone 25 mg Tablet 25 mg PO QAM Qty: 30 1RF losartan 25 mg Tablet 25 mg PO DAILY Qty: 30 1RF folic acid 1 mg Tablet 1 mg PO DAILY Qty: 30 1RF Xarelto 20 mg Tablet 20 mg PO DAILY@1700 Qty: 30 1RF Follow-up/Referrals: UNKNOWN,DOCTOR [Primary Care Provider] -
--- NOTE | 2024-06-19 17:35 | PC.NURSE ---
This RN enters pts room and pt is requesting bipap to come off. Pt refused IV medications this RN had to give him. Pt states, I want this mask off and I want to go home. I want to talk to the doctor. EDP Dr. Li aware.
[2024-06-19] MEDS: METOPROLOL TARTRATE INJ 5 MG/5 ML VIAL IV PUSH (18:40)
[2024-06-19] MEDS: FUROSEMIDE INJ 40 MG/4 ML VIAL IV PUSH (18:45)
[2024-06-19] MEDS: ONDANSETRON INJ 4 MG/2 ML VIAL IV PUSH (19:24)
[2024-06-19] MEDS: METOPROLOL SUCCINATE EXT REL 100 MG TABCR PO (20:04)
[2024-06-19] MEDS: ENOXAPARIN 100 MG/ML SYRINGE 93 MG SUB-Q (22:38)
[2024-06-19] MEDS: ACETAMINOPHEN 325 MG TABLET 650 MG PO (22:45)
[2024-06-19] MEDS: diphenhydrAMINE HCl CAP 25 MG CAPSULE 50 MG PO (22:46)
--- NOTE | 2024-06-19 23:30 | PM.IMHP ---
H&P: HPI History of Present Illness Date/Time: 06/20/24 00:45 Chief Complaint: Shortness of breath. Narrative: This is a 54-year-old male smoker with a history of heart failure with reduced ejection fraction (severely reduced left ventricular systolic function with an EF of 10 to 15% and mildly reduced right ventricular systolic function on recent echo), myocardial infarction 1996 without intervention, atrial flutter, hypertension, deep venous thrombosis following right lower extremity fracture, kidney cancer status post left nephrectomy, hepatitis-C status post interferon, cirrhosis of the liver, alcohol abuse (1/5 of whiskey every 2 days), and amphetamine abuse who presented to the emergency department for evaluation of shortness of breath. He is known to myself and the hospitalist service from two recent admissions. He recently returned to the area from [place] and has been living in his truck with his girlfriend. He initially presented to the hospital on 06/03/2024 with environmental exposure and at that time he was found to have a multitude of new and chronic medical problems including reduced ejection fraction and atrial flutter. He was started on guideline directed medical therapy and a LifeVest. He insisted on discharge early due to some domestic concerns but returned 2 days later and he was diuresed with good results. Since discharge she has not been wearing his LifeVest. He picked up prescriptions for furosemide, folic acid, and thiamine but he has not filled prescriptions for losartan, metoprolol, rivaroxaban, or spironolactone. Possibly due to cost but that is unclear. In any event he has become progressively more short of breath the last couple of days and reports worsening edema. He denies syncope, near syncope, fever, sore throat, congestion, chest pain, pleuritic pain, racing heart, productive cough, vomiting, diarrhea, and calf pain. In the ED: Vital signs on arrival a include a blood pressure 167/131, pulse 139 (atrial flutter), and respiratory rate of 31. He was started on BiPAP due to work of breathing. Chest x-ray showed bibasilar pneumonia and bilateral interstitial thickening suggestive of pneumonitis versus edema. Labs were significant for WBC count of 8.3, creatinine 1.44, glucose 195, total bilirubin 2.1, proBNP 6270, troponin less than 0.012. He was given furosemide 40 mg IV and antibiotics for CHF exacerbation and possible pneumonia he is being admitted in this setting. Review of Systems Review of Systems: 12 systems were reviewed and are negative except for as per HPI. [facility] Past Medical History Medical History Atrial flutter Heart failure with reduced ejection fraction Echocardiogram in 05/2024 showed severely reduced LV systolic function with an EF estimated 10 to 15% and mildly reduced right ventricular systolic function Deep venous thrombosis Following tibial plateau fracture Hepatitis C Cirrhosis of liver Status post interferon Cancer of left kidney Myocardial infarction Amphetamine abuse Alcohol abuse Surgical History Surgical History History of hernia repair History of left nephrectomy History of open reduction and internal fixation (ORIF) procedure Repair right tibial plateau fracture Family History Family History Mother Heart disease Social History Social History Social History: Surrogate medical decision maker: Frannie Mckinley, significant other. Code status: Full code. Smoking packs per day: 1 Smoking cigarettes per day: 20.0 Years smoked: 40 Smoking pack-years: 40.00 Smoking status: Current every day smoker Alcohol intake: current Alcohol use details: 1/5 of whiskey every 2 days Substance use: current Substance use type: methamphetamine Last use: 06/09/24 Do You Feel Safe in your Home?: Yes Lack of Transportation: YES Lack of Food: Often True Current Housing: I Do Not Have Housing Concerned About Future Housing: YES Difficulty Paying Gas/Electric Bills: YES Difficulty Paying for Meds: YES Currently Unemployed: YES Education: High School Diploma/GED Difficulty w/ Childcare or Family Care: No Spiritual care concerns: No Meds Home Medications and Allergies Home Medications ?Medication ?Instructions ?Recorded ?Confirmed ?Type folic acid 1 mg tablet 1 mg PO DAILY #30 tabs 06/12/24 06/20/24 Rx furosemide 40 mg tablet 40 mg PO BID #60 tabs 06/12/24 06/20/24 Rx losartan 25 mg tablet 25 mg PO DAILY #30 tabs 06/12/24 06/20/24 Rx metoprolol succinate 100 mg 100 mg PO QAM #30 tabs 06/12/24 06/20/24 Rx tablet,extended release 24 hr (Toprol XL) rivaroxaban 20 mg tablet (Xarelto) 20 mg PO DAILY@1700 #30 tabs 06/12/24 06/20/24 Rx spironolactone 25 mg tablet 25 mg PO QAM #30 tabs 06/12/24 06/20/24 Rx thiamine HCl (vitamin B1) 100 mg 100 mg PO QAM #30 tabs 06/12/24 06/20/24 Rx tablet (Vitamin B-1) Allergies Allergy/AdvReac Type Severity Reaction Status Date / Time aspirin Allergy Intermediate Rash Verified 06/03/24 10:48 Vital Signs Vital Signs - 24 hr 06/19/24 15:45 06/19/24 15:59 06/19/24 16:01 Temperature 98 F Pulse Rate 139 H 139 H Respiratory Rate 30 H 31 H Blood Pressure 186/121 H 167/131 H Pulse Oximetry 100 95 Oxygen Delivery CPAP BiPAP Fraction of Inspired Oxygen 50 06/19/24 16:01 06/19/24 16:10 06/19/24 16:20 Temperature Pulse Rate 139 H 139 H 139 H Respiratory Rate 30 H 20 29 H Blood Pressure 169/127 H 166/140 H Pulse Oximetry 100 100 100 Oxygen Delivery BiPAP Fraction of Inspired Oxygen 06/19/24 16:31 06/19/24 16:46 06/19/24 17:16 Temperature Pulse Rate 139 H 139 H 140 H Respiratory Rate 27 H 25 H 32 H Blood Pressure 169/120 H 177/138 H 183/131 H Pulse Oximetry 100 100 100 Oxygen Delivery Fraction of Inspired Oxygen 06/19/24 17:31 06/19/24 17:46 06/19/24 18:01 Temperature Pulse Rate 140 H 140 H 140 H Respiratory Rate 25 H 25 H 27 H Blood Pressure 171/134 H 163/129 H 172/134 H Pulse Oximetry 100 100 99 Oxygen Delivery Fraction of Inspired Oxygen 06/19/24 18:16 06/19/24 18:40 06/19/24 18:45 Temperature Pulse Rate 139 H 139 H 137 H Respiratory Rate 27 H 20 Blood Pressure 157/135 H 156/126 H Pulse Oximetry 99 99 Oxygen Delivery Fraction of Inspired Oxygen 06/19/24 18:46 06/19/24 19:29 06/19/24 20:04 Temperature Pulse Rate 135 H 115 H Respiratory Rate 31 H Blood Pressure 156/126 H Pulse Oximetry 98 99 Oxygen Delivery BiPAP Fraction of Inspired Oxygen 50 03/07/25 20:04 06/19/24 20:31 06/19/24 22:16 Temperature Pulse Rate 115 H 118 H 132 H Respiratory Rate 24 H 26 H 23 H Blood Pressure 123/106 H 130/98 H 140/109 H Pulse Oximetry 100 98 98 Oxygen Delivery Fraction of Inspired Oxygen 06/19/24 22:31 Temperature Pulse Rate 130 H Respiratory Rate 6 L Blood Pressure 164/113 H Pulse Oximetry 100 Oxygen Delivery Fraction of Inspired Oxygen Exam Narrative: General: Chronically ill-appearing male in the semi-Zimmer position on BiPAP in no acute distress.. Weight: 93.1 kg. BMI: 31.2. HEENT: PERRL, EOMI. Tacky mucous membranes. Poor dentition. Neck: Supple. No obvious JVD or lymphadenopathy. Respiratory: Comfortable on BiPAP. Coarse crackles heard at the bases. Cardiovascular: Tachycardic with normal S1-S2. Gastrointestinal: Abdomen is soft, nontender, and nondistended with positive bowel sounds. Skin: Warm and dry. Mild erythema of the lower legs due to swelling. Normal capillary refill. Extremities: No cyanosis or clubbing. Pitting edema to the thighs and some swelling of the arms as well. Neurological: Alert. Cranial nerves 2-12 are grossly intact. No gross focal deficits to casual conversation. Psychiatric: Cooperative with appropriate mood and affect. H&P: Results Labs Labs: Short CBC 06/19/24 Range/Units 16:08 WBC 8.3 (4.5-10.0) K/mm3 Hgb 14.0 (14.0-18.0) g/dL Hct 43.7 (42.0-52.0) % Plt Count 190 (150-375) k/mm3 [facility] 06/19/24 16:08 Sodium 139 Potassium 4.2 Chloride 105 Carbon Dioxide 20 L BUN 18 D Creatinine 1.44 H Glucose 195 H Calcium 9.5 Cardiac Enzymes 06/19/24 Range/Units 16:08 Troponin I < 0.012 (0.000-0.034) ng/mL Liver Function 06/19/24 Range/Units 16:08 Total Bilirubin 2.1 H (0.2-1.3) mg/dL AST 33 (17-59) U/L ALT 45 (6-50) U/L Alkaline Phosphatase 129 H (38-126) U/L Albumin 4.3 (3.5-5.1) g/dL Impressions Chest X-Ray 06/19/24 16:27 IMPRESSION: Bibasilar pneumonia. Bilateral interstitial thickening suggestive of pneumonitis versus edema. Clinical correlation advised. Assessment and Plan Assessment and plan (1) Acute on chronic systolic heart failure: Code(s): I50.23 - Acute on chronic systolic (congestive) heart failure Status: Acute (2) Acute respiratory failure with hypoxia: Code(s): J96.01 - Acute respiratory failure with hypoxia Status: Acute (3) Pneumonia: Code(s): J18.9 - Pneumonia, unspecified organism Status: Acute (4) Atrial flutter with rapid ventricular response: Code(s): I48.92 - Unspecified atrial flutter Status: Acute (5) Cardiomyopathy: Code(s): I42.9 - Cardiomyopathy, unspecified Status: Acute (6) Noncompliance: Code(s): Z91.199 - Patient's noncompliance with other medical treatment and regimen due to unspecified reason Status: Acute (7) Renal failure: Code(s): N19 - Unspecified kidney failure Status: Acute (8) Amphetamine abuse: Code(s): F15.10 - Other stimulant abuse, uncomplicated Status: Acute (9) Alcohol abuse: Code(s): F10.10 - Alcohol abuse, uncomplicated Status: Acute Plan The patient presented to the emergency department for evaluation of shortness of breath increasing lower extremity edema as detailed in HPI. Labs, imaging, EKG, and all reports were personally reviewed. He is volume overloaded and will be diuresed with close monitoring of volume status, renal function, and electrolytes. He has not been compliant with his medications or Life Vest for unclear reasons. Resume guideline directed medical therapy. Heart rate is improving after receiving metoprolol. Continue rivaroxaban for stroke prophylaxis. He was hypoxic with increased work of breathing on arrival but has improved and oxygen will be weaned as tolerated. CT scan shows evidence of pneumonia for which he has been started on ceftriaxone and doxycycline. Swallow study ordered to rule out aspiration. Creatinine is stable and will be monitored. He did not have any signs of symptoms of alcohol withdrawal with his last hospitalization however will initiate CIWA protocol. Findings and treatment plan were discussed with the patient. Questions were solicited and answered to satisfaction. The patient's medical management will be taken over by the hospitalist team in a.m. Quality VTE Prophylaxis VTE prophylaxis: pharmacologic ordered (On Xarelto) The patient has been admitted under observation status. Hospitalist MIPS Advance Care Plan I have confirmed that the patient's Advanced Care Plan is present, code status is documented, or surrogate decision maker is listed in patient medical record.: Yes Medication Reconciliation I have utilized all available resources to obtain, update and review the patients current medications (includes all prescriptions, OTC, herbals, cannabis, and nutritional supplements).: Yes
[2024-06-20] VITALS (74 sets, daily range): BP systolic 53–143; BP diastolic 36–122; PULSE 71–146; RESP 18–36; TEMP 35.1–36.6; O2SAT 92–100; BMI 30.3
--- NOTE | 2024-06-20 00:29 | PC.NURSE ---
06/20/24 0021 received report from PERNELL Curran
--- NOTE | 2024-06-20 01:15 | ADMGEN ---
This patient, Norberto De Jesus, was admitted to IMU Room 202-01. Patient/family oriented to hospital policies and general routines including ID bracelet, bed and alarms, visiting hours, pain management, procedures, bathroom and other care routines, personal items, smoking policy, room service/diet, and visiting hours. Information on how to activate the Rapid Response Team has been discussed. Patient/Family are encouraged to report perceived risks to care and to ask questions if they do not understand what they are told or what they should do.
[2024-06-20 05:28] LABS: Anion Gap 17 mmol/L (4-12); Blood Urea Nitrogen 20 mg/dL (9-20); Calcium 9.3 mg/dL (8.4-10.2); Carbon Dioxide 19 mmol/L (22-30); Chloride 104 mmol/L (98-107); Estimated CRCL calculation 40 ml/min; Estimated Glomerular Filt Rate 33; Glucose 103 mg/dL (65-110); Magnesium 1.9 mg/dL (1.6-2.3); Potassium 5.1 mmol/L (3.4-5.0); Sodium 140 mmol/L (137-145)
--- NOTE | 2024-06-20 06:50 | PC.NURSE ---
asystole on the monitor when arrived in room pt without pulse and apneic code called see code sheet
--- NOTE | 2024-06-20 07:15 | PC.NURSE ---
Pt received from [facility] post cardiac arrest/code blue. Pt intubated at time of arrival to ICU-1. RN assisted PA with central line placement. Bedside report received from PERNELL Roberson
[2024-06-20 07:16] LABS: Alveolar/Arterial O2 Gradient 543.2 mmHg; Base Excess ABG -20.1 mEq/l (+/-2.0); Carboxyhemoglobin 0.4 % THb (0-2.0); Fractional Inspired Oxygen 100 %; HCO3 ABG 8.9 mEq/l (22.0-26.0); Methemoglobin ABG 0.2 %THb (0-1.5); Oxygen Content ABG 21.5 %vol (16.0-22.0); Oxygen Saturation ABG 97.7 % (95.0-100.0); Oxyhemoglobin 97.2 % THb (90.0-100.0); PCO2 ABG 31.1 mmHg (35.0-45.0); PO2 ABG 138.7 mmHg (80.0-100.0); PO2 FiO2 Ratio Arterial Blood 1.39 %; Reduced Hemoglobin 2.2 %THb (0-5.0); Total Hemoglobin 15.6 g/dL (12.0-18.0)
[2024-06-20] MEDS: MIDAZOLAM HCL (*CRX) 2 MG/2 ML VIAL IV PUSH (07:25)
[2024-06-20] MEDS: fentaNYL CITRATE INJ (*CRX) 100 MCG/2 ML VIAL IV PUSH (07:25)
[2024-06-20 07:35] LABS: Device AMBU BAG; Site Drawn LEFT BRACHIAL; pH ABG 7.074 (7.350-7.450)
--- NOTE | 2024-06-20 07:40 | P.PCNBED_ITS ---
Procedures Central Line Placement Right Femoral: Central Line Date: 06/20/24 Central Line Time: 07:30 Consent: Implied consent. Patient was a full code. Not able to get in touch with family. Time Out Performed: Yes Patient Position: supine Patient placed on monitor/pulse ox: Yes Provider Prep: mask, sterile gown, sterile gloves, Max. sterile barrier precautions, cap and hand hygiene with conventional soap/water or alcohol based hand rub Central line prep: 2% Chlorhexidine scrub Local anesthesia used: lidocaine 1% Amount of anesthesia used (ml): 5 Sterile US Technique with sterile gel/sterile probe covers: Yes Central line lumen inserted: triple Monegasque: 7 Length (cm): 20 Post Procedure: sutured in place, good blood return, all ports aspirated, flushed, capped, transparent dressing, antimicrobial product, securement product and aseptic technique maintained throughout procedure Post procedure x-ray: other (n/a with femoral placement) Complications: none
--- NOTE | 2024-06-20 07:42 | WPDPROCEDUR ---
Procedures Intubation Intubation Date: 06/20/24 Intubation Time: 06:50 Consent: Implied consent. Patient full code. Unable to get ahold of emergency contact. A pre-procedural Time-Out was completed immediately before starting the procedure and confirmed: Patient Identification, Site, Procedure, Patient Position and the Availability of Requisite Equipment: Yes Sedative: none Laryngoscope: Jennifer Assist device used: fiber optic device ET tube size: 7.5 Tube secured depth (cm): 26 Tube secured location: lips Tube placement confirmation: visualized tube passing through cords, equal breath sounds bilaterally and no breath sounds over epigastrium Patient tolerated procedure: well Intubation complications: none
--- NOTE | 2024-06-20 07:45 | PDCODEBLUE ---
Jonathan Detnon Note Code Blue Note Time Arrived at Code Blue: 06:52 Initial Rhythm on Arrival: Asystole. Airway Management: Pt intubated during resuscitation Chest Compressions: In process on arrival to bedside Result of Jonathan Denton: Pt transferred to ICU Cardiac Rhythm Post Code: Atrial fibrillation with rapid ventricular response. Jonathan Denton Summary: According to the patients nurse, the patient was in atrial flutter overnight, had a sinus pause, and went bradycardic. They went to check on him and he was alert and when they returned to the desk his monitor showed a further drop in heart rate then asystole. JONATHAN DENTON called and ACLS protocol was initiated. He was in PEA after several rounds and at 0710 he has ROSC with rapid atrial fibrillation on the monitor. Patient intubated during resuscitation. Central line was inserted for better access and he was transferred to ICU. Critical Care Time Critical Care Time: Yes Total Critical Care Time: 45 Attestation: A total of 45 min critical care time was spent in attention of this patient aside from procedure.
--- NOTE | 2024-06-20 07:56 | PM.IMPN ---
Progress Note: A&P Assessment and Plan (1) Acute on chronic systolic heart failure: Code(s): I50.23 - Acute on chronic systolic (congestive) heart failure Status: Acute (2) Acute respiratory failure with hypoxia: Code(s): J96.01 - Acute respiratory failure with hypoxia Status: Acute (3) Pneumonia: Code(s): J18.9 - Pneumonia, unspecified organism Status: Acute (4) Atrial flutter with rapid ventricular response: Code(s): I48.92 - Unspecified atrial flutter Status: Acute (5) Cardiomyopathy: Code(s): I42.9 - Cardiomyopathy, unspecified Status: Acute (6) Noncompliance: Code(s): Z91.199 - Patient's noncompliance with other medical treatment and regimen due to unspecified reason Status: Acute (7) Renal failure: Code(s): N19 - Unspecified kidney failure Status: Acute (8) Amphetamine abuse: Code(s): F15.10 - Other stimulant abuse, uncomplicated Status: Acute (9) Alcohol abuse: Code(s): F10.10 - Alcohol abuse, uncomplicated Status: Acute (10) Cardiac arrest: Code(s): I46.9 - Cardiac arrest, cause unspecified Status: Acute (11) Heart failure with reduced ejection fraction: Code(s): I50.20 - Unspecified systolic (congestive) heart failure Status: Acute (12) Acute anoxic encephalopathy: Code(s): G93.1 - Anoxic brain damage, not elsewhere classified Status: Acute Plan Cardiac arrest Resulting from multiple factors. patient has cardiomyopathy, severe systolic heart failure, history of drug abuse, Patient was found have acute systolic heart failure, acute respiratory failure and pneumonia, atrial flutter and RVR all of the acute issues can resulting in cardiac arrest. Patient also has DVT, patient is on Xarelto, not sure patient is compliant with the blood thinner Given acute renal failure, we cannot perform CTA of chest Pending venous Doppler of bilateral lower extremities Pending drug screening, alcohol screening Hold Xarelto Start heparin drip Follow-up echocardiogram Telemetry monitoring Consult medical services assistant and retail buyer for evaluation treatment Acute anoxic encephalopathy Patient is unresponsive after cardiopulmonary resuscitation start Hypothermic therapy per protocol Follow-up CT head without contrast Further management per medical services assistant Community-acquired pneumonia, acute respiratory failure Chest x-ray showed Worsened airspace opacities in right lung, consistent with pneumonia versus pulmonary edema versus atelectasis. Switch from doxycycline, ceftriaxone to vancomycin and cefepime, add Flagyl Patient is intubated, continue mechanical ventilation Follow ABG Consult medical services assistant for evaluation treatment Acute on chronic systolic heart failure, cardiogenic shock Received Lasix in the ED Chronic patient has hypotension, blood pressures 76/67 Suspecting cardiogenic shock Consult retail buyer for evaluation treatment Hypotension Possible resulting from cardiogenic shock and septic shock Central lines placed Start norepinephrine, titrate to keep map above 65 Pending echocardiogram Consult retail buyer and medical services assistant for further evaluation treatment Septic shock Patient has leukocytosis, hypotension, x-ray showed pneumonia, Antibiotics see above Pending blood culture urine culture Antibiotics see above KELSEA on CKD Creatinine 2.27, baseline 1.34 on June 11 Likely resulting from cardiogenic shock, septic shock Follow urinalysis and renal ultrasound Subjective Date/time seen: 06/20/24 07:56 Interval history: This is a 54-year-old male smoker with a history of heart failure with reduced ejection fraction (severely reduced left ventricular systolic function with an EF of 10 to 15% and mildly reduced right ventricular systolic function on recent echo), myocardial infarction 1996 without intervention, atrial flutter, hypertension, deep venous thrombosis following right lower extremity fracture, kidney cancer status post left nephrectomy, hepatitis-C status post interferon, cirrhosis of the liver, alcohol abuse (1/5 of whiskey every 2 days), and amphetamine abuse who presented to the emergency department for evaluation of shortness of breath. In the ED: Vital signs on arrival a include a blood pressure 167/131, pulse 139 (atrial flutter), and respiratory rate of 31. He was started on BiPAP due to work of breathing. Chest x-ray showed bibasilar pneumonia and bilateral interstitial thickening suggestive of pneumonitis versus edema. Labs were significant for WBC count of 8.3, creatinine 1.44, glucose 195, total bilirubin 2.1, proBNP 6270, troponin less than 0.012. Patient was admitted to step-down ICU with impression diagnosis of acute on chronic systolic heart failure, acute respiratory failure, pneumonia, a flutter RVR, acute renal failure, amphetamine abuse Patient received furosemide 40 mg IV and antibiotics for CHF exacerbation and possible pneumonia Patient was coded transcriptionist, patient was found bradycardia and deteriorated asystole. Cardiopulmonary resuscitation was performed at bedside immediately. hewas in PEA after several rounds and at 0710 he has ROSC with rapid atrial fibrillation on the monitor. Patient intubated during resuscitation. Central line was inserted for better access and he was transferred to ICU. Exam Narrative: GENERAL: in no acute distress. Obesity - EYES: Pupils small and sluggish to light - HENT: Moist mucous membranes. ET tube in-situ - LUNGS: Coarse breath sound bilaterally - CARDIOVASCULAR: Irregular irregular rhythm. No murmur. No JVD. - ABDOMEN: Soft, non-tender and non-distended. No palpable masses. - EXTREMITIES: 2+ lower extremities edema. Peripheral pulses 2+. Non-tender. - NEUROLOGIC: No focal neurological deficits. CN II-XII grossly intact. - PSYCHIATRIC: Unresponsive and not oriented x 3 - SKIN: No rashes or lesions. Cold - LYMPH: No cervical lymphadenopathy. Objective Data Vital Signs Vital Signs: Vital Signs - 24 hr 06/19/24 15:45 06/19/24 15:59 06/19/24 16:01 Temperature 98 F Pulse Rate 139 H 139 H Respiratory Rate 30 H 31 H Blood Pressure 186/121 H 167/131 H Pulse Oximetry 100 95 Oxygen Delivery CPAP BiPAP Fraction of Inspired Oxygen 50 06/19/24 16:01 06/19/24 16:10 06/19/24 16:20 Temperature Pulse Rate 139 H 139 H 139 H Respiratory Rate 30 H 20 29 H Blood Pressure 169/127 H 166/140 H Pulse Oximetry 100 100 100 Oxygen Delivery BiPAP Fraction of Inspired Oxygen 06/19/24 16:31 06/19/24 16:46 06/19/24 17:16 Temperature Pulse Rate 139 H 139 H 140 H Respiratory Rate 27 H 25 H 32 H Blood Pressure 169/120 H 177/138 H 183/131 H Pulse Oximetry 100 100 100 Oxygen Delivery Fraction of Inspired Oxygen 06/19/24 17:31 06/19/24 17:46 06/19/24 18:01 Temperature Pulse Rate 140 H 140 H 140 H Respiratory Rate 25 H 25 H 27 H Blood Pressure 171/134 H 163/129 H 172/134 H Pulse Oximetry 100 100 99 Oxygen Delivery Fraction of Inspired Oxygen 06/19/24 18:16 06/19/24 18:40 06/19/24 18:45 Temperature Pulse Rate 139 H 139 H 137 H Respiratory Rate 27 H 20 Blood Pressure 157/135 H 156/126 H Pulse Oximetry 99 99 Oxygen Delivery Fraction of Inspired Oxygen 06/19/24 18:46 06/19/24 19:29 06/19/24 20:04 Temperature Pulse Rate 135 H 115 H Respiratory Rate 31 H Blood Pressure 156/126 H Pulse Oximetry 98 99 Oxygen Delivery BiPAP Fraction of Inspired Oxygen 50 06/19/24 20:04 06/19/24 20:31 06/19/24 21:07 Temperature Pulse Rate 115 H 118 H 125 H Respiratory Rate 24 H 26 H 21 H Blood Pressure 123/106 H 130/98 H Pulse Oximetry 100 98 100 Oxygen Delivery BiPAP Fraction of Inspired Oxygen 06/19/24 22:16 06/19/24 22:31 06/19/24 23:46 Temperature Pulse Rate 132 H 130 H 125 H Respiratory Rate 23 H 6 L 27 H Blood Pressure 140/109 H 164/113 H Pulse Oximetry 98 100 100 Oxygen Delivery BiPAP Fraction of Inspired Oxygen 06/20/24 00:08 06/20/24 00:12 06/20/24 01:01 Temperature Pulse Rate 115 H 112 H 114 H Respiratory Rate 26 H 24 H 36 H Blood Pressure 112/76 120/94 H Pulse Oximetry 93 92 100 Oxygen Delivery BiPAP Fraction of Inspired Oxygen 06/20/24 01:18 06/20/24 04:00 06/20/24 04:00 Temperature Pulse Rate 124 H 125 H 125 H Respiratory Rate 24 H 24 H Blood Pressure 121/81 Pulse Oximetry 100 100 Oxygen Delivery BiPAP Fraction of Inspired Oxygen 50 06/20/24 04:00 06/20/24 04:57 Temperature 97.3 F L Pulse Rate 127 H 105 H Respiratory Rate 24 H 22 H Blood Pressure 123/90 Pulse Oximetry 98 100 Oxygen Delivery BiPAP Fraction of Inspired Oxygen Intake/Output Intake/Output: Intake & Output 06/17/24 06/18/24 06/19/24 06/20/24 23:59 23:59 23:59 23:59 Intake Total 480 Output Total 950 200 Balance -950 280 Meds/Results Medications: Active Medications Generic Name Dose Route Start Last Admin Trade Name Freq PRN Reason Stop Dose Admin Acetaminophen 650 mg 06/19/24 21:33 Acetaminophen 325 Mg Tablet PO Q4H PRN Mild Pain (1-3) or Fever Hydrocodone Bitart/Acetaminophen 1 tab 06/19/24 21:33 Hydrocodone/Acetaminophen (*Crx) 5-325 Mg Tablet PO Q4H PRN Pain Rated 4-6 Albuterol/Ipratropium 3 ml 06/20/24 04:57 Ipratropium 0.5 Mg/Albuterol Sulfate 2.5 Mg Ampul.Neb 3 Ml INHALATION Q6HRT PRN Shortness Of Breath Or Wheezing Doxycycline Hyclate 100 mg 06/20/24 09:00 Doxycycline Hyclate 100 Mg Tablet PO Q12HR [facility] Fentanyl Citrate 100 mcg 06/20/24 07:25 Fentanyl Citrate Inj (*Crx) 100 Mcg/2 Ml Vial IV PUSH Q4H PRN Sedation Folic Acid 1 mg 06/20/24 09:00 Folic Acid 1 Mg Tablet PO DAILY [facility] Furosemide 40 mg 06/20/24 09:00 Furosemide Inj 40 Mg/4 Ml Vial IV PUSH BID [facility] Guaifenesin 1,200 mg 06/20/24 09:00 Guaifenesin 12 Hr 600 Mg Tabcr PO Q12HR [facility] Ceftriaxone Sodium 1 gm in 50 mls @ 100 mls/hr 06/20/24 05:00 Rocephin 1 Gm/Ns 50 Ml IVPB Q24H [facility] Losartan Potassium 25 mg 06/20/24 09:00 Losartan Potassium 25 Mg Tablet PO DAILY [facility] Metoprolol Succinate 100 mg 06/20/24 09:00 Metoprolol Succinate Ext Rel 100 Mg Tabcr PO QAM [facility] Ondansetron HCl 4 mg 06/19/24 21:33 Ondansetron Inj 4 Mg/2 Ml Vial IV PUSH Q4H PRN Nausea Rivaroxaban 20 mg 06/20/24 17:00 Rivaroxaban 20 Mg Tablet PO DAILY@1700 [facility] Spironolactone 25 mg 06/20/24 09:00 Spironolactone 25 Mg Tablet PO QAM [facility] Thiamine HCl 100 mg 06/20/24 09:00 Thiamine Hcl 100 Mg Tablet PO QAWW [facility] Radiology Results: ITS Impressions Chest X-Ray 06/19/24 16:27 IMPRESSION: Bibasilar pneumonia. Bilateral interstitial thickening suggestive of pneumonitis versus edema. Clinical correlation advised. Labs Labs: Laboratory Results - last 24 hr 06/19/24 06/20/24 06/20/24 16:08 05:06 07:14 WBC 8.3 RBC 4.50 L Hgb 14.0 Hct 43.7 MCV 97.1 MCH 31.1 MCHC 32.0 RDW 15.6 H Plt Count 190 MPV 10.2 Immature Gran % (Auto) 0.5 Neut % (Auto) 73.0 Lymph % (Auto) 15.1 L [place] % (Auto) 8.4 Eos % (Auto) 2.3 Baso % (Auto) 0.7 Lymph # (Auto) 1.25 [place] # (Auto) 0.7 H Eos # (Auto) 0.2 Baso # (Auto) 0.1 Abs Immat Gran (auto) 0.04 H Absolute Neuts (auto) 6.1 Absolute Nucleated RBC 0.000 Nucleated RBC % 0.0 PT 15.5 H INR 1.2 APTT 39.2 H Puncture Site Left brachial ABG pH 7.074 L* ABG pCO2 31.1 L ABG pO2 138.7 H ABG PO2/FiO2 Ratio 1.39 ABG HCO3 8.9 L ABG O2 Saturation 97.7 ABG O2 Content 21.5 ABG Base Excess -20.1 A-a Gradient 543.2 Oxyhemoglobin 97.2 Carboxyhemoglobin 0.4 Methemoglobin 0.2 Reduced Hemoglobin 2.2 Total Hemoglobin 15.6 O2 Delivery Device Ambu bag O2 Liters/Min 15.0 FiO2 100 Sodium 139 140 Potassium 4.2 5.1 H Chloride 105 104 Carbon Dioxide 20 L 19 L Anion Gap 14 H 17 H BUN 18 D 20 Creatinine 1.44 H 2.07 H Estim Creat Clear Calc 57 40 Estimated GFR 51 L 33 L Glucose 195 H 103 Calcium 9.5 9.3 Magnesium 1.9 Total Bilirubin 2.1 H AST 33 ALT 45 Alkaline Phosphatase 129 H Troponin I < 0.012 NT-Pro-B Natriuret Pep 6270 H Total Protein 8.0 Albumin 4.3
--- NOTE | 2024-06-20 07:59 | ECG_ITS ---
Test Date: 2024-06-20 08:15:43 Measurements Intervals [place] Rate: 81 P: 61 CA: 180 QRS: 57 QRSD: 84 T: 84 QT: 392 QTc: 457 Interpretive Statements SINUS RHYTHM WITH OCCASIONAL SUPRAVENTRICULAR PREMATURE COMPLEXES POSSIBLE LEFT ATRIAL ENLARGEMENT [-0.1mV P WAVE IN V1/V2] BORDERLINE ECG Compared to ECG 06/19/2024 15:56:28 SINUS RHYTHM REPLACES ATRIAL FLUTTER Electronically Signed On 06-20-2024 15:55:52 CHIEF NURSING OFFICER by Uzair Rodriguez M.D.
[2024-06-20 08:09] LABS: Basophils Absolute Auto 0.1 K/mm3 (0.0-0.1); Basophils Percent Auto 0.8 % (0.2-1.2); Eosinophils Absolute Auto 0.1 K/mm3 (0-0.3); Eosinophils Percent Auto 0.4 % (0-4.4); Hematocrit 44.2 % (42.0-52.0); Hemoglobin 13.7 g/dL (14.0-18.0); Immature Granulocyte Absolute 0.29 K/mm3 (0.00-0.031); Immature Granulocyte Percent A 2.5 % (0-0.5); Lymphocytes Absolute Auto 1.62 K/mm3 (0.9-3.2); Lymphocytes Percent Auto 14.2 % (18.3-44.2); Mean Corpuscular Hemoglobin 30.7 pg (26-34); Mean Corpuscular Volume 99.1 fl (80-100); Mean Platelet Volume 10.2 fl (7.4-10.4); Monocytes Absolute Auto 0.8 K/mm3 (0.1-0.6); Monocytes Percent Auto 6.9 % (2.6-8.5); Neutrophils Absolute Auto 8.6 K/mm3 (1.3-6.7); Neutrophils Percent Auto 75.2 % (45.5-73.1); Nucleated Red Blood Cells Perc 0.2 % (0.0-0.2); Platelet Count Result 214 k/mm3 (150-375); Red Blood Count 4.46 M/mm3 (4.6-6.20); Red Cell Distribution Width 15.8 % (11.5-14.5); White Blood Count 11.4 K/mm3 (4.5-10.0)
[2024-06-20 08:11] LABS: Alveolar/Arterial O2 Gradient 282.2 mmHg; Base Excess ABG -13.7 mEq/l (+/-2.0); Carboxyhemoglobin 0.7 % THb (0-2.0); Fractional Inspired Oxygen 100 %; HCO3 ABG 12.4 mEq/l (22.0-26.0); Methemoglobin ABG 0.3 %THb (0-1.5); Oxygen Content ABG 21.2 %vol (16.0-22.0); Oxygen Saturation ABG 99.8 % (95.0-100.0); Oxyhemoglobin 98.7 % THb (90.0-100.0); PCO2 ABG 30.4 mmHg (35.0-45.0); PO2 ABG 400.4 mmHg (80.0-100.0); Reduced Hemoglobin 0.3 %THb (0-5.0); Total Hemoglobin 14.5 g/dL (12.0-18.0)
[2024-06-20 08:12] LABS: Device VENTILATOR; Site Drawn LEFT BRACHIAL
[2024-06-20 08:13] LABS: Arterial Blood Gas PEEP 5 cmH2O; Arterial Blood Gas Tidal Volume 450 ml; Arterial Blood Gas Vent Mode CMV; Arterial Blood Gas Ventilator rate 18 /MIN
[2024-06-20] MEDS: SODIUM BICARBONATE 8.4% 50 MEQ/50 ML SYRINGE 100 MEQ IV PUSH ×2 (08:20→17:20)
[2024-06-20 08:22] LABS: Albumin Level 3.9 g/dL (3.5-5.1); Alkaline Phosphatase 110 U/L (38-126); Anion Gap 21 mmol/L (4-12); Aspartate Amino Transferase 75 U/L (17-59); Bilirubin,Total 3.3 mg/dL (0.2-1.3); Blood Urea Nitrogen 20 mg/dL (9-20); Calcium 8.9 mg/dL (8.4-10.2); Carbon Dioxide 12 mmol/L (22-30); Chloride 107 mmol/L (98-107); Estimated CRCL calculation 37 ml/min; Estimated Glomerular Filt Rate 30; Glucose 77 mg/dL (65-110); Lactic Acid Reflex 9.1 mmol/L (0.7-2.0); Sodium 140 mmol/L (137-145)
[2024-06-20] MEDS: FENTANYL 2,500MCG/NS250ML(*CRX 2,500 MCG/250 ML BAG IV CONT (08:22)
[2024-06-20] MEDS: MIDAZOLAM 100MG/NS 100ML(*CRX) 100 MG/100 ML BAG IV CONT (08:23)
[2024-06-20] MEDS: MINERAL OIL/WHITE PETROLATUM OINTMENT 1 APPLIC EACH EYE (08:24)
[2024-06-20] MEDS: NOREPINEPHRINE 8 MG/D5W 250 ML 8 MG/250 ML BAG 9.38 MG IV CONT (08:24)
[2024-06-20 08:28] LABS: INR 1.6; Prothrombin Time 19.5 Seconds (11.1-14.7)
[2024-06-20 08:29] LABS: Partial Thromboplastin Time 44.3 Seconds (22.3-36.8)
[2024-06-20 08:30] LABS: NT Pro B Type Natriuretic Pept 8950 pg/mL (19.9-100)
[2024-06-20 09:00] LABS: Alanine Aminotransferase 65 U/L (6-50)
--- NOTE | 2024-06-20 09:08 | P.CONCA_ITS ---
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 He presents to the hospital with an exacerbation of his CHF which is of course not surprising in this setting. Also not surprising in most unfortunate is cardiac arrest this morning he has now been intubated placed on ventilator he is hypotensive on pressor support and appears to clearly have a very poor prognosis for recovery at this time. There is nothing to recommend cardiac yun other than aggressive supportive care and to wait to determine of neurological recovery a occur occurs. Obviously his prognosis is extremely poor given the severity of his heart disease, ongoing alcohol and drug abuse and noncompliance with taking medication Uzair Rodriguez MD [facility] History of Present Illness History of Present Illness Consult date/time: 06/20/24 09:08 Reason For Visit: aflutter rvr, chf exacerbation Narrative: This is a very unfortunate 54-year-old man I am seeing at the request of the hospitalist after a cardiac arrest that occurred earlier this morning. The patient is unknown to me prior to this consultation but has been in the hospital a couple of times here recently and those charts have been reviewed at the time of this consultation. 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 He has a history of excessive ethanol consumption as well as methamphetamine abuse. The gentleman is of fortunately homeless and lives in his truck with his girlfriend. For details of the previous/recent hospitalizations the reader is referred to those notes. In any event he came to the hospital again emergency room complaining of shortness of breath. He was in some decompensated heart failure and it was apparent on his history that he was not taking any of his medications presumably because he can not afford them. In any event he also was not wearing a LifeVest device that was provided to him at the time of his recent discharge. While he was in IMU earlier this morning he suffered a cardiac arrest with pulseless electrical activity. ACLS some/code was called and he was resuscitated, intubated and brought to the ICU. According to the code notes he was in rapid atrial fibrillation for a while he is currently in sinus rhythm with a heart rate in the 70s and on pressor support with marginal blood pressure. He is unresponsive intubated and on mechanical ventilator support no history is obtainable from the patient. He has no family to speak with. Apparently he lives with a his girlfriend in his truck and she is not available or not responding to phone calls. Review of Systems 2 Review of Systems: ROS unobtainable: Yes unobtainable due to endotracheal tube and unobtainable due to mental status PMFSH Past Medical History Medical History Atrial flutter Heart failure with reduced ejection fraction Echocardiogram in 05/2024 showed severely reduced LV systolic function with an EF estimated 10 to 15% and mildly reduced right ventricular systolic function Deep venous thrombosis Following tibial plateau fracture Hepatitis C Cirrhosis of liver Status post interferon Cancer of left kidney Myocardial infarction Amphetamine abuse Alcohol abuse Surgical History Surgical History History of hernia repair History of left nephrectomy History of open reduction and internal fixation (ORIF) procedure Repair right tibial plateau fracture Family History Family History Mother Heart disease Social History Social History Social History: Surrogate medical decision maker: Frannie Mckinley, significant other. Code status: Full code. Smoking packs per day: 1 Smoking cigarettes per day: 20.0 Years smoked: 40 Smoking pack-years: 40.00 Smoking status: Current every day smoker Alcohol intake: current Alcohol use details: 1/5 of whiskey every 2 days Substance use: current Substance use type: methamphetamine Last use: 06/09/24 Do You Feel Safe in your Home?: Yes Lack of Transportation: YES Lack of Food: Often True Current Housing: I Do Not Have Housing Concerned About Future Housing: YES Difficulty Paying Gas/Electric Bills: YES Difficulty Paying for Meds: YES Currently Unemployed: YES Education: High School Diploma/GED Difficulty w/ Childcare or Family Care: No Spiritual care concerns: No Meds Home Medications and Allergies Home Medications ?Medication ?Instructions ?Recorded ?Confirmed ?Type folic acid 1 mg tablet 1 mg PO DAILY #30 tabs 06/12/24 06/20/24 Rx furosemide 40 mg tablet 40 mg PO BID #60 tabs 06/12/24 06/20/24 Rx losartan 25 mg tablet 25 mg PO DAILY #30 tabs 06/12/24 06/20/24 Rx metoprolol succinate 100 mg 100 mg PO QAM #30 tabs 06/12/24 06/20/24 Rx tablet,extended release 24 hr (Toprol XL) rivaroxaban 20 mg tablet (Xarelto) 20 mg PO DAILY@1700 #30 tabs 06/12/24 06/20/24 Rx spironolactone 25 mg tablet 25 mg PO QAM #30 tabs 06/12/24 06/20/24 Rx thiamine HCl (vitamin B1) 100 mg 100 mg PO QAM #30 tabs 06/12/24 06/20/24 Rx tablet (Vitamin B-1) Allergies Allergy/AdvReac Type Severity Reaction Status Date / Time aspirin Allergy Intermediate Rash Verified 06/03/24 10:48 Vital Signs Vital Signs - 24 hr 06/19/24 15:45 06/19/24 15:59 06/19/24 16:01 Temperature 36.6 C Pulse Rate 139 H 139 H Respiratory Rate 30 H 31 H Blood Pressure 186/121 H 167/131 H Pulse Oximetry 100 95 Oxygen Delivery CPAP BiPAP Fraction of Inspired Oxygen 50 06/19/24 16:01 06/19/24 16:10 06/19/24 16:20 Temperature Pulse Rate 139 H 139 H 139 H Respiratory Rate 30 H 20 29 H Blood Pressure 169/127 H 166/140 H Pulse Oximetry 100 100 100 Oxygen Delivery BiPAP Fraction of Inspired Oxygen 06/19/24 16:31 06/19/24 16:46 06/19/24 17:16 Temperature Pulse Rate 139 H 139 H 140 H Respiratory Rate 27 H 25 H 32 H Blood Pressure 169/120 H 177/138 H 183/131 H Pulse Oximetry 100 100 100 Oxygen Delivery Fraction of Inspired Oxygen 06/19/24 17:31 06/19/24 17:46 06/19/24 18:01 Temperature Pulse Rate 140 H 140 H 140 H Respiratory Rate 25 H 25 H 27 H Blood Pressure 171/134 H 163/129 H 172/134 H Pulse Oximetry 100 100 99 Oxygen Delivery Fraction of Inspired Oxygen 06/19/24 18:16 06/19/24 18:40 06/19/24 18:45 Temperature Pulse Rate 139 H 139 H 137 H Respiratory Rate 27 H 20 Blood Pressure 157/135 H 156/126 H Pulse Oximetry 99 99 Oxygen Delivery Fraction of Inspired Oxygen 06/19/24 18:46 06/19/24 19:29 06/19/24 20:04 Temperature Pulse Rate 135 H 115 H Respiratory Rate 31 H Blood Pressure 156/126 H Pulse Oximetry 98 99 Oxygen Delivery BiPAP Fraction of Inspired Oxygen 50 06/19/24 20:04 06/19/24 20:31 06/19/24 21:07 Temperature Pulse Rate 115 H 118 H 125 H Respiratory Rate 24 H 26 H 21 H Blood Pressure 123/106 H 130/98 H Pulse Oximetry 100 98 100 Oxygen Delivery BiPAP Fraction of Inspired Oxygen 06/19/24 22:16 06/19/24 22:31 06/19/24 23:46 Temperature Pulse Rate 132 H 130 H 125 H Respiratory Rate 23 H 6 L 27 H Blood Pressure 140/109 H 164/113 H Pulse Oximetry 98 100 100 Oxygen Delivery BiPAP Fraction of Inspired Oxygen 06/20/24 00:08 06/20/24 00:12 06/20/24 01:01 Temperature Pulse Rate 115 H 112 H 114 H Respiratory Rate 26 H 24 H 36 H Blood Pressure 112/76 120/94 H Pulse Oximetry 93 92 100 Oxygen Delivery BiPAP Fraction of Inspired Oxygen 06/20/24 01:18 06/20/24 04:00 06/20/24 04:00 Temperature Pulse Rate 124 H 125 H 125 H Respiratory Rate 24 H 24 H Blood Pressure 121/81 Pulse Oximetry 100 100 Oxygen Delivery BiPAP Fraction of Inspired Oxygen 50 06/20/24 04:00 06/20/24 04:57 06/20/24 07:59 Temperature 36.3 C L Pulse Rate 127 H 105 H 85 Respiratory Rate 24 H 22 H Blood Pressure 123/90 Pulse Oximetry 98 100 100 Oxygen Delivery BiPAP Mechanical Ventilation Fraction of Inspired Oxygen 100 06/20/24 08:13 06/20/24 08:22 06/20/24 08:23 Temperature Pulse Rate 71 76 Respiratory Rate 26 H 26 H Blood Pressure Pulse Oximetry Oxygen Delivery Mechanical Ventilation Fraction of Inspired Oxygen 50 06/20/24 08:24 06/20/24 08:30 06/20/24 08:31 Temperature Pulse Rate 76 91 91 Respiratory Rate 26 H 26 H Blood Pressure 76/67 L Pulse Oximetry Oxygen Delivery Fraction of Inspired Oxygen Exam 2 Const: Other: Well-developed well-nourished white male somewhat disheveled appearing his stated age no distress HENMT: Mouth: Yes moist mucous membranes Eyes: Sclera: sclerae normal Neck: Neck: supple and no JVD Resp: Other: Breath sounds are relatively clear bilaterally anterior auscultation Cardio: Other: PMI is laterally displaced and enlarged S1-S2 are diminished in intensity but normal,. No cardiac murmur is audible GI: GI Palp: Yes Soft to palpation Auscultation: normal bowel sounds Urinary Catheter: Urinary Catheter: patent and draining Skin: General skin exam: normal color Neuro: Other: Unresponsive. Pupils are fixed Extrem: Other: Mild chronic appearing lower extremity edema extremities are cool Results Labs and Meds 06/20/24 08:00 06/20/24 08:00 Lab results: Cardiac Enzymes 06/19/24 06/20/24 Range/Units 16:08 08:00 AST 33 75 H (17-59) U/L Troponin I < 0.012 (0.000-0.034) ng/mL Coagulation 06/19/24 06/20/24 Range/Units 16:08 08:00 PT 15.5 H 19.5 H D (11.1-14.7) Seconds APTT 39.2 H 44.3 H (22.3-36.8) Seconds CBC 06/19/24 06/20/24 Range/Units 16:08 08:00 WBC 8.3 11.4 H (4.5-10.0) K/mm3 RBC 4.50 L 4.46 L (4.6-6.20) M/mm3 Hgb 14.0 13.7 L (14.0-18.0) g/dL Hct 43.7 44.2 (42.0-52.0) % Plt Count 190 214 (150-375) k/mm3 Lymph # (Auto) 1.25 1.62 (0.9-3.2) K/mm3 Morrill # (Auto) 0.7 H 0.8 H (0.1-0.6) K/mm3 Eos # (Auto) 0.2 0.1 (0-0.3) K/mm3 Baso # (Auto) 0.1 0.1 (0.0-0.1) K/mm3 Comprehensive Metabolic Panel 06/19/24 06/20/24 06/20/24 Range/Units 16:08 05:06 08:00 Sodium 139 140 140 (137-145) mmol/L Potassium 4.2 5.1 H 5.0 (3.4-5.0) mmol/L Chloride 105 104 107 (98-107) mmol/L Carbon Dioxide 20 L 19 L 12 L (22-30) mmol/L BUN 18 D 20 20 (9-20) mg/dL Creatinine 1.44 H 2.07 H 2.27 H (0.7-1.3) mg/dL Glucose 195 H 103 77 (65-110) mg/dL Calcium 9.5 9.3 8.9 (8.4-10.2) mg/dL AST 33 75 H (17-59) U/L ALT 45 65 H (6-50) U/L Alkaline Phosphatase 129 H 110 (38-126) U/L Total Protein 8.0 8.0 (6.3-8.2) g/dL Albumin 4.3 3.9 (3.5-5.1) g/dL Intake and Output 06/19/24 06/20/24 06/20/24 23:59 07:59 15:59 Intake Total 480 0.4 Output Total 950 200 Balance -950 280 0.4 Intake: IV 0.4 Fentanyl 2,500Mcg/[id number](*Crx 0.3 2,500 mcg In 250 ml @ 25 MCG/HR 2.5 mls/hr IV CONT .Q72H LEROY Rx#:[id number] Midazolam 100Mg/Ns 100Ml(*Crx) 0.1 100 mg In 100 ml @ 1 MG/HR 1 mls/hr IV CONT .Q72H LEROY Rx#: [id number] Oral 480 Output: Urine 950 200 Patient Weight 06/20/24 23:59 Weight 93.1 kg
[2024-06-20] MEDS: HEPARIN SOD/D5W 100 UNITS/ML 25,000 UNITS/250 ML BAG 9 UNITS IV CONT (09:45)
[2024-06-20] MEDS: VASOPRESSIN INJ 100 UNITS in DEXTROSE 5% 95 ML IV CONT (09:52)
[2024-06-20 09:55] LABS: Influenza A QL RT-PCR Negative (Negative); Influenza B QL RT-PCR Negative (Negative); SARS-CoV-2 RNA PCR Negative (Negative)
--- NOTE | 2024-06-20 10:15 | PC.NURSE ---
RN called Dr. Egan regarding hypothermic protocol that was order by hospitalist. New order to attempt hypothermic protocol, maintaining core temp 36 degrees x 24 hours; if pt's condition worsens while on hypothermic protocol, then d/c it. New order for 5% albumin 500ml x 1.
[2024-06-20 10:33] LABS: MRSA (PCR) NOT DETECTED (NOT DETECTE)
[2024-06-20 10:53] LABS: Hematocrit 48.1 % (42.0-52.0); Hemoglobin 15.3 g/dL (14.0-18.0); Mean Corpuscular HGB Conc 31.8 g/dl (32-36); Mean Corpuscular Hemoglobin 31.5 pg (26-34); Mean Platelet Volume 10.2 fl (7.4-10.4); Platelet Count Result 210 k/mm3 (150-375); Red Blood Count 4.86 M/mm3 (4.6-6.20); Red Cell Distribution Width 15.8 % (11.5-14.5); White Blood Count 12.9 K/mm3 (4.5-10.0)
[2024-06-20] MEDS: CEFEPIME 2 GM/NS 50 ML 2 GM/50 ML BAG IVPB (11:00)
[2024-06-20] MEDS: ALBUMIN HUMAN 5% 25 GM/500 ML BTL IV CONT (11:00)
[2024-06-20] MEDS: CALCIUM GLUC 2,000 MG/NS 100ML 2,000 MG/100 ML BAG 100 MG IVPB (11:04)
[2024-06-20 11:06] LABS: Reflex Lactic Acid Yes or No Add Lactic
[2024-06-20] MEDS: EPINEPHrine INJ 1 MG in DEXTROSE 5% IN WATER 250 ML 15.06 MG IV CONT (11:08)
[2024-06-20 11:11] LABS: INR 1.5; Prothrombin Time 18.7 Seconds (11.1-14.7)
[2024-06-20 11:12] LABS: Partial Thromboplastin Time 57.8 Seconds (22.3-36.8)
[2024-06-20] MEDS: VANCOMYCIN 1,250 MG/NS 250 ML 1,250 MG/250 ML BAG 166.67 MG IVPB (11:19)
[2024-06-20] MEDS: VANCOMYCIN 1,000 MG/NS 250 ML 1,000 MG/250 ML BAG 250 MG IVPB (11:20)
[2024-06-20 11:27] LABS: Glucose Point of Care < 20 mg/dl (65-105)
[2024-06-20] MEDS: DEXTROSE 50% 25 GM/50 ML SYRINGE IV PUSH ×4 (11:27→17:09)
[2024-06-20 11:28] LABS: Alanine Aminotransferase 63 U/L (6-50); Albumin Level 4.2 g/dL (3.5-5.1); Alkaline Phosphatase 123 U/L (38-126); Anion Gap 19 mmol/L (4-12); Aspartate Amino Transferase 89 U/L (17-59); Bilirubin,Total 4.2 mg/dL (0.2-1.3); Blood Urea Nitrogen 22 mg/dL (9-20); Calcium 8.8 mg/dL (8.4-10.2); Carbon Dioxide 15 mmol/L (22-30); Chloride 105 mmol/L (98-107); Creatine Kinase 91 U/L (55-170); Estimated CRCL calculation 34 ml/min; Estimated Glomerular Filt Rate 27; Glucose 45 mg/dL (65-110); Magnesium 2.1 mg/dL (1.6-2.3); Potassium 7.4 mmol/L (3.4-5.0); Sodium 139 mmol/L (137-145); Troponin I 0.049 ng/mL (0.000-0.034)
[2024-06-20 11:29] LABS: Lactic Acid Reflex 7.4 mmol/L (0.7-2.0)
[2024-06-20] MEDS: PANTOPRAZOLE SODIUM IV 40 MG VIAL IV PUSH (11:34)
[2024-06-20] MEDS: DEXTROSE 5% 1,000 ML 1,000 ML 100 ML IVPB (11:43)
[2024-06-20 11:44] LABS: Glucose Point of Care 25 mg/dl (65-105)
--- NOTE | 2024-06-20 12:00 | PC.NURSE ---
Pt condition continues to worsen. Hypothermia stopped per MD order
[2024-06-20 12:05] LABS: Alveolar/Arterial O2 Gradient 209.1 mmHg; Base Excess ABG -16.5 mEq/l (+/-2.0); Fractional Inspired Oxygen 100 %; HCO3 ABG 8.6 mEq/l (22.0-26.0); Oxygen Content ABG 21.9 %vol (16.0-22.0); Oxygen Saturation ABG 99.8 % (95.0-100.0); Oxyhemoglobin 99.1 % THb (90.0-100.0); PO2 ABG 483.4 mmHg (80.0-100.0); PO2 FiO2 Ratio Arterial Blood 4.83 %; Total Hemoglobin 14.8 g/dL (12.0-18.0)
[2024-06-20 12:06] LABS: PCO2 ABG 20.5 mmHg (35.0-45.0)
[2024-06-20 12:07] LABS: Device AMBU BAG; Site Drawn LEFT FEMORAL
[2024-06-20 12:25] LABS: Glucose Point of Care 40 mg/dl (65-105)
[2024-06-20 12:25] LABS: Glucose Point of Care 171 mg/dl (65-105)
--- NOTE | 2024-06-20 13:00 | PC.NURSE ---
Dr. Dunlap notified of pt's temperature not rebounding after stopping hypothermic protocol. No new orders at this time.
[2024-06-20] MEDS: SODIUM BICARBONATE 8.4% 50 MEQ/50 ML SYRINGE 150 MEQ IV PUSH (13:24)
[2024-06-20 13:25] LABS: Glucose Point of Care 139 mg/dl (65-105)
[2024-06-20] MEDS: CENTRAL LINE FLUSH 10 ML IV PUSH (13:25)
[2024-06-20] MEDS: HYDROCORTISONE SODIUM SUCCINATE 100 MG/2 ML VIAL IV PUSH (13:34)
[2024-06-20] MEDS: ALBUTEROL SULFATE NEB 2.5 MG/3 ML INH 10 MG INHALATION (13:39)
[2024-06-20] MEDS: SODIUM ZIRCONIUM CYCLOSILICATE 10 GM POWD.PACK PO (13:41)
[2024-06-20] MEDS: SODIUM BICARBONATE 8.4% 150 MEQ in DEXTROSE 5% 1,000 ML 950 ML 100 MEQ IV CONT (13:47)
[2024-06-20] MEDS: DOBUTamine 250 MG/D5W 250 ML 250 MG/250 ML BAG 13.97 MG IV CONT (13:48)
[2024-06-20] MEDS: metroNIDAZOLE 500 MG/ISO 100ML 500 MG/100 ML BAG 100 MG IVPB (13:54)
[2024-06-20] MEDS: NOREPINEPHRINE 8 MG/D5W 250 ML 8 MG/250 ML BAG 18.75 MG IV CONT (14:00)
[2024-06-20 14:19] LABS: Glucose Point of Care 166 mg/dl (65-105)
--- NOTE | 2024-06-20 14:42 | WPDCNINT ---
Assessment and Plan Assessment and plan (1) Acute respiratory failure with hypoxia: Code(s): J96.01 - Acute respiratory failure with hypoxia Status: Acute Assessment and Plan: 06/19: Patient presented with worsening shortness of breath, along with worsening lower extremity edema. -06/20: Intubated in the ICU post cardiac arrest -currently on CMV mode of ventilation, peep of 5, 50% FiO2, -chest x-ray and ABGs reviewed, ventilator adjusted -will start DuoNeb -sedated with fentanyl and Versed infusion, maintain RASS of 0--2 (2) Cardiac arrest: Code(s): I46.9 - Cardiac arrest, cause unspecified Status: Acute Assessment and Plan: 06/20: Cardiac arrest could be related to cardiomyopathy, hyperkalemia, hypoxia, acidosis -asystole, status post 18 minutes of ACLS protocol with ROSC, post code rhythm was AFib RVR, currently in sinus rhythm, rate controlled -patient was started on target temperature management which was held due to refractory shock -will maintain body temperatures of 36? C, if possible -cardiology following the patient, no intervention at this time -neurologic status will guide further therapy from cardiac standpoint (3) Shock: Code(s): R57.9 - Shock, unspecified Status: Acute Assessment and Plan: Patient in shock, likely cardiogenic versus septic -elevated lactic acidosis -received IV fluids -continue sodium bicarb infusion -patient also received sodium bicarb IV pushes -started on stress dose steroids for shock and pneumonia -currently on Levophed and vasopressin, maintain mean arterial pressures > 65 mmHg or SBP > 90 mmHg given severe cardiomyopathy -continue vancomycin cefepime and doxycycline for pneumonia -decreased urine output, elevated lactic acid, will start low-dose dobutamine, discussed with Cardiology and they are agreeable (4) Cardiomyopathy: Code(s): I42.9 - Cardiomyopathy, unspecified Status: Acute Assessment and Plan: Patient has known cardiomyopathy with EF of 10-15% as documented on echocardiogram is under -cardiology is following, -patient was supposed to be on life which to which he was noncompliant and did not wear -he was also supposed to be on GDMT for cardiomyopathy/congestive heart failure which she has been noncompliant 06/04/2024: Echocardiogram Summary 1. The left ventricle is normal in size with severely reduced systolic function. There is left ventricular concentric remodeling. The left ventricular ejection fraction is visually estimated to be 10-15%. 2. The right ventricle is normal in size with mildly reduced systolic function. 3. There is mild pulmonary hypertension with a PASP estimated to be 49 mm Hg. 4. Dilated inferior vena cava with <50% collapse upon inspiration consistent with significantly elevated right atrial pressure, 15 mmHg (5) KELSEA (acute kidney injury): Code(s): N17.9 - Acute kidney failure, unspecified Status: Acute Assessment and Plan: Acute kidney injury likely related to cardiac arrest, cardiomyopathy, hypoxia. Home meds consist off furosemide, losartan, metoprolol, spironolactone, and rivaroxaban unknown if he was taking all this -has received cautious IV fluids due to his severe cardiomyopathy - start albumin 25%, 100 mL x4 doses -monitor urine output, renal function and electrolyte -severe hyperkalemia, being treated aggressively -nephrology has been consulted (6) CHF exacerbation: Code(s): I50.9 - Heart failure, unspecified Status: Acute Assessment and Plan: CHF exacerbation likely due to severe cardiomyopathy with the EF of 10-15% -noncompliant with his GDMT -cardiology following, -hold GDM T for now given patient and shock (7) Cirrhosis of liver: Code(s): K74.60 - Unspecified cirrhosis of liver Status: Acute Assessment and Plan: History of cirrhosis of liver likely related to alcoholism (8) Alcohol abuse: Code(s): F10.10 - Alcohol abuse, uncomplicated Status: Acute Assessment and Plan: Patient drinks 1/5 of whiskey every 2 days -high will add thiamine and folic acid IV (9) Elevated LFTs: Code(s): R79.89 - Other specified abnormal findings of blood chemistry Status: Acute Assessment and Plan: Elevated LFTs could be related to alcohol abuse, cardiac arrest, cardiomyopathy, heart failure -will continue to monitor (10) Pneumonia: Code(s): J18.9 - Pneumonia, unspecified organism Status: Acute Assessment and Plan: Chest x-ray shows right-sided pneumonia -continue antibiotics as above (11) Electrolyte imbalance: Code(s): E87.8 - Other disorders of electrolyte and fluid balance, not elsewhere classified Status: Acute Assessment and Plan: Severe hyperkalemia, being treated aggressively -will repeat potassium levels (12) Amphetamine abuse: Code(s): F15.10 - Other stimulant abuse, uncomplicated Status: Acute Assessment and Plan: Currently intubated, sedated Plan DVT prophylaxis: Heparin infusion Stress ulcer prophylaxis: Protonix Nutrition: NPO for now Code Status: DNR, discussed with brother who stated that the patient did not want CPR, and patient was made DNR Critical Care Time Spent: 77 minutes Discussed with patient's brother, Bong who is the POA along with his sister Mavis. Updated them with patient's condition and plan of care. He does understand that patient is severely ill, condition is guarded and that he has severe underlying medical problems. I discussed with the POA code status from here onwards and if the patient's heart stops what will be the patient's wishes. He stated that the patient would not want any more CPR. Bedside RN was in the room. DNR orders have been placed in the chart Due to a high probability of clinically significant, life threatening deterioration, the patient required my highest level of preparedness to intervene emergently and I personally spent this critical care time directly and personally managing the patient. This critical care time included obtaining a history; examining the patient; pulse oximetry; ordering and review of studies; arranging urgent treatment with development of a management plan; evaluation of patient's response to treatment; frequent reassessment; and discussions with other providers. It was exclusive of separately billable procedures and treating other patients and teaching time. Please see Assessment and Plan section and the rest of the note for further information on patient assessment and treatment This dictation may have been done utilizing a voice recognition system. Attempts have been made to correct errors. However, there may be uncorrected grammatical, spelling, and recognitions errors present. Membership Manager Consult Note Consult date: 06/20/24 Reason for consult: Cardiac arrest, cardiomyopathy, acute respiratory failure, acute kidney injury, acidosis, pneumonia, illicit drug abuse HPI: Norberto De Jesus is a 54 year old male with past medical history of atrial flutter, cardiomyopathy with EF of 10-15% in May 2024, history of DVT, hepatitis-C, cirrhosis of liver status post interferon, history of left kidney cancer, myocardial infarction 1996, amphetamine abuse, alcohol abuse (1/5 bottle of whiskey every 2 days) presented the ED on 06/19/2024 with complains of shortness of breath. Patient lives in his truck with his girlfriend. Was recently admitted to the hospital from 06/09/2024 to 06/12/2024 we was admitted for congestive heart failure, cardiomyopathy, atrial flutter, illicit drug use, alcohol abuse and shortness of breath. Patient did not wear his Life vest and is unknown if he was compliant with guideline directed medical 3 for his heart failure and cardiomyopathy. Patient has been complaining of shortness of breath for the last couple of days, reports worsening of shortness of breath on the day of admission with worsening edema. On 06/20/2024 patient had a cardiac arrest, asystole, ACLS protocol was instituted, ROSC was obtained approximately 18 minutes. Post code cardiac rhythm was rapid atrial fibrillation. Patient was hypotensive, started on Levophed and vasopressin. Central line was placed in the right femoral and patient was also intubated and placed on mechanical ventilator Patient seen and examined the ICU, remains intubated, on CMV mode of ventilation, peep of 5, 50% FiO2. Sedated with fentanyl and Versed infusion. Patient was on hypothermia protocol but was in refractory shock so hypothermia protocol was held. Potassium is 7.4, lactic acid of 7.4. CO2 of 15. Emergently him were ordered treatment for his potassium, and his acidosis. Review of Systems Review of Systems: ROS unobtainable: Yes unobtainable due to endotracheal tube, unobtainable due to medical condition and unobtainable due to mental status PMFSH Past Medical History Medical History Atrial flutter Heart failure with reduced ejection fraction Echocardiogram in 05/2024 showed severely reduced LV systolic function with an EF estimated 10 to 15% and mildly reduced right ventricular systolic function Deep venous thrombosis Following tibial plateau fracture Hepatitis C Cirrhosis of liver Status post interferon Cancer of left kidney Myocardial infarction Amphetamine abuse Alcohol abuse Surgical History Surgical History History of hernia repair History of left nephrectomy History of open reduction and internal fixation (ORIF) procedure Repair right tibial plateau fracture Family History Family History Mother Heart disease Social History Social History Social History: Surrogate medical decision maker: Liane Ouna, significant other. Code status: Full code. Smoking packs per day: 1 Smoking cigarettes per day: 20.0 Years smoked: 40 Smoking pack-years: 40.00 Smoking status: Current every day smoker Alcohol intake: current Alcohol use details: 1/5 of whiskey every 2 days Substance use: current Substance use type: methamphetamine Last use: 06/09/24 Do You Feel Safe in your Home?: Yes Lack of Transportation: YES Lack of Food: Often True Current Housing: I Do Not Have Housing Concerned About Future Housing: YES Difficulty Paying Gas/Electric Bills: YES Difficulty Paying for Meds: YES Currently Unemployed: YES Education: High School Diploma/GED Difficulty w/ Childcare or Family Care: No Spiritual care concerns: No Meds Home Medications and Allergies Home Medications ?Medication ?Instructions ?Recorded ?Confirmed ?Type folic acid 1 mg tablet 1 mg PO DAILY #30 tabs 06/12/24 06/20/24 Rx furosemide 40 mg tablet 40 mg PO BID #60 tabs 06/12/24 06/20/24 Rx losartan 25 mg tablet 25 mg PO DAILY #30 tabs 06/12/24 06/20/24 Rx metoprolol succinate 100 mg 100 mg PO QAM #30 tabs 06/12/24 06/20/24 Rx tablet,extended release 24 hr (Toprol XL) rivaroxaban 20 mg tablet (Xarelto) 20 mg PO DAILY@1700 #30 tabs 06/12/24 06/20/24 Rx spironolactone 25 mg tablet 25 mg PO QAM #30 tabs 06/12/24 06/20/24 Rx thiamine HCl (vitamin B1) 100 mg 100 mg PO QAM #30 tabs 06/12/24 06/20/24 Rx tablet (Vitamin B-1) Allergies Allergy/AdvReac Type Severity Reaction Status Date / Time aspirin Allergy Intermediate Rash Verified 06/03/24 10:48 Vital Signs Vital Signs - 24 hr 06/19/24 15:45 06/19/24 15:59 06/19/24 16:01 Temperature 98 F Pulse Rate 139 H 139 H Respiratory Rate 30 H 31 H Blood Pressure 186/121 H 167/131 H Pulse Oximetry 100 95 Oxygen Delivery CPAP BiPAP Fraction of Inspired Oxygen 50 06/19/24 16:01 06/19/24 16:10 06/19/24 16:20 Temperature Pulse Rate 139 H 139 H 139 H Respiratory Rate 30 H 20 29 H Blood Pressure 169/127 H 166/140 H Pulse Oximetry 100 100 100 Oxygen Delivery BiPAP Fraction of Inspired Oxygen 06/19/24 16:31 06/19/24 16:46 06/19/24 17:16 Temperature Pulse Rate 139 H 139 H 140 H Respiratory Rate 27 H 25 H 32 H Blood Pressure 169/120 H 177/138 H 183/131 H Pulse Oximetry 100 100 100 Oxygen Delivery Fraction of Inspired Oxygen 06/19/24 17:31 06/19/24 17:46 06/19/24 18:01 Temperature Pulse Rate 140 H 140 H 140 H Respiratory Rate 25 H 25 H 27 H Blood Pressure 171/134 H 163/129 H 172/134 H Pulse Oximetry 100 100 99 Oxygen Delivery Fraction of Inspired Oxygen 06/19/24 18:16 06/19/24 18:40 06/19/24 18:45 Temperature Pulse Rate 139 H 139 H 137 H Respiratory Rate 27 H 20 Blood Pressure 157/135 H 156/126 H Pulse Oximetry 99 99 Oxygen Delivery Fraction of Inspired Oxygen 06/19/24 18:46 06/19/24 19:29 06/19/24 20:04 Temperature Pulse Rate 135 H 115 H Respiratory Rate 31 H Blood Pressure 156/126 H Pulse Oximetry 98 99 Oxygen Delivery BiPAP Fraction of Inspired Oxygen 50 06/19/24 20:04 06/19/24 20:31 06/19/24 21:07 Temperature Pulse Rate 115 H 118 H 125 H Respiratory Rate 24 H 26 H 21 H Blood Pressure 123/106 H 130/98 H Pulse Oximetry 100 98 100 Oxygen Delivery BiPAP Fraction of Inspired Oxygen 06/19/24 22:16 06/19/24 22:31 06/19/24 23:46 Temperature Pulse Rate 132 H 130 H 125 H Respiratory Rate 23 H 6 L 27 H Blood Pressure 140/109 H 164/113 H Pulse Oximetry 98 100 100 Oxygen Delivery BiPAP Fraction of Inspired Oxygen 06/20/24 00:08 06/20/24 00:12 06/20/24 01:01 Temperature Pulse Rate 115 H 112 H 114 H Respiratory Rate 26 H 24 H 36 H Blood Pressure 112/76 120/94 H Pulse Oximetry 93 92 100 Oxygen Delivery BiPAP Fraction of Inspired Oxygen 06/20/24 01:18 06/20/24 04:00 06/20/24 04:00 Temperature Pulse Rate 124 H 125 H 125 H Respiratory Rate 24 H 24 H Blood Pressure 121/81 Pulse Oximetry 100 100 Oxygen Delivery BiPAP Fraction of Inspired Oxygen 50 06/20/24 04:00 06/20/24 04:57 06/20/24 07:59 Temperature 97.3 F L Pulse Rate 127 H 105 H 85 Respiratory Rate 24 H 22 H Blood Pressure 123/90 Pulse Oximetry 98 100 100 Oxygen Delivery BiPAP Mechanical Ventilation Fraction of Inspired Oxygen 100 06/20/24 08:00 06/20/24 08:00 06/20/24 08:00 Temperature 97.8 F Pulse Rate 86 86 Respiratory Rate 26 H 25 H Blood Pressure 90/69 L Pulse Oximetry 100 100 Oxygen Delivery Mechanical Ventilation Fraction of Inspired Oxygen 100 100 06/20/24 08:13 06/20/24 08:13 06/20/24 08:15 Temperature Pulse Rate 82 Respiratory Rate 26 H Blood Pressure Pulse Oximetry 100 Oxygen Delivery Mechanical Ventilation Mechanical Ventilation Fraction of Inspired Oxygen 50 50 50 06/20/24 08:22 06/20/24 08:23 06/20/24 08:24 Temperature Pulse Rate 71 76 76 Respiratory Rate 26 H 26 H Blood Pressure 76/67 L Pulse Oximetry Oxygen Delivery Fraction of Inspired Oxygen 06/20/24 08:30 06/20/24 08:30 06/20/24 08:31 Temperature Pulse Rate 91 91 91 Respiratory Rate 26 H 26 H Blood Pressure 79/56 L Pulse Oximetry Oxygen Delivery Fraction of Inspired Oxygen 06/20/24 08:35 06/20/24 08:40 06/20/24 08:45 Temperature Pulse Rate 82 82 82 Respiratory Rate Blood Pressure 72/45 L 74/64 L 83/66 L Pulse Oximetry Oxygen Delivery Fraction of Inspired Oxygen 06/20/24 09:00 06/20/24 09:15 06/20/24 09:47 Temperature Pulse Rate 81 81 86 Respiratory Rate Blood Pressure 89/73 L 91/73 L 88/75 L Pulse Oximetry Oxygen Delivery Fraction of Inspired Oxygen 06/20/24 09:52 06/20/24 09:55 06/20/24 10:00 Temperature Pulse Rate 86 86 87 Respiratory Rate Blood Pressure 89/72 L 94/68 L 98/80 L Pulse Oximetry Oxygen Delivery Fraction of Inspired Oxygen 06/20/24 10:41 06/20/24 11:08 06/20/24 11:15 Temperature Pulse Rate 88 90 89 Respiratory Rate Blood Pressure 53/36 L 128/97 H Pulse Oximetry 98 Oxygen Delivery Mechanical Ventilation Fraction of Inspired Oxygen 50 06/20/24 11:31 06/20/24 12:00 06/20/24 12:00 Temperature Pulse Rate 87 82 82 Respiratory Rate 27 H Blood Pressure 133/102 H 95/68 L Pulse Oximetry 100 Oxygen Delivery Mechanical Ventilation Fraction of Inspired Oxygen 50 06/20/24 12:00 06/20/24 12:15 06/20/24 12:20 Temperature Pulse Rate 81 82 Respiratory Rate Blood Pressure 133/113 H 141/122 H Pulse Oximetry Oxygen Delivery Fraction of Inspired Oxygen 50 06/20/24 12:25 06/20/24 12:30 06/20/24 12:35 Temperature Pulse Rate 83 83 83 Respiratory Rate Blood Pressure 131/120 H 143/112 H 131/90 Pulse Oximetry Oxygen Delivery Fraction of Inspired Oxygen 06/20/24 12:40 06/20/24 12:45 06/20/24 12:50 Temperature Pulse Rate 84 84 84 Respiratory Rate Blood Pressure 132/109 H 138/108 H 129/107 H Pulse Oximetry Oxygen Delivery Fraction of Inspired Oxygen 06/20/24 12:55 06/20/24 13:00 06/20/24 13:15 Temperature Pulse Rate 84 83 82 Respiratory Rate Blood Pressure 130/109 H 130/109 H 136/109 H Pulse Oximetry Oxygen Delivery Fraction of Inspired Oxygen 06/20/24 13:30 06/20/24 13:39 06/20/24 13:39 Temperature Pulse Rate 78 82 82 Respiratory Rate 23 H Blood Pressure 135/59 L Pulse Oximetry 100 Oxygen Delivery Mechanical Ventilation Fraction of Inspired Oxygen 50 06/20/24 13:45 06/20/24 13:48 06/20/24 13:50 Temperature Pulse Rate 82 82 82 Respiratory Rate Blood Pressure 124/100 H 124/100 H 128/107 H Pulse Oximetry Oxygen Delivery Fraction of Inspired Oxygen 06/20/24 14:00 06/20/24 14:15 06/20/24 14:23 Temperature Pulse Rate 82 81 80 Respiratory Rate 22 H Blood Pressure 106/87 99/70 L Pulse Oximetry Oxygen Delivery Fraction of Inspired Oxygen 06/20/24 14:30 Temperature Pulse Rate 80 Respiratory Rate Blood Pressure 94/79 L Pulse Oximetry Oxygen Delivery Fraction of Inspired Oxygen Exam Narrative: General: Patient intubated and sedated in no acute distress HEENT:? Pupils are fixed, unresponsive but not dilated. Neck:? Supple Respiratory:? Coarse breath sounds bilateral R > L, no wheezing, adequate air entry Cardiac:? S1-S2 normal, regular rate and rhythm Abdomen:? Soft, nontender, nondistended, hypoactive bowel sounds Extremities:? Extremities are cold, dopplerable pedal pulses, 2+ pitting edema, mottling of the lower extremities noted, discoloration of the feet bilateral Neuro:? Patient is sedated, intubated, does not open his eyes or follow simple commands, does not withdraw to pain in any extremities Skin:? For cool to touch, dry skin noted Psych:? Unable to assess Results Labs 06/20/24 10:48 06/20/24 10:48 Labs: Short CBC 06/19/24 06/20/24 06/20/24 Range/Units 16:08 08:00 10:48 WBC 8.3 11.4 H 12.9 H (4.5-10.0) K/mm3 Hgb 14.0 13.7 L 15.3 (14.0-18.0) g/dL Hct 43.7 44.2 48.1 (42.0-52.0) % Plt Count 190 214 210 (150-375) k/mm3 BMP 06/19/24 06/20/24 06/20/24 16:08 05:06 08:00 Sodium 139 140 140 Potassium 4.2 5.1 H 5.0 Chloride 105 104 107 Carbon Dioxide 20 L 19 L 12 L BUN 18 D 20 20 Creatinine 1.44 H 2.07 H 2.27 H Glucose 195 H 103 77 Calcium 9.5 9.3 8.9 06/20/24 10:48 Sodium 139 Potassium 7.4 H* Chloride 105 Carbon Dioxide 15 L BUN 22 H Creatinine 2.48 H Glucose 45 L* Calcium 8.8 Cardiac Enzymes 06/19/24 06/20/24 Range/Units 16:08 10:48 Total Creatine Kinase 91 (55-170) U/L Troponin I < 0.012 0.049 H* (0.000-0.034) ng/mL Liver Function 06/19/24 06/20/24 06/20/24 Range/Units 16:08 08:00 10:48 Total Bilirubin 2.1 H 3.3 H 4.2 H (0.2-1.3) mg/dL AST 33 75 H 89 H (17-59) U/L ALT 45 65 H 63 H (6-50) U/L Alkaline Phosphatase 129 H 110 123 (38-126) U/L Albumin 4.3 3.9 4.2 (3.5-5.1) g/dL Quality VTE Prophylaxis VTE prophylaxis: pharmacologic ordered Hospitalist MIPS Advance Care Plan I have confirmed that the patient's Advanced Care Plan is present, code status is documented, or surrogate decision maker is listed in patient medical record.: Yes Medication Reconciliation I have utilized all available resources to obtain, update and review the patients current medications (includes all prescriptions, OTC, herbals, cannabis, and nutritional supplements).: Yes
[2024-06-20] MEDS: ALBUMIN HUMAN 25% 25 GM/100 ML 100 ML IVPB (15:31)
[2024-06-20] MEDS: THIAMINE HCL 200 MG/2 ML VIAL IV PUSH (15:31)
[2024-06-20] MEDS: FOLIC ACID 1 MG/0.2 ML INJ IV PUSH (15:31)
--- NOTE | 2024-06-20 15:45 | PM.CNNEP ---
History of Present Illness Reason for Consult Consult date: 06/20/24 Reason for consult: acute renal failure (on chronic kidney disease) Chief Complaint Chief complaint: aflutter rvr, chf exacerbation Review of Systems Review of Systems: As per HPI. [facility] Past Medical History Medical History Heart failure with reduced ejection fraction Echocardiogram in 05/2024 showed severely reduced LV systolic function with an EF estimated 10 to 15% and mildly reduced right ventricular systolic function Atrial flutter Deep venous thrombosis Following tibial plateau fracture Hepatitis C Cirrhosis of liver Status post interferon Cancer of left kidney Myocardial infarction Amphetamine abuse Alcohol abuse Surgical History Surgical History History of hernia repair History of left nephrectomy History of open reduction and internal fixation (ORIF) procedure Repair right tibial plateau fracture Family History Family History Mother Heart disease Social History Social History Social History: Surrogate medical decision maker: Frannie Mckinley, significant other. Code status: Full code. Smoking packs per day: 1 Smoking cigarettes per day: 20.0 Years smoked: 40 Smoking pack-years: 40.00 Smoking status: Current every day smoker Alcohol intake: current Alcohol use details: 1/5 of whiskey every 2 days Substance use: current Substance use type: methamphetamine Last use: 06/09/24 Do You Feel Safe in your Home?: Yes Lack of Transportation: YES Lack of Food: Often True Current Housing: I Do Not Have Housing Concerned About Future Housing: YES Difficulty Paying Gas/Electric Bills: YES Difficulty Paying for Meds: YES Currently Unemployed: YES Education: High School Diploma/GED Difficulty w/ Childcare or Family Care: No Spiritual care concerns: No Meds Home Medications and Allergies Home Medications ?Medication ?Instructions ?Recorded ?Confirmed ?Type folic acid 1 mg tablet 1 mg PO DAILY #30 tabs 06/12/24 06/20/24 Rx furosemide 40 mg tablet 40 mg PO BID #60 tabs 06/12/24 06/20/24 Rx losartan 25 mg tablet 25 mg PO DAILY #30 tabs 06/12/24 06/20/24 Rx metoprolol succinate 100 mg 100 mg PO QAM #30 tabs 06/12/24 06/20/24 Rx tablet,extended release 24 hr (Toprol XL) rivaroxaban 20 mg tablet (Xarelto) 20 mg PO DAILY@1700 #30 tabs 06/12/24 06/20/24 Rx spironolactone 25 mg tablet 25 mg PO QAM #30 tabs 06/12/24 06/20/24 Rx thiamine HCl (vitamin B1) 100 mg 100 mg PO QAM #30 tabs 06/12/24 06/20/24 Rx tablet (Vitamin B-1) Allergies Allergy/AdvReac Type Severity Reaction Status Date / Time aspirin Allergy Intermediate Rash Verified 06/03/24 10:48 Vital Signs Vital Signs Temp Pulse Resp BP Pulse Ox O2 Del Method FiO2 06/20/24 15:36 82 24 H 97 Mechanical Ventilation 50 06/20/24 15:30 82 94/78 L 06/20/24 15:00 95.3 F L 80 24 H 91/76 L 99 06/20/24 14:45 95.3 F L 80 24 H 91/76 L 99 06/20/24 14:45 80 91/46 L 06/20/24 14:30 95.3 F L 80 24 H 94/79 L 99 06/20/24 14:30 80 94/79 L 06/20/24 14:23 80 22 H 06/20/24 14:16 95.3 F L 81 24 H 99/70 L 100 06/20/24 14:15 81 99/70 L 06/20/24 14:00 95.3 F L 83 19 106/87 100 06/20/24 14:00 83 06/20/24 14:00 83 24 H 06/20/24 14:00 83 24 H 06/20/24 14:00 108 H 97/58 L 06/20/24 14:00 82 106/87 06/20/24 13:50 82 128/107 H 06/20/24 13:48 82 124/100 H 06/20/24 13:46 95.2 F L 82 24 H 124/100 H 100 06/20/24 13:45 82 124/100 H 06/20/24 13:39 82 23 H 06/20/24 13:39 82 100 Mechanical Ventilation 50 06/20/24 13:32 95.4 F L 78 20 135/59 L 100 06/20/24 13:30 78 24 H 06/20/24 13:30 78 24 H 06/20/24 13:30 78 135/59 L 06/20/24 13:15 95.5 F L 83 23 H 136/109 H 100 06/20/24 13:15 82 136/109 H 06/20/24 13:00 95.7 F L 83 28 H 130/109 H 100 06/20/24 13:00 83 130/109 H 06/20/24 12:55 84 130/109 H 06/20/24 12:50 84 129/107 H 06/20/24 12:45 95.9 F L 84 27 H 138/108 H 100 06/20/24 12:45 84 138/108 H 06/20/24 12:40 84 132/109 H 06/20/24 12:35 83 131/90 06/20/24 12:30 96.3 F L 83 26 H 143/112 H 100 06/20/24 12:30 83 143/112 H 06/20/24 12:25 83 131/120 H 06/20/24 12:20 82 141/122 H 06/20/24 12:17 96.4 F L 80 26 H 133/113 H 95 06/20/24 12:15 81 133/113 H 06/20/24 12:01 96.6 F L 80 34 H 95/68 L 95 06/20/24 12:00 50 06/20/24 12:00 74 06/20/24 12:00 82 33 H 06/20/24 12:00 82 33 H 06/20/24 12:00 82 95/68 L 06/20/24 12:00 82 95/68 L 06/20/24 12:00 82 27 H 100 Mechanical Ventilation 50 06/20/24 11:46 96.8 F L 84 27 H 109/92 H 06/20/24 11:31 87 133/102 H 06/20/24 11:30 96.9 F L 85 21 H 133/102 H 06/20/24 11:15 97.2 F L 88 21 H 128/97 H 06/20/24 11:15 89 128/97 H 06/20/24 11:08 90 53/36 L 06/20/24 11:01 97.2 F L 91 22 H 101/59 L 98 06/20/24 10:45 97.2 F L 89 20 53/36 L 98 06/20/24 10:41 88 98 Mechanical Ventilation 50 06/20/24 10:30 97.2 F L 88 20 107/89 97 06/20/24 10:15 97.2 F L 88 21 H 100/80 97 06/20/24 10:00 97.1 F L 87 20 98/80 L 97 06/20/24 10:00 87 06/20/24 10:00 87 20 06/20/24 10:00 87 26 H 06/20/24 10:00 87 98/80 L 06/20/24 10:00 87 98/80 L 06/20/24 09:55 86 94/68 L 06/20/24 09:52 86 89/72 L 06/20/24 09:47 86 88/75 L 06/20/24 09:45 96.8 F L 86 18 88/75 L 97 06/20/24 09:30 95.8 F L 85 18 84/74 L 95 06/20/24 09:15 97.5 F L 91 18 97/73 L 96 06/20/24 09:15 81 91/73 L 06/20/24 09:00 97.6 F 80 18 89/73 L 98 06/20/24 09:00 81 89/73 L 06/20/24 08:45 97.7 F 81 18 83/66 L 98 06/20/24 08:45 82 83/66 L 06/20/24 08:40 82 74/64 L 06/20/24 08:35 82 72/45 L 06/20/24 08:31 91 26 H 06/20/24 08:30 97.9 F 90 23 H 79/56 L 100 06/20/24 08:30 91 79/56 L 06/20/24 08:30 91 26 H 06/20/24 08:24 76 76/67 L 06/20/24 08:23 76 26 H 06/20/24 08:22 71 26 H 06/20/24 08:15 97.9 F 81 29 H 83/65 L 100 06/20/24 08:15 82 26 H 100 Mechanical Ventilation 50 06/20/24 08:13 50 06/20/24 08:13 Mechanical Ventilation 50 06/20/24 08:00 97.8 F 86 26 H 90/69 L 100 06/20/24 08:00 85 06/20/24 08:00 100 06/20/24 08:00 86 25 H 100 Mechanical Ventilation 100 06/20/24 08:00 97.8 F 86 26 H 90/69 L 100 06/20/24 07:59 85 100 Mechanical Ventilation 100 06/20/24 07:45 97.3 F L 136 H 26 H 107/90 100 06/20/24 07:30 146 H 23 H 124/111 H 100 06/20/24 04:57 105 H 22 H 100 BiPAP 06/20/24 04:00 97.3 F L 127 H 24 H 123/90 98 06/20/24 04:00 125 H 24 H 100 BiPAP 50 06/20/24 04:00 125 H 06/20/24 01:18 124 H 24 H 121/81 100 06/20/24 01:01 114 H 36 H 100 BiPAP 06/20/24 00:12 112 H 24 H 120/94 H 92 06/20/24 00:08 115 H 26 H 112/76 93 06/19/24 23:46 125 H 27 H 100 BiPAP 06/19/24 22:31 130 H 6 L 164/113 H 100 06/19/24 22:16 132 H 23 H 140/109 H 98 06/19/24 21:07 125 H 21 H 100 BiPAP 06/19/24 20:31 118 H 26 H 130/98 H 98 06/19/24 20:04 115 H 24 H 123/106 H 100 06/19/24 20:04 115 H 06/19/24 19:29 99 BiPAP 50 06/19/24 18:46 135 H 31 H 156/126 H 98 06/19/24 18:45 137 H 20 156/126 H 99 06/19/24 18:40 139 H 06/19/24 18:16 139 H 27 H 157/135 H 99 06/19/24 18:01 140 H 27 H 172/134 H 99 06/19/24 17:46 140 H 25 H 163/129 H 100 06/19/24 17:31 140 H 25 H 171/134 H 100 Exam Narrative: GENERAL APPEARANCE: chronically ill appearing male intubated/sedated and on mechanical ventilation HEENT: normocephalic, atraumatic, normal conjunctiva and sclera, nares patient NECK: no lymphadenopathy, thyromegaly, or JVD MOUTH: normal lips, teeth, and gums CARDIOVASCULAR: RRR, normal S1 and S2, no rub detected RESPIRATORY: coarse breath sounds bilaterally ABDOMEN: soft, nontender, nondistended, hypoactive bowel sounds present EXTREMITIES: no evidence of cyanosis, clubbing; 2+ edema with mottling noted NEUROLOGICAL: unable to assess Results Lab Results 06/20/24 10:48 06/20/24 16:29 Lab results: Most recent lab results ABG pH 7.240 (7.350-7.450) L* 06/20/24 12:03 ABG pCO2 20.5 mmHg (35.0-45.0) L* 06/20/24 12:03 ABG pO2 483.4 mmHg (80.0-100.0) H 06/20/24 12:03 ABG HCO3 8.6 mEq/l (22.0-26.0) L 06/20/24 12:03 ABG O2 Saturation 99.8 % (95.0-100.0) 06/20/24 12:03 Calcium 8.0 mg/dL (8.4-10.2) L 06/20/24 16:29 Magnesium 2.1 mg/dL (1.6-2.3) 06/20/24 10:48
[2024-06-20] MEDS: INSULIN HUMAN REGULAR (*BKC) 100 UNITS/ML 10 UNITS IV PUSH ×2 (16:12→17:09)
[2024-06-20 16:16] LABS: Glucose Point of Care 162 mg/dl (65-105)
[2024-06-20 16:47] LABS: Partial Thromboplastin Time 137.5 Seconds (22.3-36.8)
[2024-06-20 16:58] LABS: Anion Gap 21 mmol/L (4-12); Blood Urea Nitrogen 24 mg/dL (9-20); Carbon Dioxide 16 mmol/L (22-30); Chloride 101 mmol/L (98-107); Creatine Kinase 151 U/L (55-170); Estimated CRCL calculation 32 ml/min; Estimated Glomerular Filt Rate 26; Glucose 293 mg/dL (65-110); Potassium 6.1 mmol/L (3.4-5.0); Sodium 138 mmol/L (137-145)
[2024-06-20 16:59] LABS: Lactic Acid Reflex 10.3 mmol/L (0.7-2.0)
[2024-06-20] MEDS: LACTATED RINGERS 1,000 ML 999 ML IV CONT (17:09)
[2024-06-20] MEDS: ALBUTEROL SULFATE NEB 2.5 MG/3 ML INH 15 MG INHALATION (17:15)
[2024-06-20 17:46] LABS: Amphetamine Screen Urine Positive (Negative); Barbiturate Screen Urine Negative (Negative); Benzodiazepines Screen Urine Positive (Negative); Cannabinoid Screen Urine Negative (Negative); Cocaine Screen Urine Negative (Negative); Methadone Screen Urine Negative (Negative); Opiate Screen Urine Negative (Negative); Phencyclidine Screen Urine Negative (Negative)
[2024-06-20 18:20] LABS: Glucose Point of Care 210 mg/dl (65-105)
[2024-06-20 19:22] LABS: Anion Gap 19 mmol/L (4-12); Blood Urea Nitrogen 27 mg/dL (9-20); Calcium 8.2 mg/dL (8.4-10.2); Carbon Dioxide 21 mmol/L (22-30); Chloride 101 mmol/L (98-107); Estimated CRCL calculation 32 ml/min; Estimated Glomerular Filt Rate 26; Glucose 246 mg/dL (65-110); Potassium 4.2 mmol/L (3.4-5.0); Sodium 141 mmol/L (137-145)
--- NOTE | 2024-06-20 19:41 | PC.NURSE ---
Meeting at bedside with Dr. Dunlap and patient's POA, Mavis Sanchez. Patient POA requesting comfort measures. Provider educated POA and answered all questions.
[2024-06-20] MEDS: IPRATROPIUM 0.5 MG/ALBUTEROL SULFATE 2.5 MG AMPUL.NEB 3 ML INHALATION (20:02)
--- NOTE | 2024-06-20 20:03 | PCRCNOTE ---
Patient family declined treatement as patient will be a terminal wean
[2024-06-20] MEDS: MORPHINE SULFATE INJ (*CRX) 10 MG/ML AMP 5 MG IV PUSH (20:22)
[2024-06-20] MEDS: LORazepam INJ (*CRX) 2 MG/ML VIAL IV PUSH ×2 (20:22→22:33)
--- NOTE | 2024-06-20 20:35 | PC.NURSE ---
Patient extubated at 2030
[2024-06-20] MEDS: MORPHINE SULFATE (*CRX) 2 MG/ML INJ IV PUSH (22:32)
[2024-06-21] VITALS: BP 101/69; PULSE 95; RESP 16; TEMP 37; O2SAT 82
[2024-06-21] MEDS: LORazepam INJ (*CRX) 2 MG/ML VIAL IV PUSH ×5 (00:52→10:44)
[2024-06-21] MEDS: MORPHINE SULFATE (*CRX) 2 MG/ML INJ IV PUSH ×7 (00:53→23:23)
--- NOTE | 2024-06-21 01:58 | PC.NURSE ---
Daylight Savings Time For Daylight Savings Time Ending in the Fall - Clocks are moved back. For Daylight Savings Time Beginning in the Spring - Clocks are moved ahead. For [facility], the time of change occurs at 0200 hrs. Time is taken from the traffic observer. This entry on the patient's chart recognizes the change in time reflected during documentation. Example: 2 entries for vital signs may be charted for 0200 hrs.
[2024-06-21 04:00] VITALS: O2SAT 82
[2024-06-21 08:00] VITALS: BP 91/59; PULSE 87; PULSE 89; RESP 11; RESP 13; TEMP 36.6; O2SAT 79; O2SAT 80
--- NOTE | 2024-06-21 10:30 | P.PNIM_ITS ---
Progress Note: A&P Assessment and Plan (1) Acute on chronic systolic heart failure: Code(s): I50.23 - Acute on chronic systolic (congestive) heart failure Status: Acute (2) Acute respiratory failure with hypoxia: Code(s): J96.01 - Acute respiratory failure with hypoxia Status: Acute (3) Pneumonia: Code(s): J18.9 - Pneumonia, unspecified organism Status: Acute (4) Atrial flutter with rapid ventricular response: Code(s): I48.92 - Unspecified atrial flutter Status: Acute (5) Cardiomyopathy: Code(s): I42.9 - Cardiomyopathy, unspecified Status: Acute (6) Noncompliance: Code(s): Z91.199 - Patient's noncompliance with other medical treatment and regimen due to unspecified reason Status: Acute (7) Renal failure: Code(s): N19 - Unspecified kidney failure Status: Acute (8) Amphetamine abuse: Code(s): F15.10 - Other stimulant abuse, uncomplicated Status: Acute (9) Alcohol abuse: Code(s): F10.10 - Alcohol abuse, uncomplicated Status: Acute (10) Cardiac arrest: Code(s): I46.9 - Cardiac arrest, cause unspecified Status: Acute (11) Heart failure with reduced ejection fraction: Code(s): I50.20 - Unspecified systolic (congestive) heart failure Status: Acute (12) Acute anoxic encephalopathy: Code(s): G93.1 - Anoxic brain damage, not elsewhere classified Status: Acute Plan Cardiac arrest Resulting from multiple factors. patient has cardiomyopathy, severe systolic heart failure, history of drug abuse, Patient was found have acute systolic heart failure, acute respiratory failure and pneumonia, atrial flutter and RVR all of the acute issues can resulting in cardiac arrest. Patient also has DVT, patient is on Xarelto, not sure patient is compliant with the blood thinner Given acute renal failure, we cannot perform CTA of chest Pending venous Doppler of bilateral lower extremities Pending drug screening, alcohol screening Hold Xarelto Start heparin drip Follow-up echocardiogram Telemetry monitoring Consult oil burner installer and drill sharpener for evaluation treatment Acute anoxic encephalopathy Patient is unresponsive after cardiopulmonary resuscitation start Hypothermic therapy per protocol Follow-up CT head without contrast Further management per oil burner installer Community-acquired pneumonia, acute respiratory failure Chest x-ray showed Worsened airspace opacities in right lung, consistent with pneumonia versus pulmonary edema versus atelectasis. Switch from doxycycline, ceftriaxone to vancomycin and cefepime, add Flagyl Patient is intubated, continue mechanical ventilation Follow ABG Consult oil burner installer for evaluation treatment Acute on chronic systolic heart failure, cardiogenic shock Received Lasix in the ED Chronic patient has hypotension, blood pressures 76/67 Suspecting cardiogenic shock Consult drill sharpener for evaluation treatment Hypotension Possible resulting from cardiogenic shock and septic shock Central lines placed Start norepinephrine, titrate to keep map above 65 Pending echocardiogram Consult drill sharpener and oil burner installer for further evaluation treatment Septic shock Patient has leukocytosis, hypotension, x-ray showed pneumonia, Antibiotics see above Pending blood culture urine culture Antibiotics see above KELSEA on CKD Creatinine 2.27, baseline 1.34 on June 11 Likely resulting from cardiogenic shock, septic shock Follow urinalysis and renal ultrasound Consult road mender History of cirrhosis of liver likely related to alcoholism Patient drinks 1/5 of whiskey every 2 days c/w thiamine and folic acid IV 06/21: Patient was extubated, patient was moved to comfort care. Will discontinue labs and no further workup. Will provide medications for comfort care only Subjective Date/time seen: 06/21/24 10:30 Interval history: I saw examined patient today. Patient was unresponsive, unable to follow commands. Blood pressure low. Patient was extubated for comfort care Exam Narrative: General: Patient intubated and sedated in no acute distress HEENT:? Pupils are fixed, unresponsive but not dilated. Neck:? Supple Respiratory:? Coarse breath sounds bilateral R > L, no wheezing, adequate air entry Cardiac:? S1-S2 normal, regular rate and rhythm Abdomen:? Soft, nontender, nondistended, hypoactive bowel sounds Extremities:? Extremities are cold, dopplerable pedal pulses, 2+ pitting edema, mottling of the lower extremities noted, discoloration of the feet bilateral Neuro:? Patient is sedated, intubated, does not open his eyes or follow simple commands, does not withdraw to pain in any extremities Skin:? For cool to touch, dry skin noted Psych:? Unable to assess Objective Data Vital Signs Vital Signs: Vital Signs - 24 hr 06/20/24 09:45 06/20/24 09:47 06/20/24 09:52 Temperature 96.8 F L Pulse Rate 86 86 86 Respiratory Rate 18 Blood Pressure 88/75 L 88/75 L 89/72 L Pulse Oximetry 97 Oxygen Delivery Fraction of Inspired Oxygen 06/20/24 09:55 06/20/24 10:00 06/20/24 10:00 Temperature Pulse Rate 86 87 87 Respiratory Rate Blood Pressure 94/68 L 98/80 L 98/80 L Pulse Oximetry Oxygen Delivery Fraction of Inspired Oxygen 06/20/24 10:00 06/20/24 10:00 06/20/24 10:00 Temperature Pulse Rate 87 87 87 Respiratory Rate 26 H 20 Blood Pressure Pulse Oximetry Oxygen Delivery Fraction of Inspired Oxygen 06/20/24 10:00 06/20/24 10:15 06/20/24 10:30 Temperature 97.1 F L 97.2 F L 97.2 F L Pulse Rate 87 88 88 Respiratory Rate 20 21 H 20 Blood Pressure 98/80 L 100/80 107/89 Pulse Oximetry 97 97 97 Oxygen Delivery Fraction of Inspired Oxygen 06/20/24 10:41 06/20/24 10:45 06/20/24 11:01 Temperature 97.2 F L 97.2 F L Pulse Rate 88 89 91 Respiratory Rate 20 22 H Blood Pressure 53/36 L 101/59 L Pulse Oximetry 98 98 98 Oxygen Delivery Mechanical Ventilation Fraction of Inspired Oxygen 50 06/20/24 11:08 06/20/24 11:15 06/20/24 11:15 Temperature 97.2 F L Pulse Rate 90 89 88 Respiratory Rate 21 H Blood Pressure 53/36 L 128/97 H 128/97 H Pulse Oximetry Oxygen Delivery Fraction of Inspired Oxygen 06/20/24 11:30 06/20/24 11:31 06/20/24 11:46 Temperature 96.9 F L 96.8 F L Pulse Rate 85 87 84 Respiratory Rate 21 H 27 H Blood Pressure 133/102 H 133/102 H 109/92 H Pulse Oximetry Oxygen Delivery Fraction of Inspired Oxygen 06/20/24 12:00 06/20/24 12:00 06/20/24 12:00 Temperature Pulse Rate 82 82 82 Respiratory Rate 27 H Blood Pressure 95/68 L 95/68 L Pulse Oximetry 100 Oxygen Delivery Mechanical Ventilation Fraction of Inspired Oxygen 50 06/20/24 12:00 06/20/24 12:00 06/20/24 12:00 Temperature Pulse Rate 82 82 74 Respiratory Rate 33 H 33 H Blood Pressure Pulse Oximetry Oxygen Delivery Fraction of Inspired Oxygen 06/20/24 12:00 06/20/24 12:01 06/20/24 12:15 Temperature 96.6 F L Pulse Rate 80 81 Respiratory Rate 34 H Blood Pressure 95/68 L 133/113 H Pulse Oximetry 95 Oxygen Delivery Fraction of Inspired Oxygen 50 06/20/24 12:17 06/20/24 12:20 06/20/24 12:25 Temperature 96.4 F L Pulse Rate 80 82 83 Respiratory Rate 26 H Blood Pressure 133/113 H 141/122 H 131/120 H Pulse Oximetry 95 Oxygen Delivery Fraction of Inspired Oxygen 06/20/24 12:30 06/20/24 12:30 06/20/24 12:35 Temperature 96.3 F L Pulse Rate 83 83 83 Respiratory Rate 26 H Blood Pressure 143/112 H 143/112 H 131/90 Pulse Oximetry 100 Oxygen Delivery Fraction of Inspired Oxygen 06/20/24 12:40 06/20/24 12:45 06/20/24 12:45 Temperature 95.9 F L Pulse Rate 84 84 84 Respiratory Rate 27 H Blood Pressure 132/109 H 138/108 H 138/108 H Pulse Oximetry 100 Oxygen Delivery Fraction of Inspired Oxygen 06/20/24 12:50 06/20/24 12:55 06/20/24 13:00 Temperature Pulse Rate 84 84 83 Respiratory Rate Blood Pressure 129/107 H 130/109 H 130/109 H Pulse Oximetry Oxygen Delivery Fraction of Inspired Oxygen 06/20/24 13:00 06/20/24 13:15 06/20/24 13:15 Temperature 95.7 F L 95.5 F L Pulse Rate 83 82 83 Respiratory Rate 28 H 23 H Blood Pressure 130/109 H 136/109 H 136/109 H Pulse Oximetry 100 100 Oxygen Delivery Fraction of Inspired Oxygen 06/20/24 13:30 06/20/24 13:30 06/20/24 13:30 Temperature Pulse Rate 78 78 78 Respiratory Rate 24 H 24 H Blood Pressure 135/59 L Pulse Oximetry Oxygen Delivery Fraction of Inspired Oxygen 06/20/24 13:32 06/20/24 13:39 06/20/24 13:39 Temperature 95.4 F L Pulse Rate 78 82 82 Respiratory Rate 20 23 H Blood Pressure 135/59 L Pulse Oximetry 100 100 Oxygen Delivery Mechanical Ventilation Fraction of Inspired Oxygen 50 06/20/24 13:45 06/20/24 13:46 06/20/24 13:48 Temperature 95.2 F L Pulse Rate 82 82 82 Respiratory Rate 24 H Blood Pressure 124/100 H 124/100 H 124/100 H Pulse Oximetry 100 Oxygen Delivery Fraction of Inspired Oxygen 06/20/24 13:50 06/20/24 14:00 06/20/24 14:00 Temperature Pulse Rate 82 82 108 H Respiratory Rate Blood Pressure 128/107 H 106/87 97/58 L Pulse Oximetry Oxygen Delivery Fraction of Inspired Oxygen 06/20/24 14:00 06/20/24 14:00 06/20/24 14:00 Temperature Pulse Rate 83 83 83 Respiratory Rate 24 H 24 H Blood Pressure Pulse Oximetry Oxygen Delivery Fraction of Inspired Oxygen 06/20/24 14:00 06/20/24 14:15 06/20/24 14:16 Temperature 95.3 F L 95.3 F L Pulse Rate 83 81 81 Respiratory Rate 19 24 H Blood Pressure 106/87 99/70 L 99/70 L Pulse Oximetry 100 100 Oxygen Delivery Fraction of Inspired Oxygen 06/20/24 14:23 06/20/24 14:30 06/20/24 14:30 Temperature 95.3 F L Pulse Rate 80 80 80 Respiratory Rate 22 H 24 H Blood Pressure 94/79 L 94/79 L Pulse Oximetry 99 Oxygen Delivery Fraction of Inspired Oxygen 06/20/24 14:45 06/20/24 14:45 06/20/24 15:00 Temperature 95.3 F L 95.3 F L Pulse Rate 80 80 80 Respiratory Rate 24 H 24 H Blood Pressure 91/46 L 91/76 L 91/76 L Pulse Oximetry 99 99 Oxygen Delivery Fraction of Inspired Oxygen 06/20/24 15:30 06/20/24 15:46 06/20/24 16:00 Temperature Pulse Rate 82 82 79 Respiratory Rate 24 H Blood Pressure 94/78 L 94/77 L Pulse Oximetry 97 Oxygen Delivery Mechanical Ventilation Fraction of Inspired Oxygen 50 06/20/24 16:00 06/20/24 16:00 06/20/24 16:00 Temperature Pulse Rate 79 79 79 Respiratory Rate 24 H 24 H Blood Pressure 94/77 L Pulse Oximetry Oxygen Delivery Fraction of Inspired Oxygen 06/20/24 16:00 06/20/24 16:00 06/20/24 16:00 Temperature 95.3 F L Pulse Rate 79 77 Respiratory Rate 24 H Blood Pressure 94/77 L 94/77 L Pulse Oximetry 96 Oxygen Delivery Fraction of Inspired Oxygen 50 06/20/24 16:00 06/20/24 16:27 06/20/24 17:15 Temperature Pulse Rate 81 80 79 Respiratory Rate Blood Pressure Pulse Oximetry 100 100 Oxygen Delivery Mechanical Ventilation Mechanical Ventilation Fraction of Inspired Oxygen 50 50 06/20/24 17:15 06/20/24 18:00 06/20/24 18:00 Temperature Pulse Rate 79 85 86 Respiratory Rate 26 H Blood Pressure 126/94 H 126/94 H Pulse Oximetry Oxygen Delivery Fraction of Inspired Oxygen 06/20/24 18:00 06/20/24 18:00 06/20/24 18:00 Temperature Pulse Rate 87 86 86 Respiratory Rate 24 H 24 H Blood Pressure 126/94 H Pulse Oximetry Oxygen Delivery Fraction of Inspired Oxygen 06/20/24 18:00 06/20/24 18:00 06/20/24 18:00 Temperature 95.7 F L Pulse Rate 86 88 89 Respiratory Rate 24 H Blood Pressure 126/94 H 126/94 H Pulse Oximetry 100 Oxygen Delivery Fraction of Inspired Oxygen 06/20/24 18:02 06/20/24 20:00 06/20/24 20:00 Temperature 97.5 F L Pulse Rate 86 93 93 Respiratory Rate 24 H 24 H Blood Pressure 116/88 Pulse Oximetry 97 Oxygen Delivery Fraction of Inspired Oxygen 06/20/24 20:00 06/20/24 20:00 06/20/24 20:00 Temperature Pulse Rate 93 94 Respiratory Rate 24 H Blood Pressure Pulse Oximetry 97 Oxygen Delivery Mechanical Ventilation Fraction of Inspired Oxygen 50 50 06/20/24 20:22 06/20/24 20:22 06/20/24 20:22 Temperature Pulse Rate 93 93 93 Respiratory Rate 24 H Blood Pressure Pulse Oximetry Oxygen Delivery Fraction of Inspired Oxygen 06/21/24 00:00 06/21/24 04:00 06/21/24 08:00 Temperature 98.6 F 97.9 F Pulse Rate 95 89 Respiratory Rate 16 13 Blood Pressure 101/69 91/59 L Pulse Oximetry 82 L 82 L 80 L Oxygen Delivery Room Air Fraction of Inspired Oxygen 06/21/24 08:00 Temperature Pulse Rate 87 Respiratory Rate 11 L Blood Pressure Pulse Oximetry 79 L Oxygen Delivery Room Air Fraction of Inspired Oxygen Intake/Output Intake/Output: Intake & Output 06/18/24 06/19/24 06/20/24 06/22/24 23:59 23:59 23:59 00:59 Intake Total 2503.4 0 Output Total 950 200 125 Balance -950 2303.4 -125 Meds/Results Medications: Active Medications Generic Name Dose Route Start Last Admin Trade Name Freq PRN Reason Stop Dose Admin Lorazepam 2 mg 06/20/24 19:36 06/21/24 08:13 Lorazepam Inj (*Crx) 2 Mg/Ml Vial IV PUSH 2 mg Q2H PRN Administration Anxiety/Comfort Morphine Sulfate 2 mg 06/20/24 19:36 06/21/24 08:12 Morphine Sulfate (*Crx) 2 Mg/Ml Inj IV PUSH 2 mg Q30M PRN Administration COMFORT Radiology Results: ITS Impressions Abdomen X-Ray 06/20/24 08:03 IMPRESSION: 1. Nasogastric tube tip in the stomach. 2. Airspace opacities in right lung and left lower lung zone with interval worsening, consistent with pulmonary edema versus pneumonia. Venous Doppler Study 06/20/24 10:36 IMPRESSION: 1. No deep venous thrombosis. Renal Ultrasound 06/20/24 10:37 IMPRESSION: 1. Normal kidneys. No hydronephrosis. Chest X-Ray 06/20/24 12:19 IMPRESSION: 1. Airspace opacities in right lung and left lower lung zone with slight worsening on the left, consistent with atelectasis versus pneumonia. 2. Worsened moderate-sized right pleural effusion. Labs Labs: Laboratory Results - last 24 hr 06/20/24 06/20/24 06/20/24 08:08 09:08 09:13 WBC RBC Hgb Hct MCV MCH MCHC RDW Plt Count MPV PT INR APTT Puncture Site ABG pH 7.230 L* ABG pCO2 ABG pO2 ABG PO2/FiO2 Ratio ABG HCO3 ABG O2 Saturation ABG O2 Content ABG Base Excess A-a Gradient Oxyhemoglobin Total Hemoglobin O2 Delivery Device O2 Liters/Min FiO2 Sodium Potassium Chloride Carbon Dioxide Anion Gap BUN Creatinine Estim Creat Clear Calc Estimated GFR Glucose POC Capillary Glucose Lactic Acid Calcium Magnesium Total Bilirubin AST ALT Alkaline Phosphatase Total Creatine Kinase Troponin I Total Protein Albumin Nasal MRSA (PCR) Not detected Urine Opiates Screen Urine Methadone Screen Ur Barbiturates Screen Ur Phencyclidine Scrn Ur Amphetamine Screen U Benzodiazepines Scrn Urine Cocaine Screen U Cannabinoids Screen Influenza A (RT-PCR) Negative Influenza B (RT-PCR) Negative SARS-CoV-2 RNA (RT-PCR) Negative 06/20/24 06/20/24 06/20/24 10:48 11:24 11:41 WBC 12.9 H RBC 4.86 Hgb 15.3 Hct 48.1 MCV 99.0 MCH 31.5 MCHC 31.8 L RDW 15.8 H Plt Count 210 MPV 10.2 PT 18.7 H INR 1.5 APTT 57.8 H Puncture Site ABG pH ABG pCO2 ABG pO2 ABG PO2/FiO2 Ratio ABG HCO3 ABG O2 Saturation ABG O2 Content ABG Base Excess A-a Gradient Oxyhemoglobin Total Hemoglobin O2 Delivery Device O2 Liters/Min FiO2 Sodium 139 Potassium 7.4 H* Chloride 105 Carbon Dioxide 15 L Anion Gap 19 H BUN 22 H Creatinine 2.48 H Estim Creat Clear Calc 34 Estimated GFR 27 L Glucose 45 L* POC Capillary Glucose < 20 L* 25 L* Lactic Acid 7.4 H* Calcium 8.8 Magnesium 2.1 Total Bilirubin 4.2 H AST 89 H ALT 63 H Alkaline Phosphatase 123 Total Creatine Kinase 91 Troponin I 0.049 H* Total Protein 8.0 Albumin 4.2 Nasal MRSA (PCR) Urine Opiates Screen Urine Methadone Screen Ur Barbiturates Screen Ur Phencyclidine Scrn Ur Amphetamine Screen U Benzodiazepines Scrn Urine Cocaine Screen U Cannabinoids Screen Influenza A (RT-PCR) Influenza B (RT-PCR) SARS-CoV-2 RNA (RT-PCR) 06/20/24 06/20/24 06/20/24 11:57 12:03 12:17 WBC RBC Hgb Hct MCV MCH MCHC RDW Plt Count MPV PT INR APTT Puncture Site Left femoral ABG pH 7.240 L* ABG pCO2 20.5 L* ABG pO2 483.4 H ABG PO2/FiO2 Ratio 4.83 ABG HCO3 8.6 L ABG O2 Saturation 99.8 ABG O2 Content 21.9 ABG Base Excess -16.5 A-a Gradient 209.1 Oxyhemoglobin 99.1 Total Hemoglobin 14.8 O2 Delivery Device Ambu bag O2 Liters/Min 15.0 FiO2 100 Sodium Potassium Chloride Carbon Dioxide Anion Gap BUN Creatinine Estim Creat Clear Calc Estimated GFR Glucose POC Capillary Glucose 40 L* 171 H Lactic Acid Calcium Magnesium Total Bilirubin AST ALT Alkaline Phosphatase Total Creatine Kinase Troponin I Total Protein Albumin Nasal MRSA (PCR) Urine Opiates Screen Urine Methadone Screen Ur Barbiturates Screen Ur Phencyclidine Scrn Ur Amphetamine Screen U Benzodiazepines Scrn Urine Cocaine Screen U Cannabinoids Screen Influenza A (RT-PCR) Influenza B (RT-PCR) SARS-CoV-2 RNA (RT-PCR) 06/20/24 06/20/24 06/20/24 13:22 14:15 16:14 WBC RBC Hgb Hct MCV MCH MCHC RDW Plt Count MPV PT INR APTT Puncture Site ABG pH ABG pCO2 ABG pO2 ABG PO2/FiO2 Ratio ABG HCO3 ABG O2 Saturation ABG O2 Content ABG Base Excess A-a Gradient Oxyhemoglobin Total Hemoglobin O2 Delivery Device O2 Liters/Min FiO2 Sodium Potassium Chloride Carbon Dioxide Anion Gap BUN Creatinine Estim Creat Clear Calc Estimated GFR Glucose POC Capillary Glucose 139 H 166 H 162 H Lactic Acid Calcium Magnesium Total Bilirubin AST ALT Alkaline Phosphatase Total Creatine Kinase Troponin I Total Protein Albumin Nasal MRSA (PCR) Urine Opiates Screen Urine Methadone Screen Ur Barbiturates Screen Ur Phencyclidine Scrn Ur Amphetamine Screen U Benzodiazepines Scrn Urine Cocaine Screen U Cannabinoids Screen Influenza A (RT-PCR) Influenza B (RT-PCR) SARS-CoV-2 RNA (RT-PCR) 06/20/24 06/20/24 06/20/24 16:29 17:19 18:14 WBC RBC Hgb Hct MCV MCH MCHC RDW Plt Count MPV PT INR APTT 137.5 H Puncture Site ABG pH ABG pCO2 ABG pO2 ABG PO2/FiO2 Ratio ABG HCO3 ABG O2 Saturation ABG O2 Content ABG Base Excess A-a Gradient Oxyhemoglobin Total Hemoglobin O2 Delivery Device O2 Liters/Min FiO2 Sodium 138 Potassium 6.1 H* Chloride 101 Carbon Dioxide 16 L Anion Gap 21 H BUN 24 H Creatinine 2.59 H Estim Creat Clear Calc 32 Estimated GFR 26 L Glucose 293 H POC Capillary Glucose 210 H Lactic Acid 10.3 H* Calcium 8.0 L Magnesium Total Bilirubin AST ALT Alkaline Phosphatase Total Creatine Kinase 151 Troponin I Total Protein Albumin Nasal MRSA (PCR) Urine Opiates Screen Negative Urine Methadone Screen Negative Ur Barbiturates Screen Negative Ur Phencyclidine Scrn Negative Ur Amphetamine Screen Positive A U Benzodiazepines Scrn Positive A Urine Cocaine Screen Negative U Cannabinoids Screen Negative Influenza A (RT-PCR) Influenza B (RT-PCR) SARS-CoV-2 RNA (RT-PCR) 06/20/24 19:08 WBC RBC Hgb Hct MCV MCH MCHC RDW Plt Count MPV PT INR APTT Puncture Site ABG pH ABG pCO2 ABG pO2 ABG PO2/FiO2 Ratio ABG HCO3 ABG O2 Saturation ABG O2 Content ABG Base Excess A-a Gradient Oxyhemoglobin Total Hemoglobin O2 Delivery Device O2 Liters/Min FiO2 Sodium 141 Potassium 4.2 Chloride 101 Carbon Dioxide 21 L Anion Gap 19 H BUN 27 H Creatinine 2.60 H Estim Creat Clear Calc 32 Estimated GFR 26 L Glucose 246 H POC Capillary Glucose Lactic Acid Calcium 8.2 L Magnesium Total Bilirubin AST ALT Alkaline Phosphatase Total Creatine Kinase Troponin I Total Protein Albumin Nasal MRSA (PCR) Urine Opiates Screen Urine Methadone Screen Ur Barbiturates Screen Ur Phencyclidine Scrn Ur Amphetamine Screen U Benzodiazepines Scrn Urine Cocaine Screen U Cannabinoids Screen Influenza A (RT-PCR) Influenza B (RT-PCR) SARS-CoV-2 RNA (RT-PCR)
[2024-06-21 14:00] VITALS: BP 98/59; PULSE 99; RESP 10; TEMP 36.3; O2SAT 78
[2024-06-21 20:00] VITALS: O2SAT 86
[2024-06-21 22:00] VITALS: BP 112/73; PULSE 114; RESP 18; TEMP 36.4; O2SAT 90
[2024-06-21] MEDS: GLYCOPYRROLATE INJ (*SP) 0.2 MG/ML VIAL IV PUSH (23:23)
[2024-06-21] MEDS: ATROPINE SULFATE 1% OPHTH SOLN 5 ML BOTTLE 1 DROP SUBLINGUAL (23:24)
[2024-06-22 05:31] VITALS: BP 110/66; PULSE 116; RESP 18; TEMP 36.6; O2SAT 90
--- NOTE | 2024-06-22 07:05 | PC.NURSE ---
Patient at 704.
--- NOTE | 2024-06-22 08:44 | PM.IMPN ---
Progress Note: A&P Assessment and Plan (1) Acute on chronic systolic heart failure: Code(s): I50.23 - Acute on chronic systolic (congestive) heart failure Status: Acute (2) Acute respiratory failure with hypoxia: Code(s): J96.01 - Acute respiratory failure with hypoxia Status: Acute (3) Pneumonia: Code(s): J18.9 - Pneumonia, unspecified organism Status: Acute (4) Atrial flutter with rapid ventricular response: Code(s): I48.92 - Unspecified atrial flutter Status: Acute (5) Cardiomyopathy: Code(s): I42.9 - Cardiomyopathy, unspecified Status: Acute (6) Noncompliance: Code(s): Z91.199 - Patient's noncompliance with other medical treatment and regimen due to unspecified reason Status: Acute (7) Renal failure: Code(s): N19 - Unspecified kidney failure Status: Acute (8) Amphetamine abuse: Code(s): F15.10 - Other stimulant abuse, uncomplicated Status: Acute (9) Alcohol abuse: Code(s): F10.10 - Alcohol abuse, uncomplicated Status: Acute (10) Cardiac arrest: Code(s): I46.9 - Cardiac arrest, cause unspecified Status: Acute (11) Heart failure with reduced ejection fraction: Code(s): I50.20 - Unspecified systolic (congestive) heart failure Status: Acute (12) Acute anoxic encephalopathy: Code(s): G93.1 - Anoxic brain damage, not elsewhere classified Status: Acute Plan Cardiac arrest Resulting from multiple factors. patient has cardiomyopathy, severe systolic heart failure, history of drug abuse, Patient was found have acute systolic heart failure, acute respiratory failure and pneumonia, atrial flutter and RVR all of the acute issues can resulting in cardiac arrest. Patient also has DVT, patient is on Xarelto, not sure patient is compliant with the blood thinner Given acute renal failure, we cannot perform CTA of chest Pending venous Doppler of bilateral lower extremities Pending drug screening, alcohol screening Hold Xarelto Start heparin drip Follow-up echocardiogram Telemetry monitoring Consult digital cartographer and mixing roll operator for evaluation treatment Acute anoxic encephalopathy Patient is unresponsive after cardiopulmonary resuscitation start Hypothermic therapy per protocol Follow-up CT head without contrast Further management per digital cartographer Community-acquired pneumonia, acute respiratory failure Chest x-ray showed Worsened airspace opacities in right lung, consistent with pneumonia versus pulmonary edema versus atelectasis. Switch from doxycycline, ceftriaxone to vancomycin and cefepime, add Flagyl Patient is intubated, continue mechanical ventilation Follow ABG Consult digital cartographer for evaluation treatment Acute on chronic systolic heart failure, cardiogenic shock Received Lasix in the ED Chronic patient has hypotension, blood pressures 76/67 Suspecting cardiogenic shock Consult mixing roll operator for evaluation treatment Hypotension Possible resulting from cardiogenic shock and septic shock Central lines placed Start norepinephrine, titrate to keep map above 65 Pending echocardiogram Consult mixing roll operator and digital cartographer for further evaluation treatment Septic shock Patient has leukocytosis, hypotension, x-ray showed pneumonia, Antibiotics see above Pending blood culture urine culture Antibiotics see above KELSEA on CKD Creatinine 2.27, baseline 1.34 on June 11 Likely resulting from cardiogenic shock, septic shock Follow urinalysis and renal ultrasound Consult novelty balloon assembler and packer History of cirrhosis of liver likely related to alcoholism Patient drinks 1/5 of whiskey every 2 days c/w thiamine and folic acid IV 06/21: Patient was extubated, patient was moved to comfort care. Will discontinue labs and no further workup. Will provide medications for comfort care only 06/22: Patient on 07:05 am today on comfort care Subjective Date/time seen: 06/22/24 08:44 Interval history: pt on 7:05 am Objective Data Vital Signs Vital Signs: Vital Signs - 24 hr 06/21/24 14:00 06/21/24 20:00 06/21/24 22:00 Temperature 97.4 F L 97.5 F L Pulse Rate 99 114 H Respiratory Rate 10 L 18 Blood Pressure 98/59 L 112/73 Pulse Oximetry 78 L 86 L 90 Oxygen Delivery Room Air 06/22/24 05:31 Temperature 97.8 F Pulse Rate 116 H Respiratory Rate 18 Blood Pressure 110/66 Pulse Oximetry 90 Oxygen Delivery Intake/Output Intake/Output: Intake & Output 06/19/24 06/20/24 06/22/24 06/22/24 23:59 23:59 00:59 23:59 Intake Total 2503.4 0 Output Total 950 200 135 Balance -950 2303.4 -135 Meds/Results Medications: Active Medications Generic Name Dose Route Start Last Admin Trade Name Freq PRN Reason Stop Dose Admin Atropine Sulfate 1 drop 06/21/24 22:24 06/21/24 23:24 Atropine Sulfate 1% Ophth Soln 5 Ml Bottle SUBLINGUAL 1 drop Q4H PRN Administration Secretions Lorazepam 2 mg 06/20/24 19:36 06/21/24 10:44 Lorazepam Inj (*Crx) 2 Mg/Ml Vial IV PUSH 2 mg Q2H PRN Administration Anxiety/Comfort Morphine Sulfate 2 mg 06/20/24 19:36 06/21/24 23:23 Morphine Sulfate (*Crx) 2 Mg/Ml Inj IV PUSH 2 mg Q30M PRN Administration COMFORT Radiology Results: ITS Impressions Abdomen X-Ray 06/20/24 08:03 IMPRESSION: 1. Nasogastric tube tip in the stomach. 2. Airspace opacities in right lung and left lower lung zone with interval worsening, consistent with pulmonary edema versus pneumonia. Venous Doppler Study 06/20/24 10:36 IMPRESSION: 1. No deep venous thrombosis. Renal Ultrasound 06/20/24 10:37 IMPRESSION: 1. Normal kidneys. No hydronephrosis. Chest X-Ray 06/20/24 12:19 IMPRESSION: 1. Airspace opacities in right lung and left lower lung zone with slight worsening on the left, consistent with atelectasis versus pneumonia. 2. Worsened moderate-sized right pleural effusion.
--- NOTE | 2024-06-22 08:45 | P.DN_ITS ---
Discharge Summary Date and Time Time of : 07:05 Probable Cause of Probable Cause of : Cardiogenic shock and septic shock Summary Hospital Course: This is a 54-year-old male smoker with a history of heart failure with reduced ejection fraction (severely reduced left ventricular systolic function with an EF of 10 to 15% and mildly reduced right ventricular systolic function on recent echo), myocardial infarction 1996 without intervention, atrial flutter, hypertension, deep venous thrombosis following right lower extremity fracture, kidney cancer status post left nephrectomy, hepatitis-C status post interferon, cirrhosis of the liver, alcohol abuse (1/5 of whiskey every 2 days), and amphetamine abuse who presented to the emergency department for evaluation of shortness of breath. In the ED: Vital signs on arrival a include a blood pressure 167/131, pulse 139 (atrial flutter), and respiratory rate of 31. He was started on BiPAP due to work of breathing. Chest x-ray showed bibasilar pneumonia and bilateral interstitial thickening suggestive of pneumonitis versus edema. Labs were significant for WBC count of 8.3, creatinine 1.44, glucose 195, total bilirubin 2.1, proBNP 6270, troponin less than 0.012. Patient was admitted to step-down ICU with impression diagnosis of acute on chronic systolic heart failure, acute respiratory failure, pneumonia, a flutter RVR, acute renal failure, amphetamine abuse Patient received furosemide 40 mg IV and antibiotics for CHF exacerbation and possible pneumonia Patient was coded forging press operator, patient was found bradycardia and deteriorated asystole. Cardiopulmonary resuscitation was performed at bedside immediately. hewas in PEA after several rounds and at 0710 he has ROSC with rapid atrial fibrillation on the monitor. Patient intubated during resuscitation. Central line was inserted for better access and he was transferred to ICU. The following med issues were also addressed during hospitalization Cardiac arrest Resulting from multiple factors. patient has cardiomyopathy, severe systolic heart failure, history of drug abuse, Patient was found have acute systolic heart failure, acute respiratory failure and pneumonia, atrial flutter and RVR all of the acute issues can resulting in cardiac arrest. Patient also has DVT, patient is on Xarelto, not sure patient is compliant with the blood thinner Given acute renal failure, we cannot perform CTA of chest Pending venous Doppler of bilateral lower extremities Pending drug screening, alcohol screening Hold Xarelto Start heparin drip Follow-up echocardiogram Telemetry monitoring Consult laser systems engineer and detective sergeant for evaluation treatment Acute anoxic encephalopathy Patient is unresponsive after cardiopulmonary resuscitation start Hypothermic therapy per protocol Follow-up CT head without contrast Further management per laser systems engineer Community-acquired pneumonia, acute respiratory failure Chest x-ray showed Worsened airspace opacities in right lung, consistent with pneumonia versus pulmonary edema versus atelectasis. Switch from doxycycline, ceftriaxone to vancomycin and cefepime, add Flagyl Patient is intubated, continue mechanical ventilation Follow ABG Consult laser systems engineer for evaluation treatment Acute on chronic systolic heart failure, cardiogenic shock Received Lasix in the ED Chronic patient has hypotension, blood pressures 76/67 Suspecting cardiogenic shock Consult detective sergeant for evaluation treatment Hypotension Possible resulting from cardiogenic shock and septic shock Central lines placed Start norepinephrine, titrate to keep map above 65 Pending echocardiogram Consult detective sergeant and laser systems engineer for further evaluation treatment Septic shock Patient has leukocytosis, hypotension, x-ray showed pneumonia, Antibiotics see above Pending blood culture urine culture Antibiotics see above KELSEA on CKD Creatinine 2.27, baseline 1.34 on June 11 Likely resulting from cardiogenic shock, septic shock Follow urinalysis and renal ultrasound Consult broadcast designer History of cirrhosis of liver likely related to alcoholism Patient drinks 1/5 of whiskey every 2 days c/w thiamine and folic acid IV 06/21: Patient was extubated, patient was moved to comfort care. Will discontinue labs and no further workup. Will provide medications for comfort care only 06/22: Patient on 07:05 am today on comfort care
--- NOTE | 2024-06-22 10:57 | WPDCDIQUERY2 ---
CDI Query Clarification Request Septic shock has been documented, please specify if septic shock was present on admission if known. The medical chart reflects the following: Septic shock Patient has leukocytosis, hypotension, x-ray showed pneumonia, Antibiotics see above Pending blood culture urine culture lactic elevated IV abx <Tri Prescott RN - Last Filed: 06/22/24 10:59> Clarified Diagnosis Clarified Diagnosis: Septic shock may be present upon arrival <Lesley Berman MD - Last Filed: 06/22/24 15:11>
[2024-06-23 17:38] LABS: Mycoplasma IgM Antibody Titer 199 U/mL
[2024-06-24 19:02] LABS: Pneumococcal Antigen Urine NOT DETECTED
== END 2024-06-22 07:05 | disposition expired | DRG 720 ==
LOC: ANHED 21:52 → ANHIMU 22:23 → ANHICU 06-20 07:05 → ANHIMU 06-20 07:06 → ANHICU 06-20 07:14 → ANH3MEDSUR 06-24 14:02 → ANHICU 06-24 14:02
PROVIDERS: Emergency Medicine; Internal Medicine; Physician Assistant; Admitting Provider Internal Medicine; Emergency Provider Emergency Medicine; Visit Provider Hospitalist
DX: A41.9 Sepsis, unspecified organism (principal); I46.9 Cardiac arrest, cause unspecified; J96.01 Acute respiratory failure with hypoxia; R57.0 Cardiogenic shock; I50.23 Acute on chronic systolic (congestive) heart failure; J18.9 Pneumonia, unspecified organism; R65.21 Severe sepsis with septic shock; G93.1 Anoxic brain damage, not elsewhere classified; N17.9 Acute kidney failure, unspecified; I42.9 Cardiomyopathy, unspecified; I11.0 Hypertensive heart disease with heart failure; I48.91 Unspecified atrial fibrillation; B19.20 Unspecified viral hepatitis C without hepatic coma; K74.60 Unspecified cirrhosis of liver; F15.10 Other stimulant abuse, uncomplicated; F10.10 Alcohol abuse, uncomplicated; F17.210 Nicotine dependence, cigarettes, uncomplicated; Z20.822 Contact with and (suspected) exposure to COVID-19; Z86.718 Personal history of other venous thrombosis and embolism; I25.2 Old myocardial infarction; Z85.528 Personal history of other malignant neoplasm of kidney; Z90.5 Acquired absence of kidney; Z91.199 Patient's noncompliance with other medical treatment and regimen due to unspecified reason; Z59.02 Unsheltered homelessness; E87.5 Hyperkalemia
CPT/HCPCS: 31500; 36415; 36600; 71045; 74018; 76775; 80048; 80053; 80307; 82375; 82550; 82805; 82948; 83050; 83605; 83735; 83880; 84484; 85018; 85025; 85027; 85610; 85730; 86738; 87040; 87070; 87205; 87449; 87636; 87641; 87899; 92950; 93005; 93970; 94002; 94003; 94640; 96372; 96374; 96375; 96376; 99285; A9270; C1751; G0378; J0171; J0282; J0613; J0692; J1250; J1596; J1644; J1650; J1720; J1815; J1836; J1940; J2060; J2250; J2270; J2405; J2470; J3010; J3370; J3411; J7030; J7060; J7070; J7120; P9045; P9047